=== PATIENT | female | born 1980 | race Caucasian/White ===

== ENCOUNTER → 2018-05-31 07:23 | Outpatient (CLI) | payer OTHER, SELFPAY ==
[2018-05-31 08:34] LABS: Absolute Lymphocyte Count 2.36 X10^3/ul (0.83-4.51); Absolute Neutrophil Count 5.7 X10^3/uL (2.0-7.7); Basophil# 0.04 X10^3/uL; Basophil% 0.4 % (0-1); Eosinophil# 0.48 X10^3/uL; Eosinophils% 5.3 % (0-5); Hematocrit 40.3 % (37-47); Hemoglobin 13.9 g/dl (12.0-15.0); Lymphocyte # 2.36 X10^3/ul (4.0); Lymphocyte % 25.8 % (19-41); Mean Corp Hgb Conc 34.5 g/gl (32-36); Mean Corpuscular Volume 89.8 fL (81-99); Mean Platelet Vol. 11.3 fl (6.2-12.0); Monocyte# 0.52 X10^3/uL; Monocyte% 5.7 % (0-10); Neutrophil # 5.72 X10^3/uL (2.7-7.7); Neutrophil % 62.6 % (47-70); Platelet Count 240 K/mm3 (150-450); RBC Distribution Width CV 13.4 % (11.6-14.6); Red Blood Count 4.49 M/mm3 (4.2-5.4); White Blood Count 9.1 K/mm3 (4.4-11.0)
[2018-05-31 08:38] LABS: POSITIVE COUNT NO; POSITIVE DIFFERENTIAL NO; POSITIVE MORPHOLOGY NO
[2018-05-31 09:02] LABS: AST(SGOT) 13 U/L (15-37); Alanine Aminotransfer ALT/SGPT 19 U/L (13-56); Albumin, Serum 3.7 g/dL (3.2-5.0); Alkaline Phosphatase 56 U/L (45-117); Anion Gap 7 (5-15); BUN 15 mg/dL (7-18); BUN/Creat Ratio 18.2 RATIO (10-20); Calcium,Total 8.9 mg/dL (8.5-10.1); Chloride 105 mmol/L (98-107); Cholesterol 210 mg/dL (200); Creatinine, Serum 0.82 mg/dL (0.55-1.02); EST Glomerular Filtration Rate 83 mL/min (>60); Est Glom Filt Rate - Afr Amer 100 mL/min (>60); Globulin 3.8 g/dL (2.2-4.2); Glucose 83 mg/dL (74-106); High Density Lipoprotein 48 mg/dL; Potassium 3.8 mmol/L (3.5-5.1); Protein, Total 7.5 g/dL (6.4-8.2); Sodium Level 140 mmol/L (136-145); Triglycerides 113 mg/dL; Very Low Density Lipoprotein 23 mg/dL (5-40)
[2018-05-31 09:19] LABS: Vitamin D,25 Hydroxy 50.1 ng/mL (29.95-100.01)
== END ==
PROVIDERS: Family Provider Internal Medicine; PCP Internal Medicine; Referring Provider Internal Medicine; Visit Provider Internal Medicine
DX: Z00.00 Encounter for general adult medical examination without abnormal findings (principal); Z51.81 Encounter for therapeutic drug level monitoring; E78.00 Pure hypercholesterolemia, unspecified; R53.83 Other fatigue
CPT/HCPCS: 36415; 80053; 80061; 82306; 85025

== ENCOUNTER → 2019-06-22 15:14 | Outpatient (CLI) | payer OTHER, SELFPAY ==
[2018-05-30 13:56] VITALS: BMI 29.5
--- NOTE | 2019-06-22 15:19 | RAD_ITS ---
STUDY: X-RAY - LEFT TIBIA AND FIBULA REASON FOR EXAM: Female, 38 years old. Bilateral lower leg pressure for several days. TECHNIQUE: 2 view(s) of the tibia and fibula were obtained. COMPARISON: None. FINDINGS: Normal visualized tibia. Normal visualized fibula. There is no demonstrated acute fracture. The soft tissue structures are unremarkable. RAD/Tibia & Fibula 2 Views IMPRESSION: Normal x-ray examination of the tibia and fibula. Electronically Signed: Kelsea Caal MD at 2:05 EDT , Service support ,
--- NOTE | 2019-06-22 15:19 | RAD_ITS ---
STUDY: X-RAY - RIGHT TIBIA AND FIBULA REASON FOR EXAM: Female, 38 years old. Bilateral lower leg pressure. TECHNIQUE: 2 view(s) of the tibia and fibula were obtained. COMPARISON: None. FINDINGS: Normal visualized tibia. Normal visualized fibula. There is no demonstrated acute fracture. The soft tissue structures are unremarkable. RAD/Tibia & Fibula 2 Views IMPRESSION: Normal x-ray examination of the tibia and fibula. Electronically Signed: Kelsea Caal MD at 2:04 EDT , Service support ,
== END ==
PROVIDERS: Family Provider Internal Medicine; PCP Internal Medicine; Referring Provider Internal Medicine; Visit Provider Internal Medicine
DX: M79.662 Pain in left lower leg (principal); M79.661 Pain in right lower leg
CPT/HCPCS: 73590

== ENCOUNTER → 2019-09-12 09:46 | Outpatient (CLI) | payer OTHER, SELFPAY ==
--- NOTE | 2019-09-12 09:49 | VDLE_ITS ---
Reason For Study: EDEMA RIGHT LEFT GSV is normal. GSV is normal. CFV is compressible, spontaneous, phasic, CFV is compressible, spontaneous, phasic, competent and demonstrates normal competent, and demonstrates normal augmentation. augmentation. FV is compressible, spontaneous, phasic, FV is compressible, spontaneous, phasic, competent and demonstrates normal competent and demonstrates normal augmentation. augmentation. POP V is compressible, spontaneous, phasic, POP V is compressible, spontaneous, phasic, competent and demonstrates normal competent and demonstrates normal augmentation. augmentation. T/P Trunk is compressible. T/P Trunk is compressible. PTV is compressible. PTV is compressible. RT PerV is compressible. LT PerV is compressible. Procedure Exam performed in department. The exam was diagnostic. A preliminary report was called and/or faxed to Dr. De Leon @ [phone] @ 10:25 am. Interpretation Summary Deep veins of the lower extremities are bilaterally patent and compressible segmentally. There is no evidence of deep vein thrombosis on either side. Valvular competence appears intact within the proximal deep venous systems bilaterally. The great saphenous veins appear bilaterally patent and compressible segmentally. Ordering Physician: Jessica De Leon Referring Physician: Jessica De Leon Performed By: Shaina Henderson, RDCS, RVT
== END ==
PROVIDERS: Family Provider Internal Medicine; PCP Internal Medicine; Referring Provider Internal Medicine; Visit Provider Internal Medicine
DX: R60.0 Localized edema (principal)
CPT/HCPCS: 93970

== ENCOUNTER → 2020-02-20 | Outpatient (CLI) | payer OTHER, SELFPAY ==
--- NOTE | 2020-02-20 15:43 | RAD_ITS ---
STUDY: X-RAY - PELVIS AND RIGHT HIP REASON FOR EXAM: Female, 39 years old. PAIN IN RIGHT HIP. NO KNOWN INJURY. TECHNIQUE: 3 views of the pelvis and hip. COMPARISON: None. FINDINGS: There is a non-specific bowel gas pattern. Normal visualized soft tissue structures. Normal bilateral iliac wings, sacroiliac joints and visualized sacrum. Normal bilateral superior and inferior pubic rami. Normal pubic symphysis. Normal bilateral ischial tuberosities. Normal visualized femoral head. Normal acetabulum. Normal hip joint. RAD/HIP, UNI W/ Pelvis 2-3 Views IMPRESSION: Normal x-ray examination of the pelvis and hip. Electronically Signed: Iraj Sotelo MD at 16:10 EDT Tel , Service support ,
== END | disposition home or self-care (01) ==
LOC: HPRAD 15:39
PROVIDERS: PCP Internal Medicine; Referring Provider Nurse Practitioner; Visit Provider Nurse Practitioner
DX: M25.551 Pain in right hip (principal)
CPT/HCPCS: 73502

== ENCOUNTER → 2020-02-25 16:21 | Outpatient (CLI) | payer OTHER, SELFPAY ==
--- NOTE | 2020-02-25 16:24 | US_ITS ---
STUDY: ULTRASOUND OF THE FEMALE PELVIS - COMPLETE REASON FOR EXAM: Female, 39 years old. RT PELVIC PAIN-HARD TO WALK LMP: TECHNIQUE: Transabdominal TECHNICAL QUALITY: Adequate. COMPARISON: June 30, 2017 FINDINGS: The uterus is anteverted and is in a midline position. The uterus measures 8.3 x 5.5 x 2.8 cm. Normal uterine cervix. The endometrium measures 3 mm in thickness, and is hyperechoic. There is no demonstrated endometrial mass. There is no demonstrated myometrial mass. I.U.D. - The patient does not have an I.U.D. The right ovary is visualized. The right ovary measures 3 x 1.8 x 1.2 cm. There is no right ovarian cyst or ovarian mass. There is no visualized right adnexal mass or complex lesion. There is normal arterial and normal venous vascularity. The left ovary is visualized. The left ovary measures 3.7 x 3.2 x 2.3 cm. There is a cyst measuring 2.5 x 2.2 x 1.3 cm. There is no visualized left adnexal mass or complex lesion. There is normal arterial and normal venous vascularity. There is no fluid in the cul-de-sac. The pre void volume of the bladder was 582 ml. Previously noted right ovarian cyst has resolved. The current left ovarian cyst is a new finding US/Pelvic (Non ) IMPRESSION: Small left ovarian cyst measuring 2.5 x 2.2 x 1.3 cm Electronically Signed: Salvador Cintron MD at 18:52 EDT , Service support ,
== END ==
PROVIDERS: PCP Internal Medicine; Referring Provider Nurse Practitioner; Visit Provider Nurse Practitioner
DX: M25.551 Pain in right hip (principal)
CPT/HCPCS: 76856

== ENCOUNTER → 2020-07-15 14:41 | Outpatient (CLI) | payer OTHER, SELFPAY ==
--- NOTE | 2020-07-15 14:42 | BI_ITS ---
MAMMOGRAPHY - BILATERAL SCREENING REASON FOR EXAM: Female, 40 years old. Routine annual screening examination. PERTINENT HISTORY: Aunt with breast cancer. TECHNIQUE: Digital bilateral breast mario (3D mammographic acquisition) in the CC and MLO projections. 2-D mediolateral oblique (MLO) and craniocaudad (CC) views of both breasts were obtained. CAD: Full Field Digital Mammography with Computer Added Detection was performed. COMPARISON: Comparison is made with prior study dated 05/22/2013. FINDINGS: Breast Composition: The breasts are heterogeneously dense, which may obscure small masses. There are no dominant masses or suspicious calcifications. No other significant abnormalities are identified. There has been no significant change since the prior study. BI/SCREEN MAMM (CAD) W/MARIO BILAT IMPRESSION: Stable bilateral screening mammogram. Yearly follow-up mammogram recommended. (A) ASSESSMENT CATEGORY: BIRADS Category 1: Negative. A letter regarding these results will be sent to the patient by the facility within 30 days. Approximately 10% of breast cancers are not detected by mammography. A normal mammogram should not delay biopsy of a clinically suspicious abnormality. [id number] Electronically Signed: Dale Dunne, at 15:50 EST , Service support ,
[2020-07-19 16:53] LABS: HPV APTIMA, High Risk Negative (Negative)
== END ==
PROVIDERS: PCP Internal Medicine; Referring Provider Nurse Practitioner Women's Health; Visit Provider Nurse Practitioner Women's Health
DX: Z12.31 Encounter for screening mammogram for malignant neoplasm of breast (principal); Z12.4 Encounter for screening for malignant neoplasm of cervix
CPT/HCPCS: 77063; 77067; 87624; 88175; G0145

== ENCOUNTER 2020-12-11 14:49 | Outpatient (RCR) | payer OTHER, SELFPAY ==
[2020-10-21 14:52] VITALS: BMI 30.1
== END 2021-02-03 23:59 ==
LOC: IMMUN 14:49
PROVIDERS: PCP Internal Medicine; Visit Provider Family Medicine
DX: Z23 Encounter for immunization (principal)
CPT/HCPCS: 0001A; 0002A; 91300

== ENCOUNTER 2021-11-11 15:19 | Outpatient (CLI) | payer OTHER, SELFPAY ==
--- NOTE | 2021-11-11 15:35 | BI_ITS ---
MAMMOGRAPHY - BILATERAL SCREENING 3-D TOMOSYNTHESIS REASON FOR EXAM: Female, 41 years old. screening PERTINENT HISTORY: No significant family history. TECHNIQUE: 2-D mammograms and 3-D Tomosynthesis of the breast (s) were performed. CAD was performed. COMPARISON: 07/15/2020 FINDINGS: The breast composition is composed of scattered fibroglandular density. Scattered benign calcifications are seen. No dense spiculated masses or suspicious microcalcifications are identified. No architectural distortion is identified. There is no skin thickening or retraction. There has been no significant change since the prior study. BI/SCRN MAMM (CAD)W/MARIO BILAT IMPRESSION: No mammographic signs of malignancy. Routine yearly mammograms recommended. ASSESSMENT CATEGORY: BIRADS Category 1: Negative. A letter regarding these results will be sent to the patient by the facility within 30 days. FOLLOW UP RECOMMENDATION: Yearly follow up mammogram recommended. (A) Approximately 10% of breast cancers are not detected by mammography. A normal mammogram should not delay biopsy of a clinically suspicious abnormality. Electronically Signed: Iraj Sotelo MD at 8:55 EDT ,
== END 2021-11-11 23:59 | disposition home or self-care (01) ==
LOC: OPBI 15:31
PROVIDERS: PCP Internal Medicine; Referring Provider Nurse Practitioner Women's Health; Visit Provider Nurse Practitioner Women's Health
DX: Z12.31 Encounter for screening mammogram for malignant neoplasm of breast (principal)
CPT/HCPCS: 77063; 77067

== ENCOUNTER → 2022-01-27 | Outpatient (CLI) | payer OTHER, SELFPAY ==
[2022-02-05 17:17] LABS: ACHR Recep AB, Blocking 18 % (0-25); Acetylcholine Receptor Binding < 0.03 nmol/L (0.00-0.24)
== END | disposition home or self-care (01) ==
LOC: MTLAB 16:20
PROVIDERS: PCP Internal Medicine; Referring Provider Ophthalmology; Visit Provider Ophthalmology
DX: H02.402 Unspecified ptosis of left eyelid (principal)
CPT/HCPCS: 36415; 83519; 84238

== ENCOUNTER → 2022-02-09 | Outpatient (CLI) | payer OTHER, SELFPAY ==
[2022-02-09 17:05] LABS: Absolute Lymphocyte Count 2.62 X10^3/uL (0.83-4.51); Absolute Neutrophil Count 6.1 X10^3/uL (2.0-7.7); Basophil# 0.07 X10^3/uL; Basophil% 0.7 % (0-1); Eosinophil# 0.17 X10^3/uL; Eosinophils% 1.8 % (0-5); Hematocrit 41.1 % (37-47); Hemoglobin 13.9 g/dL (12.0-15.0); Lymphocyte # 2.62 X10^3/ul (0.83-4.51); Mean Corp Hgb Conc 33.8 g/dL (32-36); Mean Corpuscular Hgb 30.3 pg (27.0-32.0); Mean Corpuscular Volume 89.5 fL (81-99); Mean Platelet Vol. 10.4 fl (6.2-12.0); Monocyte# 0.68 X10^3/uL; NRBC Flagged by Analyzer 0 % (0-5); Neutrophil # 6.12 X10^3/uL (2.7-7.7); Neutrophil % 63.2 % (47-70); Platelet Count 294 K/mm3 (150-450); RBC Distribution Width CV 13.4 % (11.6-14.6); RBC Distribution Width SD 44.3 fl (35.1-43.9); Red Blood Count 4.59 M/mm3 (4.2-5.4); White Blood Count 9.7 K/mm3 (4.4-11.0)
[2022-02-09 17:19] LABS: Erythrocyte Sedimentation Rate 18 mm/hr (0-30)
[2022-02-09 18:00] LABS: ALB/GLOB Ratio 1.1 RATIO (0.9-2.4); AST(SGOT) 17 U/L (15-37); Alanine Aminotransfer ALT/SGPT 26 U/L (13-56); Alkaline Phosphatase 70 U/L (45-117); Anion Gap 6 (5-15); BUN 12 mg/dL (7-18); BUN/Creat Ratio 13.2 RATIO (10-20); CRP 4.38 mg/L (0.0-3.0); Calcium,Total 9.5 mg/dL (8.5-10.1); Chloride 104 mmol/L (98-107); Creatinine, Serum 0.91 mg/dL (0.55-1.02); EST Glomerular Filtration Rate 73 mL/min (>60); Est Glom Filt Rate - Afr Amer 88 mL/min (>60); Globulin 3.7 g/dL (2.2-4.2); Glucose 83 mg/dL (74-106); Potassium 3.6 mmol/L (3.5-5.1); Protein, Total 7.7 g/dL (6.4-8.2); Sodium Level 137 mmol/L (136-145)
[2022-02-11 16:10] LABS: Endomysial Antibody IgA Negative (Negative)
[2022-02-11 21:46] LABS: Immunoglobulin A 153 mg/dL (87-352); t-Transglutaminase IgA <2 U/mL (0-3)
[2022-02-17 00:06] LABS: Anti-Centromere B Ab <0.2 AI (0.0-0.9); Anti-Chromatin <0.2 AI (0.0-0.9); Anti-Jo <0.2 AI (0.0-0.9); Anti-Scleroderma-70 AB <0.2 AI (0.0-0.9); Beef <0.10 kU/L (Class 0); Clam <0.10 kU/L (Class 0); Codfish <0.10 kU/L (Class 0); Corn <0.10 kU/L (Class 0); Egg, White 0.23 kU/L (Class 0/I); Egg, Whole 0.23 kU/L (Class 0/I); Peanut 0.13 kU/L (Class 0/I); Pork <0.10 kU/L (Class 0); RNP Ab <0.2 AI (0.0-0.9); SCALLOP <0.10 kU/L (Class 0); SESAME SEED <0.10 kU/L (Class 0); SJOGREN'S Anti-SS-A test < 0.2 AI (0.0-0.9); SJOGREN'S Anti-SS-B test < 0.2 AI (0.0-0.9); Shrimp <0.10 kU/L (Class 0); Smith Ab <0.2 AI (0.0-0.9); Soybean <0.10 kU/L (Class 0); Walnut, (Food) <0.10 kU/L (Class 0); Wheat <0.10 kU/L (Class 0)
[2022-02-17 12:08] LABS: Anti-dsDNA Ab 1 IU/mL (0-9); Chocolate <0.10 kU/L (Class 0)
== END | disposition home or self-care (01) ==
LOC: LAB 16:12
PROVIDERS: PCP Internal Medicine; Visit Provider Nurse Practitioner Adult Health
DX: R10.13 Epigastric pain (principal); R11.0 Nausea; Z83.79 Family history of other diseases of the digestive system
CPT/HCPCS: 36415; 80053; 82784; 83516; 85025; 85652; 86003; 86005; 86140; 86225; 86235; 86255

== ENCOUNTER → 2022-02-12 | Outpatient (CLI) | payer OTHER, SELFPAY ==
[2022-02-17 12:09] LABS: Calprotectin, Stool 46 ug/g (0-120)
== END | disposition home or self-care (01) ==
LOC: MTLAB 07:14
PROVIDERS: PCP Internal Medicine; Referring Provider Nurse Practitioner Adult Health; Visit Provider Nurse Practitioner Adult Health
DX: R10.13 Epigastric pain (principal); R11.0 Nausea; K58.9 Irritable bowel syndrome, unspecified; Z83.79 Family history of other diseases of the digestive system
CPT/HCPCS: 83630; 83993

== ENCOUNTER → 2022-02-25 | Outpatient (CLI) | payer OTHER, SELFPAY ==
--- NOTE | 2022-02-25 07:20 | US_ITS ---
EXAM: US ABDOMEN LIMITED, RIGHT UPPER QUADRANT CLINICAL INDICATION: postprandial epigastric pain TECHNIQUE: Real-time ultrasound of the right upper quadrant with image documentation. This report was created using [employer] report generation technology. COMPARISON: None. FINDINGS: LIVER: Unremarkable. There is normal echotexture. No focal hepatic lesion. No intrahepatic biliary ductal dilation. GALLBLADDER: Unremarkable. No shadowing gallstone. No gallbladder wall thickening is demonstrated. No pericholecystic fluid. Negative sonographic Husain''s sign. COMMON BILE DUCT: Unremarkable as visualized. The proximal common bile duct is within normal limits for the patient''s age. PANCREAS: Unremarkable as visualized. No focal abnormality is demonstrated in the pancreas. No pancreatic ductal dilatation. RIGHT KIDNEY: Unremarkable. There is no hydronephrosis. No shadowing calculus. No focal lesion or perinephric collection is demonstrated. US/Abdomen Limited IMPRESSION: Normal right upper quadrant ultrasound. Electronically Signed: Newton Romo MD at 8:10 EDT ,
== END | disposition home or self-care (01) ==
LOC: US 07:17
PROVIDERS: PCP Internal Medicine; Referring Provider Nurse Practitioner Adult Health; Visit Provider Nurse Practitioner Adult Health
DX: R10.13 Epigastric pain (principal)
CPT/HCPCS: 76705

== ENCOUNTER → 2022-03-12 | Outpatient (CLI) | payer OTHER, SELFPAY ==
--- NOTE | 2022-03-12 09:46 | NM_ITS ---
Nuclear medicine HIDA scan Indication: Postprandial epigastric pain COMPARISON STUDIES : NM - None. CR - Not available for review at this time. CT - Not available for review at this time. MR - Not available for review at this time. Technique: 5.5 mCi of technetium 99m labeled mebrofenin was injected intravenously followed by standard imaging. 1.6 mcg of CCK was injected intravenously for calculation of gallbladder ejection fraction. Findings: There is homogenous activity throughout the liver. Normal excretion of isotope into the proximal small bowel. Activity in the gallbladder is identified at 10 minutes. Gallbladder ejection fraction measures 94%. NM/Hepatobilliary Img w/Pharm Int IMPRESSION: Normal filling of the gallbladder without evidence of acute cholecystitis or biliary obstruction. Electronically Signed: Bubba Zuniga MD ([place]) at 12:16 EDT ,
== END | disposition home or self-care (01) ==
LOC: NM 09:44
PROVIDERS: PCP Internal Medicine; Referring Provider Nurse Practitioner Adult Health; Visit Provider Nurse Practitioner Adult Health
DX: R10.13 Epigastric pain (principal); R11.0 Nausea
CPT/HCPCS: 78227; A9537; J2805

== ENCOUNTER 2022-05-19 05:24 | Day surgery (SDC) | payer OTHER, SELFPAY ==
[2022-05-19] MEDS: Lactated Ringers 1,000 ML 15 ML IV (05:54)
[2022-05-19 05:56] VITALS: BP 109/64; PULSE 70; RESP 20; TEMP 36.6; O2SAT 100; BMI 32.9
[2022-05-19 06:12] LABS: Internal QC Validated? YES +Cl - CLEAR BKGD; Pregnancy, Serum, hCG Quali. NEGATIVE Negative
--- NOTE | 2022-05-19 06:30 | IMM_PTH ---
PATIENT: L[facility] KENN[facility]Y LOC: EN U#:[id number] AGE/SX: 41/F ROOM: RE05/19/[address]: Dr. Nicholas West DO : 1980 BED: DIS: 05/19/2022 SPEC #: [id number] RECD: 05/19/22 12:57 STATUS: SATNAM REBrayan #: [id number] MANNY: 05/19/22 06:[address]: Nicholas West DEPT: IMMUNOHISTOCHEMISTRY RECD BY: Jacy Alvarez ENTERED: 05/19/22 12:58 SP TYPE: IMMUNO OTHR DR: Dr. Edel Garcia DO Tissues: A - Stomach, NOS B - Esophagus, NOS Procedures: H Pylori (initial) P53 (initial) KI-67 (add) PHYSICIAN & INSTITUTION [place] [id number] SPECIMEN INFORMATION: Tissue Source: A ? Gastric antrum biopsy, B ? Distal esophagus biopsy Clinical Info: Epigastric pain, nausea, inflammatory bowel disease, heartburn Specimen Number: [id number] A & B CPT code: 07300 x2, 26402 METHODOLOGY: Deparaffinized sections of prefer/formalin-fixed tissue or PAP/DQ stained slides are incubated with monoclonal/polyclonal antibodies/oligonucleotide probes. Localization is made via biotin free immunoperoxidase method. Appropriate controls are performed and reacted as expected. Results on target cell population are indicated in the following table: RESULTS: ANTIBODY / CLONE RESULT Block A H Pylori (polyclonal) negative Block B P53 (DO-7) negative Ki-67 (30-9) positive, very low These tests were developed and their performance characteristics determined by [facility]. They may not have been cleared or approved by the U.S. Food and Drug Administration. The FDA has determined that such clearance or approval is not necessary. The above immunohistochemical/dualISH markers are ordered and reviewed by the Pathologist. INTERPRETATION: A. Gastric antrum, biopsy: Negative for Helicobacter pylori organisms. B. Distal esophagus, biopsy: Negative for dysplasia. SJ:jared 05/21/2022
--- NOTE | 2022-05-19 06:30 | COLBX_PTH ---
PATIENT: L[facility]ENN[facility] LOC: EN U#:[id number] AGE/SX: 41/F ROOM: RE05/19/[address]: Dr. Nicholas West DO : 1980 BED: DIS: 05/19/2022 SPEC #: [id number] RECD: 05/19/22 11:25 STATUS: SATNAM PAT #: [id number] MANNY: 05/19/22 06:[address]: Nicholas West DEPT: SURGICAL PATHOLOGY RECD BY: La Walsh ENTERED: 05/19/22 12:39 SP TYPE: COLON BX OTHR DR: Dr. Edel Garcia DO Tissues: A - Gastric mucous membrane B - Esophagus, NOS C - Ileum, NOS D - COLON BIOPSY Procedures: Special Stain Group II Surgery Specimen Level IV Alcian Blue/PAS (control) HEADER OPERATION: Colonoscopy with biopsies, EGD with biopsies ([facility] [place] PRE-OP DIAGNOSIS: Epigastric pain, nausea, inflammatory bowel disease, family history of colon cancer TISSUE SUBMITTED: A ? Gastric antrum biopsy, B ? Distal esophagus biopsy, C ? Terminal ileum biopsy, D ? Random colon biopsy MICROSCOPIC DIAGNOSIS A. Gastric antrum, biopsy: Mild gastritis. See microscopic description and comment. B. Distal esophagus, biopsy: Fragments of gastroesophageal mucosa with focal intestinal metaplasia (goblet cell metaplasia), consistent with Lang?s esophagus. Chronic inflammation. Negative for dysplasia. See comment. C. Terminal ileum, biopsy: A fragment of small intestinal mucosa, no pathologic diagnosis. D. Colon, random biopsy: Fragments of colonic mucosa with a few pigment laden macrophages, consistent with melanosis coli. SJ:rg 05/20/2022 COMMENT A. The results of immunohistochemistry for Helicobacter pylori will be reported separately ([id number]). B. Alcian blue/PAS stain with matched control is used in the evaluation of the specimen. Immunohistochemistry ([id number]) for P53 and Ki-67 will be performed and results will be reported separately. MICROSCOPIC DESCRIPTION Slides are reviewed. A. The specimen shows fragments of gastric mucosa with chronic inflammatory cell infiltrates in the lamina propria consisting of lymphocytes and plasma cells, consistent with mild chronic gastritis. GROSS DESCRIPTION A - Received in fixative is one container labeled with the patient's name and designated gastric antrum biopsy. The specimen consists of two irregular fragments of light mccain soft tissue that in aggregate measure 0.6 x 0.3 x 0.1 cm. The specimen is totally submitted in one cassette. B - Received in fixative is one container labeled with the patient's name and designated distal esophagus biopsy. The specimen consists of two irregular fragments of light mccain soft tissue that in aggregate measure 1 x 0.3 x 0.1 cm. The specimen is totally submitted in one cassette. C - Received in fixative is one container labeled with the patient's name and designated terminal ileum biopsy. The specimen consists of one irregular fragment of light mccain soft tissue that measures 0.5 x 0.3 x 0.1 cm. The specimen is totally submitted in one cassette. D - Received in fixative is one container labeled with the patient's name and designated random colon biopsy. The specimen consists of multiple irregular fragments of light mccain soft tissue that in aggregate measure 1.5 x 0.5 x 0.1 cm. The specimen is totally submitted in one cassette. / SJ:rg 05/19/2022 TC:5 CPT: 55472 x4, 75389
--- NOTE | 2022-05-19 07:19 | PCM.HP.BLA ---
History and Physical Date of Admission: 05/19/[address], is a 41 F who presents to the office today for: wants to schedule screening colonoscopy She had a screening colonoscopy age 26, benign. Maternal grandmother age 62 of colon cancer. Maternal great-grandmother also had colon cancer. Father had colon tumor removed, no further treatment needed, no further info known. Father has ulcerative colitis. Sister has microscopic colitis. Mother has hiatal hernia, GERD. Daughter has GERD, she is 17 yrs old, she takes pantoprazole 40 mg daily, all the enamel was worn off her teeth. Nephew has esophageal stenosis. One sister has a double colon; has polyps age 40. Patient gets excruciating pain when she eats lettuce, eggs, broccoli, some berries. Pain is across upper abdomen, feels like spasms. Also gets nausea. Starts w/in one hour of consuming the ingredient. Can be calmed down by drinking a Coke. Hot bath can help. Might have looser stools the next day. No treatment yet for the abd pain. Started maybe 5-6 yrs ago. Pt has intermittent heartburn, take PPI prn, maybe once every 2 wks. No difficulty swallowing. Intermittent nausea suddenly even w/o the abd pain, better after a snack. No vomiting or hematemesis. Occas stool softener. Can go several days w/o BM, that's normal for her. Gets diarrhea on antibiotics. No melena or hematochezia. Has venous insufficiency bilat LE, takes diuretic prn, attributed to being in breech position for one month prior to being born. She has some seasonal allergies. ROS Const Constitutional: Positive for fatigue ENT ENT: No difficulty swallowing Gastro GI: Positive for abdominal pain, bloating, diarrhea, heartburn, excessive flatus and Blood in stool; No belching, change in bowel habits, change in stool character, coffee ground emesis, constipation, cramping, difficulty swallowing, feeling full early, incontinent of stools, Vomiting blood/hematemesis, loose stools, Black,tarry stools, nausea/dyspepsia, pain with swallowing, vomiting or other Musc Musculoskeletal: Positive for numbness and tingling; No joint pain Skin Skin: No yellowing of the eye or itchy eyes Neuro Neurology: Positive for numbness and tingling Psych Psychiatric: No anxiety and No depression Endo Endocrine: Positive for fatigue Aller/Imm Allergy/Immunologic: No itchy eyes Chris/Lymp Hematologic/Lymphatic: No easy bleeding or easy bruising Exam Const General: cooperative, healthy appearing, comfortable, well developed and well groomed Eyes General: appearance normal, both eyes and all related structures Resp Effort & Inspection: normal respiratory effort GI Inspection: normal to inspection Palpation: soft, no hepatosplenomegaly, no hepatosplenomegaly and tender in the epigastrum and in the RUQ Skin General: no jaundice Neuro Speech: speech normal Gait: normal gait Psych Mood: euthymic mood Affect: normal affect Quality Reporting Tobacco Screening ([facility] 138) Smoking Status: Current every day smoker Assessment and Plan Assessment and Plan (1) Epigastric pain: ?Status:?Acute (2) Nausea: ?Status:?Acute (3) FH: inflammatory bowel disease: ?Status:?Acute (4) Heartburn: ?Status:?Acute (5) Family history of colon cancer: ?Status:?Acute ? ? ? Orders:?Orders: ? Allergen, Rast Food Profile Today R10.13, R11.0 ? ? Allergen, Food Profile Today R10.13, R11.0 ? ? Celiac Disease Profile Today R10.13, R11.0, Z83.79 ? ? Comprehensive Metabolic Profil Today R10.13, R11.0, Z83.79 ? ? CRP Today R10.13, R11.0, Z83.79 ? ? CBC W/Diff, Automated Today R10.13, R11.0, Z83.79 ? ? Erythrocyte Sed Rate Today R10.13, R11.0, Z83.79 ? ? FARZAD Comprehensive Panel Today R10.13, R11.0, Z83.79 ? ? Calprotectin, Stool Today R10.13, R11.0, Z83.79 ? ? Stool Lactoferrin/WBC Today R10.13, R11.0, Z83.79 ?Plan - Renetta Strong ASSISTANT TRACK COACH, ASSISTANT TRACK COACH-C: 41-year-old female with severe epigastric pain and nausea secondary to eating certain foods specifically lettuce, broccoli, eggs, berries.? This is sometimes followed by loose stools.? She has intermittent heartburn, tends to have constipation, positive family history of colon cancer, positive family history inflammatory bowel disease.? We will evaluate her for food allergies, celiac disease, autoimmune disorders, IBD.? Based on results we will decide what imaging might be warranted.? May need to evaluate for gallbladder disease, pancreatitis and/or pancreatic insufficiency.? We will schedule first available follow-up which is approximately 6 weeks out.? We will schedule her for upper and lower endoscopy, to be followed by 2-week follow-up to discuss biopsy results. I have re-examined the patient. There are no clinical changes since date of exam.
[2022-05-19 07:21] VITALS: BP 109/64; BP 112/7; PULSE 59; RESP 16; TEMP 36.3; O2SAT 100
--- NOTE | 2022-05-19 07:23 | OP.EGD_ITS ---
Patient Name: Bessie Jiang Procedure Date: 05/19/2022 6:14 AM Date of : 1980 Age: 41 Procedure: Upper GI endoscopy Indications: Epigastric abdominal pain Providers: Nicholas West DO Medicines: Monitored Anesthesia Care Patient Profile: This is a 41 year old female. Refer to note in patient chart for documentation of history and physical. Patient has symptoms of acute abdominal cramping and chronic epigastric abdominal pain. Complications: No immediate complications. Procedure: Pre-Anesthesia Assessment: - Prior to the procedure, a History and Physical was performed, and patient medications and allergies were reviewed. The risks and benefits of the procedure and the sedation options and risks were discussed with the patient. All questions were answered and informed consent was obtained. Patient identification and proposed procedure were verified by the physician in the pre-procedure area. Mental Status Examination: alert and oriented. Airway Examination: normal oropharyngeal airway and neck mobility. Respiratory Examination: clear to auscultation. CV Examination: normal. Prophylactic Antibiotics: The patient does not require prophylactic antibiotics. Prior Anticoagulants: The patient has taken no previous anticoagulant or antiplatelet agents. ASA Grade Assessment: II - A patient with mild systemic disease. After reviewing the risks and benefits, the patient was deemed in satisfactory condition to undergo the procedure. The anesthesia plan was to use monitored anesthesia care (MAC). Immediately prior to administration of medications, the patient was re-assessed for adequacy to receive sedatives. The heart rate, respiratory rate, oxygen saturations, blood pressure, adequacy of pulmonary ventilation, and response to care were monitored throughout the procedure. The physical status of the patient was re-assessed after the procedure. After obtaining informed consent, the endoscope was passed under direct vision. Throughout the procedure, the patient's blood pressure, pulse, and oxygen saturations were monitored continuously. The was introduced through the mouth, and advanced to the second part of duodenum. The upper GI endoscopy was accomplished without difficulty. The patient tolerated the procedure well. Scope In: 6:53:59 AM Scope Out: 7:00:40 AM Total Procedure Duration Time 0 hours 6 minutes 41 seconds Findings: The Z-line was irregular and was found 37 cm from the incisors. Biopsies were taken with a cold forceps for histology. Verification of patient identification for the specimen was done. Estimated blood loss was minimal. A small hiatal hernia was present. Localized moderate inflammation characterized by erosions and erythema was found in the gastric antrum. Biopsies were taken with a cold forceps for histology. Verification of patient identification for the specimen was done. Estimated blood loss was minimal. No gross lesions were noted in the second portion of the duodenum. Impression: - Z-line irregular, 37 cm from the incisors. Biopsied. - Small hiatal hernia. - Chronic gastritis. Biopsied. - No gross lesions in the second portion of the duodenum. Recommendation: - Discharge patient to home. - Resume previous diet. - Continue present medications. - Await pathology results. Procedure Code(s): --- Professional --- 72590, Esophagogastroduodenoscopy, flexible, transoral; with biopsy, single or multiple CPT copyright 2017 [employer]. All rights reserved. The codes documented in this report are preliminary and upon rubber ball finisher review may be revised to meet current compliance requirements. Nicholas West DO 05/19/2022 7:23:08 AM This report has been signed electronically. Number of Addenda: 0 Note Initiated On: 05/19/2022 6:14 AM
[2022-05-19 07:24] VITALS: BP 109/64; BP 113/73; PULSE 60; RESP 16; O2SAT 99
--- NOTE | 2022-05-19 07:24 | OP.CCLET_ITS ---
05/19/2022 Edel Garcia [address] [place] [address] Re : Upper GI endoscopy procedure for Bessie Jiang Dear Dr. Garcia This procedure was performed on Thursday, May 19, 2022. My impressions and recommendations are as follows: Impressions : - Z-line irregular, 37 cm from the incisors. Biopsied. - Small hiatal hernia. - Chronic gastritis. Biopsied. - No gross lesions in the second portion of the duodenum. Recommendations : - Discharge patient to home. - Resume previous diet. - Continue present medications. - Await pathology results. My findings are described in the full procedure note, which is enclosed. If I can be of further assistance, please feel free to contact me at . Sincerely, Nicholas West, 05/19/2022 7:23:08 AM This report has been signed electronically.
[2022-05-19 07:29] VITALS: BP 103/67; BP 109/64; PULSE 55; RESP 16; O2SAT 100
--- NOTE | 2022-05-19 07:29 | OP.CCLET_ITS ---
05/19/2022 Edel Garcia [address] [place] [address] Re : Colonoscopy procedure for Bessie Jiang Dear Dr. Garcia This procedure was performed on Thursday, May 19, 2022. My impressions and recommendations are as follows: Impressions : - Congested mucosa in the sigmoid colon and in the ascending colon. Biopsied. - A few ulcers in the terminal ileum. Biopsied. Recommendations : - Discharge patient to home. - Resume previous diet. - Continue present medications. - Await pathology results. - Repeat colonoscopy in 5 years for surveillance. My findings are described in the full procedure note, which is enclosed. If I can be of further assistance, please feel free to contact me at . Sincerely, Nicholas West, 05/19/2022 7:28:45 AM This report has been signed electronically.
--- NOTE | 2022-05-19 07:29 | OP.COLON_ITS ---
Patient Name: Bessie Jiang Procedure Date: 05/19/2022 7:00 AM Date of : 1980 Age: 41 Procedure: Colonoscopy Indications: Epigastric abdominal pain, Generalized abdominal pain, Family history of colon cancer in a first-degree relative Providers: Nicholas West DO Medicines: Monitored Anesthesia Care Patient Profile: This is a 41 year old female. Refer to note in patient chart for documentation of history and physical. Patient has symptoms of acute abdominal cramping and chronic epigastric abdominal pain. Last Colonoscopy: none. The patient's first colonoscopy is today. Complications: No immediate complications. Procedure: Pre-Anesthesia Assessment: - Prior to the procedure, a History and Physical was performed, and patient medications and allergies were reviewed. The risks and benefits of the procedure and the sedation options and risks were discussed with the patient. All questions were answered and informed consent was obtained. Patient identification and proposed procedure were verified by the physician in the pre-procedure area. Mental Status Examination: alert and oriented. Airway Examination: normal oropharyngeal airway and neck mobility. Respiratory Examination: clear to auscultation. CV Examination: normal. Prophylactic Antibiotics: The patient does not require prophylactic antibiotics. Prior Anticoagulants: The patient has taken no previous anticoagulant or antiplatelet agents. ASA Grade Assessment: II - A patient with mild systemic disease. After reviewing the risks and benefits, the patient was deemed in satisfactory condition to undergo the procedure. The anesthesia plan was to use monitored anesthesia care (MAC). Immediately prior to administration of medications, the patient was re-assessed for adequacy to receive sedatives. The heart rate, respiratory rate, oxygen saturations, blood pressure, adequacy of pulmonary ventilation, and response to care were monitored throughout the procedure. The physical status of the patient was re-assessed after the procedure. After I obtained informed consent, the scope was passed under direct vision. Throughout the procedure, the patient's blood pressure, pulse, and oxygen saturations were monitored continuously. The adult colonoscope was introduced through the anus and advanced to the terminal ileum. The colonoscopy was performed without difficulty. The patient tolerated the procedure well. The quality of the bowel preparation was good. Scope In: 7:02:44 AM Scope Withdrawal Time 0 hours 9 minutes 48 seconds Scope Out: 7:16:36 AM Total Procedure Duration Time 0 hours 13 minutes 52 seconds Findings: The perianal and digital rectal examinations were normal. An area of mildly congested mucosa was found in the sigmoid colon and in the ascending colon. Biopsies were taken with a cold forceps for histology. Verification of patient identification for the specimen was done. Estimated blood loss was minimal. The terminal ileum contained a few six mm ulcers. No bleeding was present. Biopsies were taken with a cold forceps for histology. Verification of patient identification for the specimen was done. Estimated blood loss was minimal. Impression: - Congested mucosa in the sigmoid colon and in the ascending colon. Biopsied. - A few ulcers in the terminal ileum. Biopsied. Recommendation: - Discharge patient to home. - Resume previous diet. - Continue present medications. - Await pathology results. - Repeat colonoscopy in 5 years for surveillance. Procedure Code(s): --- Professional --- 45915, Colonoscopy, flexible; with biopsy, single or multiple CPT copyright 2017 [employer]. All rights reserved. The codes documented in this report are preliminary and upon ripsaw grader review may be revised to meet current compliance requirements. Nicholas West DO 05/19/2022 7:28:45 AM This report has been signed electronically. Number of Addenda: 0 Note Initiated On: 05/19/2022 7:00 AM
[2022-05-19 07:35] VITALS: BP 109/64; BP 97/69; PULSE 72; RESP 16; TEMP 36.7; O2SAT 100
[2022-05-19 07:37] VITALS: BP 109/64
== END 2022-05-19 08:10 | disposition home or self-care (01) ==
LOC: EN 05:25 → AC 05:27
PROVIDERS: Anesthesiology; PCP Internal Medicine; Referring Provider Internal Medicine; Visit Provider Internal Medicine Gastroenterology
PROC: 0DJD8ZZ Inspection of Lower Intestinal Tract, Via Natural or Artificial Opening Endoscopic (ICD-10-PCS; CPT 45378; principal; 2022-05-19 06:25)
DX: K29.50 Unspecified chronic gastritis without bleeding (principal); K63.3 Ulcer of intestine; K22.70 Barrett's esophagus without dysplasia; K63.89 Other specified diseases of intestine; K44.9 Diaphragmatic hernia without obstruction or gangrene; F17.200 Nicotine dependence, unspecified, uncomplicated; Z80.0 Family history of malignant neoplasm of digestive organs; Z86.16 Personal history of COVID-19
CPT/HCPCS: 45380; 43239; 84703; 88305; 88313; 88341; 88342; J7120; J2405

== ENCOUNTER → 2022-06-02 | Outpatient (CLI) | payer OTHER, SELFPAY ==
[2022-06-02 15:29] LABS: AST(SGOT) 20 U/L (15-37); Alanine Aminotransfer ALT/SGPT 26 U/L (13-56); Alkaline Phosphatase 72 U/L (45-117); Amylase 65 U/L (25-115); Bilirubin, Direct 0.08 mg/dL (0.00-0.30); Globulin 3.8 g/dL (2.2-4.2); LDH 202 U/L (84-246); Lipase 157 U/L (73-393); Protein, Total 7.8 g/dL (6.4-8.2)
[2022-06-11 19:07] LABS: Cytoplasmic Ab (C-ANCA) <1:20 titer (Neg:<1:20); Immunoglobulin A 158 mg/dL (87-352); Immunoglobulin E 237 IU/mL (6-495); Immunoglobulin G 906 mg/dL (586-1602); Immunoglobulin M 216 mg/dL (26-217)
[2022-06-12 12:03] LABS: Perinuclear Ab (P-ANCA) <1:20 titer (Neg:<1:20)
== END | disposition home or self-care (01) ==
LOC: LAB 14:30
PROVIDERS: PCP Internal Medicine; Visit Provider Nurse Practitioner Adult Health
DX: R10.13 Epigastric pain (principal); K29.70 Gastritis, unspecified, without bleeding
CPT/HCPCS: 36415; 80076; 82150; 82784; 82785; 83615; 83690; 86256

== ENCOUNTER → 2022-06-09 | Outpatient (CLI) | payer OTHER, SELFPAY ==
[2022-06-12 13:53] LABS: Fats, Neutral Normal (.); Fats, Total Normal (.)
[2022-06-14 13:52] LABS: Pancreatic Elastase, Fecal 245 (>200)
== END | disposition home or self-care (01) ==
LOC: MTLAB 07:30
PROVIDERS: PCP Internal Medicine; Referring Provider Nurse Practitioner Adult Health; Visit Provider Nurse Practitioner Adult Health
DX: R10.13 Epigastric pain (principal)
CPT/HCPCS: 82653; 82705

== ENCOUNTER → 2022-11-12 | Outpatient (CLI) | payer OTHER, SELFPAY ==
--- NOTE | 2022-11-12 07:13 | BI_ITS ---
MAMMOGRAPHY - BILATERAL SCREENING 3-D TOMOSYNTHESIS REASON FOR EXAM: Female, 42 years old. Routine screening PERTINENT HISTORY: No significant family history. TECHNIQUE: 2-D mammograms and 3-D Tomosynthesis of the breast (s) were performed. CAD was performed. COMPARISON: 11/11/2021 FINDINGS: The breast composition is composed of scattered fibroglandular density. Scattered benign calcifications are seen. No dense spiculated masses or suspicious microcalcifications are identified. No architectural distortion is identified. There is no skin thickening or retraction. There has been no significant change since the prior study. BI/SCRN MAMM (CAD)W/MARIO BILAT IMPRESSION: No mammographic signs of malignancy. Routine yearly mammograms recommended. ASSESSMENT CATEGORY: BIRADS Category 2: Benign. A letter regarding these results will be sent to the patient by the facility within 30 days. FOLLOW UP RECOMMENDATION: Yearly follow up mammogram recommended. (A) Approximately 10% of breast cancers are not detected by mammography. A normal mammogram should not delay biopsy of a clinically suspicious abnormality. Electronically Signed: Carlos Garcia MD at 8:15 EDT ,
[2022-11-12 07:16] LABS: Absolute Lymphocyte Count 1.95 X10^3/uL (0.83-4.51); Absolute Neutrophil Count 7.1 X10^3/uL (2.0-7.7); Basophil# 0.07 X10^3/uL; Basophil% 0.7 % (0-1); Eosinophil# 0.17 X10^3/uL; Eosinophils% 1.7 % (0-5); Hematocrit 37.2 % (37-47); Hemoglobin 11.9 g/dL (12.0-15.0); Lymphocyte # 1.95 X10^3/ul (0.83-4.51); Lymphocyte % 19.3 % (19-41); Mean Corpuscular Hgb 28.7 pg (27.0-32.0); Mean Corpuscular Volume 89.6 fL (81-99); Mean Platelet Vol. 9.8 fl (6.2-12.0); Monocyte# 0.71 X10^3/uL; NRBC Flagged by Analyzer 0 % (0-5); Neutrophil # 7.14 X10^3/uL (2.7-7.7); Neutrophil % 70.9 % (47-70); Platelet Count 285 K/mm3 (150-450); RBC Distribution Width CV 13.9 % (11.6-14.6); RBC Distribution Width SD 45.7 fl (35.1-43.9); Red Blood Count 4.15 M/mm3 (4.2-5.4); White Blood Count 10.1 K/mm3 (4.4-11.0)
[2022-11-12 08:13] LABS: ALB/GLOB Ratio 0.9 RATIO (0.9-2.4); AST(SGOT) 15 U/L (15-37); Alanine Aminotransfer ALT/SGPT 28 U/L (13-56); Albumin, Serum 3.3 g/dL (3.2-5.0); Alkaline Phosphatase 78 U/L (45-117); Anion Gap 6 (5-15); BUN 14 mg/dL (7-18); BUN/Creat Ratio 20.3 RATIO (10-20); Calcium,Total 8.6 mg/dL (8.5-10.1); Chloride 109 mmol/L (98-107); Cholesterol 209 mg/dL (200); Creatinine, Serum 0.69 mg/dL (0.55-1.02); EST Glomerular Filtration Rate 99 mL/min (>60); Est Glom Filt Rate - Afr Amer 120 mL/min (>60); Globulin 3.8 g/dL (2.2-4.2); Glucose 100 mg/dL (74-106); High Density Lipoprotein 51 mg/dL; Potassium 4.1 mmol/L (3.5-5.1); Protein, Total 7.1 g/dL (6.4-8.2); Sodium Level 142 mmol/L (136-145); Triglycerides 135 mg/dL; Very Low Density Lipoprotein 27 mg/dL (5-40)
== END | disposition home or self-care (01) ==
PROVIDERS: Nurse Practitioner Family; PCP Internal Medicine; Referring Provider Nurse Practitioner Women's Health; Visit Provider Nurse Practitioner Women's Health
DX: Z12.31 Encounter for screening mammogram for malignant neoplasm of breast (principal); F41.9 Anxiety disorder, unspecified; Z13.220 Encounter for screening for lipoid disorders
CPT/HCPCS: 36415; 77063; 77067; 80053; 80061; 85025

== ENCOUNTER → 2023-03-07 | Outpatient (CLI) | payer OTHER, SELFPAY ==
[2023-03-07 15:38] LABS: Absolute Lymphocyte Count 2.15 X10^3/uL (0.83-4.51); Absolute Neutrophil Count 8.1 X10^3/uL (2.0-7.7); Basophil# 0.04 X10^3/uL; Basophil% 0.4 % (0-1); Eosinophils% 1.8 % (0-5); Hematocrit 36.8 % (37-47); Hemoglobin 11.5 g/dL (12.0-15.0); Lymphocyte # 2.15 X10^3/ul (0.83-4.51); Lymphocyte % 19.6 % (19-41); Mean Corp Hgb Conc 31.3 g/dL (32-36); Mean Corpuscular Hgb 28.5 pg (27.0-32.0); Mean Corpuscular Volume 91.1 fL (81-99); Mean Platelet Vol. 10.6 fl (6.2-12.0); Monocyte# 0.47 X10^3/uL; Monocyte% 4.3 % (0-10); NRBC Flagged by Analyzer 0 % (0-5); Neutrophil # 8.08 X10^3/uL (2.7-7.7); Neutrophil % 73.5 % (47-70); Platelet Count 341 K/mm3 (150-450); RBC Distribution Width SD 50.1 fl (35.1-43.9); RET-HE 31.1 pg (30-35); Red Blood Count 4.04 M/mm3 (4.2-5.4); Reticulocyte Count 2.54 % (0.5-1.5)
[2023-03-07 16:07] LABS: ALB/GLOB Ratio 0.8 RATIO (0.9-2.4); AST(SGOT) 16 U/L (15-37); Alanine Aminotransfer ALT/SGPT 22 U/L (13-56); Albumin, Serum 3.4 g/dL (3.2-5.0); Alkaline Phosphatase 80 U/L (45-117); Anion Gap 5 (5-15); BUN 13 mg/dL (7-18); BUN/Creat Ratio 16.3 RATIO (10-20); Calcium,Total 9.1 mg/dL (8.5-10.1); Chloride 108 mmol/L (98-107); EST Glomerular Filtration Rate 84 mL/min (>60); Est Glom Filt Rate - Afr Amer 101 mL/min (>60); Ferritin 12 ng/mL (8-252); Globulin 4.1 g/dL (2.2-4.2); Glucose 79 mg/dL (74-106); Iron 42 ug/dL (50-170); Iron Binding Capacity,Total 459 ug/dL (250-450); PERCENT IRON SATURATION 9.2 % (15.0-55.0); Potassium 3.8 mmol/L (3.5-5.1); Protein, Total 7.5 g/dL (6.4-8.2); Sodium Level 139 mmol/L (136-145)
[2023-03-07 16:16] LABS: Erythrocyte Sedimentation Rate 20 mm/hr (0-30)
== END | disposition home or self-care (01) ==
LOC: MTLAB 11:52
PROVIDERS: PCP Internal Medicine; Referring Provider Nurse Practitioner Family; Visit Provider Nurse Practitioner Family
DX: I87.2 Venous insufficiency (chronic) (peripheral) (principal)
CPT/HCPCS: 36415; 80053; 82728; 83540; 83550; 85025; 85045; 85652; 86140

== ENCOUNTER → 2023-04-22 | Outpatient (CLI) | payer OTHER, SELFPAY ==
--- NOTE | 2023-04-22 08:55 | VDLE_ITS ---
Version 2 Reason For Study: BLE Swelling RIGHT LEFT CFV is compressible, spontaneous, phasic, CFV is compressible, spontaneous, phasic, competent and demonstrates normal competent, and demonstrates normal augmentation. augmentation. FV is compressible, spontaneous, phasic, FV is compressible, spontaneous, phasic, competent and demonstrates normal competent and demonstrates normal augmentation. augmentation. POP V is compressible, spontaneous, phasic, POP V is compressible, spontaneous, phasic, competent and demonstrates normal competent and demonstrates normal augmentation. augmentation. T/P Trunk is compressible. T/P Trunk is compressible. PTV is compressible. PTV is compressible. RT PerV is compressible. LT PerV is compressible. SFJ is INCOMPETENT and measures 0.58 cm. SFJ is competent and measures 0.57 cm. GSV proximal thigh measures 0.37 x 0.35 cm. GSV proximal thigh measures 0.65 x 0.58 cm. GSV above knee is INCOMPETENT for greater GSV at knee measures 0.55 x 0.51 cm. than 0.5 seconds. GSV is competent throughout. GSV at knee measures 0.51 x 0.50 cm. SSV proximal calf is competent and measures GSV below knee is competent. 0.25 x 0.26 cm. SSV proximal calf is competent and measures 0.31 x 0.34 cm. Procedure Exam performed in department. The exam was diagnostic. VL/Venous Duplex US - Maximilian Extrem Interpretation Summary Deep veins of the bilateral lower extremities are patent and compressible segme ntally. There is no evidence of bilateral lower extremity deep vein thrombosis. The bilateral great saphenous veins appear patent and compressible segmentally. Positive for reflux in the right saphenofemoral junction and right great saphen ous vein above the knee Ordering Physician: Kirstie Hurd Referring Physician: Edel Garcia M.D. Performed By: Maldonado Mac RVT
== END | disposition home or self-care (01) ==
LOC: CVS 08:54
PROVIDERS: PCP Internal Medicine; Referring Provider Physician Assistant; Visit Provider Physician Assistant
DX: M79.606 Pain in leg, unspecified (principal); R60.0 Localized edema
CPT/HCPCS: 93970

== ENCOUNTER → 2023-07-08 | Outpatient (CLI) | payer OTHER, SELFPAY ==
--- NOTE | 2023-07-08 14:23 | BI_ITS ---
MAMMOGRAPHY - UNILATERAL DIAGNOSTIC: RIGHT BREAST REASON FOR EXAM: Female, 42 years old. 2 week history of palpable lump in the deep inferior medial aspect of the right breast. PERTINENT HISTORY: Aunt with breast cancer. TECHNIQUE: Digital unilateral breast leroy (3D mammographic acquisition) in the CC and MLO projections. 2-D mediolateral oblique (MLO) and craniocaudad (CC) views of both breasts were obtained. Exaggerated craniocaudad projection of the right breast was obtained as well. CAD: Full Field Digital Mammography with Computer Added Detection was performed. COMPARISON: Comparison is made with prior study dated November 12, 2022. FINDINGS: Breast Composition: There are scattered areas of fibroglandular density. There are no dominant masses or suspicious calcifications. Stable small benign-appearing axillary lymph nodes. No other significant abnormalities are identified. There has been no significant change since the prior study. BI/DIAG MAMM W/CAD, UNILAT IMPRESSION: Stable unilateral diagnostic mammogram. With the patient''s history of a palpable lump in the deep inferior medial aspect of the right breast, correlation with ultrasound is recommended. ASSESSMENT CATEGORY: BIRADS Category 0: Incomplete. Need additional imaging evaluation. A letter regarding these results will be sent to the patient by the facility within 30 days. Approximately 10% of breast cancers are not detected by mammography. A normal mammogram should not delay biopsy of a clinically suspicious abnormality. Electronically Signed: Dale Dunne MD at 15:12 EST ,
--- NOTE | 2023-07-08 14:23 | US_ITS ---
STUDY: ULTRASOUND BREAST - RIGHT REASON FOR EXAM: Female, 42 years old. 2 week history of right breast lump. TECHNIQUE: Axial and longitudinal images of the RIGHT breast were performed with a high resolution ultrasound transducer. # OF IMAGES: 21 COMPARISON: Comparison is made with prior mammogram dated July 08, 2023. FINDINGS: RIGHT Breast: The palpable lump corresponds to a 1.2 cm x 0.8 cm echogenic nodule just deep to the skin surface at the 11:00 position in the breast at 8 cm from nipple. This most likely represents a small lipoma or possible sebaceous cyst. Clinical correlation is recommended. US/Breast Limited Unilateral IMPRESSION: The palpable lump corresponds to 1.2 cm x 0.8 cm echogenic nodule just deep to the skin surface. This may represent either a lipoma or sebaceous cyst. ASSESSMENT CATEGORY: BIRADS Category 2: Benign. A letter regarding these results will be sent to the patient by the facility within 30 days. Electronically Signed: Dale Dunne MD at 8:41 EST ,
== END | disposition home or self-care (01) ==
LOC: OPBI 14:22
PROVIDERS: PCP Internal Medicine; Referring Provider Nurse Practitioner Women's Health; Visit Provider Nurse Practitioner Women's Health
DX: N63.10 Unspecified lump in the right breast, unspecified quadrant (principal)
CPT/HCPCS: 76642; 77061; 77065; G0279

== ENCOUNTER → 2023-08-04 | Outpatient (CLI) | payer OTHER, SELFPAY ==
--- NOTE | 2023-08-04 11:54 | US_ITS ---
STUDY: ULTRASOUND BREAST - RIGHT REASON FOR EXAM: Female, 43 years old. 3 follow-up of right breast lesion. TECHNIQUE: Axial and longitudinal images of the RIGHT breast were performed with a high resolution ultrasound transducer. # OF IMAGES: 21 COMPARISON: Comparison is made with prior sonogram dated July 08, 2023. FINDINGS: RIGHT Breast: The previously seen hypoechoic nodule at the 4:00 position in the breast has decreased in size. It presently measures 8 mm x 10 mm x 7 mm. This is at the 4 clock position of the breast at 8 cm from the nipple . US/Breast Limited Unilateral IMPRESSION: Interval decrease in size of the nodule. Biopsy was not performed. ASSESSMENT CATEGORY: BIRADS Category 2: Benign. A letter regarding these results will be sent to the patient by the facility within 30 days. Electronically Signed: Dale Dunne MD at 15:22 EST ,
== END | disposition home or self-care (01) ==
LOC: OPUS 11:54
PROVIDERS: PCP Internal Medicine; Referring Provider Surgery; Visit Provider Surgery
DX: N63.14 Unspecified lump in the right breast, lower inner quadrant (principal)
CPT/HCPCS: 76642

== ENCOUNTER → 2023-08-17 | Outpatient (CLI) | payer OTHER, SELFPAY ==
--- NOTE | 2023-08-17 14:56 | US_ITS ---
STUDY: ULTRASOUND BREAST - RIGHT REASON FOR EXAM: Female, 43 years old. Two-week follow-up examination. TECHNIQUE: Axial and longitudinal images of the RIGHT breast were performed with a high resolution ultrasound transducer. # OF IMAGES: 39 COMPARISON: Comparison is made with prior ultrasound of the right breast dated August 04, 2023. FINDINGS: RIGHT Breast: The inferior medial aspect of the right breast was examined with ultrasound. The previously seen echogenic nodule has decreased in size. It presently measures 2 mm x 3 mm. This is just deep to the skin line. This most likely represents an infected sebaceous cyst. US/Breast Limited Unilateral IMPRESSION: Findings suggestive of an infected sebaceous cyst. ASSESSMENT CATEGORY: BIRADS Category 2: Benign. A letter regarding these results will be sent to the patient by the facility within 30 days. Electronically Signed: Dale Dunne MD at 8:17 EST ,
== END | disposition home or self-care (01) ==
LOC: OPUS 14:55
PROVIDERS: PCP Internal Medicine; Referring Provider Physician Assistant; Visit Provider Physician Assistant
DX: Z98.890 Other specified postprocedural states (principal)
CPT/HCPCS: 76642

== ENCOUNTER → 2023-10-17 | Outpatient (CLI) | payer OTHER, SELFPAY ==
[2023-10-17 18:02] LABS: Absolute Lymphocyte Count 2.75 X10^3/uL (0.83-4.51); Basophil# 0.05 X10^3/uL; Basophil% 0.4 % (0-1); Eosinophil# 1.46 X10^3/uL; Eosinophils% 12.2 % (0-5); Hematocrit 35.1 % (37-47); Hemoglobin 11.2 g/dL (12.0-15.0); Lymphocyte # 2.75 X10^3/ul (0.83-4.51); Mean Corp Hgb Conc 31.9 g/dL (32-36); Mean Corpuscular Hgb 27.9 pg (27.0-32.0); Mean Corpuscular Volume 87.3 fL (81-99); Mean Platelet Vol. 10.5 fl (6.2-12.0); Monocyte# 0.73 X10^3/uL; Monocyte% 6.1 % (0-10); NRBC Flagged by Analyzer 0 % (0-5); Neutrophil # 6.95 X10^3/uL (2.7-7.7); Platelet Count 304 K/mm3 (150-450); RBC Distribution Width SD 44.8 fl (35.1-43.9); Red Blood Count 4.02 M/mm3 (4.2-5.4)
[2023-10-17 18:29] LABS: ALB/GLOB Ratio 0.9 RATIO (0.9-2.4); AST(SGOT) 25 U/L (15-37); Alanine Aminotransfer ALT/SGPT 25 U/L (13-56); Albumin, Serum 3.5 g/dL (3.2-5.0); Alkaline Phosphatase 84 U/L (45-117); Amylase 63 U/L (25-115); Anion Gap 3 (5-15); BUN 11 mg/dL (7-18); BUN/Creat Ratio 14.2 RATIO (10-20); Calcium,Total 8.9 mg/dL (8.5-10.1); Chloride 107 mmol/L (98-107); Creatinine, Serum 0.78 mg/dL (0.55-1.02); EST Glomerular Filtration Rate 86 mL/min (>60); Est Glom Filt Rate - Afr Amer 104 mL/min (>60); Globulin 3.7 g/dL (2.2-4.2); Glucose 72 mg/dL (74-106); Lipase 45 U/L (13-75); Potassium 3.4 mmol/L (3.5-5.1); Protein, Total 7.2 g/dL (6.4-8.2); Sodium Level 139 mmol/L (136-145); Triglycerides 153 mg/dL
[2023-10-23 19:07] LABS: Anti-Parietal Cell AB, QN 1.7 Units (0.0-20.0); Chromogranin A 47.1 ng/mL (0.0-101.8); Gastrin, Serum 20 pg/mL (0-115); IgG, Quant 861 mg/dL (586-1602); Immunoglobulin A 177 mg/dL (87-352); Immunoglobulin E 200 IU/mL (6-495); Immunoglobulin G, Subclass 1 371 mg/dL (248-810); Immunoglobulin G, Subclass 2 322 mg/dL (130-555); Immunoglobulin G, Subclass 3 69 mg/dL (15-102); Immunoglobulin G, Subclass 4 71 mg/dL (2-96); Immunoglobulin M 183 mg/dL (26-217)
== END | disposition home or self-care (01) ==
PROVIDERS: PCP Internal Medicine; Referring Provider Internal Medicine Gastroenterology; Visit Provider Internal Medicine Gastroenterology
DX: K22.70 Barrett's esophagus without dysplasia (principal); K29.70 Gastritis, unspecified, without bleeding
CPT/HCPCS: 36415; 80053; 82150; 82784; 82785; 82787; 82941; 83516; 83690; 84478; 85025; 86316; 86340

== ENCOUNTER 2023-10-27 07:15 | Day surgery (SDC) | payer OTHER, SELFPAY ==
--- NOTE | 2023-10-26 08:15 | EGD_PTH ---
PATHOLOGY RESULTS PATIENT: [facility] LOC: EN U#:[id number] AGE/SX: 43/F ROOM: RE10/27/[address]: Dr. Nicholas West DO : 1980 BED: DIS: 10/27/2023 SPEC #: [id number] RECD: 10/27/23 10:37 STATUS: SATNAM REBrayan #: [id number] MANNY: 10/26/23 08:[address]: Nicholas West DEPT: SURGICAL PATHOLOGY RECD BY: Marian Muse ENTERED: 10/27/23 10:38 SP TYPE: EGD BIOPSY OT DR: Dr. Edel Garcia DO Tissues: Duodenum, NOS Gastric mucous membrane Esophageal mucous membrane Procedures: Special Stain Group II Surgery Specimen Level IV Alcian Blue/PAS (control) HEADER OPERATION: EGD with biopsy PRE-OP DIAGNOSIS: Epigastric pain, gastritis, Lang's esophagus TISSUE SUBMITTED: A - Duodenum biopsy, B - Gastric antrum biopsy for H. pylori and pathology, C - Distal esophagus MICROSCOPIC DIAGNOSIS A. Duodenum, biopsy: Fragments of duodenal mucosa with nonspecific chronic inflammation, mild mucosal congestion and hemorrhage. B. Gastric antrum, biopsy: Mild gastritis. See microscopic description and comment. C. Distal esophagus, biopsy: Fragments of gastric mucosa with focal intestinal metaplasia (goblet cell metaplasia), consistent with Lang's esophagus. Chronic inflammation. Negative for dysplasia. See comment. SJ:jared 10/28/2023 COMMENT B. The results of immunohistochemistry for Helicobacter pylori will be reported separately ([id number]). Alcian blue/PAS stain with matched control is used in the evaluation of the specimen. C. Immunohistochemistry ([id number]) for P53 and Ki-67 will be performed and results will be reported separately. Alcian blue/PAS stain with matched control is used in the evaluation of the specimen. MICROSCOPIC DESCRIPTION Slides are reviewed. B. The specimen shows fragments of gastric mucosa with chronic inflammatory cell infiltrates in the lamina propria consisting of lymphocytes and plasma cells, consistent with mild chronic gastritis. Focal intestinal metaplasia (goblet cell metaplasia) is also noted. A fragment of squamous epithelium is also present in the specimen, most likely contaminant from specimen C. GROSS DESCRIPTION A - Received in fixative is one container labeled with the patient's name and designated duodenal biopsy. The specimen consists of multiple irregular fragments of light mccain soft tissue that in aggregate measure 0.6 x 0.5 x 0.1 cm. The specimen is totally submitted in one cassette. B - Received in fixative is one container labeled with the patient's name and designated gastric antrum. The specimen consists of multiple irregular fragments of light mccain soft tissue that in aggregate measure 0.7 x 0.6 x 0.1 cm. The specimen is totally submitted in one cassette. C - Received in fixative is one container labeled with the patient's name and designated distal esophagus biopsy. The specimen consists of two irregular fragments of light mccain soft tissue that in aggregate measure 0.6 x 0.5 x 0.1 cm. The specimen is totally submitted in one cassette. / AM:jared 10/27/2023 TC: CPT: 76814 x3, 22221 x2
--- OUTSIDE RECORDS SUMMARY | 2023-10-27 07:25 | XMS RPT_ITS | CCD ---
Author Name Unknown Address [address] [place] [address] Organization [facility] Care Team Providers Care Talent Specialist Name Role Phone Edel Garcia Unavailable Luis Jerez Unavailable Candice Botello Unavailable Unavailable Manstanley, Reyna Unavailable Unavailable Jessica De Leon Unavailable Unavailable Unavailable Edel Garcia Unavailable Luis Jerez Unavailable Emilie Otto Unavailable Unavailable Unavailable Unavailable Jus Varela Unavailable Unavailable Jessica De Leon Unavailable GHISLAINE Decker Unavailable Unavailable Marvin, Reyna Unavailable Unavailable Morales Vargas Unavailable Jus Varela Unavailable Unavailable CiesaAnneliese E Unavailable Candice Botello Unavailable Unavailable Marvin, Reyna Unavailable Unavailable Edel Garcia DO Unavailable Morales Vargas Unavailable Dr. Luis Jerez MD Unavailable [phone] SENIOR SALES COMPENSATION ANALYST, Katie Unavailable Unavailable Jus Mcwilliams LPN Unavailable Unavailable Slarb REGIONAL OWNER OPERATOR TRUCK DRIVER, Sanna Unavailable Unavailable Unavailable Unavailable Donna CLOUD ENGAGEMENT PARTNER, Afia Sanches Unavailable Loan Todd Unavailable Unavailable ANA Vargas RN, Gayatri Sosa Unavailable Unavailraeann Vargas RN RN, Gayatri Sosa Unavailable Unavailraeann Vargas RN RN, Gayatri A Unavailable Unavailabl e Shaniqua Bunn CNP Unavailable Shaniqua Bunn CNP Unavailable Amber Gallardo Unavailable Shaniqua Bunn CNP Attending Unavailable Shaniqua Bunn CNP Referring Unavailable Shaniqua Bunn CNP Consulting Unavailable Reyna Wong CMA Unavailable Unavailable Dr. Sean Dumnot Unavailable Allergies Allergy Classification Reported Allergen(s) Allergy Type Date of Onset Reaction(s) Facility (19 sources) Amoxicillin / Clavulanate; Translations: [Augmentin *PENICILLINS*] Drug Allergy [facility] Work Phone: Medications Completed/Discontinued Medications Medication Drug Class(es) Dates Sig (Normalized) Sig (Original) acetaminophen 300 mg / codeine phosphate 30 mg oral tablet (20 sources) Opioid Agonist Start: 12-20-2013 End: 06-08-2018 Tylenol with Codeine #3 300-30 MG Oral Tablet 1 (one) Tablet 1-2 tablets every 8 hors prn cough and chest ache for 0 days Quantity: 10 {Tablet} Refills: 0 Ordered: 08-Jun-2018 GHISLAINE Decker LPN Start : 20-Dec-2013 End : 08-Jun-2018 Inactive Comments: ten Problems Active Problems Problem Classification Problem Date Documented Da te Episodic/Chronic Abdominal pain (20 sources) Acute abdominal pain; Translations: [Left upper quadrant pain] Resolved: 03-07-2023 08-08-2015 Episodic Past or Other Problems Problem Classification Problem Date Documented Da te Episodic/Chronic Blindness and vision defects (20 sources) Visual disturbance; Translations: [Unspecified visual disturbance] Resolved: 08-31-2012 07-15-2015 Episodic Headache, including migraine (17 sources) Headache, including migraine Other non-traumatic joint disorders (2 sources) Pain in right hip joint; Translations: [Hip pain, right] 02-20-2020 Results Test Name Value Interpretation Reference Range Facil ity Vital Signs Date Time Vital Sign Value Performing Clinician Facility 04-22-2023 10:14-0400 Body height 157.48 cm Sanna Bartlett LPN [facility] Work Phone: 04-22-2023 10:14-0400 Body mass index (BMI) [Ratio] 38.77 kg/m2 Sanna Bartlett LPN [facility] Work Phone: 04-22-2023 10:14-0400 Body surface area Derived from formula 1.96 m2 Sanna Bartlett NORMA [facility] Work Phone: 04-22-2023 10:14-0400 Body temperature 97.9 [degF] Sanna Bartlett REGIONAL OWNER OPERATOR TRUCK DRIVER [facility] Work Phone: Encounters Encounter Date Encounter Type Care Provider Facility Start: 04-22-2023 End: 04-28-2023 Office outpatient visit 15 minutes Shaniqua Bunn CNP Work Phone: [facility] Start: 03-07-2023 Review Shaniqua Bunn CNP Work Phone: [facility] Start: 03-07-2023 End: 03-07-2023 Office outpatient visit 15 minutes Shaniqua Bunn CNP Work Phone: [facility] Start: 11-12-2022 End: 11-12-2022 Patient encounter procedure Shaniqua Bunn CNP Work Phone: [facility] Start: 11-09-2022 ambulatory Shaniqua Bunn CNP [facility] Start: 11-09-2022 End: 11-09-2022 Office outpatient visit 15 minutes Shaniqua Bunn CNP Work Phone: [facility] Start: 11-09-2022 Review Shaniqua Bunn CNP Work Phone: [facility] Start: 09-07-2022 End: 09-07-2022 Annotation/Addendum Shaniqua Bunn CNP Work Phone: [facility] Start: 09-06-2022 End: 09-06-2022 Office outpatient visit 25 minutes Shaniqua Bunn CNP Work Phone: [facility] Start: 03-17-2021 End: 03-17-2021 Annotation/Addendum Edel Jose DO Work Phone: [facility] Start: 03-16-2021 End: 03-16-2021 Office outpatient visit 25 minutes Edel Jose DO Work Phone: [facility] Start: 03-05-2020 End: 03-05-2020 Office outpatient visit 10 minutes [facility] Start: 02-20-2020 End: 02-20-2020 Office outpatient visit 15 minutes Edel Jose [facility] Start: 09-06-2019 End: 09-06-2019 Office outpatient visit 10 minutes Edel Garcia [facility] Start: 07-03-2019 End: 07-03-2019 Office outpatient visit 15 minutes Edel Jose [facility] Start: 06-12-2019 End: 06-12-2019 Lab Order Edel Jose [facility] Start: 06-12-2019 End: 06-12-2019 Periodic preventive med est patient 40-64yrs Edel Garcia [facility] Start: 06-12-2019 Review Edel Garcia [facility] Start: 11-17-2018 End: 11-17-2018 Office outpatient visit 25 minutes Edel Garcia [facility] Start: 04-19-2017 Gynecologic examination Afia Thompson CLOUD ENGAGEMENT PARTNER Work Phone: [facility] Start: 12-20-2013 End: 12-20-2013 Patient encounter Edel Jose [facility] Start: 05-11-2013 End: 05-11-2013 Office outpatient visit 15 minutes Edel Garcia [facility] Start: 05-09-2013 End: 05-09-2013 Office outpatient visit 40 minutes Edel Garcia [facility] Start: 01-23-2013 End: 01-23-2013 Patient encounter Edel Jose [facility] Start: 01-16-2013 End: 01-16-2013 Patient encounter Edel Jose [facility] Start: 08-31-2012 End: 08-31-2012 Patient encounter Edel Jose [facility] Start: 11-17-2011 End: 11-17-2011 Lab Order Edel Jose [facility] Start: 11-16-2011 End: 11-18-2011 Patient encounter Edel Jose [facility] Start: 11-05-2011 End: 11-07-2011 Patient encounter Edel Jose [facility] Start: 10-27-2011 End: 10-27-2011 Office outpatient visit 25 minutes Edel Joseerum [facility] Start: 03-24-2011 End: 03-24-2011 Phone Encounter Edel Garcia [facility] Start: 03-24-2011 End: 03-24-2011 Office outpatient visit 15 minutes Edelree Garcia [facility] Start: 11-02-2010 End: 11-02-2010 Patient encounter Edel Garcia [facility] Start: 10-30-2010 End: 10-30-2010 Office outpatient visit 25 minutes Edelree Segura[facility] Start: 10-16-2010 End: 10-16-2010 Office outpatient visit 25 minutes Edel [facility] Start: 08-07-2010 End: 08-07-2010 Patient encounter Edel Garcia [facility] Start: 06-15-2010 End: 06-15-2010 Office outpatient visit 25 minutes Edelree Seguraon [facility] Start: 05-08-2010 End: 05-08-2010 Office outpatient visit 15 minutes Edel Jose [facility] Start: 03-11-2010 End: 03-13-2010 Patient encounter Edel Garcia [facility] Start: 06-04-2009 End: 06-04-2009 Nursing evaluation of patient and report Edel [facility] Start: 02-05-2009 End: 02-06-2009 Office outpatient visit 25 minutes Edel Jose [facility] Start: 04-09-2008 End: 04-09-2008 Patient encounter Edleree Garcia [facility] Start: 12-28-2007 End: 12-28-2007 Patient encounter Edel Garcia [facility] Start: 09-26-2007 End: 09-26-2007 Patient encounter Edel Garcia [facility] Start: 09-07-2007 End: 09-07-2007 Office outpatient visit 15 minutes Edel [facility] Start: 06-27-2007 End: 06-27-2007 Patient encounter Edel Garcia [facility] Start: 06-06-2007 End: 06-06-2007 Patient encounter Edel Garcia [facility] Start: 05-23-2007 End: 05-24-2007 Patient encounter Edelree Garcia [facility] Start: 05-16-2007 End: 05-17-2007 Patient encounter Edel [facility] Start: 04-11-2007 End: 04-13-2007 Patient encounter Edel Garcia [facility] Start: 11-07-2006 End: 11-07-2006 Patient encounter Edel Garcia [facility] Start: 10-18-2006 End: 10-19-2006 Patient encounter Edel Garcia [facility] Start: 10-03-2006 End: 10-03-2006 Office outpatient visit 15 minutes Edel Garcia [facility] Start: 09-26-2006 End: 09-26-2006 Office outpatient visit 25 minutes Edel Garcia [facility] Start: 09-26-2006 End: 09-26-2006 Historical Summary Edel [facility] Procedures Date Procedure Procedure Detail Performing Clinician Start: 04-26-2023 End: 04-28-2023 MR/[email or web address] Procedure Note: See Note; NOTES: [facility] [address] [place] [address]. [address] [place] [address] OFFICE VISIT Date of Service: 04/26/23 MR#: [id number] Acct: [id number] Name: BESSIE KENNEDY DARI Rep #: [id number] : 1980 Provider: Kirstie Campos rn, PA Age/Sex: 42/F Location: [facility] [place].[facility] Status: Signed Intake Vital Signs 12/29/22 15:33 04/26/23 15:23 Height 5 ft 2 in Weight: 215 lb BP 135/88 H Blood Pressure Location Lt brachial Position Sitting Respiration 18 Pulse 81 Pulse Source Monitor Temp 98.6 F Pulse Oximetry (%) 99 Oxygen Delivery Method room air Intake Visit Reasons: 4 WEEK F/U Chief Complaint: Annual Is patient in pain?: No Allergies amoxicillin Adverse Reaction (Severe, Verified 04/26/23 15:25) diahrrea clavulanic acid [From Augmentin] Adverse Reaction (Intermediate, Verified 04/26/23 15:25) Diarrhea Medications furosemide 20 mg tablet (Lasix) 20 mg PO DAILY PRN 03/29/23 [History Confirmed 04/26/23] venlafaxine 37.5 mg tablet 37.5 mg PO DAILY 03/29/23 [History Confirmed 04/26/23] PFSH Medical History Alcohol use Anxiety Former smoker Gastric reflux History of edema History of pain when walking Low iron Normal colonoscopy Restless legs Seasonal allergies Wears contact lenses Surgical History History of lymph node excision Family History Grandmother Colon cancer Cancer ovarian Anemia Diabetes Grandfather Myocardial infarction, Onset Age: 50 Father Heart disease Hypertension Hyperlipemia Diabetes Mother Hypertension Sister Thyroid disorder Social History household members: spouse and children number of children: 2 current occupational status: employed current occupation: [employer] history of recent travel: Yes sexually active: Yes Smoking Status: Former smoker Tobacco: How many years used: 15 alcohol intake: never substance use type: does not use what type of physical activity do you participate in: walking and weight training frequency: daily seatbelt use: always do you feel safe at home: Yes 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 Initially, patient referred by PCP after bilateral lower leg painful rash/erythema that developed alongside worsening BLE edema during/following an active vacation. The rash/erythema resolved as her swelling improved following a course of diuretic therapy. She has had chronic lower extremity edema for many years. She has tried/failed several forms of compression. She was evaluated by Dr. Vargas in the past, but never proceeded to venous ablation. She has no history of VTE. She does have lymphedema pumps at home and has been trying to use these more, but it has been difficult to remain consistent given the daily time commitment. She has not had any recurrence of the rash and her edema and discomfort is now at baseline. Venous duplex revealed only R SFJ and above-knee GSV reflux and no L-sided reflux. ROS General General: Yes weight change and weakness; No appetite, fatigue, colon cancer or breast cancer HEENT HEENT: No difficulty swallowing, eye injury, eye surgery, swollen glands or hoarseness Endo Endocrine: No thyroid disease, diabetes mellitus, thyroid cancer, Hair loss, heat intolerance or cold intolerance Skin Skin: Yes rash; No changing moles Musc Musculoskeletal: No back problems, arthritis, rheumatoid arthritis, gout or joint pain Cardio Cardiovascular: No murmur, pacemaker, heart disease, atrial fibrillation, high blood pressure, heart attack, heart stent, palpitations, shortness of breat with exertion or chest pain Psych Psychiatric: Yes anxiety; No depression or hearing voices Resp Respiratory: No shortness of breath, No sleep apnea, No cough, No COPD, No asthma, No emphysema and No wheezing Gastro Gastrointestinal: No abdominal pain, No nausea or vomiting, No diarrhea, No constipation, No blood in stool, Yes acid reflux, No hemorrhoids, Yes ulcers, No gallbladder problem and No black,tarry stools Chris Hematologic: No blood thinners, No blood disorders, No bleeding, Yes anemia and No blood clots Neuro Neurologic: No system reviewed and no additional complaints, except as documented, No as per HPI, No abnormal gait, No abnormal hearing, No abnormal movements, No abnormal speech, No behavioral changes, No burning sensations, No confusion, No convulsions, No disequilibrium, No dizziness, No localized weakness, No frequent falls, No headache(s), No lack of coordination, No loss of vision, No memory loss, No numbness, No other visual disturbances, No radicular pain, Yes restless legs, No sensory deficit, No syncope, Yes tingling, No tremor(s), Yes weakness and No other Exam Const General: cooperative, comfortable and no acute distress Orientation: alert, awake and oriented x3 [facility] Head: normal to inspection, normocephalic and atraumatic Ears: hearing grossly normal bilaterally and external ears normal Nose: external nose normal Eyes General: appearance normal, both eyes and all related structures EOM: EOM intact bilaterally Neck Neck: normal visual inspection and trachea midline Carotids: no bruits Resp Effort Inspection: normal respiratory effort, able to speak in complete sentences, no audible wheezes, not labored, no respiratory distress, no retractions and no stridor Auscultation: clear to auscultation bilaterally Cardio Rate: regular rate Rhythm: regular rhythm Bruits: no carotid bruits Skin General: no rashes or lesions noted Trauma: no lacerations or abrasions Wounds: no wounds Neuro General: gait normal, moves all extremities, no focal motor deficits and CN's II-XI intact bilaterally Speech: speech normal Extremities Pulses: Normal: Right Dorsalis Pedis Pulse, Left Dorsalis Pedis Pulse, Right Posterior Tibial Pulse, Left Posterior Tibial Pulse, Right Radial Pulse and Left Radial Pulse Lower Extremity Edema: +1: Bilateral Veins: Bilateral: Reticular Veins Psych Appearance: grossly normal Affect: normal affect Speech and Movement: speech and movement normal Attitude: cooperative Coding Level of Care Code Off vis,est,level 3 Diagnoses Lower extremity edema R60.0 Lower extremity pain M79.606 Assessment and Plan Assessment and Plan (1) Lower extremity edema: Status: Acute (2) Lower extremity pain: Status: Acute Plan Venous duplex did not reveal pattern of reflux that would explain her persistent bilateral lower extremity edema and discomfort. It is possible there is a component of central venous compression which would be diagnosed and treated via venogram. If compression is identified, it is treated via stenting. If a stent is placed, DAPT x1 year is necessary. With her history of gastric ulcerations she is hesitant to potentially commit to antiplatelet therapy. She is interested in pursuing venogram, but would want to discuss risk/benefit of DAPT with GI and her PCP first which I encourage. If she would not want to require DAPT, we could still perform purely diagnostic venogram to better understand etiology of her BLE. Her edema may be primarily caused by lymphedema which is unfortunately a diagnosis of exclusion. I do encourage consistent use of the lymphedema pumps and preferred from of compression stockings foro long-term management. May also benefit from referral to lymphedema clinic to see if they have any other resources or recommendations, we can coordinate this or she could go through her PCP for this. She would like to take time to consider her options and she will contact the office if she wishes to proceed with plans for venogram. Otherwise, return as needed. 04/27/23 [id number] <Electronically signed by Kirstie MEDLEY> Date Kirstie MEDLEY 04/28/23 1802<Electronically signed by Sean Dumont MD> Cosigner Signature: Date (if applicable) Sean Dumont MD CC: CLOUD ENGAGEMENT PARTNER-C Shaniqua Bunn PATIENT TRANSPORTATION DRIVER Work Phone: Start: 04-22-2023 End: 04-25-2023 Venous Duplex US - Maximilian Extrem Procedure Note: See Note; NOTES: [facility] [address] [place] [address] Venous Duplex US - Maximilian Extrem 04/22/23 0911 MR#: [id number] Acct: [id number] Name: BESSIE KENNEDY Rep #: [id number] : 1980 42 From: Sean Dumont MD Attending Dr: JASMYNE Coates Status: RE G CLI Ordering Dr: Kirstie Hurd Date: 04/22/23 Location: [facility] Sex: F C Admitted: Reason For Study: BLE Swelling RIGHT LEFT CFV is compressible, spontaneous, phasic, CFV is compressible, spontaneous, phasic, competent and demonstrates normal competent, and demonstrates normal augmentation. augmentation. FV is compressible, spontaneous, phasic, FV is compressible, spontaneous, phasic, competent and demonstrates normal competent and demonstrates normal augmentation. augmentation. POP V is compressible, spontaneous, phasic, POP V is compressible, spontaneous, phasic, competent and demonstrates normal competent and demonstrates normal augmentation. augmentation. T/P Trunk is compressible. T/P Trunk is compressible. PTV is compressible. PTV is compressible. RT PerV is compressible. LT PerV is compressible. SFJ is INCOMPETENT and measures 0.58 cm. SFJ is competent and measures 0.57 cm. GSV proximal thigh measures 0.37 x 0.35 cm. GSV proximal thigh measures 0.65 x 0.58 cm. GSV above knee is INCOMPETENT for greater GSV at knee measures 0.55 x 0.51 cm. than 0.5 seconds. GSV is competent throughout. GSV at knee measures 0.51 x 0.50 cm. SSV proximal calf is competent and measures GSV below knee is competent. 0.25 x 0.26 cm. SSV proximal calf is competent and measures 0.31 x 0.34 cm. Procedure Exam performed in department. The exam was diagnostic. VL/Venous Duplex US - Maximilian Extrem Interpretation Summary Deep veins of the bilateral lower extremities are patent and compressible segmentally. There is no evidence of bilateral lower extremity deep vein thrombosis. The bilateral great saphenous veins appear patent and compressible segmentally. Ordering Physician: Kirstie Hurd Referring Physician: Edel Garcia M.D. Performed By: Marshal Mac RVT 04/25/23 1155 Date Sean Dumont MD CC: JASMYNE Coates; Dr. Edel Garcia, Date Dictated: 04/22/23 0911 Date Transcribed: 04/25/23 115 Cooperative Manager: Aurelia Bunn CNP Work Phone: Start: 03-29-2023 End: 03-29-2023 MR/[email or web address].[facility] Procedure Note: See Note; NOTES: [facility] [address] [place] [address] OFFICE VISIT Date of Service: 03/29/23 MR#: [id number] Acct: [id number] Name: BESSIE KENNEDY Rep #: [id number] : 1980 Provider: Kirstie Campos rn, PA Age/Sex: 42/F Location: [facility] Status: Signed Intake Vital Signs 12/29/22 15:33 03/29/23 11:14 Height 5 ft 2 in Weight: 211 lb BP 123/79 H Blood Pressure Location Lt brachial Position Sitting Respiration 16 Pulse 65 Pulse Source Monitor Temp 98.4 F Temp Source Temporal Pulse Oximetry (%) 100 Oxygen Delivery Method room air Intake Visit Reasons: Consult Chief Complaint: Annual Is patient in pain?: No Allergies amoxicillin Adverse Reaction (Severe, Verified 03/29/23 11:17) diahrrea clavulanic acid [From Augmentin] Adverse Reaction (Intermediate, Verified 03/29/23 11:17) Diarrhea Medications pantoprazole 40 mg tablet,delayed release 40 mg PO DAILY #90 tabs 06/02/22 [Rx Confirmed 03/29/23] furosemide 20 mg tablet (Lasix) 20 mg PO DAILY PRN 03/29/23 [History Confirmed 03/29/23] venlafaxine 37.5 mg tablet 37.5 mg PO DAILY 03/29/23 [History Confirmed 03/29/23] PFSH Medical History Alcohol use Anxiety Former smoker Gastric reflux History of edema History of pain when walking Low iron Normal colonoscopy Restless legs Seasonal allergies Wears contact lenses Surgical History History of lymph node excision Family History Grandmother Colon cancer Cancer ovarian Anemia Diabetes Grandfather Myocardial infarction, Onset Age: 50 Father Heart disease Hypertension Hyperlipemia Diabetes Mother Hypertension Sister Thyroid disorder Social History household members: spouse and children number of children: 2 current occupational status: employed current occupation: [employer] history of recent travel: Yes sexually active: Yes Smoking Status: Former smoker Tobacco: How many years used: 15 alcohol intake: never substance use type: does not use what type of physical activity do you participate in: walking and weight training frequency: daily seatbelt use: always do you feel safe at home: Yes 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 She was referred by her PCP Saravanan Bunn. She has had bilateral lower extremity edema and discomfort for many years, since her teens/early 20s. The swelling is present to some degree all the time, worse after prolonged standing or a lot of walking. The pain/discomfort occurs with the increased swelling and it feels as though her leg is going to pop or split open . She also gets this discomfort when she crouches/bends over. In the past, she was seen by Dr. Vargas for a few years. He informed her that her veins were to small for an ablation procedure to be beneficial and was managing conservatively. She has tried thigh-high, knee-high, and leggins/panty-hose style with minimal relief of her symptoms. She has taken HCTZ in the past to help with swelling, she only takes this when the swelling and pain is particularly bad and it seems to help reduce these symptoms for a time. More recently, she went on a trip during which she walked a lot. Near the end, she noticed a red, painful rash erupt on her bilateral lower legs. There were no blisters or raised areas. It was quite persistent over 1-2 weeks so she presented to her PCP. She was told it was related to her venous insufficiency and/or lymphedema. She was started on lasix and a short course of this helped a bit with the swelling. She elevated her legs more often. The rash resolved. She was referred here for further evaluation. She has not followed with vascular since Dr. Vargas retired in 2019. No imaging since a DVT study in 2019. She denies any history of VTE, diabetes, heart disease, lung disease, kidney disease. She does have ulcerations in her stomach and intestines, follows with GI for this. The only medication she takes daily is her anti-anxiety medication. ROS General General: Yes weight change and weakness; No appetite, fatigue, colon cancer or breast cancer HEENT HEENT: No difficulty swallowing, eye injury, eye surgery, swollen glands or hoarseness Endo Endocrine: No thyroid disease, diabetes mellitus, thyroid cancer, Hair loss, heat intolerance or cold intolerance Skin Skin: Yes rash; No changing moles Musc Musculoskeletal: No back problems, arthritis, rheumatoid arthritis, gout or joint pain Cardio Cardiovascular: No murmur, pacemaker, heart disease, atrial fibrillation, high blood pressure, heart attack, heart stent, palpitations, shortness of breat with exertion or chest pain Psych Psychiatric: Yes anxiety; No depression or hearing voices Resp Respiratory: No shortness of breath, No sleep apnea, No cough, No COPD, No asthma, No emphysema and No wheezing Gastro Gastrointestinal: No abdominal pain, No nausea or vomiting, No diarrhea, No constipation, No blood in stool, Yes acid reflux, No hemorrhoids, Yes ulcers, No gallbladder problem and No black,tarry stools Chris Hematologic: No blood thinners, No blood disorders, No bleeding, Yes anemia and No blood clots Neuro Neurologic: No system reviewed and no additional complaints, except as documented, No as per HPI, No abnormal gait, No abnormal hearing, No abnormal movements, No abnormal speech, No behavioral changes, No burning sensations, No confusion, No convulsions, No disequilibrium, No dizziness, No localized weakness, No frequent falls, No headache(s), No lack of coordination, No loss of vision, No memory loss, No numbness, No other visual disturbances, No radicular pain, Yes restless legs, No sensory deficit, No syncope, Yes tingling, No tremor(s), Yes weakness and No other Exam Const General: cooperative, comfortable and no acute distress Orientation: alert, awake and oriented x3 HENMT Head: normal to inspection, normocephalic and atraumatic Ears: hearing grossly normal bilaterally and external ears normal Nose: external nose normal Eyes General: appearance normal, both eyes and all related structures EOM: EOM intact bilaterally Neck Neck: normal visual inspection and trachea midline Carotids: no bruits Resp Effort Inspection: normal respiratory effort, able to speak in complete sentences, no audible wheezes, not labored, no respiratory distress, no retractions and no stridor Auscultation: clear to auscultation bilaterally Cardio Rate: regular rate Rhythm: regular rhythm Bruits: no carotid bruits Skin General: no rashes or lesions noted Trauma: no lacerations or abrasions Wounds: no wounds Neuro General: gait normal, moves all extremities, no focal motor deficits and CN's II-XI intact bilaterally Speech: speech normal Extremities Pulses: Normal: Right Dorsalis Pedis Pulse, Left Dorsalis Pedis Pulse, Right Posterior Tibial Pulse, Left Posterior Tibial Pulse, Right Radial Pulse and Left Radial Pulse Lower Extremity Edema: +1: Bilateral Veins: Bilateral: Reticular Veins Psych Appearance: grossly normal Affect: normal affect Speech and Movement: speech and movement normal Attitude: cooperative Coding Level of Care Code Off vis,new,level 3 Diagnoses Lower extremity edema R60.0 Lower extremity pain M79.606 Assessment and Plan Assessment and Plan (1) Lower extremity edema: Status: Acute (2) Lower extremity pain: Status: Acute Orders: Orders Venous Duplex US - Maximilian Extrem Today M79.606 - Pain in leg, unspecified, R60.0 - Localized edema Plan Will obtain venous duplex to assess for refllux. There may be a component of central venous compression which would be diagnosed and treated via venogram. Pending venous duplex results may consider further evaluation in this regard. We discussed that compression is the foundation of treatment, and I recommend she continue with daily measured compression as tolerated. Avoid prolonged idle sitting or standing if possible. Elevate legs as often as possible. Return after imaging. 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 Automatic Required: No Is patient in pain?: No Allergies amoxicillin Adverse Reaction (Severe, Verified 12/29/22 15:20) diahrrea Medications hydrochlorothiazide 12.5 mg tablet 12.5 mg PO QDAY PRN Edema 01/02/18 [History Confirmed 12/29/22] pantoprazole 40 mg tablet,delayed release 40 mg PO DAILY #90 tabs 06/02/22 [Rx Confirmed 12/29/22] Is last menstrual period known: Yes Last Menstrual Period: 12/17/22 Post menopausal: No Patient : No : No [facility] Medical History Alcohol use Anxiety Former smoker Gastric reflux History of edema History of pain when walking Low iron Normal colonoscopy Restless legs Seasonal allergies Wears contact lenses Surgical History History of lymph node excision Family History Grandmother Colon cancer Cancer ovarian Anemia Diabetes Grandfather Myocardial infarction, Onset Age: 50 Father Heart disease Hypertension Hyperlipemia Diabetes Mother Hypertension Sister Thyroid disorder Social History (Updated 12/29/22 @ 15:32 by Marian Dave) household members: spouse and children number of children: 2 current occupational status: employed current occupation: [employer] history of recent travel: Yes sexually active: Yes Smoking Status: Former smoker Tobacco: How many years used: 15 alcohol intake: never substance use type: does not use what type of physical activity do you participate in: walking and weight training frequency: daily seatbelt use: always do you feel safe at home: Yes 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 Date Name GA/Weeks Outcome Route Bth Weight Infant Gen Labor Lgth Anesthesia Del Locatn Provider FOB Unknown Leisa 2003 HPI Encounter for routine gynecological examination Details: BESSIE KENNEDY is a 42 year old who presents for annual exam. History of heavy menses and more manageable until November when it was again heavy lasting 9 days. Last PAP: 2019 History of abnormal PAP: no Last mammogram: 10/2022 History of abnormal mammogram: no Colon cancer screening: age 45 Other preventative health care screenings: Oni ESPINOSA Female Reproductive History Last Menstrual Period: 12/17/22 Control Method: spouse vasectomy Questions: metorrhagia: Yes, sexually active: Yes, dyspareunia: No and PCB: No ROS Const Constitutional: Denies fatigue, weight gain or weight loss Cardio Card: Denies chest pain Resp Resp: Denies cough or dyspnea on exertion GI GI: Denies abdominal pain, bloating, change in stool character, constipation or vomiting : Reports as per HPI; Denies difficulty voiding, pelvic pain, urinary frequency, urinary incontinence, urinary urgency, vaginal discharge or vaginal pruritus Exam Const General: cooperative, healthy appearing, no acute distress and well developed Orientation: alert, oriented to person and oriented to place HENDC Head: normal to inspection Neck Neck: normal visual inspection Thyroid: thyroid normal Lymphatic: no lymphadenopathy noted Chest Breast inspection: normal inspection of the breasts and normal inspection of the axillae Breast palpation: normal palpation of the breasts, normal palpation of the axillae and no axillary lymphadenopathy Resp Effort Inspection: normal respiratory effort GI Palpation: soft, no masses and nontender Rectal Exam: deferred External Female Exam: normal external appearance and normal appearance of the urethra Urethra: normal appearance of the urethra and normal palpation Speculum Exam - Vagina: normal appearance of the vagina and normal vaginal discharge Speculum Exam - Cervix: normal appearance of the cervix Bimanual Exam- Vagina Uterus: normal bimanual exam, uterine size normal, uterine shape normal and non-tender Bimanual Exam- Adnexa, other: normal adnexae, no masses, normal and non-tender Pelvic Support: normal Neuro General: patient alert and patient oriented x3 Psych Affect: normal affect Coding Level of Care Code Off vis,est,prev 40-64yrs Diagnoses Encounter for routine gynecological examination Z01.419 Abnormal uterine bleeding (AUB) N93.9 Assessment and Plan Assessment and Plan (1) Encounter for routine gynecological examination: (2) Abnormal uterine bleeding (AUB): Status: Acute Orders: Orders Pelvic (Non ) Today N93.9 - Abnormal uterine and vaginal bleeding, unspecified Transvaginal Non- Today N93.9 - Abnormal uterine and vaginal bleeding, unspecified Plan Completed breast and pelvic exam Reviewed diet and exercise Pap 2020 Mammogram recent breast self exam encouraged monthly Contraception spouse vasectomy Colonoscopy age 45 Ultrasound. Recurrence of prolonged menses and will need repeat EMB. RTO 1 year, prn with problems Afia Thompson CNP 12/29/22 1552 <Electronically signed by Afia Thompson NP [employer]OUD ENGAGEMENT PARTNER-C> Date Afia Thompson NP [employer]EMENT [employer]NER-C Cosigner Signature: Date (if applicable) CC: Shaniqua Bunn CNP Work Phone: Start: 11-12-2022 End: 11-12-2022 SCRN MAMM (CAD)W/MARIO BILAT Procedure Note: See Note; NOTES: [facility] Imaging Services [address] [place] [address] SCRN MAMM (CAD)W/MARIO BILAT MR#: [id number] Acct: [id number] Name: BESSIE KENNEDY DARI Rep #: [id number] : 1980 F 42 From: Rupert Garcia MD PCP: Dr. Edel Garcia, DO Status: [facility] Study: SCRN MAMM (CAD)W/MARIO BILAT Date of Exam: 10/27 03/20 Exam# [id number] Ordering Dr: Afia Thompson NP [employer] ENGAGEMENT [employer]NER -C MAMMOGRAPHY - BILATERAL SCREENING 3-D TOMOSYNTHESIS REASON FOR EXAM: Female, 42 years old. Routine screening PERTINENT HISTORY: No significant family history. TECHNIQUE: 2-D mammograms and 3-D Tomosynthesis of the breast (s) were performed. CAD was performed. COMPARISON: 11/11/2021 FINDINGS: The breast composition is composed of scattered fibroglandular density. Scattered benign calcifications are seen. No dense spiculated masses or suspicious microcalcifications are identified. No architectural distortion is identified. There is no skin thickening or retraction. There has been no significant change since the prior study. BI/SCRN MAMM (CAD)W/MARIO BILAT IMPRESSION: No mammographic signs of malignancy. Routine yearly mammograms recommended. ASSESSMENT CATEGORY: BIRADS Category 2: Benign. A letter regarding these results will be sent to the patient by the facility within 30 days. FOLLOW UP RECOMMENDATION: Yearly follow up mammogram recommended. (A) Approximately 10% of breast cancers are not detected by mammography. A normal mammogram should not delay biopsy of a clinically suspicious abnormality. Electronically Signed: Carlos Garcia MD at 8:15 EDT Reading Location ID and State: [address] [place] [address] , Service support , CC: YESSI Thompson; Dr. Edel Garcia DO Cooperative Manager: Signed Edel Garcia DO Work Phone: Start: 08-02-2022 End: 08-02-2022 Urgent Care Visit Report Procedure Note: See Note; NOTES: [facility] [address] [place] [address] [address] [place] [address] OFFICE VISIT Date of Service: 08/02/22 MR#: [id number] Acct: [id number] Name: BESSIE KENNEDY DARI Rep #: [id number] : 1980 Provider: JASMYNE Porter Age/Sex: 42/F Location: [facility] [place] Status: Signed Intake Vital Signs 06/02/22 13:46 08/02/22 07:30 Height 5 ft 2 in BP 122/72 H Blood Pressure Location Lt brachial Position Sitting Respiration 14 Pulse 75 Pulse Source Monitor Temp 98.2 F Temp Source Temporal Pulse Oximetry (%) 99 Oxygen Delivery Method room air Intake Visit Reasons: SORE THROAT/JONES WHEN COUGHING Chief Complaint: Sore throat Allergies amoxicillin Adverse Reaction (Severe, Verified 06/25/22 13:27) maikel [facility] Medical History Alcohol use Anxiety Former smoker Gastric reflux History of edema History of pain when walking Low iron Normal colonoscopy Restless legs Seasonal allergies Wears contact lenses Surgical History History of lymph node excision Family History Grandmother Colon cancer Cancer ovarian Anemia Diabetes Grandfather Myocardial infarction, Onset Age: 50 Father Heart disease Hypertension Hyperlipemia Diabetes Mother Hypertension Sister Thyroid disorder Social History household members: spouse and children number of children: 2 current occupational status: employed 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 Patient states her were symptom is her sore throat made worse with coughing. She describes as a burning type pain and is concerned for strep. She denies hemoptysis, shortness of breath or difficulty breathing. No fever or chills however does state that she was having sweats yesterday. No nausea, vomiting, diarrhea. No loss of taste or smell. No other associated symptoms or alleviating/aggravating factors. ROS Const Constitutional: No other (6 system ROS completed with pertinent findings in HPI otherwise normal.) Exam Const General: cooperative and well developed [facility] Head: normal to inspection and atraumatic Ears: hearing grossly normal bilaterally Nose: nasal discharge clear Face and sinus: normal facial exam Mouth: oral mucosae normal Throat: abnormal tonsil bilaterally hypertrophy 1+ Resp Effort Inspection: normal respiratory effort and no audible wheezes Auscultation: Bilateral: Clear to Auscultation Cardio Palpation: normal PMI Rate: regular rate Rhythm: regular rhythm Neuro General: patient alert and CN's II-XI intact bilaterally Psych Appearance: grossly normal Mental Status: mental status grossly normal Results POC Sabrina Rapid Strep POC Sabrina Rapid Strep Negative Last Edit by Brittny Farias on 08/02/22 07:46 Coding Level of Care Code Off vis,est,level 3 Diagnoses Acute pharyngitis J02.9 Assessment and Plan Assessment and Plan (1) Acute pharyngitis: Status: Acute Plan: Patient tested negative for strep in the office today. Encouraged to get plenty of rest, drink lots of clear liquids, and use Tylenol or Ibuprofen (unless contraindicated) for fever and comfort. Patient also educated on other symptomatic management techniques. To be seen in 7-10 days if no improvement; sooner if worsening of symptoms. Patient advised of potential red flags and when appropriate to report to the ED. Patient verbalized understanding and agreement with all the above. Orders: Orders POC Asbrina Rapid Strep A Today 08/02/22 0820 <Electronically signed by Wally MEDLEY> Date Wally MEDLEY Cosigner Signature: Date (if applicable) CC: Shaniqua Bunn CNP Work Phone: Start: 06-25-2022 End: 06-25-2022 Foot min 3 Views Procedure Note: See Note; NOTES: [facility] Radiology [address] [place] [address] Foot min 3 Views MR#: [id number] Acct: [id number] Name: BESSIE KENNEDY DARI Rep #: [id number] : 1980 F 41 From: Dale cueva MD PCP: Dr. Edel Garcia, DO Status: DEP AMB Study: Foot min 3 Views Date of Exam: 06/25/22 Exam# [id number] Ordering Dr: Wally Porter STUDY: X-RAY - RIGHT FOOT CLINICAL: Female, 41 years old. Fall with foot pain TECHNIQUE: 3 view(s) of the foot. COMPARISON: None. FINDINGS: Normal talus, calcaneus, and tarsal bones. Normal visualized subtalar, talonavicular, calcaneocuboid, tarsal and tarsometatarsal articulations. Normal metatarsi. Normal metatarsophalangeal joint of the great toe. Normal tibial and fibular sesamoid bones. Normal interphalangeal joint of the great toe. Normal phalanges of the great toe. Normal second through fifth metatarsophalangeal joints. Normal interphalangeal joints and phalanges of the lesser toes. The soft tissue structures are unremarkable. RAD/Foot min 3 Views IMPRESSION: Normal x-ray examination of the foot. Electronically Signed: Dale Dunne MD at 14:08 EDT Reading Location ID and State: [address] [place] [address] , Service support , CC: JASMYNE Porter; Dr. Edel Garcia DO Cooperative Manager: Signed Shaniqua Bunn CNP Work Phone: Start: 06-25-2022 End: 06-25-2022 Urgent Care Visit Report Procedure Note: See Note; NOTES: [facility] [address] [place] [address] [address] [place] [address] OFFICE VISIT Date of Service: 06/25/22 MR#: [id number] Acct: [id number] Name: DIEGOBESSIE DAVIS DARI Rep #: [id number] : 1980 Provider: JASMYNE Porter Age/Sex: 41/F Location: [facility] [place] Status: Signed Intake Vital Signs 06/02/22 13:46 06/25/22 13:31 Height 5 ft 2 in BP 124/80 H Blood Pressure Location Lt brachial Position Sitting Respiration 16 Pulse 95 Pulse Source Monitor Temp 98.7 F Temp Source Temporal Pulse Oximetry (%) 99 Oxygen Delivery Method room air Intake Visit Reasons: RT FOOT INJURY Allergies amoxicillin Adverse Reaction (Severe, Verified 06/25/22 13:27) diahrrea Medications hydrochlorothiazide 12.5 mg tablet 12.5 mg PO QDAY PRN Edema 01/02/18 [History Confirmed 06/25/22] pantoprazole 40 mg tablet,delayed release 40 mg PO DAILY #90 tabs 06/02/22 [Rx Confirmed 06/25/22] sucralfate 1 gram tablet 1 g PO QAC #90 tabs 06/02/22 [Rx Confirmed 06/25/22] [facility] Medical History Alcohol use Anxiety Former smoker Gastric reflux History of edema History of pain when walking Low iron Normal colonoscopy Restless legs Seasonal allergies Wears contact lenses Surgical History History of lymph node excision Family History Grandmother Colon cancer Cancer ovarian Anemia Diabetes Grandfather Myocardial infarction, Onset Age: 50 Father Heart disease Hypertension Hyperlipemia Diabetes Mother Hypertension Sister Thyroid disorder Social History household members: spouse and children number of children: 2 current occupational status: employed 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 Patient states she fell 2 days ago with ongoing pain. She states wanting to be sure that she does not have a fracture and is requesting a x-ray at this time. She has been using ice to the area however denies any improvement with the pain. She denies numbness, tingling or loss range of motion. No previous injuries to same. No other associated symptoms or alleviating/aggravating factors. ROS Const Constitutional: No other (6 system ROS completed with pertinent findings in HPI otherwise normal.) Exam Const General: cooperative and healthy appearing Skin General: no rashes or lesions noted Neuro General: patient alert Extrem General: full ROM and capillary refill normal Other: Pain to palpation of the sole of the right foot with no obvious deformity, ecchymosis or erythema. Psych Appearance: grossly normal Mental Status: mental status grossly normal Coding Level of Care Code Off vis,est,level 4 Diagnoses Right foot strain S96.577E Assessment and Plan Assessment and Plan (1) Right foot strain: Status: Acute Plan: X-ray of the right foot read and interpreted by myself as no osseous abnormalities. Awaiting radiology interpretation at time of patient discharge. Patient advised of rest, ice alternating with heat, compression to the foot and elevation when possible. Patient was offered crutches however states that she has some at home and would rather use those. Patient advised of other symptomatic management techniques as well as potential red flags and when appropriate to report to the ED. Advised to follow-up with her PCP or orthopedics in 10 to 14 days if no better or sooner if worse. Patient verbalized understanding and agreement with all the above. Orders: Orders Foot min 3 Views Today S96.918A - Strain of unspecified muscle and tendon at ankle and foot level, right foot, initial encounter 06/25/22 6107 <Electronically signed by Wally MEDLEY> Date Wally MEDLEY Cosigner Signature: Date (if applicable) CC: Shaniqua Bunn [facility] Work Phone: Start: 06-02-2022 End: 06-02-2022 Gastroenterology Visit Report Procedure Note: See Note; NOTES: [facility] [address] [place] [address] OFFICE VISIT Date of Service: 06/02/22 MR#: [id number] Acct: [id number] Name: BESSIE KENNEDY DARI Rep #: [id number] : 1980 Provider: YESSI Strong Age/Sex: 41/F Location: [facility] [place] Status: Signed Intake Vital Signs 02/09/22 15:14 05/19/22 05:56 06/02/22 13:46 Height 5 ft 2 in 5 ft 2 in 5 ft 2 in Weight: 186 lb BMI 34.0 BP 125/82 H Blood Pressure Location Rt brachial Position Sitting Pulse 60 Pulse Oximetry (%) 99 Oxygen Delivery Method room air Intake Visit Reasons: 2 WEEK FU Chief Complaint: abd pain Allergies amoxicillin Adverse Reaction (Severe, Verified 06/02/22 13:45) diahrrea Medications hydrochlorothiazide 12.5 mg tablet 12.5 mg PO QDAY PRN Edema 01/02/18 [History Confirmed 06/02/22] pantoprazole 40 mg tablet,delayed release 40 mg PO DAILY #90 tabs 06/02/22 [Rx Confirmed 06/02/22] sucralfate 1 gram tablet 1 g PO QAC #90 tabs 06/02/22 [Rx Confirmed 06/02/22] PFSH Medical History Alcohol use Anxiety Former smoker Gastric reflux History of edema History of pain when walking Low iron Normal colonoscopy Restless legs Seasonal allergies Wears contact lenses Surgical History History of lymph node excision Family History Grandmother Colon cancer Cancer ovarian Anemia Diabetes Grandfather Myocardial infarction, Onset Age: 50 Father Heart disease Hypertension Hyperlipemia Diabetes Mother Hypertension Sister Thyroid disorder Social History household members: spouse and children number of children: 2 current occupational status: employed 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 EGD was indicated for epigastric pain and nausea, sometimes followed by diarrhea, as well as heartburn. She has constipation, positive family history of colon cancer, positive family history inflammatory bowel disease.???EGD revealed small hiatal hernia, gastritis per biopsy, Lang's esophagus w/o dysplasia. Colonoscopy revealed ulcers in TI, biopsies there were negative for pathology, positive melanosis coli. Continues to have pain epigastric/LUQ, can be severe, it awoke her in the night recently. Patient gets excruciating pain when she eats lettuce, eggs, broccoli, some berries. Pain is across upper abdomen, feels like spasms. Also gets nausea. Starts w/in one hour of consuming the ingredient. Can be calmed down by drinking a Coke. Hot bath can help. Might have looser stools the next day. Started maybe 5-6 yrs ago. Workup in 01/2022: CRP 4.3. Normal RUQ US and HIDA. Allergic to cow's milk, eggs, peanuts. She went to [facility], they said no treatment needed. She had a screening colonoscopy age 26, benign. Maternal grandmother age 62 of colon cancer. Maternal great-grandmother also had colon cancer. Father had colon tumor removed, no further treatment needed, no further info known. Father has ulcerative colitis. Sister has microscopic colitis. Mother has hiatal hernia, GERD. Daughter has GERD, she is 17 yrs old, she takes pantoprazole 40 mg daily, all the enamel was worn off her teeth. Nephew has esophageal stenosis. One sister has a double colon ; and polyps age 40. Pt has intermittent heartburn, take PPI prn, maybe once every 2 wks. No difficulty swallowing. Intermittent nausea suddenly even w/o the abd pain, better after a snack. No vomiting or hematemesis. Occas stool softener. Can go several days w/o BM, that's normal for her. Gets diarrhea on antibiotics. No melena or hematochezia. 02/25/22 US/Abdomen Limited IMPRESSION: Normal right upper quadrant ultrasound. ??? 03/12/22 NM/Hepatobilliary Img w/Pharm Int IMPRESSION: Normal filling of the gallbladder without evidence of acute cholecystitis or biliary obstruction. 05/19/22 EGD and Colonoscopy Impression: ? - Z-line irregular, 37 cm from the incisors. ? Biopsied. ? - Small hiatal hernia. ? - Chronic gastritis. Biopsied. ? - No gross lesions in the second portion of the ? duodenum. Impression: ? - Congested mucosa in the sigmoid colon and in ? the ascending colon. Biopsied. ? - A few ulcers in the terminal ileum. Biopsied. MICROSCOPIC DIAGNOSIS A. Gastric antrum, biopsy: Mild gastritis. See microscopic description and comment. Negative H pylori B. Distal esophagus, biopsy: Fragments of gastroesophageal mucosa with focal intestinal metaplasia (goblet cell metaplasia), consistent with Lang???s esophagus. Chronic inflammation. Negative for dysplasia. See comment. C. Terminal ileum, biopsy: A fragment of small intestinal mucosa, no pathologic diagnosis. D. Colon, random biopsy: Fragments of colonic mucosa with a few pigment laden macrophages, consistent with melanosis coli ROS Const Constitutional: Positive for fatigue ENT ENT: No difficulty swallowing Gastro GI: No abdominal pain, belching, bloating, change in bowel habits, change in stool character, coffee ground emesis, constipation, cramping, diarrhea, heartburn, difficulty swallowing, feeling full early, excessive flatus, incontinent of stools, Vomiting blood/hematemesis, Blood in stool, loose stools, Black,tarry stools, nausea/dyspepsia, pain with swallowing, vomiting or other Musc Musculoskeletal: No joint pain Skin Skin: No yellowing of the eye or itchy eyes Psych Psychiatric: No anxiety and No depression Endo Endocrine: Positive for fatigue Aller/Imm Allergy/Immunologic: No itchy eyes Chris/Lymp Hematologic/Lymphatic: No easy bleeding or easy bruising Exam Const General: cooperative and comfortable Orientation: alert, awake and oriented x3 GI Inspection: normal to inspection Palpation: soft Quality Reporting Tobacco Screening ([facility] 138) Smoking Status: Former smoker Assessment and Plan Assessment and Plan (1) Epigastric pain: Status: Acute Plan: 41 yr old female with recurrent severe episodic epigastric/LUQ pain, DDx includes EPI, pancreatitis, SOD, biliary obstruction. Will be treating gastritis and GERD/Lang's. We reviewed results from her EGD and colonoscopy Treat gastritis with one month of sucralfate and start pantoprazole 40 mg QAM Will need to remain on PPI due to Lang's diagnosis Stool tests for pancreas, more labs today MRCP ordered f/u 2 mos (2) Gastritis: Status: Acute Plan: as above (3) Lang's esophagus: Status: Acute Plan: as above Orders: Orders Fecal Fat, Qualitative Today R10.13 - Epigastric pain Pancreatic Elastase, Fecal Today R10.13 - Epigastric pain Amylase Today R10.13 - Epigastric pain Lipase Today R10.13 - Epigastric pain Liver Profile Today R10.13 - Epigastric pain MRCP Abdomen without Contrast Today R10.13 - Epigastric pain LDH Today K29.70 - Gastritis, unspecified, without bleeding, R10.13 - Epigastric pain ANCA Today K29.70 - Gastritis, unspecified, without bleeding, R10.13 - Epigastric pain Immunoglobulins G/A/M/E Today K29.70 - Gastritis, unspecified, without bleeding, R10.13 - Epigastric pain Medications: New pantoprazole 40 mg PO DAILY 90 tabs 3RF sucralfate 1 g PO QAC 90 tabs 0RF Coding Level of Care Code Off vis,est,level 4 Diagnoses Epigastric pain R10.13 Gastritis K29.70 Lang's esophagus K22.70 06/02/22 1637 <Electronically signed by Renetta Strong CLOUD ENGAGEMENT PARTNER CLOUD ENGAGEMENT PARTNER-C> Date Renetta Strong CLOUD ENGAGEMENT PARTNER CLOUD ENGAGEMENT PARTNER-C Cosigner Signature: Date (if applicable) CC: DO Shaniqua Samano [facility] Work Phone: Start: 05-19-2022 End: 05-19-2022 Colonoscopy Report Procedure Note: See Note; NOTES: [facility] Medical Records Department [address] [place] [address] Colonoscopy Report MR#: [id number] Acct: [id number] Name: BESSIE KENNEDY DARI Rep #: [id number] : 1980 41 From: Nicholas West DO PCP: Dr. Edel Garcia DO Status:[facility] Patient Name: Bessie Kennedy Procedure Date: 05/19/2022 7:00 AM Date of : 1980 Age: 41 Procedure: Colonoscopy Indications: Epigastric abdominal pain, Generalized abdominal pain, Family history of colon cancer in a first-degree relative Providers: Nicholas West DO Medicines: Monitored Anesthesia Care Patient Profile: This is a 41 year old female. Refer to note in patient chart for documentation of history and physical. Patient has symptoms of acute abdominal cramping and chronic epigastric abdominal pain. Last Colonoscopy: none. The patient's first colonoscopy is today. Complications: No immediate complications. Procedure: Pre-Anesthesia Assessment: - Prior to the procedure, a History and Physical was performed, and patient medications and allergies were reviewed. The risks and benefits of the procedure and the sedation options and risks were discussed with the patient. All questions were answered and informed consent was obtained. Patient identification and proposed procedure were verified by the physician in the pre-procedure area. Mental Status Examination: alert and oriented. Airway Examination: normal oropharyngeal airway and neck mobility. Respiratory Examination: clear to auscultation. CV Examination: normal. Prophylactic Antibiotics: The patient does not require prophylactic antibiotics. Prior Anticoagulants: The patient has taken no previous anticoagulant or antiplatelet agents. ASA Grade Assessment: II - A patient with mild systemic disease. After reviewing the risks and benefits, the patient was deemed in satisfactory condition to undergo the procedure. The anesthesia plan was to use monitored anesthesia care (MAC). Immediately prior to administration of medications, the patient was re-assessed for adequacy to receive sedatives. The heart rate, respiratory rate, oxygen saturations, blood pressure, adequacy of pulmonary ventilation, and response to care were monitored throughout the procedure. The physical status of the patient was re-assessed after the procedure. After I obtained informed consent, the scope was passed under direct vision. Throughout the procedure, the patient's blood pressure, pulse, and oxygen saturations were monitored continuously. The adult colonoscope was introduced through the anus and advanced to the terminal ileum. The colonoscopy was performed without difficulty. The patient tolerated the procedure well. The quality of the bowel preparation was good. Scope In: 7:02:44 AM Scope Withdrawal Time 0 hours 9 minutes 48 seconds Scope Out: 7:16:36 AM Total Procedure Duration Time 0 hours 13 minutes 52 seconds Findings: The perianal and digital rectal examinations were normal. An area of mildly congested mucosa was found in the sigmoid colon and in the ascending colon. Biopsies were taken with a cold forceps for histology. Verification of patient identification for the specimen was done. Estimated blood loss was minimal. The terminal ileum contained a few six mm ulcers. No bleeding was present. Biopsies were taken with a cold forceps for histology. Verification of patient identification for the specimen was done. Estimated blood loss was minimal. Impression: - Congested mucosa in the sigmoid colon and in the ascending colon. Biopsied. - A few ulcers in the terminal ileum. Biopsied. Recommendation: - Discharge patient to home. - Resume previous diet. - Continue present medications. - Await pathology results. - Repeat colonoscopy in 5 years for surveillance. Procedure Code(s): --- Professional --- 32214, Colonoscopy, flexible; with biopsy, single or multiple CPT copyright 2017 [employer]. All rights reserved. The codes documented in this report are preliminary and upon drawing in machine tender helper review may be revised to meet current compliance requirements. Nicholas West DO 05/19/2022 7:28:45 AM This report has been signed electronically. Number of Addenda: 0 Note Initiated On: 05/19/2022 7:00 AM 05/19/22727 Date Nicholas West DO Cosigner Signature: Date (if indicated) CC: Dr. Edel Garcia DO; Nicholas West DO Date Dictated: 05/19/22699 Date Transcribed: Cooperative Manager: RF Signed Shaniqua Bunn CNP Work Phone: Start: 05-19-2022 End: 05-19-2022 EGD Report Procedure Note: See Note; NOTES: [facility] Medical Records Department [address] [place] [id number] EGD Report MR#: [id number] Acct: [id number] Name: DIEGOKRYSTIANBESSIE DARI Rep #: [id number] : 1980 41 From: Nicholas West DO PCP: Dr. Edel Garcia DO Status:[facility] Patient Name: Bessie Kennedy Procedure Date: 05/19/2022 6:14 AM Date of : 1980 Age: 41 Procedure: Upper GI endoscopy Indications: Epigastric abdominal pain Providers: Nicholas West DO Medicines: Monitored Anesthesia Care Patient Profile: This is a 41 year old female. Refer to note in patient chart for documentation of history and physical. Patient has symptoms of acute abdominal cramping and chronic epigastric abdominal pain. Complications: No immediate complications. Procedure: Pre-Anesthesia Assessment: - Prior to the procedure, a History and Physical was performed, and patient medications and allergies were reviewed. The risks and benefits of the procedure and the sedation options and risks were discussed with the patient. All questions were answered and informed consent was obtained. Patient identification and proposed procedure were verified by the physician in the pre-procedure area. Mental Status Examination: alert and oriented. Airway Examination: normal oropharyngeal airway and neck mobility. Respiratory Examination: clear to auscultation. CV Examination: normal. Prophylactic Antibiotics: The patient does not require prophylactic antibiotics. Prior Anticoagulants: The patient has taken no previous anticoagulant or antiplatelet agents. ASA Grade Assessment: II - A patient with mild systemic disease. After reviewing the risks and benefits, the patient was deemed in satisfactory condition to undergo the procedure. The anesthesia plan was to use monitored anesthesia care (MAC). Immediately prior to administration of medications, the patient was re-assessed for adequacy to receive sedatives. The heart rate, respiratory rate, oxygen saturations, blood pressure, adequacy of pulmonary ventilation, and response to care were monitored throughout the procedure. The physical status of the patient was re-assessed after the procedure. After obtaining informed consent, the endoscope was passed under direct vision. Throughout the procedure, the patient's blood pressure, pulse, and oxygen saturations were monitored continuously. The was introduced through the mouth, and advanced to the second part of duodenum. The upper GI endoscopy was accomplished without difficulty. The patient tolerated the procedure well. Scope In: 6:53:59 AM Scope Out: 7:00:40 AM Total Procedure Duration Time 0 hours 6 minutes 41 seconds Findings: The Z-line was irregular and was found 37 cm from the incisors. Biopsies were taken with a cold forceps for histology. Verification of patient identification for the specimen was done. Estimated blood loss was minimal. A small hiatal hernia was present. Localized moderate inflammation characterized by erosions and erythema was found in the gastric antrum. Biopsies were taken with a cold forceps for histology. Verification of patient identification for the specimen was done. Estimated blood loss was minimal. No gross lesions were noted in the second portion of the duodenum. Impression: - Z-line irregular, 37 cm from the incisors. Biopsied. - Small hiatal hernia. - Chronic gastritis. Biopsied. - No gross lesions in the second portion of the duodenum. Recommendation: - Discharge patient to home. - Resume previous diet. - Continue present medications. - Await pathology results. Procedure Code(s): --- Professional --- 11250, Esophagogastroduodenoscopy, flexible, transoral; with biopsy, single or multiple CPT copyright 2017 [employer]. All rights reserved. The codes documented in this report are preliminary and upon drawing in machine tender helper review may be revised to meet current compliance requirements. Nicholas West DO 05/19/2022 7:23:08 AM This report has been signed electronically. Number of Addenda: 0 Note Initiated On: 05/19/2022 6:14 AM 05/19/22722 Date Nicholas West DO Cosigner Signature: Date (if indicated) CC: Dr. Edel Garcia DO; Nicholas West DO Date Dictated: 05/19/22613 Date Transcribed: Cooperative Manager: MELISSA Bunn CNP Work Phone: Start: 05-19-2022 End: 05-19-2022 History and Physical Exam Procedure Note: See Note; NOTES: [facility] Medical Records Department [address] [place] [id number] History Physical Exam 05/19/22718 MR#: [id number] Acct: [id number] Name: BESSIE KENNEDY DARI Rep #: [id number] : 1980 41 From: Nicholas West DO PCP: Dr. Edel Garcia DO Status:[facility] Location: [place] [address] History and Physical Date of Admission: 05/19/22 BESSIE KENNEDY, is a 41 F who presents to the office today for: wants to schedule screening colonoscopy She had a screening colonoscopy age 26, benign. Maternal grandmother age 62 of colon cancer. Maternal great-grandmother also had colon cancer. Father had colon tumor removed, no further treatment needed, no further info known. Father has ulcerative colitis. Sister has microscopic colitis. Mother has hiatal hernia, GERD. Daughter has GERD, she is 17 yrs old, she takes pantoprazole 40 mg daily, all the enamel was worn off her teeth. Nephew has esophageal stenosis. One sister has a double colon ; has polyps age 40. Patient gets excruciating pain when she eats lettuce, eggs, broccoli, some berries. Pain is across upper abdomen, feels like spasms. Also gets nausea. Starts w/in one hour of consuming the ingredient. Can be calmed down by drinking a Coke. Hot bath can help. Might have looser stools the next day. No treatment yet for the abd pain. Started maybe 5-6 yrs ago. Pt has intermittent heartburn, take PPI prn, maybe once every 2 wks. No difficulty swallowing. Intermittent nausea suddenly even w/o the abd pain, better after a snack. No vomiting or hematemesis. Occas stool softener. Can go several days w/o BM, that's normal for her. Gets diarrhea on antibiotics. No melena or hematochezia. Has venous insufficiency bilat LE, takes diuretic prn, attributed to being in breech position for one month prior to being born. She has some seasonal allergies. ROS Const Constitutional: Positive for fatigue ENT ENT: No difficulty swallowing Gastro GI: Positive for abdominal pain, bloating, diarrhea, heartburn, excessive flatus and Blood in stool; No belching, change in bowel habits, change in stool character, coffee ground emesis, constipation, cramping, difficulty swallowing, feeling full early, incontinent of stools, Vomiting blood/hematemesis, loose stools, Black,tarry stools, nausea/dyspepsia, pain with swallowing, vomiting or other Musc Musculoskeletal: Positive for numbness and tingling; No joint pain Skin Skin: No yellowing of the eye or itchy eyes Neuro Neurology: Positive for numbness and tingling Psych Psychiatric: No anxiety and No depression Endo Endocrine: Positive for fatigue Aller/Imm Allergy/Immunologic: No itchy eyes Chris/Lymp Hematologic/Lymphatic: No easy bleeding or easy bruising Exam Const General: cooperative, healthy appearing, comfortable, well developed and well groomed Eyes General: appearance normal, both eyes and all related structures Resp Effort Inspection: normal respiratory effort GI Inspection: normal to inspection Palpation: soft, no hepatosplenomegaly, no hepatosplenomegaly and tender in the epigastrum and in the RUQ Skin General: no jaundice Neuro Speech: speech normal Gait: normal gait Psych Mood: euthymic mood Affect: normal affect Quality Reporting Tobacco Screening ([facility] 138) Smoking Status: Current every day smoker Assessment and Plan Assessment and Plan (1) Epigastric pain: ?Status:???Acute (2) Nausea: ?Status:???Acute (3) FH: inflammatory bowel disease: ?Status:???Acute (4) Heartburn: ?Status:???Acute (5) Family history of colon cancer: ?Status:???Acute ? Orders:???Orders: ??? Allergen, Rast Food Profile Today R10.13, R11.0 ? Allergen, Food Profile Today R10.13, R11.0 ? Celiac Disease Profile Today R10.13, R11.0, Z83.79 ? Comprehensive Metabolic Profil Today R10.13, R11.0, Z83.79 ? CRP Today R10.13, R11.0, Z83.79 ? CBC W/Diff, Automated Today R10.13, R11.0, Z83.79 ? Erythrocyte Sed Rate Today R10.13, R11.0, Z83.79 ? FARZAD Comprehensive Panel Today R10.13, R11.0, Z83.79 ? Calprotectin, Stool Today R10.13, R11.0, Z83.79 ? Stool Lactoferrin/WBC Today R10.13, R11.0, Z83.79 ?Plan - Renetta Strong CLOUD ENGAGEMENT PARTNER, CLOUD ENGAGEMENT PARTNER-C: 41-year-old female with severe epigastric pain and nausea secondary to eating certain foods specifically lettuce, broccoli, eggs, berries.??? This is sometimes followed by loose stools.??? She has intermittent heartburn, tends to have constipation, positive family history of colon cancer, positive family history inflammatory bowel disease.??? We will evaluate her for food allergies, celiac disease, autoimmune disorders, IBD.??? Based on results we will decide what imaging might be warranted.??? May need to evaluate for gallbladder disease, pancreatitis and/or pancreatic insufficiency.??? We will schedule first available follow-up which is approximately 6 weeks out.??? We will schedule her for upper and lower endoscopy, to be followed by 2-week follow-up to discuss biopsy results. I have re-examined the patient. There are no clinical changes since date of exam. 05/19/22719 <Electronically signed by Nicholas West DO> Cosigner Signature (if applicable): CC: Dr. Edel Garcia DO; Nicholas West DO Signed Shaniqua Bunn [facility] Work Phone: Start: 04-04-2022 End: 04-04-2022 Urgent Care Visit Report Procedure Note: See Note; NOTES: [facility] [address] [place] [address] OFFICE VISIT Date of Service: 04/04/22 MR#: [id number] Acct: [id number] Name: BESSIE KENNEDY DARI Rep #: [id number] : 1980 Provider: JASMYNE Gilbert Age/Sex: 41/F Location: [facility] Status: Signed Intake Vital Signs 02/09/22 15:14 04/04/22 08:46 Height 1.57 m BP 122/74 H Blood Pressure Location Lt brachial Position Sitting Respiration 14 Pulse 87 Pulse Source Monitor Temp 98.3 F Temp Source Temporal Pulse Oximetry (%) 98 Oxygen Delivery Method room air Intake Visit Reasons: SORE THROAT/BODY ACHES/COUGH Chief Complaint: sore throat Allergies amoxicillin Adverse Reaction (Severe, Verified 02/09/22 15:13) maikel [facility] Medical History Normal colonoscopy Seasonal allergies Surgical History History of lymph node excision Family History Grandmother Colon cancer Cancer ovarian Anemia Diabetes Grandfather Myocardial infarction, Onset Age: 50 Father Heart disease Hypertension Hyperlipemia Diabetes Mother Hypertension Sister Thyroid disorder Social History household members: spouse and children number of children: 2 current occupational status: employed 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 This began tuesday AM. She was on vacation in [place] (road trip). Her had similar symptoms but his resolved. Pt has had fever, body aches, sore throat, ALEXANDRE, loss of appetite. No rash, vomiting or diarrhea. Mild nonproductive cough with no SOB. ROS Const Constitutional: Positive for body ache, fatigue, fever(s) and headache(s); No chills ENT ENT: Positive for nasal congestion, headache(s) and sore throat; No ear or mastoid pain Resp Respiratory: Positive for cough Cough: Yes non-productive; No shortness of breath or wheezing Gastro GI: No diarrhea, nausea/dyspepsia or vomiting Neuro Neurology: Positive for headache(s) Endo Endocrine: Positive for fatigue Aller/Imm Allergy/Immunologic: No wheezing Exam Const General: cooperative, healthy appearing, comfortable, no acute distress, well developed and well groomed Nutritional Appearance: average body habitus and well nourished Orientation: alert, awake and oriented x3 HENMT Head: normocephalic and atraumatic Ears: hearing grossly normal bilaterally, external ears normal and TM's normal bilaterally Throat: tonsils normal, uvula midline and posterior oropharynx abnormal (mildly erythematous) Resp Effort Inspection: normal respiratory effort, able to speak in complete sentences, symmetric chest movement and no cough Auscultation: Bilateral: Clear to Auscultation Cardio Rate: regular rate Rhythm: regular rhythm Heart Sounds: no murmurs Results POC SABRINA Covid FluAB PCR POC Sabrina Covid PCR Detected Last Edit by Brittny Farias on 04/04/22 09:09 POC SABRINA FLU NOT DETECTED FLU A B Last Edit by Brittny Farias on 04/04/22 09:09 Coding Level of Care Code Off vis,est,level 2 Diagnoses COVID-19 U07.1 Assessment and Plan Assessment and Plan (1) COVID-19: Status: Acute Plan: Covid PCR today is positive. Day 0 was tuesday. Recommended current CDC quarantine guidelines and supportive measures. Symptoms are mild and she has no risk factors for progression to severe dz so I do not recommend more aggressive therapy at this time. The HCTZ she takes is not for HTN but for venous insufficiency. If worsening go to the ER. Orders: Orders POC Sabrina Covid FLUAB PCR Today J02.9 - Acute pharyngitis, unspecified 04/04/2231 <Electronically signed by Hugo MEDLEY> Date Hugo MEDLEY Cosigner Signature: Date (if applicable) CC: Shaniqua Bunn PATIENT TRANSPORTATION DRIVER Work Phone: Start: 03-12-2022 End: 03-12-2022 Hepatobilliary Img w/Pharm Int Procedure Note: See Note; NOTES: [facility] Imaging Services [address] [place] [address] Hepatobilliary Img w/Pharm Int MR#: [id number] Acct: [id number] Name: BESSIE KENNEDY Rep #: [id number] : 1980 F 41 From: Bubba Zuniga MD PCP: Dr. Edel Garcia, DO Status: REG CLI Study: Hepatobilliary Img w/Pharm Int Date of Exam: 0 03/12/22 Exam# [id number] Ordering Dr: Renetta Strong NP CLOUD ENGAGEMENT PARTNER-C Nuclear medicine HIDA scan Indication: Postprandial epigastric pain COMPARISON STUDIES : NM - None. CR - Not available for review at this time. CT - Not available for review at this time. MR - Not available for review at this time. Technique: 5.5 mCi of technetium 99m labeled mebrofenin was injected intravenously followed by standard imaging. 1.6 mcg of CCK was injected intravenously for calculation of gallbladder ejection fraction. Findings: There is homogenous activity throughout the liver. Normal excretion of isotope into the proximal small bowel. Activity in the gallbladder is identified at 10 minutes. Gallbladder ejection fraction measures 94%. NM/Hepatobilliary Img w/Pharm Int IMPRESSION: Normal filling of the gallbladder without evidence of acute cholecystitis or biliary obstruction. Electronically Signed: Bubba Zuniga MD (Brooks) at 12:16 EDT Reading Location ID and State: [address] [place] [address] , Service support , CC: CLOUD ENGAGEMENT PARTNER-C Renetta Strong; Dr. Edel Garcia DO Cooperative Manager: Signed Shaniqua Bunn CNP Work Phone: Start: 02-25-2022 End: 02-25-2022 Abdomen Limited Procedure Note: See Note; NOTES: [facility] Imaging Services [address] [place] [address] Abdomen Limited MR#: [id number] Acct: [id number] Name: BESSIE KENNEDY Rep #: [id number] : 1980 F 41 From: Newton Romo MD PCP: Dr. Edel Garcia, Status: REG CLI Study: Abdomen Limited Date of Exam: 02/25/22 Exam# [id number] Ordering Dr: Renetta Strong NP, NP-Annalisa EXAM: US ABDOMEN LIMITED, RIGHT UPPER QUADRANT CLINICAL INDICATION: postprandial epigastric pain TECHNIQUE: Real-time ultrasound of the right upper quadrant with image documentation. This report was created using [employer] report generation technology. COMPARISON: None. FINDINGS: LIVER: Unremarkable. There is normal echotexture. No focal hepatic lesion. No intrahepatic biliary ductal dilation. GALLBLADDER: Unremarkable. No shadowing gallstone. No gallbladder wall thickening is demonstrated. No pericholecystic fluid. Negative sonographic Husain''s sign. COMMON BILE DUCT: Unremarkable as visualized. The proximal common bile duct is within normal limits for the patient''s age. PANCREAS: Unremarkable as visualized. No focal abnormality is demonstrated in the pancreas. No pancreatic ductal dilatation. RIGHT KIDNEY: Unremarkable. There is no hydronephrosis. No shadowing calculus. No focal lesion or perinephric collection is demonstrated. US/Abdomen Limited IMPRESSION: Normal right upper quadrant ultrasound. Electronically Signed: Newton Romo MD at 8:10 EDT Reading Location ID and State: [facility] / [place] Tel , Service support , CC: YESSI Strong; Dr. Edel Garcia DO Cooperative Manager: Signed Shaniqua Bunn CNP Work Phone: Start: 02-09-2022 End: 02-09-2022 Gastroenterology Visit Report Procedure Note: See Note; NOTES: [facility] [address] [place] [address] OFFICE VISIT Date of Service: 02/09/22 MR#: [id number] Acct: [id number] Name: BESSIE KENNEDY DARI Rep #: [id number] : 1980 Provider: YESSI Strong Age/Sex: 41/F Location[place] [facility] [place] Status: Signed Intake Vital Signs 02/09/22 15:14 Height 5 ft 2 in Weight: 183 lb BMI 33.5 BP 125/84 H Blood Pressure Location Rt brachial Position Sitting Pulse 75 Pulse Oximetry (%) 98 Oxygen Delivery Method room air Intake Visit Reasons: Diarrhea Allergies amoxicillin Adverse Reaction (Severe, Verified 02/09/22 15:13) diahrrea Medications hydrochlorothiazide 12.5 mg tablet 12.5 mg PO QDAY PRN 01/02/18 [History Confirmed 02/09/22] PFSH Medical History Normal colonoscopy Seasonal allergies Surgical History History of lymph node excision Family History Grandmother Colon cancer Cancer ovarian Anemia Diabetes Grandfather Myocardial infarction, Onset Age: 50 Father Heart disease Hypertension Hyperlipemia Diabetes Mother Hypertension Sister Thyroid disorder Social History household members: spouse and children number of children: 2 current occupational status: employed 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 Maternal grandmother age 62 of colon cancer. Maternal great-grandmother also had colon cancer. Father had colon tumor removed, no further treatment needed, no further info known. Father has ulcerative colitis. Sister has microscopic colitis. Mother has hiatal hernia, GERD. Daughter has GERD, she is 17 yrs old, she takes pantoprazole 40 mg daily, all the enamel was worn off her teeth. Nephew has esophageal stenosis. One sister has a double colon ; has polyps age 40. Patient gets excruciating pain when she eats lettuce, eggs, broccoli, some berries. Pain is across upper abdomen, feels like spasms. Also gets nausea. Starts w/in one hour of consuming the ingredient. Can be calmed down by drinking a Coke. Hot bath can help. Might have looser stools the next day. No treatment yet for the abd pain. Started maybe 5-6 yrs ago. Pt has intermittent heartburn, take PPI prn, maybe once every 2 wks. No difficulty swallowing. Intermittent nausea suddenly even w/o the abd pain, better after a snack. No vomiting or hematemesis. Occas stool softener. Can go several days w/o BM, that's normal for her. Gets diarrhea on antibiotics. No melena or hematochezia. Has venous insufficiency bilat LE, takes diuretic prn, attributed to being in breech position for one month prior to being born. She has some seasonal allergies. ROS Const Constitutional: Positive for fatigue ENT ENT: No difficulty swallowing Gastro GI: Positive for abdominal pain, bloating, diarrhea, heartburn, excessive flatus and Blood in stool; No belching, change in bowel habits, change in stool character, coffee ground emesis, constipation, cramping, difficulty swallowing, feeling full early, incontinent of stools, Vomiting blood/hematemesis, loose stools, Black,tarry stools, nausea/dyspepsia, pain with swallowing, vomiting or other Musc Musculoskeletal: Positive for numbness and tingling; No joint pain Skin Skin: No yellowing of the eye or itchy eyes Neuro Neurology: Positive for numbness and tingling Psych Psychiatric: No anxiety and No depression Endo Endocrine: Positive for fatigue Aller/Imm Allergy/Immunologic: No itchy eyes Chris/Lymp Hematologic/Lymphatic: No easy bleeding or easy bruising Exam Const General: cooperative, healthy appearing, comfortable, well developed and well groomed Eyes General: appearance normal, both eyes and all related structures Resp Effort Inspection: normal respiratory effort GI Inspection: normal to inspection Palpation: soft, no hepatosplenomegaly, no hepatosplenomegaly and tender in the epigastrum and in the RUQ Skin General: no jaundice Neuro Speech: speech normal Gait: normal gait Psych Mood: euthymic mood Affect: normal affect Quality Reporting Tobacco Screening ([facility] 138) Smoking Status: Current every day smoker Assessment and Plan Assessment and Plan (1) Epigastric pain: Status: Acute (2) Nausea: Status: Acute (3) FH: inflammatory bowel disease: Status: Acute (4) Heartburn: Status: Acute (5) Family history of colon cancer: Status: Acute Orders: Orders: Allergen, Rast Food Profile Today R10.13, R11.0 Allergen, Food Profile Today R10.13, R11.0 Celiac Disease Profile Today R10.13, R11.0, Z83.79 Comprehensive Metabolic Profil Today R10.13, R11.0, Z83.79 CRP Today R10.13, R11.0, Z83.79 CBC W/Diff, Automated Today R10.13, R11.0, Z83.79 Erythrocyte Sed Rate Today R10.13, R11.0, Z83.79 FARZAD Comprehensive Panel Today R10.13, R11.0, Z83.79 Calprotectin, Stool Today R10.13, R11.0, Z83.79 Stool Lactoferrin/WBC Today R10.13, R11.0, Z83.79 Plan - Renetta Strong CLOUD ENGAGEMENT PARTNER, CLOUD ENGAGEMENT PARTNER-C: 41-year-old female with severe epigastric pain and nausea secondary to eating certain foods specifically lettuce, broccoli, eggs, berries. This is sometimes followed by loose stools. She has intermittent heartburn, tends to have constipation, positive family history of colon cancer, positive family history inflammatory bowel disease. We will evaluate her for food allergies, celiac disease, autoimmune disorders, IBD. Based on results we will decide what imaging might be warranted. May need to evaluate for gallbladder disease, pancreatitis and/or pancreatic insufficiency. We will schedule first available follow-up which is approximately 6 weeks out. We will schedule her for upper and lower endoscopy, to be followed by 2-week follow-up to discuss biopsy results. Coding Level of Care Code Off vis,new,level 4 Diagnoses Epigastric pain R10.13 Nausea R11.0 FH: inflammatory bowel disease Z83.79 Heartburn R12 Family history of colon cancer Z80.0 02/09/22 1641 <Electronically signed by Renetta Strong CLOUD ENGAGEMENT PARTNER CLOUD ENGAGEMENT PARTNER-C> Date Renetta Strong NP CLOUD ENGAGEMENT PARTNER-C Cosigner Signature: Date (if applicable) CC: Dr. 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) Allergies amoxicillin Adverse Reaction (Severe, Verified 12/24/21 14:44) diahrrea Medications hydrochlorothiazide 12.5 mg tablet 12.5 mg PO QDAY PRN 01/02/18 [History Confirmed 12/24/21] Is last menstrual period known: Yes Last Menstral Period: 11/30/21 [facility] Medical History (Updated 12/24/21 @ 15:00 by Afia Thompson CLOUD ENGAGEMENT PARTNER, CLOUD ENGAGEMENT PARTNER-C) Normal colonoscopy Seasonal allergies Surgical History History of lymph node excision Family History Grandmother Colon cancer Cancer ovarian Anemia Diabetes Grandfather Myocardial infarction, Onset Age: 50 Father Heart disease Hypertension Hyperlipemia Diabetes Mother Hypertension Sister Thyroid disorder Social History household members: spouse and children number of children: 2 current occupational status: employed 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 history of recent travel: Yes sexually active: Yes Smoking Status: Current every day smoker Tobacco: How many years used: 15 alcohol intake: never substance use type: does not use what type of physical activity do you participate in: walking and weight training frequency: daily seatbelt use: always do you feel safe at home: Yes 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 Maternal family history of colon cancer. Has had issues with diarrhea with certain foods. Would like further evaluation. Last PAP: 2019 History of abnormal PAP: no Last mammogram: 10/2021 History of abnormal mammogram: no Other preventative health care screenings: Delio Female Reproductive History Last Menstral Period: 11/30/21 Cycle Length: 21-35 Bleeding Duration: 5 Control Method: vasectomy Questions: metorrhagia: No, sexually active: Yes, dyspareunia: No and PCB: No ROS Const Constitutional: Denies fatigue, weight gain or weight loss Cardio Card: Denies chest pain Resp Resp: Denies cough or dyspnea on exertion GI GI: Reports as per HPI : Reports as per HPI; Denies difficulty voiding, pelvic pain, urinary frequency, urinary incontinence, urinary urgency, vaginal discharge or vaginal pruritus Exam Const General: cooperative, healthy appearing, no acute distress and well developed Orientation: alert, oriented to person and oriented to place [facility] Head: normal to inspection Neck Neck: normal visual inspection Thyroid: thyroid normal Lymphatic: no lymphadenopathy noted Chest Breast inspection: normal inspection of the breasts and normal inspection of the axillae Breast palpation: normal palpation of the breasts, normal palpation of the axillae and no axillary lymphadenopathy Resp Effort Inspection: normal respiratory effort GI Palpation: soft, no masses and nontender Rectal Exam: deferred External Female Exam: normal external appearance and normal appearance of the urethra Urethra: normal appearance of the urethra and normal palpation Speculum Exam - Vagina: normal appearance of the vagina and normal vaginal discharge Speculum Exam - Cervix: normal appearance of the cervix Bimanual Exam- Vagina Uterus: normal bimanual exam, uterine size normal, uterine shape normal and non-tender Bimanual Exam- Adnexa, other: normal adnexae, no masses, normal and non-tender Pelvic Support: normal Neuro General: patient alert and patient oriented x3 Psych Affect: normal affect Coding Level of Care Code Off vis,est,prev 40-64yrs Diagnoses Encounter for routine gynecological examination Z01.419 Diarrhea R19.7 Family history of colon cancer Z80.0 Assessment and Plan Assessment and Plan (1) Encounter for routine gynecological examination: (2) Diarrhea: Status: Acute (3) Family history of colon cancer: Status: Acute Plan - Afia Thompson CLOUD ENGAGEMENT PARTNER, CLOUD ENGAGEMENT PARTNER-C: Completed breast and pelvic exam Reviewed diet and exercise Pap 2020 Mammogram 09/2021 Recent health screen labs with PCP breast self exam encouraged monthly Contraception spouse vasectomy Colonoscopy refer Dr West RTO 1 year, prn with problems Afia Thompson CNP Plan Details Other Orders: Orders: SCRN MAMM (CAD)W/MARIO BILAT 11/11/21 12/24/21 1506 <Electronically signed by Afia Thompson NP CLOUD ENGAGEMENT PARTNER-C> Date Afia Thompson NP CLOUD ENGAGEMENT PARTNER-C Cosigner Signature: Date (if applicable) CC: Shaniqua Bunn CNP Work Phone: Start: 12-05-2021 End: 12-05-2021 Urgent Care Visit Report Procedure Note: See Note; NOTES: [facility] [address] [place], [place] [id number] OFFICE VISIT Date of Service: 12/05/21 MR#: [id number] Acct: [id number] Name: DIEGOKRYSTIANBESSIE DARI Rep #: [id number] : 1980 Provider: JASMYNE jansen Age/Sex: 41/F Location: [facility] [place] Status: Signed Intake Intake Visit Reasons: COVID TEST FOR TRAVEL Chief Complaint: PE for 's Ins Allergies amoxicillin Adverse Reaction (Severe, Verified 10/21/20 14:54) maikel [facility] Medical History (Updated 12/05/21 @ 08:25 by Luis Alberto MEDLEY, PA) Encounter for screening for COVID-19 Normal colonoscopy Seasonal allergies Surgical History History of lymph node excision Family History Grandmother Colon cancer Cancer ovarian Anemia Diabetes Grandfather Myocardial infarction, Onset Age: 50 Father Heart disease Hypertension Hyperlipemia Diabetes Mother Hypertension Sister Thyroid disorder Social History (Updated 10/21/20 @ 15:48 by Wally MEDLEY, PA) household members: spouse and children number of children: 2 current occupational status: employed 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 ROS Const Constitutional: No other (As above) Exam Const General: cooperative, healthy appearing and comfortable Nutritional Appearance: well nourished Orientation: alert, awake and oriented x3 HENMT Head: normal to inspection Ears: external ears normal Nose: external nose normal Resp Effort Inspection: normal respiratory effort, able to speak in complete sentences and symmetric chest movement Cardio Rate: regular rate Pulses: radial pulses present Neuro General: patient alert, patient awake and patient oriented x3 Cognition: normal cognition Speech: speech normal Psych Appearance: grossly normal Mental Status: mental status grossly normal Mood: congruent mood Affect: normal affect Speech and Movement: speech and movement normal Attitude: cooperative Thought Process: normal Thought Content: normal Judgment: judgment good Coding Level of Care Code Off vis,est,level 2 Diagnoses Encounter for screening for COVID-19 Z11.52 Assessment and Plan Assessment and Plan (1) Encounter for screening for COVID-19: Status: Acute Plan - Luis Alberto MEDLEY, PA: POC COVID-19 screening performed in office today. Copy of lab results offered. Follow-up with PCP on an as-needed basis only. Patient states acknowledging understanding all the above. This note was generated with [employer] dictation software. It may contain incorrect words, spelling, and punctuation that were not noted in checking the note before signing. 12/05/21 0825 <Electronically signed by Luis Alberto MEDLEY> Date Luis Alberto MEDLEY Cosigner Signature: Date (if applicable) CC: Shaniqua Bunn PATIENT TRANSPORTATION DRIVER Work Phone: Start: 11-11-2021 End: 11-12-2021 SCRN MAMM (CAD)W/MARIO BILAT Procedure Note: See Note; NOTES: [facility] Imaging Services [address] [place] [address] SCRN MAMM (CAD)W/MARIO BILAT MR#: [id number] Acct: [id number] Name: BESSIE KENNEDY DARI Rep #: [id number] : 1980 F 41 From: Iraj Sotelo MD PCP: Dr. Edel Garcia, DO Status: [facility] Study: SCRN MAMM (CAD)W/MARIO BILAT Date of Exam: 10/27 02/17 Exam# [id number] Ordering Dr: Afia Thompson CLOUD ENGAGEMENT PARTNER CLOUD ENGAGEMENT PARTNER -C MAMMOGRAPHY - BILATERAL SCREENING 3-D TOMOSYNTHESIS REASON FOR EXAM: Female, 41 years old. screening PERTINENT HISTORY: No significant family history. TECHNIQUE: 2-D mammograms and 3-D Tomosynthesis of the breast (s) were performed. CAD was performed. COMPARISON: 07/15/2020 FINDINGS: The breast composition is composed of scattered fibroglandular density. Scattered benign calcifications are seen. No dense spiculated masses or suspicious microcalcifications are identified. No architectural distortion is identified. There is no skin thickening or retraction. There has been no significant change since the prior study. BI/SCRN MAMM (CAD)W/MARIO BILAT IMPRESSION: No mammographic signs of malignancy. Routine yearly mammograms recommended. ASSESSMENT CATEGORY: BIRADS Category 1: Negative. A letter regarding these results will be sent to the patient by the facility within 30 days. FOLLOW UP RECOMMENDATION: Yearly follow up mammogram recommended. (A) Approximately 10% of breast cancers are not detected by mammography. A normal mammogram should not delay biopsy of a clinically suspicious abnormality. Electronically Signed: Iraj Sotelo MD at 8:55 EDT , CC: YESSI Thompson; Dr. Edel Garcia DO Cooperative Manager: Signed Edel Garcia DO Work Phone: Start: 10-21-2020 End: 10-21-2020 Urgent Care Visit Report Comments: See Note; NOTES: [facility] [address] [place] [address] [address] [place] [address] OFFICE VISIT Date of Service: 10/21/20 MR#: [id number] Acct: [id number] Name: BESSIE KENNEDY DARI Rep #: [id number] : 1980 Provider: JASMYNE Porter Age/Sex: 40/F Location: [facility] [place] Status: Signed Intake Vital Signs 10/21/20 Height 5 ft 3 in 10/21/20 Weight: 170 lb 10/21/20 BP 122/84 H 10/21/20 Blood Pressure Location Lt brachial 10/21/20 Position Sitting 10/21/20 Respiration 14 10/21/20 Pulse 74 10/21/20 Pulse Source Monitor 10/21/20 Temp 97.9 F 10/21/20 Temp Source Temporal 10/21/20 Pulse Oximetry (%) 99 10/21/20 Oxygen Delivery Method room air Intake Visit Reasons: SYMPTOMATIC/WANTS COVID TEST Accompanied by: self Is patient in pain?: Yes Allergies amoxicillin Adverse Reaction (Severe, Verified 10/21/20 14:54) diahrrea Medications hydrochlorothiazide 12.5 mg tablet 12.5 mg PO QDAY PRN 01/02/18 [History Confirmed 10/21/20] ascorbic acid (vitamin C) 500 mg capsule mg PO 07/15/20 [History Confirmed 10/21/20] cholecalciferol (vitamin D3) 50 mcg (2,000 unit) capsule 50 mcg PO DAILY 07/15/20 [History Confirmed 10/21/20] zinc 50 mg tablet 50 mg PO DAILY 07/15/20 [History Confirmed 10/21/20] [facility] Medical History Seasonal allergies (Chronic) Normal colonoscopy (Acute) Surgical History History of lymph node excision (Acute) Family History Grandmother Colon cancer Cancer ovarian Anemia Diabetes Grandfather Myocardial infarction, Onset Age: 50 Father Heart disease Hypertension Hyperlipemia Diabetes Mother Hypertension Sister Thyroid disorder Social History (Updated 10/21/20 @ 15:48 by JASMYNE Landaverde) household members: spouse, children number of children: 2 current occupational status: employed 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 She denies fever, chills, sweats. No cough, shortness of breath or difficulty breathing. No nausea, vomiting, diarrhea. No loss of taste or smell. Patient states she is concerned for Covid and is requesting a Covid test at this time. No other associated symptoms or alleviating/aggravating factors. ROS Const Constitutional: Positive for other (6 system ROS completed with pertinent findings in the HPI otherwise normal.) Exam Const General: cooperative, healthy appearing HENMT Head: normal to inspection Ears: hearing grossly normal bilaterally, TM's normal bilaterally, EAC's normal Nose: nasal discharge purulent Face and sinus: sinus tenderness frontal and maxillary Mouth: oral mucosae normal Throat: abnormal tonsil bilaterally, postnasal drainage Resp Effort Inspection: normal respiratory effort Auscultation: Bilateral: Clear to Auscultation Cardio Palpation: normal PMI Rate: regular rate Rhythm: regular rhythm Neuro General: alert, CN's II-XI intact bilaterally Psych Appearance: grossly normal Mental Status: mental status grossly normal Results POC ROD CoV-2 PCR POC ROD CoV-2 PCR Not Detected Last Edit by Juanita Robertson on 10/21/20 15:15 Assessment Plan Problems 1. Acute non-recurrent pansinusitis J01.40 Status Acute Plan Patient tested negative for Covid and influenza using rapid PCR testing in the office today. Encouraged to get plenty of rest, drink lots of clear liquids, and use Tylenol or Ibuprofen (unless contraindicated) for fever and comfort. Patient also educated on other symptomatic management techniques. To be seen in 7-10 days if no improvement; sooner if worsening of symptoms. Patient advised of potential red flags and when appropriate to report to the ED. Patient verbalized understanding and agreement with all the above. 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 Automatic Required: No Accompanied by: self Is patient in pain?: No Allergies amoxicillin Adverse Reaction (Severe, Verified 07/15/20 15:30) diahrrea Medications hydrochlorothiazide 12.5 mg tablet 12.5 mg PO QDAY PRN 01/02/18 [History Confirmed 07/15/20] ascorbic acid (vitamin C) 500 mg capsule mg PO 07/15/20 [History Confirmed 07/15/20] cholecalciferol (vitamin D3) 50 mcg (2,000 unit) capsule 50 mcg PO DAILY 07/15/20 [History Confirmed 07/15/20] zinc 50 mg tablet 50 mg PO DAILY 07/15/20 [History Confirmed 07/15/20] Is last menstrual period known: Yes Last Menstral Period: 07/01/20 Post menopausal: No Patient : No : No PFSH Medical History Seasonal allergies (Chronic) Normal colonoscopy (Acute) Surgical History History of lymph node excision (Acute) Family History Grandmother Colon cancer Cancer ovarian Anemia Diabetes Grandfather Myocardial infarction, Onset Age: 50 Father Heart disease Hypertension Hyperlipemia Diabetes Mother Hypertension Sister Thyroid disorder Social History (Updated 07/15/20 @ 15:52 by Afia Thompson NP, YESSI) Smoking Status: Current every day smoker Tobacco: How many years used: 15 alcohol intake: never substance use type: does not use what type of physical activity do you participate in: walking, weight training frequency: daily Pregancy History Elective abortions Hx Para 1 Spontaneous abortions Hx # Term Pregnancies Ectopic pregnancies Hx # Pregnancies Multiple births # of living children 1 HPI Encounter for routine gynecological examination: Details: BESSIE KENNEDY is a 40 year old who presents for annual exam. States menses becoming heavier. Did have episode of menses less then 3 weeks apart. EMB in 2017 for same issue, disordered proliferative lining but irregular menses resolved and did not want medication at that time. She does smoke. with vasectomy Last PAP: 2017 History of abnormal PAP: no Last mammogram: today History of abnormal mammogram: no Other preventative health care screenings: Jose Female Reproductive History Last Menstral Period: 07/01/20 Questions: Metorrhagia: Yes, Sexually active: Yes, Dyspareunia: No, PCB: No ROS Const Constitutional: Denies fatigue, weight gain or weight loss Cardio Card: Denies chest pain Resp Resp: Denies cough or shortness of breath with activity GI GI: Denies abdominal pain, bloating, change in stools, constipation or vomiting : Reports as per HPI; denies difficulty urinating, pelvic pain, urinary frequency, urinary incontinence, urinary urgency, vaginal discharge or vaginal itching Exam Const General: cooperative, healthy appearing, no acute distress, well developed Orientation: alert, oriented to person, oriented to place HENDC Head: normal to inspection Neck Neck: normal visual inspection Thyroid: thyroid normal Lymphatic: no lymphadenopathy noted Chest Breast inspection: normal inspection of the breasts, normal inspection of the axillae Breast palpation: normal palpation of the breasts, normal palpation of the axillae, no axillary lymphadenopathy Resp Effort Inspection: normal respiratory effort GI Palpation: soft, no masses, nontender Rectal Exam: deferred External Female Exam: normal external appearance, normal appearance of the urethra Urethra: normal appearance of the urethra, normal palpation Speculum Exam - Vagina: normal appearance of the vagina, normal vaginal discharge Speculum Exam - Cervix: normal appearance of the cervix Bimanual Exam- Vagina Uterus: normal bimanual exam, uterine size normal, uterine shape normal, uterus non-tender Bimanual Exam- Adnexa, other: normal adnexae, no adnexal masses, pelvic support normal, adnexae non- tender Pelvic Support: normal Neuro General: alert, oriented x3 Psych Affect: normal affect Assessment Plan Problems 1. Encounter for gynecological examination with abnormal finding Z01.411 2. Menorrhagia with irregular cycle N92.1 Plan Completed breast and pelvic exam Reviewed diet and exercise Pap thin prep pap with HPV Mammogram today Ultrasound: may consider IUD If irregular menses recurs, repeat EMB and consider short course aygestin unless proceed with IUD breast self exam encouraged monthly Contraception vasectomy RTO 1 year, prn with problems Afia Thompson PATIENT TRANSPORTATION DRIVER Orders Orders: Pelvic (Non ) Today N92.1 Transvaginal Non- Today N92.1 Coding Level of Care Code Off vis,est,prev 40-64yrs Diagnoses Encounter for gynecological examination with abnormal finding Z01.411 ?Gynecological examination findings: abnormal findings PRESENT Menorrhagia with irregular cycle N92.1 07/15/20 1552 <Electronically signed by Afia Thompson NP CLOUD ENGAGEMENT PARTNER-C> Date Afia Thompson NP CLOUD ENGAGEMENT PARTNER-C Cosigner Signature: Date (if applicable) CC: Edel Garcia DO Work Phone: Start: 07-15-2020 End: 07-15-2020 SCREEN MAMM (CAD) W/MARIO BILAT Comments: See Note; NOTES: [facility] Imaging Services [address] [place] [address] SCREEN MAMM (CAD) W/MARIO BILAT MR#: [id number] Acct: [id number] Name: BSESIE KENNEDY DARI Rep #: [id number] : 1980 F 40 From: Dale cueva MD PCP: Dr. Edel Garcia, DO Status: [facility] Study: SCREEN MAMM (CAD) W/MARIO BILAT Date of Exam: 09/14/19 Exam# [id number] Ordering Dr: Afia Thompson NP CLOUD ENGAGEMENT PARTNER -C MAMMOGRAPHY - BILATERAL SCREENING REASON FOR EXAM: Female, 40 years old. Routine annual screening examination. PERTINENT HISTORY: Aunt with breast cancer. TECHNIQUE: Digital bilateral breast mario (3D mammographic acquisition) in the CC and MLO projections. 2-D mediolateral oblique (MLO) and craniocaudad (CC) views of both breasts were obtained. CAD: Full Field Digital Mammography with Computer Added Detection was performed. COMPARISON: Comparison is made with prior study dated 05/22/2013. FINDINGS: Breast Composition: The breasts are heterogeneously dense, which may obscure small masses. There are no dominant masses or suspicious calcifications. No other significant abnormalities are identified. There has been no significant change since the prior study. BI/SCREEN MAMM (CAD) W/MARIO BILAT IMPRESSION: Stable bilateral screening mammogram. Yearly follow-up mammogram recommended. (A) ASSESSMENT CATEGORY: BIRADS Category 1: Negative. A letter regarding these results will be sent to the patient by the facility within 30 days. Approximately 10% of breast cancers are not detected by mammography. A normal mammogram should not delay biopsy of a clinically suspicious abnormality. [id number] Electronically Signed: Dale Dunne, at 15:50 EST , Service support , CC: YESSI Thompson; Dr. Edel Garcia DO Cooperative Manager: Signed Edel Garcia DO Work Phone: Start: 02-25-2020 End: 02-25-2020 Pelvic (Non ) Comments: See Note; NOTES: [facility] Imaging Services [address] [place] [id number] Pelvic (Non ) MR#: [id number] Acct: [id number] Name: BESSIE KENNEDY Rep #: [id number] : 1980 F 39 From: Salvadro Cintron MD PCP: Dr. Edel Garcia, DO Status: REG CLI Study: Pelvic (Non ) Date of Exam: 02/25/20 Exam# [id number] Ordering Dr: Anneliese Joseph CLOUD ENGAGEMENT PARTNERSonali STUDY: ULTRASOUND OF THE FEMALE PELVIS - COMPLETE REASON FOR EXAM: Female, 39 years old. RT PELVIC PAIN-HARD TO WALK LMP: TECHNIQUE: Transabdominal TECHNICAL QUALITY: Adequate. COMPARISON: June 30, 2017 FINDINGS: The uterus is anteverted and is in a midline position. The uterus measures 8.3 x 5.5 x 2.8 cm. Normal uterine cervix. The endometrium measures 3 mm in thickness, and is hyperechoic. There is no demonstrated endometrial mass. There is no demonstrated myometrial mass. I.U.D. - The patient does not have an I.U.D. The right ovary is visualized. The right ovary measures 3 x 1.8 x 1.2 cm. There is no right ovarian cyst or ovarian mass. There is no visualized right adnexal mass or complex lesion. There is normal arterial and normal venous vascularity. The left ovary is visualized. The left ovary measures 3.7 x 3.2 x 2.3 cm. There is a cyst measuring 2.5 x 2.2 x 1.3 cm. There is no visualized left adnexal mass or complex lesion. There is normal arterial and normal venous vascularity. There is no fluid in the cul-de-sac. The pre void volume of the bladder was 582 ml. Previously noted right ovarian cyst has resolved. The current left ovarian cyst is a new finding US/Pelvic (Non ) IMPRESSION: Small left ovarian cyst measuring 2.5 x 2.2 x 1.3 cm Electronically Signed: Salvador Cintron MD at 18:52 EDT , Service support , CC: YESSI Joseph; Dr. Edel Garcia DO Cooperative Manager: Signed Ashwini Tomasajustynagalindo Work Phone: Start: 02-20-2020 End: 02-20-2020 HIP, UNI W/ Pelvis 2-3 Views Comments: See Note; NOTES: [facility] Imaging Services [address] [place] [address] HIP, UNI W/ Pelvis 2-3 Views MR#: [id number] Acct: [id number] Name: BESSIE KENNEDY DARI Rep #: [id number] : 1980 F 39 From: Iraj Sotelo MD PCP: Dr. Edel Garcia DO Status: REG CLI Study: HIP, UNI W/ Pelvis 2-3 Views Date of Exam: Exam# [id number] Ordering Dr: Anneliese Joseph STUDY: X-RAY - PELVIS AND RIGHT HIP REASON FOR EXAM: Female, 39 years old. PAIN IN RIGHT HIP. NO KNOWN INJURY. TECHNIQUE: 3 views of the pelvis and hip. COMPARISON: None. FINDINGS: There is a non-specific bowel gas pattern. Normal visualized soft tissue structures. Normal bilateral iliac wings, sacroiliac joints and visualized sacrum. Normal bilateral superior and inferior pubic rami. Normal pubic symphysis. Normal bilateral ischial tuberosities. Normal visualized femoral head. Normal acetabulum. Normal hip joint. RAD/HIP, UNI W/ Pelvis 2-3 Views IMPRESSION: Normal x-ray examination of the pelvis and hip. Electronically Signed: Iraj Sotelo MD at 16:10 EDT Tel , Service support , CC: YESSI Joseph; Dr. Edel Garcia DO Cooperative Manager: Signed Ashwini Opal Work Phone: Start: 09-12-2019 End: 09-12-2019 Venous Duplex Lower Extremity Comments: See Note; NOTES: [facility] [address] [place] [address] Venous Duplex US - Maximilian Extrem 09/12/19 1003 MR#: [id number] Acct: [id number] Name: BESSIE KENNEDY DARI Rep #: [id number] : 1980 39 From: Nestor Escalera MD Attending Dr: Jessica De Leon MD Status: REG CLI Ordering Dr: Jessica De Leon MD Date: 09/12/19 Location: [facility] Sex: F C Admitted: Reason For Study: EDEMA RIGHT LEFT GSV is normal. GSV is normal. CFV is compressible, spontaneous, phasic, CFV is compressible, spontaneous, phasic, competent and demonstrates normal competent, and demonstrates normal augmentation. augmentation. FV is compressible, spontaneous, phasic, FV is compressible, spontaneous, phasic, competent and demonstrates normal competent and demonstrates normal augmentation. augmentation. POP V is compressible, spontaneous, phasic, POP V is compressible, spontaneous, phasic, competent and demonstrates normal competent and demonstrates normal augmentation. augmentation. T/P Trunk is compressible. T/P Trunk is compressible. PTV is compressible. PTV is compressible. RT PerV is compressible. LT PerV is compressible. Procedure Exam performed in department. The exam was diagnostic. A preliminary report was called and/or faxed to Dr. De Leon @ [phone] @ 10:25 am. Interpretation Summary Deep veins of the lower extremities are bilaterally patent and compressible segmentally. There is no evidence of deep vein thrombosis on either side. Valvular competence appears intact within the proximal deep venous systems bilaterally. The great saphenous veins appear bilaterally patent and compressible segmentally. Ordering Physician: Jessica De Leon Referring Physician: Jessica De Leon Performed By: Shaina Henderson, RDCS, RVT 09/12/191904 Date Nestor Escalera MD CC: Jessica De Leon MD; Edel Garcia DO Date Dictated: 09/12/19 1003 Date Transcribed: 09/12/191904 Cooperative Manager: Signed Jessica De Leon Work Phone: Start: 06-22-2019 End: 06-23-2019 Tibia AND Fibula 2 Views Comments: See Note; NOTES: [facility] Imaging Services [address] [place] [address] Tibia AND Fibula 2 Views MR#: [id number] Acct: [id number] Name: BESSIE KENNEDY Rep #: [id number] : 1980 F 38 From: Kelsea Caal MD PCP: Wiley Mcelroy MD Status: REG CLI Study: Tibia AND Fibula 2 Views Date of Exam: 06/22/19 Exam# [id number] Ordering Dr: Jessica De Leon MD STUDY: X-RAY - RIGHT TIBIA AND FIBULA REASON FOR EXAM: Female, 38 years old. Bilateral lower leg pressure. TECHNIQUE: 2 view(s) of the tibia and fibula were obtained. COMPARISON: None. FINDINGS: Normal visualized tibia. Normal visualized fibula. There is no demonstrated acute fracture. The soft tissue structures are unremarkable. RAD/Tibia AND Fibula 2 Views IMPRESSION: Normal x-ray examination of the tibia and fibula. Electronically Signed: Kelsea Caal MD at 2:04 EDT , Service support , CC: Jessica De Leon MD; Wiley Mcelroy MD Cooperative Manager: Signed Jessica De Leon Work Phone: Start: 07-13-2017 End: 07-13-2017 Documentation of current medications Afia Thompson CLOUD ENGAGEMENT PARTNER Work Phone: Start: 07-13-2017 End: 07-14-2017 CBC W Auto Differential panel - Blood Afia Thompson CLOUD ENGAGEMENT PARTNER Work Phone: Start: 07-13-2017 End: 07-13-2017 Endometrial bx w/wo endocervix bx w/o dilat spx Afia Thompson CLOUD ENGAGEMENT PARTNER Work Phone: Start: 04-19-2017 End: 04-19-2017 Documentation of current medications Afia Thompson CLOUD ENGAGEMENT PARTNER Work Phone: Start: 04-19-2017 End: 04-25-2017 Us pelvic nonobstetric real-time image complete Afia Thompson CLOUD ENGAGEMENT PARTNER Work Phone: Plan of Treatment Date Care Activity Detail Author Start: 04-22-2023 Patient Education Urtic[facility]; [facility] Work Phone: Start: 04-22-2023 Procedure Education Eprescribed prescriptions (G8553) [facility]; [facility] Work Phone: Start: 04-22-2023 Provider Instructions for Treatment Follow up if no improvement or if symptoms worsen [facility]; [facility] Work Phone: Start: 03-07-2023 C-reactive protein C-REACTIVE PROTEIN (98704) [facility]; [facility] Work Phone: Start: 03-07-2023 Comprehensive metabolic panel METABOLIC PANEL, COMPREHENSIVE (01666) [facility]; [facility] Work Phone: Start: 03-07-2023 Procedure Education Eprescribed prescriptions (G8553) [facility]; [facility] Work Phone: Start: 03-07-2023 Sedimentation rate rbc automated Sedimentation Rate-ESR (18350) [facility]; [facility] Work Phone: Start: 11-12-2022 Assay of ferritin FERRITIN (62123) [facility]; [facility] Work Phone: Immunizations Immunization Date Immunization Notes Care Provider Fa jennifer 06-04-2009 influenza, seasonal, injectable Edel Garcia [facility] Work Phone: Payers Date Payer Category Payer Unknown [id number] 2020 Unknown [id number] 2018 Unknown [id number] 2009 Unknown [id number] 2006 Unknown MRN [id number] 2005 Unknown [id number] 1980 Unknown [id number] Unknown Social History Date Type Detail Facility Caffeine Use [facility] Work Phone: Clinical Notes 04-19-2017 to 10-05-2021 Note Date & Type Note Facility 10-05-2021 Note HNO ID: [id number] Author: Roxann Santo APRN.PATIENT TRANSPORTATION DRIVER Service: ? Author Type: Nurse Practitioner Type: Progress Notes Filed: 10/05/2021 5:58 PM Note Text: CC: Patient presents with: Chest Congestion: cough and sore throat x 2 days HPI: Bessie Kennedy is a 41 year old female who presents to the office with complaint of chest congestion, cough, nonproductive and sore throat for a few days. Symptoms are worsening Associated symptoms includes sore throat and nasal congestion. Denies nausea, vomiting and diarrhea. Treatments tried include nothing so far. with no relief of symptoms. Sick contacts: unknown. History of asthma, frequent episodes of bronchitis, chronic bronchitis, bronchiectasis or COPD: No Smoker: No Seasonal/environmental allergies: No The ROS is otherwise negative. The patient's pmh, medications, allergies, and past visits are reviewed. PHYSICAL EXAM: BP 122/80 Pulse 80 Temp 36.5 ?C (97.7 ?F) Resp 16 Wt 83 kg (183 lb) LMP 04/28/2017 SpO2 99% BMI 33.47 kg/m? General appearance: alert, cooperative, pleasant, in no acute distress Head: Normocephalic Eyes: EOM's intact, conjunctiva pink and moist, no icterus, sclera white, non-injected Ears: Right ear: External ear/canal- Normal, TM - clear with good landmarks. Left ear: External ear/canal- Normal, TM - clear with good landmarks}. Oropharynx:moderate erythema, without exudates present Heart: Negative. RRR without obvious murmur, gallop, or rubs. No ectopy. Lungs: clear to auscultation, without rales or wheeze, good air exchange PAST MEDICAL HISTORY Diagnosis Date - Anxiety - Bronchitis - Fatigue - Headache - Infectious mononucleosis 2008 - Leg edema - Other and unspecified ovarian cyst Ovarian cyst - unsure which side - Palpitations - Pneumonia - Venous insufficiency - Vitamin D deficiency PAST SURGICAL HISTORY Procedure Laterality Date - PAST SURGICAL HISTORY OF 2005 benign lymph nodes removed from neck ALLERGIES Amoxicillin MEDICATIONS Hydrochlorothiazide 12.5 mg capsule Take 1 capsule by mouth once daily. predniSONE (DELTASONE) 20 mg tablet Take 2 tablets by mouth once daily. triamcinolone acetonide (KENALOG) 0.1 % cream Apply 1 application to affected area three times daily. Apply sparingly to area for rash/itching. albuterol HFA (PROVENTIL HFA, VENTOLIN HFA) 90 mcg/actuation inhaler Inhale 2 Puffs as instructed every 6 hours as needed. FAMILY HISTORY Problem Relation Age of Onset - Hypertension Mother - Heart Father - Coronary Artery Disease Father - Colon Cancer Maternal Grandmother - Diabetes Maternal Grandmother - other (liver cancer) Maternal Grandmother - Heart Paternal Grandfather - Breast Cancer Maternal Aunt she also bladder cancer and leukemia - Asthma Maternal Aunt - Asthma Maternal Uncle - Asthma Maternal Uncle Social History Tobacco Use - Smoking status: Former Smoker Packs/day: 0.50 Years: 5.00 Pack years: 2.50 Types: Cigarettes Quit date: 08/2016 Years since quittin.1 - Smokeless tobacco: Never Used Vaping Use - Vaping Use: Never used Substance Use Topics - Alcohol use: Yes Comment: occasionally - Drug use: No ASSESSMENT/PLAN: 1. Suspected COVID-19 virus infection - ICD9: V01.79, ICD10: Z20.822 (primary diagnosis) - COVID WITH FLUA+B, ROUTINE 2. Sore throat - ICD9: 462, ICD10: J02.9 - STREP A MOLECULAR (POC) - negative Patient instructed to use over the counter medication at this time for symptoms management. Denies wanting discharge instructions at this time. Potential red flag symptoms discussed with the patient. Reviewed appropriate action plan to take if red flag symptoms occur. Patient agreeable to treatment plan. Roxann Santo APRN.[facility]; [facility] Work Phone: Instructions* Name Dates Details Patient Instructions Indication:Tobacco use disorder Start:16-Mar-2021 Instruction Type:Provider Instructions for Treatment How to Access Health Informa tion Online using Patient Portal and [employer] Apps Indication:Tobacco use disorder Start:16-Mar-2021 Instruction Type:Patient Education How to access health informa tion online Indication:BMI 28.0-28.9,adult Start:05-Mar-2020 Instruction Type:Patient Education How to access health informa tion online - Detail Indication:BMI 28.0-28.9,adult Start:05-Mar-2020 Instruction Type:Patient Education Patient Instructions Indication:BMI 28.0-28.9,adult Start:05-Mar-2020 Instruction Type:Provider Instructions for Treatment How to access health informa tion online Indication:BMI 28.0-28.9,adult Start:20-Feb-2020 Instruction Type:Patient Education How to access health informa tion online - Detail Indication:BMI 28.0-28.9,adult Start:20-Feb-2020 Instruction Type:Patient Education Patient Instructions Indication:BMI 28.0-28.9,adult Start:20-Feb-2020 Instruction Type:Provider Instructions for Treatment How to access health informa tion online Indication:Leg edema Start:06-Sep-2019 Instruction Type:Patient Education How to access health informa tion online - Detail Indication:Leg edema Start:06-Sep-2019 Instruction Type:Patient Education Patient Instructions Indication:Leg edema Start:06-Sep-2019 Instruction Type:Provider Instructions for Treatment How to access health informa tion online Indication:Leg edema Start:03-Jul-2019 Instruction Type:Patient Education How to access health informa tion online - Detail Indication:Leg edema Start:03-Jul-2019 Instruction Type:Patient Education Patient Instructions Indication:Leg edema Start:03-Jul-2019 Instruction Type:Provider Instructions for Treatment How to access health informa tion online Indication:BMI 28.0-28.9,adult Start:12-Jun-2019 Instruction Type:Patient Education How to access health informa tion online - Detail Indication:BMI 28.0-28.9,adult Start:12-Jun-2019 Instruction Type:Patient Education Patient Instructions Indication:BMI 28.0-28.9,adult Start:12-Jun-2019 Instruction Type:Provider Instructions for Treatment How to access health informa tion online Indication:Tobacco use disorder Start:17-Nov-2018 Instruction Type:Patient Education How to access health informa tion online - Detail Indication:Tobacco use disorder Start:17-Nov-2018 Instruction Type:Patient Education Patient Instructions Indication:Tobacco use disorder Start:17-Nov-2018 Instruction Type:Provider Instructions for Treatment Patient Instructions Indication:Cough Start:20-Dec-2013 Instruction Type:Provider Instructions for Treatment Patient Instructions Indication:Boil, breast Start:11-May-2013 Instruction Type:Provider Instructions for Treatment Patient Instructions Indication:Infection Start:09-May-2013 Instruction Type:Provider Instructions for Treatment Patient Instructions Indication:Palpitations Start:23-Jan-2013 Instruction Type:Provider Instructions for Treatment Patient Instructions Indication:Palpitations Start:16-Jan-2013 Instruction Type:Provider Instructions for Treatment [facility]; [facility] Work Phone: Instructions* Name Dates Details Patient Instructions Indication:Tobacco use disorder Start:16-Mar-2021 Instruction Type:Provider Instructions for Treatment How to Access Health Informa tion Online using Patient Portal and [employer] Apps Indication:Tobacco use disorder Start:16-Mar-2021 Instruction Type:Patient Education How to access health informa tion online Indication:BMI 28.0-28.9,adult Start:05-Mar-2020 Instruction Type:Patient Education How to access health informa tion online - Detail Indication:BMI 28.0-28.9,adult Start:05-Mar-2020 Instruction Type:Patient Education Patient Instructions Indication:BMI 28.0-28.9,adult Start:05-Mar-2020 Instruction Type:Provider Instructions for Treatment How to access health informa tion online Indication:BMI 28.0-28.9,adult Start:20-Feb-2020 Instruction Type:Patient Education How to access health informa tion online - Detail Indication:BMI 28.0-28.9,adult Start:20-Feb-2020 Instruction Type:Patient Education Patient Instructions Indication:BMI 28.0-28.9,adult Start:20-Feb-2020 Instruction Type:Provider Instructions for Treatment How to access health informa tion online Indication:Leg edema Start:06-Sep-2019 Instruction Type:Patient Education How to access health informa tion online - Detail Indication:Leg edema Start:06-Sep-2019 Instruction Type:Patient Education Patient Instructions Indication:Leg edema Start:06-Sep-2019 Instruction Type:Provider Instructions for Treatment How to access health informa tion online Indication:Leg edema Start:03-Jul-2019 Instruction Type:Patient Education How to access health informa tion online - Detail Indication:Leg edema Start:03-Jul-2019 Instruction Type:Patient Education Patient Instructions Indication:Leg edema Start:03-Jul-2019 Instruction Type:Provider Instructions for Treatment How to access health informa tion online Indication:BMI 28.0-28.9,adult Start:12-Jun-2019 Instruction Type:Patient Education How to access health informa tion online - Detail Indication:BMI 28.0-28.9,adult Start:12-Jun-2019 Instruction Type:Patient Education Patient Instructions Indication:BMI 28.0-28.9,adult Start:12-Jun-2019 Instruction Type:Provider Instructions for Treatment How to access health informa tion online Indication:Tobacco use disorder Start:17-Nov-2018 Instruction Type:Patient Education How to access health informa tion online - Detail Indication:Tobacco use disorder Start:17-Nov-2018 Instruction Type:Patient Education Patient Instructions Indication:Tobacco use disorder Start:17-Nov-2018 Instruction Type:Provider Instructions for Treatment Patient Instructions Indication:Cough Start:20-Dec-2013 Instruction Type:Provider Instructions for Treatment Patient Instructions Indication:Boil, breast Start:11-May-2013 Instruction Type:Provider Instructions for Treatment Patient Instructions Indication:Infection Start:09-May-2013 Instruction Type:Provider Instructions for Treatment Patient Instructions Indication:Palpitations Start:23-Jan-2013 Instruction Type:Provider Instructions for Treatment Patient Instructions Indication:Palpitations Start:16-Jan-2013 Instruction Type:Provider Instructions for Treatment [facility]; [facility] Work Phone: Instructions* Name Dates Details Patient Instructions Indication:Tobacco use disorder Start:16-Mar-2021 Instruction Type:Provider Instructions for Treatment How to Access Health Informa tion Online using Patient Portal and [employer] Apps Indication:Tobacco use disorder Start:16-Mar-2021 Instruction Type:Patient Education How to access health informa tion online Indication:BMI 28.0-28.9,adult Start:05-Mar-2020 Instruction Type:Patient Education How to access health informa tion online - Detail Indication:BMI 28.0-28.9,adult Start:05-Mar-2020 Instruction Type:Patient Education Patient Instructions Indication:BMI 28.0-28.9,adult Start:05-Mar-2020 Instruction Type:Provider Instructions for Treatment How to access health informa tion online Indication:BMI 28.0-28.9,adult Start:20-Feb-2020 Instruction Type:Patient Education How to access health informa tion online - Detail Indication:BMI 28.0-28.9,adult Start:20-Feb-2020 Instruction Type:Patient Education Patient Instructions Indication:BMI 28.0-28.9,adult Start:20-Feb-2020 Instruction Type:Provider Instructions for Treatment How to access health informa tion online Indication:Leg edema Start:06-Sep-2019 Instruction Type:Patient Education How to access health informa tion online - Detail Indication:Leg edema Start:06-Sep-2019 Instruction Type:Patient Education Patient Instructions Indication:Leg edema Start:06-Sep-2019 Instruction Type:Provider Instructions for Treatment How to access health informa tion online Indication:Leg edema Start:03-Jul-2019 Instruction Type:Patient Education How to access health informa tion online - Detail Indication:Leg edema Start:03-Jul-2019 Instruction Type:Patient Education Patient Instructions Indication:Leg edema Start:03-Jul-2019 Instruction Type:Provider Instructions for Treatment How to access health informa tion online Indication:BMI 28.0-28.9,adult Start:12-Jun-2019 Instruction Type:Patient Education How to access health informa tion online - Detail Indication:BMI 28.0-28.9,adult Start:12-Jun-2019 Instruction Type:Patient Education Patient Instructions Indication:BMI 28.0-28.9,adult Start:12-Jun-2019 Instruction Type:Provider Instructions for Treatment How to access health informa tion online Indication:Tobacco use disorder Start:17-Nov-2018 Instruction Type:Patient Education How to access health informa tion online - Detail Indication:Tobacco use disorder Start:17-Nov-2018 Instruction Type:Patient Education Patient Instructions Indication:Tobacco use disorder Start:17-Nov-2018 Instruction Type:Provider Instructions for Treatment Patient Instructions Indication:Cough Start:20-Dec-2013 Instruction Type:Provider Instructions for Treatment Patient Instructions Indication:Boil, breast Start:11-May-2013 Instruction Type:Provider Instructions for Treatment Patient Instructions Indication:Infection Start:09-May-2013 Instruction Type:Provider Instructions for Treatment Patient Instructions Indication:Palpitations Start:23-Jan-2013 Instruction Type:Provider Instructions for Treatment Patient Instructions Indication:Palpitations Start:16-Jan-2013 Instruction Type:Provider Instructions for Treatment [facility]; [facility] Work Phone: Instructions* Name Dates Details Patient Instructions Indication:Tobacco use disorder Start:16-Mar-2021 Instruction Type:Provider Instructions for Treatment How to Access Health Informa tion Online using Patient Portal and [employer] Apps Indication:Tobacco use disorder Start:16-Mar-2021 Instruction Type:Patient Education How to access health informa tion online Indication:BMI 28.0-28.9,adult Start:05-Mar-2020 Instruction Type:Patient Education How to access health informa tion online - Detail Indication:BMI 28.0-28.9,adult Start:05-Mar-2020 Instruction Type:Patient Education Patient Instructions Indication:BMI 28.0-28.9,adult Start:05-Mar-2020 Instruction Type:Provider Instructions for Treatment How to access health informa tion online Indication:BMI 28.0-28.9,adult Start:20-Feb-2020 Instruction Type:Patient Education How to access health informa tion online - Detail Indication:BMI 28.0-28.9,adult Start:20-Feb-2020 Instruction Type:Patient Education Patient Instructions Indication:BMI 28.0-28.9,adult Start:20-Feb-2020 Instruction Type:Provider Instructions for Treatment How to access health informa tion online Indication:Leg edema Start:06-Sep-2019 Instruction Type:Patient Education How to access health informa tion online - Detail Indication:Leg edema Start:06-Sep-2019 Instruction Type:Patient Education Patient Instructions Indication:Leg edema Start:06-Sep-2019 Instruction Type:Provider Instructions for Treatment How to access health informa tion online Indication:Leg edema Start:03-Jul-2019 Instruction Type:Patient Education How to access health informa tion online - Detail Indication:Leg edema Start:03-Jul-2019 Instruction Type:Patient Education Patient Instructions Indication:Leg edema Start:03-Jul-2019 Instruction Type:Provider Instructions for Treatment How to access health informa tion online Indication:BMI 28.0-28.9,adult Start:12-Jun-2019 Instruction Type:Patient Education How to access health informa tion online - Detail Indication:BMI 28.0-28.9,adult Start:12-Jun-2019 Instruction Type:Patient Education Patient Instructions Indication:BMI 28.0-28.9,adult Start:12-Jun-2019 Instruction Type:Provider Instructions for Treatment How to access health informa tion online Indication:Tobacco use disorder Start:17-Nov-2018 Instruction Type:Patient Education How to access health informa tion online - Detail Indication:Tobacco use disorder Start:17-Nov-2018 Instruction Type:Patient Education Patient Instructions Indication:Tobacco use disorder Start:17-Nov-2018 Instruction Type:Provider Instructions for Treatment Patient Instructions Indication:Cough Start:20-Dec-2013 Instruction Type:Provider Instructions for Treatment Patient Instructions Indication:Boil, breast Start:11-May-2013 Instruction Type:Provider Instructions for Treatment Patient Instructions Indication:Infection Start:09-May-2013 Instruction Type:Provider Instructions for Treatment Patient Instructions Indication:Palpitations Start:23-Jan-2013 Instruction Type:Provider Instructions for Treatment Patient Instructions Indication:Palpitations Start:16-Jan-2013 Instruction Type:Provider Instructions for Treatment [facility]; [facility] Work Phone: Instructions* Name Dates Details Patient Instructions Indication:Anxiety Start:09-Nov-2022 Instruction Type:Provider Instructions for Treatment How to Access Health Informa tion Online using Patient Portal and [employer] Apps Indication:Anxiety Start:09-Nov-2022 Instruction Type:Patient Education Patient Instructions Indication:Tobacco use disorder Start:16-Mar-2021 Instruction Type:Provider Instructions for Treatment How to Access Health Informa tion Online using Patient Portal and [employer] Apps Indication:Tobacco use disorder Start:16-Mar-2021 Instruction Type:Patient Education How to access health informa tion online Indication:BMI 28.0-28.9,adult Start:05-Mar-2020 Instruction Type:Patient Education How to access health informa tion online - Detail Indication:BMI 28.0-28.9,adult Start:05-Mar-2020 Instruction Type:Patient Education Patient Instructions Indication:BMI 28.0-28.9,adult Start:05-Mar-2020 Instruction Type:Provider Instructions for Treatment How to access health informa tion online Indication:BMI 28.0-28.9,adult Start:20-Feb-2020 Instruction Type:Patient Education How to access health informa tion online - Detail Indication:BMI 28.0-28.9,adult Start:20-Feb-2020 Instruction Type:Patient Education Patient Instructions Indication:BMI 28.0-28.9,adult Start:20-Feb-2020 Instruction Type:Provider Instructions for Treatment How to access health informa tion online Indication:Leg edema Start:06-Sep-2019 Instruction Type:Patient Education How to access health informa tion online - Detail Indication:Leg edema Start:06-Sep-2019 Instruction Type:Patient Education Patient Instructions Indication:Leg edema Start:06-Sep-2019 Instruction Type:Provider Instructions for Treatment How to access health informa tion online Indication:Leg edema Start:03-Jul-2019 Instruction Type:Patient Education How to access health informa tion online - Detail Indication:Leg edema Start:03-Jul-2019 Instruction Type:Patient Education Patient Instructions Indication:Leg edema Start:03-Jul-2019 Instruction Type:Provider Instructions for Treatment How to access health informa tion online Indication:BMI 28.0-28.9,adult Start:12-Jun-2019 Instruction Type:Patient Education How to access health informa tion online - Detail Indication:BMI 28.0-28.9,adult Start:12-Jun-2019 Instruction Type:Patient Education Patient Instructions Indication:BMI 28.0-28.9,adult Start:12-Jun-2019 Instruction Type:Provider Instructions for Treatment How to access health informa tion online Indication:Tobacco use disorder Start:17-Nov-2018 Instruction Type:Patient Education How to access health informa tion online - Detail Indication:Tobacco use disorder Start:17-Nov-2018 Instruction Type:Patient Education Patient Instructions Indication:Tobacco use disorder Start:17-Nov-2018 Instruction Type:Provider Instructions for Treatment Patient Instructions Indication:Cough Start:20-Dec-2013 Instruction Type:Provider Instructions for Treatment Patient Instructions Indication:Boil, breast Start:11-May-2013 Instruction Type:Provider Instructions for Treatment Patient Instructions Indication:Infection Start:09-May-2013 Instruction Type:Provider Instructions for Treatment Patient Instructions Indication:Palpitations Start:23-Jan-2013 Instruction Type:Provider Instructions for Treatment Patient Instructions Indication:Palpitations Start:16-Jan-2013 Instruction Type:Provider Instructions for Treatment [facility]; [facility] Work Phone: Instructions* Name Dates Details Patient Instructions Indication:Anxiety Start:09-Nov-2022 Instruction Type:Provider Instructions for Treatment How to Access Health Informa tion Online using Patient Portal and [employer] Apps Indication:Anxiety Start:09-Nov-2022 Instruction Type:Patient Education Patient Instructions Indication:Tobacco use disorder Start:16-Mar-2021 Instruction Type:Provider Instructions for Treatment How to Access Health Informa tion Online using Patient Portal and [employer] Apps Indication:Tobacco use disorder Start:16-Mar-2021 Instruction Type:Patient Education How to access health informa tion online Indication:BMI 28.0-28.9,adult Start:05-Mar-2020 Instruction Type:Patient Education How to access health informa tion online - Detail Indication:BMI 28.0-28.9,adult Start:05-Mar-2020 Instruction Type:Patient Education Patient Instructions Indication:BMI 28.0-28.9,adult Start:05-Mar-2020 Instruction Type:Provider Instructions for Treatment How to access health informa tion online Indication:BMI 28.0-28.9,adult Start:20-Feb-2020 Instruction Type:Patient Education How to access health informa tion online - Detail Indication:BMI 28.0-28.9,adult Start:20-Feb-2020 Instruction Type:Patient Education Patient Instructions Indication:BMI 28.0-28.9,adult Start:20-Feb-2020 Instruction Type:Provider Instructions for Treatment How to access health informa tion online Indication:Leg edema Start:06-Sep-2019 Instruction Type:Patient Education How to access health informa tion online - Detail Indication:Leg edema Start:06-Sep-2019 Instruction Type:Patient Education Patient Instructions Indication:Leg edema Start:06-Sep-2019 Instruction Type:Provider Instructions for Treatment How to access health informa tion online Indication:Leg edema Start:03-Jul-2019 Instruction Type:Patient Education How to access health informa tion online - Detail Indication:Leg edema Start:03-Jul-2019 Instruction Type:Patient Education Patient Instructions Indication:Leg edema Start:03-Jul-2019 Instruction Type:Provider Instructions for Treatment How to access health informa tion online Indication:BMI 28.0-28.9,adult Start:12-Jun-2019 Instruction Type:Patient Education How to access health informa tion online - Detail Indication:BMI 28.0-28.9,adult Start:12-Jun-2019 Instruction Type:Patient Education Patient Instructions Indication:BMI 28.0-28.9,adult Start:12-Jun-2019 Instruction Type:Provider Instructions for Treatment How to access health informa tion online Indication:Tobacco use disorder Start:17-Nov-2018 Instruction Type:Patient Education How to access health informa tion online - Detail Indication:Tobacco use disorder Start:17-Nov-2018 Instruction Type:Patient Education Patient Instructions Indication:Tobacco use disorder Start:17-Nov-2018 Instruction Type:Provider Instructions for Treatment Patient Instructions Indication:Cough Start:20-Dec-2013 Instruction Type:Provider Instructions for Treatment Patient Instructions Indication:Boil, breast Start:11-May-2013 Instruction Type:Provider Instructions for Treatment Patient Instructions Indication:Infection Start:09-May-2013 Instruction Type:Provider Instructions for Treatment Patient Instructions Indication:Palpitations Start:23-Jan-2013 Instruction Type:Provider Instructions for Treatment Patient Instructions Indication:Palpitations Start:16-Jan-2013 Instruction Type:Provider Instructions for Treatment [facility]; [facility] Work Phone: Instructions* Name Dates Details Patient Instructions Indication:Anxiety Start:09-Nov-2022 Instruction Type:Provider Instructions for Treatment How to Access Health Informa tion Online using Patient Portal and [employer] Apps Indication:Anxiety Start:09-Nov-2022 Instruction Type:Patient Education Patient Instructions Indication:Tobacco use disorder Start:16-Mar-2021 Instruction Type:Provider Instructions for Treatment How to Access Health Informa tion Online using Patient Portal and [employer] Apps Indication:Tobacco use disorder Start:16-Mar-2021 Instruction Type:Patient Education How to access health informa tion online Indication:BMI 28.0-28.9,adult Start:05-Mar-2020 Instruction Type:Patient Education How to access health informa tion online - Detail Indication:BMI 28.0-28.9,adult Start:05-Mar-2020 Instruction Type:Patient Education Patient Instructions Indication:BMI 28.0-28.9,adult Start:05-Mar-2020 Instruction Type:Provider Instructions for Treatment How to access health informa tion online Indication:BMI 28.0-28.9,adult Start:20-Feb-2020 Instruction Type:Patient Education How to access health informa tion online - Detail Indication:BMI 28.0-28.9,adult Start:20-Feb-2020 Instruction Type:Patient Education Patient Instructions Indication:BMI 28.0-28.9,adult Start:20-Feb-2020 Instruction Type:Provider Instructions for Treatment How to access health informa tion online Indication:Leg edema Start:06-Sep-2019 Instruction Type:Patient Education How to access health informa tion online - Detail Indication:Leg edema Start:06-Sep-2019 Instruction Type:Patient Education Patient Instructions Indication:Leg edema Start:06-Sep-2019 Instruction Type:Provider Instructions for Treatment How to access health informa tion online Indication:Leg edema Start:03-Jul-2019 Instruction Type:Patient Education How to access health informa tion online - Detail Indication:Leg edema Start:03-Jul-2019 Instruction Type:Patient Education Patient Instructions Indication:Leg edema Start:03-Jul-2019 Instruction Type:Provider Instructions for Treatment How to access health informa tion online Indication:BMI 28.0-28.9,adult Start:12-Jun-2019 Instruction Type:Patient Education How to access health informa tion online - Detail Indication:BMI 28.0-28.9,adult Start:12-Jun-2019 Instruction Type:Patient Education Patient Instructions Indication:BMI 28.0-28.9,adult Start:12-Jun-2019 Instruction Type:Provider Instructions for Treatment How to access health informa tion online Indication:Tobacco use disorder Start:17-Nov-2018 Instruction Type:Patient Education How to access health informa tion online - Detail Indication:Tobacco use disorder Start:17-Nov-2018 Instruction Type:Patient Education Patient Instructions Indication:Tobacco use disorder Start:17-Nov-2018 Instruction Type:Provider Instructions for Treatment Patient Instructions Indication:Cough Start:20-Dec-2013 Instruction Type:Provider Instructions for Treatment Patient Instructions Indication:Boil, breast Start:11-May-2013 Instruction Type:Provider Instructions for Treatment Patient Instructions Indication:Infection Start:09-May-2013 Instruction Type:Provider Instructions for Treatment Patient Instructions Indication:Palpitations Start:23-Jan-2013 Instruction Type:Provider Instructions for Treatment Patient Instructions Indication:Palpitations Start:16-Jan-2013 Instruction Type:Provider Instructions for Treatment [facility]; [facility] Work Phone: Instructions* Name Dates Details Patient Instructions Indication:Anxiety Start:09-Nov-2022 Instruction Type:Provider Instructions for Treatment How to Access Health Informa tion Online using Patient Portal and [employer] Apps Indication:Anxiety Start:09-Nov-2022 Instruction Type:Patient Education Patient Instructions Indication:Tobacco use disorder Start:16-Mar-2021 Instruction Type:Provider Instructions for Treatment How to Access Health Informa tion Online using Patient Portal and [employer] Apps Indication:Tobacco use disorder Start:16-Mar-2021 Instruction Type:Patient Education How to access health informa tion online Indication:BMI 28.0-28.9,adult Start:05-Mar-2020 Instruction Type:Patient Education How to access health informa tion online - Detail Indication:BMI 28.0-28.9,adult Start:05-Mar-2020 Instruction Type:Patient Education Patient Instructions Indication:BMI 28.0-28.9,adult Start:05-Mar-2020 Instruction Type:Provider Instructions for Treatment How to access health informa tion online Indication:BMI 28.0-28.9,adult Start:20-Feb-2020 Instruction Type:Patient Education How to access health informa tion online - Detail Indication:BMI 28.0-28.9,adult Start:20-Feb-2020 Instruction Type:Patient Education Patient Instructions Indication:BMI 28.0-28.9,adult Start:20-Feb-2020 Instruction Type:Provider Instructions for Treatment How to access health informa tion online Indication:Leg edema Start:06-Sep-2019 Instruction Type:Patient Education How to access health informa tion online - Detail Indication:Leg edema Start:06-Sep-2019 Instruction Type:Patient Education Patient Instructions Indication:Leg edema Start:06-Sep-2019 Instruction Type:Provider Instructions for Treatment How to access health informa tion online Indication:Leg edema Start:03-Jul-2019 Instruction Type:Patient Education How to access health informa tion online - Detail Indication:Leg edema Start:03-Jul-2019 Instruction Type:Patient Education Patient Instructions Indication:Leg edema Start:03-Jul-2019 Instruction Type:Provider Instructions for Treatment How to access health informa tion online Indication:BMI 28.0-28.9,adult Start:12-Jun-2019 Instruction Type:Patient Education How to access health informa tion online - Detail Indication:BMI 28.0-28.9,adult Start:12-Jun-2019 Instruction Type:Patient Education Patient Instructions Indication:BMI 28.0-28.9,adult Start:12-Jun-2019 Instruction Type:Provider Instructions for Treatment How to access health informa tion online Indication:Tobacco use disorder Start:17-Nov-2018 Instruction Type:Patient Education How to access health informa tion online - Detail Indication:Tobacco use disorder Start:17-Nov-2018 Instruction Type:Patient Education Patient Instructions Indication:Tobacco use disorder Start:17-Nov-2018 Instruction Type:Provider Instructions for Treatment Patient Instructions Indication:Cough Start:20-Dec-2013 Instruction Type:Provider Instructions for Treatment Patient Instructions Indication:Boil, breast Start:11-May-2013 Instruction Type:Provider Instructions for Treatment Patient Instructions Indication:Infection Start:09-May-2013 Instruction Type:Provider Instructions for Treatment Patient Instructions Indication:Palpitations Start:23-Jan-2013 Instruction Type:Provider Instructions for Treatment Patient Instructions Indication:Palpitations Start:16-Jan-2013 Instruction Type:Provider Instructions for Treatment [facility]; [facility] Work Phone: Instructions* Name Dates Details Patient Instructions Indication:Former smoker Start:07-Mar-2023 Instruction Type:Provider Instructions for Treatment How to Access Health Informa tion Online using Patient Portal and [employer] Apps Indication:Former smoker Start:07-Mar-2023 Instruction Type:Patient Education Patient Instructions Indication:Anxiety Start:09-Nov-2022 Instruction Type:Provider Instructions for Treatment How to Access Health Informa tion Online using Patient Portal and [employer] Apps Indication:Anxiety Start:09-Nov-2022 Instruction Type:Patient Education Patient Instructions Indication:Tobacco use disorder Start:16-Mar-2021 Instruction Type:Provider Instructions for Treatment How to Access Health Informa tion Online using Patient Portal and [employer] Apps Indication:Tobacco use disorder Start:16-Mar-2021 Instruction Type:Patient Education How to access health informa tion online Indication:BMI 28.0-28.9,adult Start:05-Mar-2020 Instruction Type:Patient Education How to access health informa tion online - Detail Indication:BMI 28.0-28.9,adult Start:05-Mar-2020 Instruction Type:Patient Education Patient Instructions Indication:BMI 28.0-28.9,adult Start:05-Mar-2020 Instruction Type:Provider Instructions for Treatment How to access health informa tion online Indication:BMI 28.0-28.9,adult Start:20-Feb-2020 Instruction Type:Patient Education How to access health informa tion online - Detail Indication:BMI 28.0-28.9,adult Start:20-Feb-2020 Instruction Type:Patient Education Patient Instructions Indication:BMI 28.0-28.9,adult Start:20-Feb-2020 Instruction Type:Provider Instructions for Treatment How to access health informa tion online Indication:Leg edema Start:06-Sep-2019 Instruction Type:Patient Education How to access health informa tion online - Detail Indication:Leg edema Start:06-Sep-2019 Instruction Type:Patient Education Patient Instructions Indication:Leg edema Start:06-Sep-2019 Instruction Type:Provider Instructions for Treatment How to access health informa tion online Indication:Leg edema Start:03-Jul-2019 Instruction Type:Patient Education How to access health informa tion online - Detail Indication:Leg edema Start:03-Jul-2019 Instruction Type:Patient Education Patient Instructions Indication:Leg edema Start:03-Jul-2019 Instruction Type:Provider Instructions for Treatment How to access health informa tion online Indication:BMI 28.0-28.9,adult Start:12-Jun-2019 Instruction Type:Patient Education How to access health informa tion online - Detail Indication:BMI 28.0-28.9,adult Start:12-Jun-2019 Instruction Type:Patient Education Patient Instructions Indication:BMI 28.0-28.9,adult Start:12-Jun-2019 Instruction Type:Provider Instructions for Treatment How to access health informa tion online Indication:Tobacco use disorder Start:17-Nov-2018 Instruction Type:Patient Education How to access health informa tion online - Detail Indication:Tobacco use disorder Start:17-Nov-2018 Instruction Type:Patient Education Patient Instructions Indication:Tobacco use disorder Start:17-Nov-2018 Instruction Type:Provider Instructions for Treatment Patient Instructions Indication:Cough Start:20-Dec-2013 Instruction Type:Provider Instructions for Treatment Patient Instructions Indication:Boil, breast Start:11-May-2013 Instruction Type:Provider Instructions for Treatment Patient Instructions Indication:Infection Start:09-May-2013 Instruction Type:Provider Instructions for Treatment Patient Instructions Indication:Palpitations Start:23-Jan-2013 Instruction Type:Provider Instructions for Treatment Patient Instructions Indication:Palpitations Start:16-Jan-2013 Instruction Type:Provider Instructions for Treatment [facility]; [facility] Work Phone: Instructions* Name Dates Details Patient Instructions Indication:Former smoker Start:07-Mar-2023 Instruction Type:Provider Instructions for Treatment How to Access Health Informa tion Online using Patient Portal and [employer]rd [employer] Apps Indication:Former smoker Start:07-Mar-2023 Instruction Type:Patient Education Patient Instructions Indication:Anxiety Start:09-Nov-2022 Instruction Type:Provider Instructions for Treatment How to Access Health Informa tion Online using Patient Portal and [employer]rd [employer] Apps Indication:Anxiety Start:09-Nov-2022 Instruction Type:Patient Education Patient Instructions Indication:Tobacco use disorder Start:16-Mar-2021 Instruction Type:Provider Instructions for Treatment How to Access Health Informa tion Online using Patient Portal and [employer]rd [employer] Apps Indication:Tobacco use disorder Start:16-Mar-2021 Instruction Type:Patient Education How to access health informa tion online Indication:BMI 28.0-28.9,adult Start:05-Mar-2020 Instruction Type:Patient Education How to access health informa tion online - Detail Indication:BMI 28.0-28.9,adult Start:05-Mar-2020 Instruction Type:Patient Education Patient Instructions Indication:BMI 28.0-28.9,adult Start:05-Mar-2020 Instruction Type:Provider Instructions for Treatment How to access health informa tion online Indication:BMI 28.0-28.9,adult Start:20-Feb-2020 Instruction Type:Patient Education How to access health informa tion online - Detail Indication:BMI 28.0-28.9,adult Start:20-Feb-2020 Instruction Type:Patient Education Patient Instructions Indication:BMI 28.0-28.9,adult Start:20-Feb-2020 Instruction Type:Provider Instructions for Treatment How to access health informa tion online Indication:Leg edema Start:06-Sep-2019 Instruction Type:Patient Education How to access health informa tion online - Detail Indication:Leg edema Start:06-Sep-2019 Instruction Type:Patient Education Patient Instructions Indication:Leg edema Start:06-Sep-2019 Instruction Type:Provider Instructions for Treatment How to access health informa tion online Indication:Leg edema Start:03-Jul-2019 Instruction Type:Patient Education How to access health informa tion online - Detail Indication:Leg edema Start:03-Jul-2019 Instruction Type:Patient Education Patient Instructions Indication:Leg edema Start:03-Jul-2019 Instruction Type:Provider Instructions for Treatment How to access health informa tion online Indication:BMI 28.0-28.9,adult Start:12-Jun-2019 Instruction Type:Patient Education How to access health informa tion online - Detail Indication:BMI 28.0-28.9,adult Start:12-Jun-2019 Instruction Type:Patient Education Patient Instructions Indication:BMI 28.0-28.9,adult Start:12-Jun-2019 Instruction Type:Provider Instructions for Treatment How to access health informa tion online Indication:Tobacco use disorder Start:17-Nov-2018 Instruction Type:Patient Education How to access health informa tion online - Detail Indication:Tobacco use disorder Start:17-Nov-2018 Instruction Type:Patient Education Patient Instructions Indication:Tobacco use disorder Start:17-Nov-2018 Instruction Type:Provider Instructions for Treatment Patient Instructions Indication:Cough Start:20-Dec-2013 Instruction Type:Provider Instructions for Treatment Patient Instructions Indication:Boil, breast Start:11-May-2013 Instruction Type:Provider Instructions for Treatment Patient Instructions Indication:Infection Start:09-May-2013 Instruction Type:Provider Instructions for Treatment Patient Instructions Indication:Palpitations Start:23-Jan-2013 Instruction Type:Provider Instructions for Treatment Patient Instructions Indication:Palpitations Start:16-Jan-2013 Instruction Type:Provider Instructions for Treatment [facility]; [facility] Work Phone: Instructions* Name Dates Details Patient Instructions Indication:Former smoker Start:07-Mar-2023 Instruction Type:Provider Instructions for Treatment How to Access Health Informa tion Online using Patient Portal and [employer]rd [employer] Apps Indication:Former smoker Start:07-Mar-2023 Instruction Type:Patient Education Patient Instructions Indication:Anxiety Start:09-Nov-2022 Instruction Type:Provider Instructions for Treatment How to Access Health Informa tion Online using Patient Portal and [employer]rd [employer] Apps Indication:Anxiety Start:09-Nov-2022 Instruction Type:Patient Education Patient Instructions Indication:Tobacco use disorder Start:16-Mar-2021 Instruction Type:Provider Instructions for Treatment How to Access Health Informa tion Online using Patient Portal and [employer]rd [employer] Apps Indication:Tobacco use disorder Start:16-Mar-2021 Instruction Type:Patient Education How to access health informa tion online Indication:BMI 28.0-28.9,adult Start:05-Mar-2020 Instruction Type:Patient Education How to access health informa tion online - Detail Indication:BMI 28.0-28.9,adult Start:05-Mar-2020 Instruction Type:Patient Education Patient Instructions Indication:BMI 28.0-28.9,adult Start:05-Mar-2020 Instruction Type:Provider Instructions for Treatment How to access health informa tion online Indication:BMI 28.0-28.9,adult Start:20-Feb-2020 Instruction Type:Patient Education How to access health informa tion online - Detail Indication:BMI 28.0-28.9,adult Start:20-Feb-2020 Instruction Type:Patient Education Patient Instructions Indication:BMI 28.0-28.9,adult Start:20-Feb-2020 Instruction Type:Provider Instructions for Treatment How to access health informa tion online Indication:Leg edema Start:06-Sep-2019 Instruction Type:Patient Education How to access health informa tion online - Detail Indication:Leg edema Start:06-Sep-2019 Instruction Type:Patient Education Patient Instructions Indication:Leg edema Start:06-Sep-2019 Instruction Type:Provider Instructions for Treatment How to access health informa tion online Indication:Leg edema Start:03-Jul-2019 Instruction Type:Patient Education How to access health informa tion online - Detail Indication:Leg edema Start:03-Jul-2019 Instruction Type:Patient Education Patient Instructions Indication:Leg edema Start:03-Jul-2019 Instruction Type:Provider Instructions for Treatment How to access health informa tion online Indication:BMI 28.0-28.9,adult Start:12-Jun-2019 Instruction Type:Patient Education How to access health informa tion online - Detail Indication:BMI 28.0-28.9,adult Start:12-Jun-2019 Instruction Type:Patient Education Patient Instructions Indication:BMI 28.0-28.9,adult Start:12-Jun-2019 Instruction Type:Provider Instructions for Treatment How to access health informa tion online Indication:Tobacco use disorder Start:17-Nov-2018 Instruction Type:Patient Education How to access health informa tion online - Detail Indication:Tobacco use disorder Start:17-Nov-2018 Instruction Type:Patient Education Patient Instructions Indication:Tobacco use disorder Start:17-Nov-2018 Instruction Type:Provider Instructions for Treatment Patient Instructions Indication:Cough Start:20-Dec-2013 Instruction Type:Provider Instructions for Treatment Patient Instructions Indication:Boil, breast Start:11-May-2013 Instruction Type:Provider Instructions for Treatment Patient Instructions Indication:Infection Start:09-May-2013 Instruction Type:Provider Instructions for Treatment Patient Instructions Indication:Palpitations Start:23-Jan-2013 Instruction Type:Provider Instructions for Treatment Patient Instructions Indication:Palpitations Start:16-Jan-2013 Instruction Type:Provider Instructions for Treatment [facility]; [facility] Work Phone: Instructions* Name Dates Details Patient Instructions Indication:Former smoker Start:22-Apr-2023 Instruction Type:Provider Instructions for Treatment How to Access Health Informa tion Online using Patient Portal and [employer]rd [employer] Apps Indication:Former smoker Start:22-Apr-2023 Instruction Type:Patient Education Patient Instructions Indication:Former smoker Start:07-Mar-2023 Instruction Type:Provider Instructions for Treatment How to Access Health Informa tion Online using Patient Portal and [employer]rd [employer] Apps Indication:Former smoker Start:07-Mar-2023 Instruction Type:Patient Education Patient Instructions Indication:Anxiety Start:09-Nov-2022 Instruction Type:Provider Instructions for Treatment How to Access Health Informa tion Online using Patient Portal and [employer]rd [employer] Apps Indication:Anxiety Start:09-Nov-2022 Instruction Type:Patient Education Patient Instructions Indication:Tobacco use disorder Start:16-Mar-2021 Instruction Type:Provider Instructions for Treatment How to Access Health Informa tion Online using Patient Portal and [employer]rd [employer] Apps Indication:Tobacco use disorder Start:16-Mar-2021 Instruction Type:Patient Education How to access health informa tion online Indication:BMI 28.0-28.9,adult Start:05-Mar-2020 Instruction Type:Patient Education How to access health informa tion online - Detail Indication:BMI 28.0-28.9,adult Start:05-Mar-2020 Instruction Type:Patient Education Patient Instructions Indication:BMI 28.0-28.9,adult Start:05-Mar-2020 Instruction Type:Provider Instructions for Treatment How to access health informa tion online Indication:BMI 28.0-28.9,adult Start:20-Feb-2020 Instruction Type:Patient Education How to access health informa tion online - Detail Indication:BMI 28.0-28.9,adult Start:20-Feb-2020 Instruction Type:Patient Education Patient Instructions Indication:BMI 28.0-28.9,adult Start:20-Feb-2020 Instruction Type:Provider Instructions for Treatment How to access health informa tion online Indication:Leg edema Start:06-Sep-2019 Instruction Type:Patient Education How to access health informa tion online - Detail Indication:Leg edema Start:06-Sep-2019 Instruction Type:Patient Education Patient Instructions Indication:Leg edema Start:06-Sep-2019 Instruction Type:Provider Instructions for Treatment How to access health informa tion online Indication:Leg edema Start:03-Jul-2019 Instruction Type:Patient Education How to access health informa tion online - Detail Indication:Leg edema Start:03-Jul-2019 Instruction Type:Patient Education Patient Instructions Indication:Leg edema Start:03-Jul-2019 Instruction Type:Provider Instructions for Treatment How to access health informa tion online Indication:BMI 28.0-28.9,adult Start:12-Jun-2019 Instruction Type:Patient Education How to access health informa tion online - Detail Indication:BMI 28.0-28.9,adult Start:12-Jun-2019 Instruction Type:Patient Education Patient Instructions Indication:BMI 28.0-28.9,adult Start:12-Jun-2019 Instruction Type:Provider Instructions for Treatment How to access health informa tion online Indication:Tobacco use disorder Start:17-Nov-2018 Instruction Type:Patient Education How to access health informa tion online - Detail Indication:Tobacco use disorder Start:17-Nov-2018 Instruction Type:Patient Education Patient Instructions Indication:Tobacco use disorder Start:17-Nov-2018 Instruction Type:Provider Instructions for Treatment Patient Instructions Indication:Cough Start:20-Dec-2013 Instruction Type:Provider Instructions for Treatment Patient Instructions Indication:Boil, breast Start:11-May-2013 Instruction Type:Provider Instructions for Treatment Patient Instructions Indication:Infection Start:09-May-2013 Instruction Type:Provider Instructions for Treatment Patient Instructions Indication:Palpitations Start:23-Jan-2013 Instruction Type:Provider Instructions for Treatment Patient Instructions Indication:Palpitations Start:16-Jan-2013 Instruction Type:Provider Instructions for Treatment [facility]; [facility] Work Phone: Instructions* Name Dates Details Patient Instructions Indication:Former smoker Start:22-Apr-2023 Instruction Type:Provider Instructions for Treatment How to Access Health Informa tion Online using Patient Portal and [employer]rd [employer] Apps Indication:Former smoker Start:22-Apr-2023 Instruction Type:Patient Education Patient Instructions Indication:Former smoker Start:07-Mar-2023 Instruction Type:Provider Instructions for Treatment How to Access Health Informa tion Online using Patient Portal and [employer]rd [employer] Apps Indication:Former smoker Start:07-Mar-2023 Instruction Type:Patient Education Patient Instructions Indication:Anxiety Start:09-Nov-2022 Instruction Type:Provider Instructions for Treatment How to Access Health Informa tion Online using Patient Portal and [employer]rd [employer] Apps Indication:Anxiety Start:09-Nov-2022 Instruction Type:Patient Education Patient Instructions Indication:Tobacco use disorder Start:16-Mar-2021 Instruction Type:Provider Instructions for Treatment How to Access Health Informa tion Online using Patient Portal and [employer]rd [employer] Apps Indication:Tobacco use disorder Start:16-Mar-2021 Instruction Type:Patient Education How to access health informa tion online Indication:BMI 28.0-28.9,adult Start:05-Mar-2020 Instruction Type:Patient Education How to access health informa tion online - Detail Indication:BMI 28.0-28.9,adult Start:05-Mar-2020 Instruction Type:Patient Education Patient Instructions Indication:BMI 28.0-28.9,adult Start:05-Mar-2020 Instruction Type:Provider Instructions for Treatment How to access health informa tion online Indication:BMI 28.0-28.9,adult Start:20-Feb-2020 Instruction Type:Patient Education How to access health informa tion online - Detail Indication:BMI 28.0-28.9,adult Start:20-Feb-2020 Instruction Type:Patient Education Patient Instructions Indication:BMI 28.0-28.9,adult Start:20-Feb-2020 Instruction Type:Provider Instructions for Treatment How to access health informa tion online Indication:Leg edema Start:06-Sep-2019 Instruction Type:Patient Education How to access health informa tion online - Detail Indication:Leg edema Start:06-Sep-2019 Instruction Type:Patient Education Patient Instructions Indication:Leg edema Start:06-Sep-2019 Instruction Type:Provider Instructions for Treatment How to access health informa tion online Indication:Leg edema Start:03-Jul-2019 Instruction Type:Patient Education How to access health informa tion online - Detail Indication:Leg edema Start:03-Jul-2019 Instruction Type:Patient Education Patient Instructions Indication:Leg edema Start:03-Jul-2019 Instruction Type:Provider Instructions for Treatment How to access health informa tion online Indication:BMI 28.0-28.9,adult Start:12-Jun-2019 Instruction Type:Patient Education How to access health informa tion online - Detail Indication:BMI 28.0-28.9,adult Start:12-Jun-2019 Instruction Type:Patient Education Patient Instructions Indication:BMI 28.0-28.9,adult Start:12-Jun-2019 Instruction Type:Provider Instructions for Treatment How to access health informa tion online Indication:Tobacco use disorder Start:17-Nov-2018 Instruction Type:Patient Education How to access health informa tion online - Detail Indication:Tobacco use disorder Start:17-Nov-2018 Instruction Type:Patient Education Patient Instructions Indication:Tobacco use disorder Start:17-Nov-2018 Instruction Type:Provider Instructions for Treatment Patient Instructions Indication:Cough Start:20-Dec-2013 Instruction Type:Provider Instructions for Treatment Patient Instructions Indication:Boil, breast Start:11-May-2013 Instruction Type:Provider Instructions for Treatment Patient Instructions Indication:Infection Start:09-May-2013 Instruction Type:Provider Instructions for Treatment Patient Instructions Indication:Palpitations Start:23-Jan-2013 Instruction Type:Provider Instructions for Treatment Patient Instructions Indication:Palpitations Start:16-Jan-2013 Instruction Type:Provider Instructions for Treatment [facility]; [facility] Work Phone: Instructions Name Dates Details Cough : Patient Instructions Indication:Cough Boil, breast : Patient Instr uctions Indication:Boil, breast Infection : Patient Instruct ions Indication:Infection Palpitations : Patient Instr uctions Indication:Palpitations Name Dates Details How to access health informa tion online Indication:Tobacco use disorder Start:17-Nov-2018 Instruction Type:Patient Education How to access health informa tion online - Detail Indication:Tobacco use disorder Start:17-Nov-2018 Instruction Type:Patient Education Patient Instructions Indication:Tobacco use disorder Start:17-Nov-2018 Instruction Type:Provider Instructions for Treatment Patient Instructions Indication:Cough Start:20-Dec-2013 Instruction Type:Provider Instructions for Treatment Patient Instructions Indication:Boil, breast Start:11-May-2013 Instruction Type:Provider Instructions for Treatment Patient Instructions Indication:Infection Start:09-May-2013 Instruction Type:Provider Instructions for Treatment Patient Instructions Indication:Palpitations Start:23-Jan-2013 Instruction Type:Provider Instructions for Treatment Patient Instructions Indication:Palpitations Start:16-Jan-2013 Instruction Type:Provider Instructions for Treatment Name Dates Details How to access health informa tion online Indication:BMI 28.0-28.9,adult Start:12-Jun-2019 Instruction Type:Patient Education How to access health informa tion online - Detail Indication:BMI 28.0-28.9,adult Start:12-Jun-2019 Instruction Type:Patient Education Patient Instructions Indication:BMI 28.0-28.9,adult Start:12-Jun-2019 Instruction Type:Provider Instructions for Treatment How to access health informa tion online Indication:Tobacco use disorder Start:17-Nov-2018 Instruction Type:Patient Education How to access health informa tion online - Detail Indication:Tobacco use disorder Start:17-Nov-2018 Instruction Type:Patient Education Patient Instructions Indication:Tobacco use disorder Start:17-Nov-2018 Instruction Type:Provider Instructions for Treatment Patient Instructions Indication:Cough Start:20-Dec-2013 Instruction Type:Provider Instructions for Treatment Patient Instructions Indication:Boil, breast Start:11-May-2013 Instruction Type:Provider Instructions for Treatment Patient Instructions Indication:Infection Start:09-May-2013 Instruction Type:Provider Instructions for Treatment Patient Instructions Indication:Palpitations Start:23-Jan-2013 Instruction Type:Provider Instructions for Treatment Patient Instructions Indication:Palpitations Start:16-Jan-2013 Instruction Type:Provider Instructions for Treatment Name Dates Details How to access health informa tion online Indication:BMI 28.0-28.9,adult Start:12-Jun-2019 Instruction Type:Patient Education How to access health informa tion online - Detail Indication:BMI 28.0-28.9,adult Start:12-Jun-2019 Instruction Type:Patient Education Patient Instructions Indication:BMI 28.0-28.9,adult Start:12-Jun-2019 Instruction Type:Provider Instructions for Treatment How to access health informa tion online Indication:Tobacco use disorder Start:17-Nov-2018 Instruction Type:Patient Education How to access health informa tion online - Detail Indication:Tobacco use disorder Start:17-Nov-2018 Instruction Type:Patient Education Patient Instructions Indication:Tobacco use disorder Start:17-Nov-2018 Instruction Type:Provider Instructions for Treatment Patient Instructions Indication:Cough Start:20-Dec-2013 Instruction Type:Provider Instructions for Treatment Patient Instructions Indication:Boil, breast Start:11-May-2013 Instruction Type:Provider Instructions for Treatment Patient Instructions Indication:Infection Start:09-May-2013 Instruction Type:Provider Instructions for Treatment Patient Instructions Indication:Palpitations Start:23-Jan-2013 Instruction Type:Provider Instructions for Treatment Patient Instructions Indication:Palpitations Start:16-Jan-2013 Instruction Type:Provider Instructions for Treatment Name Dates Details How to access health informa tion online Indication:BMI 28.0-28.9,adult Start:12-Jun-2019 Instruction Type:Patient Education How to access health informa tion online - Detail Indication:BMI 28.0-28.9,adult Start:12-Jun-2019 Instruction Type:Patient Education Patient Instructions Indication:BMI 28.0-28.9,adult Start:12-Jun-2019 Instruction Type:Provider Instructions for Treatment How to access health informa tion online Indication:Tobacco use disorder Start:17-Nov-2018 Instruction Type:Patient Education How to access health informa tion online - Detail Indication:Tobacco use disorder Start:17-Nov-2018 Instruction Type:Patient Education Patient Instructions Indication:Tobacco use disorder Start:17-Nov-2018 Instruction Type:Provider Instructions for Treatment Patient Instructions Indication:Cough Start:20-Dec-2013 Instruction Type:Provider Instructions for Treatment Patient Instructions Indication:Boil, breast Start:11-May-2013 Instruction Type:Provider Instructions for Treatment Patient Instructions Indication:Infection Start:09-May-2013 Instruction Type:Provider Instructions for Treatment Patient Instructions Indication:Palpitations Start:23-Jan-2013 Instruction Type:Provider Instructions for Treatment Patient Instructions Indication:Palpitations Start:16-Jan-2013 Instruction Type:Provider Instructions for Treatment Name Dates Details How to access health informa tion online Indication:Leg edema Start:03-Jul-2019 Instruction Type:Patient Education How to access health informa tion online - Detail Indication:Leg edema Start:03-Jul-2019 Instruction Type:Patient Education Patient Instructions Indication:Leg edema Start:03-Jul-2019 Instruction Type:Provider Instructions for Treatment How to access health informa tion online Indication:BMI 28.0-28.9,adult Start:12-Jun-2019 Instruction Type:Patient Education How to access health informa tion online - Detail Indication:BMI 28.0-28.9,adult Start:12-Jun-2019 Instruction Type:Patient Education Patient Instructions Indication:BMI 28.0-28.9,adult Start:12-Jun-2019 Instruction Type:Provider Instructions for Treatment How to access health informa tion online Indication:Tobacco use disorder Start:17-Nov-2018 Instruction Type:Patient Education How to access health informa tion online - Detail Indication:Tobacco use disorder Start:17-Nov-2018 Instruction Type:Patient Education Patient Instructions Indication:Tobacco use disorder Start:17-Nov-2018 Instruction Type:Provider Instructions for Treatment Patient Instructions Indication:Cough Start:20-Dec-2013 Instruction Type:Provider Instructions for Treatment Patient Instructions Indication:Boil, breast Start:11-May-2013 Instruction Type:Provider Instructions for Treatment Patient Instructions Indication:Infection Start:09-May-2013 Instruction Type:Provider Instructions for Treatment Patient Instructions Indication:Palpitations Start:23-Jan-2013 Instruction Type:Provider Instructions for Treatment Patient Instructions Indication:Palpitations Start:16-Jan-2013 Instruction Type:Provider Instructions for Treatment Name Dates Details How to access health informa tion online Indication:BMI 28.0-28.9,adult Start:20-Feb-2020 Instruction Type:Patient Education How to access health informa tion online - Detail Indication:BMI 28.0-28.9,adult Start:20-Feb-2020 Instruction Type:Patient Education Patient Instructions Indication:BMI 28.0-28.9,adult Start:20-Feb-2020 Instruction Type:Provider Instructions for Treatment How to access health informa tion online Indication:Leg edema Start:06-Sep-2019 Instruction Type:Patient Education How to access health informa tion online - Detail Indication:Leg edema Start:06-Sep-2019 Instruction Type:Patient Education Patient Instructions Indication:Leg edema Start:06-Sep-2019 Instruction Type:Provider Instructions for Treatment How to access health informa tion online Indication:Leg edema Start:03-Jul-2019 Instruction Type:Patient Education How to access health informa tion online - Detail Indication:Leg edema Start:03-Jul-2019 Instruction Type:Patient Education Patient Instructions Indication:Leg edema Start:03-Jul-2019 Instruction Type:Provider Instructions for Treatment How to access health informa tion online Indication:BMI 28.0-28.9,adult Start:12-Jun-2019 Instruction Type:Patient Education How to access health informa tion online - Detail Indication:BMI 28.0-28.9,adult Start:12-Jun-2019 Instruction Type:Patient Education Patient Instructions Indication:BMI 28.0-28.9,adult Start:12-Jun-2019 Instruction Type:Provider Instructions for Treatment How to access health informa tion online Indication:Tobacco use disorder Start:17-Nov-2018 Instruction Type:Patient Education How to access health informa tion online - Detail Indication:Tobacco use disorder Start:17-Nov-2018 Instruction Type:Patient Education Patient Instructions Indication:Tobacco use disorder Start:17-Nov-2018 Instruction Type:Provider Instructions for Treatment Patient Instructions Indication:Cough Start:20-Dec-2013 Instruction Type:Provider Instructions for Treatment Patient Instructions Indication:Boil, breast Start:11-May-2013 Instruction Type:Provider Instructions for Treatment Patient Instructions Indication:Infection Start:09-May-2013 Instruction Type:Provider Instructions for Treatment Patient Instructions Indication:Palpitations Start:23-Jan-2013 Instruction Type:Provider Instructions for Treatment Patient Instructions Indication:Palpitations Start:16-Jan-2013 Instruction Type:Provider Instructions for Treatment Name Dates Details How to access health informa tion online Indication:BMI 28.0-28.9,adult Start:05-Mar-2020 Instruction Type:Patient Education How to access health informa tion online - Detail Indication:BMI 28.0-28.9,adult Start:05-Mar-2020 Instruction Type:Patient Education Patient Instructions Indication:BMI 28.0-28.9,adult Start:05-Mar-2020 Instruction Type:Provider Instructions for Treatment How to access health informa tion online Indication:BMI 28.0-28.9,adult Start:20-Feb-2020 Instruction Type:Patient Education How to access health informa tion online - Detail Indication:BMI 28.0-28.9,adult Start:20-Feb-2020 Instruction Type:Patient Education Patient Instructions Indication:BMI 28.0-28.9,adult Start:20-Feb-2020 Instruction Type:Provider Instructions for Treatment How to access health informa tion online Indication:Leg edema Start:06-Sep-2019 Instruction Type:Patient Education How to access health informa tion online - Detail Indication:Leg edema Start:06-Sep-2019 Instruction Type:Patient Education Patient Instructions Indication:Leg edema Start:06-Sep-2019 Instruction Type:Provider Instructions for Treatment How to access health informa tion online Indication:Leg edema Start:03-Jul-2019 Instruction Type:Patient Education How to access health informa tion online - Detail Indication:Leg edema Start:03-Jul-2019 Instruction Type:Patient Education Patient Instructions Indication:Leg edema Start:03-Jul-2019 Instruction Type:Provider Instructions for Treatment How to access health informa tion online Indication:BMI 28.0-28.9,adult Start:12-Jun-2019 Instruction Type:Patient Education How to access health informa tion online - Detail Indication:BMI 28.0-28.9,adult Start:12-Jun-2019 Instruction Type:Patient Education Patient Instructions Indication:BMI 28.0-28.9,adult Start:12-Jun-2019 Instruction Type:Provider Instructions for Treatment How to access health informa tion online Indication:Tobacco use disorder Start:17-Nov-2018 Instruction Type:Patient Education How to access health informa tion online - Detail Indication:Tobacco use disorder Start:17-Nov-2018 Instruction Type:Patient Education Patient Instructions Indication:Tobacco use disorder Start:17-Nov-2018 Instruction Type:Provider Instructions for Treatment Patient Instructions Indication:Cough Start:20-Dec-2013 Instruction Type:Provider Instructions for Treatment Patient Instructions Indication:Boil, breast Start:11-May-2013 Instruction Type:Provider Instructions for Treatment Patient Instructions Indication:Infection Start:09-May-2013 Instruction Type:Provider Instructions for Treatment Patient Instructions Indication:Palpitations Start:23-Jan-2013 Instruction Type:Provider Instructions for Treatment Patient Instructions Indication:Palpitations Start:16-Jan-2013 Instruction Type:Provider Instructions for Treatment Name Dates Details How to access health informa tion online Indication:BMI 28.0-28.9,adult Start:12-Jun-2019 Instruction Type:Patient Education How to access health informa tion online - Detail Indication:BMI 28.0-28.9,adult Start:12-Jun-2019 Instruction Type:Patient Education Patient Instructions Indication:BMI 28.0-28.9,adult Start:12-Jun-2019 Instruction Type:Provider Instructions for Treatment How to access health informa tion online Indication:Tobacco use disorder Start:17-Nov-2018 Instruction Type:Patient Education How to access health informa tion online - Detail Indication:Tobacco use disorder Start:17-Nov-2018 Instruction Type:Patient Education Patient Instructions Indication:Tobacco use disorder Start:17-Nov-2018 Instruction Type:Provider Instructions for Treatment Patient Instructions Indication:Cough Start:20-Dec-2013 Instruction Type:Provider Instructions for Treatment Patient Instructions Indication:Boil, breast Start:11-May-2013 Instruction Type:Provider Instructions for Treatment Patient Instructions Indication:Infection Start:09-May-2013 Instruction Type:Provider Instructions for Treatment Patient Instructions Indication:Palpitations Start:23-Jan-2013 Instruction Type:Provider Instructions for Treatment Patient Instructions Indication:Palpitations Start:16-Jan-2013 Instruction Type:Provider Instructions for Treatment Name Dates Details Cough : Patient Instructions Indication:Cough Boil, breast : Patient Instr uctions Indication:Boil, breast Infection : Patient Instruct ions Indication:Infection Palpitations : Patient Instr uctions Indication:Palpitations Summary Purpose Family History Unknown Family Member Name Dates Details Aortic Aneurysm Comments:Father. Status:Active Coronary Artery Disease Comments:Father. Status:Active Family Members In General Comments:HBP and thyroid dis ease Status:Active Nicol Thyroiditis Comments:Sister. and microsc opic colitis Status:Active Thyroid Nodule Comments:Mother. Status:Active No Family History Records Found Advance Directives No Advanced Directives Records FoundNo Advanced Directives Records FoundNo Advanced Directives Records Found Additional Source Comments INFORMATION SOURCE (unrecogn ized section and content) DATE CREATED AUTHOR AUTHOR'S ORGANIZ ATION 11/20/2021 [facility] DATE CREATED AUTHOR AUTHOR'S ORGANIZ ATION 11/10/2022 [facility] FOR RECORDS PERTAINING TO PATIENTS WHO ARE OR HAVE BEEN ENROLLED IN A CHEMICAL DEPENDENCY/SUBSTANCEABUSE PROGRAM, SOME INFORMATION MAY BE OMITTED. This clinical summary was aggregated from multiple sources. Caution should be exercised in using it in the provision of clinical care. This summary normalizes information from multiple sources, and as a consequence, information in this document may materially change the coding, format and clinical context of patient data. In addition, data may be omitted in some cases. CLINICAL DECISIONS SHOULD BE BASED ON THE PRIMARY CLINICAL RECORDS. [facility]. provides no warranty or guarantee of the accuracy or completeness of information in this document.
[2023-10-27 07:46] VITALS: BP 120/83; PULSE 72; RESP 16; TEMP 36.4; O2SAT 97; BMI 38.8
[2023-10-27 07:48] LABS: Internal QC Validated? YES +Cl - CLEAR BKGD; Pregnancy, Urine Negative Negative
[2023-10-27] MEDS: Lactated Ringers 1,000 ML 15 ML IV (07:56)
--- NOTE | 2023-10-27 08:15 | IMM_PTH ---
PATHOLOGY RESULTS PATIENT: LANE KENNEDY LOC: EN U#:[id number] AGE/SX: 43/F ROOM: RE10/27/[address]: Dr. Nicholas West DO : 1980 BED: DIS: 10/27/2023 SPEC #: [id number] RECD: 10/28/23 07:42 STATUS: SATNAM REQ #: [id number] MANNY: 10/27/23 08:[address]: Nicholas West DEPT: IMMUNOHISTOCHEMISTRY RECD BY: Jacy Alvarez ENTERED: 10/28/23 07:42 SP TYPE: IMMUNO OTHR DR: Dr. Edel Garcia DO Tissues: Stomach, NOS Esophagus, NOS Procedures: H Pylori (initial) P53 (initial) KI-67 (add) PHYSICIAN & INSTITUTION [place] [id number] SPECIMEN INFORMATION: Tissue Source: B - Gastric antrum, C - Distal esophagus Clinical Info: Epigastric pain, gastritis, Lang's esophagus Specimen Number: [id number] B & C CPT code: 05690 x2, 24123 METHODOLOGY: Deparaffinized sections of prefer/formalin-fixed tissue or PAP/DQ stained slides are incubated with monoclonal/polyclonal antibodies/oligonucleotide probes. Localization is made via biotin free immunoperoxidase method. Appropriate controls are performed and reacted as expected. Results on target cell population are indicated in the following table: RESULTS: ANTIBODY / CLONE RESULT Block B H Pylori (polyclonal) negative Block C P53 (DO-7) positive, focal (wild type pattern) Ki-67 (30-9) positive, very low These tests were developed and their performance characteristics determined by [facility]. They may not have been cleared or approved by the U.S. Food and Drug Administration. The FDA has determined that such clearance or approval is not necessary. The above immunohistochemical/dualISH markers are ordered and reviewed by the Pathologist. INTERPRETATION: B. Gastric antrum, biopsy: Negative for Helicobacter pylori organisms. C. Distal esophagus, biopsy: Negative for dysplasia. SJ:jared 10/31/2023
--- NOTE | 2023-10-27 08:19 | PCM.HP.BLA ---
History and Physical Date of Admission: 10/27/[address], is a 43 F who presents to the office today for FH mother colon cancer, at 62; maternal great-grandmother colon cancer; father colon tumor and UC; sister microscopic colitis *BGI established 02.09.22 upper abdominal pain and nausea with intake of lettuce, eggs, broccoli, berries. Coke and hot bathes help with intermittent loose stools. ? Biochemical 02.09.22 CBC, ESR, CMP, FARZAD comp, celiac without pertinent abnormality. ? CRP H4.38, Class I peanut, cow?s milk, egg ? Stool calprotectin, lactoferrin WNL ? US RUQ 02.25.22 without acute/chronic finding ? HIDA 03.12.22 EF 94% ? EGD/colonoscopy 05.19.22 EGD irregular Zline 37cm, metaplasia +; small hiatal hernia; gastritis. H.pylori negative. ? Colonoscopy congested mucosa; TI few 6mm ulcers. Pathology melanosis coli OV 06.02.22 start sucralfate PPI ? Biochemical 06.02.22 LFT, LDH, amylase, lipase, GAME, ANCA without pertinent abnormality ? MRCP 06.02.22 not performed ? Stool 06.09.22 elastase, fat WNL ? Biochemical 03.07.23 (PCP) CBC (anemia), CMP without pertinent abnormality. ? CRP H25.5, iron L42, TIBC H459, iron sat L9.2 OV 2..24- Pt reports the last 2 weeks she has been having epigastric pain. Has been having migraines and took Excedrin which knows upsets her stomach. Is concerned about ulcers. Feels a gnawing pain in stomach that is better when she eats. No dysphagia. BM have been normal. ROS Const Constitutional: Positive for fatigue ENT ENT: No difficulty swallowing Gastro GI: Positive for abdominal pain, bloating, heartburn, excessive flatus and nausea/dyspepsia; No belching, change in bowel habits, change in stool character, coffee ground emesis, constipation, cramping, diarrhea, difficulty swallowing, feeling full early, incontinent of stools, Vomiting blood/hematemesis, Blood in stool, loose stools, Black,tarry stools, pain with swallowing, vomiting or other Musc Musculoskeletal: Positive for back pain and restless legs; No joint pain Skin Skin: No yellowing of the eye or itchy eyes Neuro Neurology: Positive for restless legs Psych Psychiatric: No anxiety and No depression Endo Endocrine: Positive for fatigue Aller/Imm Allergy/Immunologic: No itchy eyes Chris/Lymp Hematologic/Lymphatic: No easy bleeding or easy bruising Exam Const General: cooperative and well developed HENMT Head: normal to inspection and atraumatic Ears: hearing grossly normal bilaterally Nose: nasal discharge clear Face and sinus: normal facial exam Mouth: oral mucosae normal Throat: abnormal tonsil bilaterally hypertrophy 1+ Resp Effort & Inspection: normal respiratory effort and no audible wheezes Auscultation: Bilateral: Clear to Auscultation Cardio Palpation: normal PMI Rate: regular rate Rhythm: regular rhythm Neuro General: patient alert and CN's II-XI intact bilaterally Psych Appearance: grossly normal Mental Status: mental status grossly normal Quality Reporting Tobacco Screening ([facility] 138) Smoking Status: Former smoker Assessment and Plan Assessment and Plan (1) Epigastric pain: Status: Chronic Plan: 41 yr old female with recurrent severe episodic epigastric/LUQ pain, DDx includes EPI, pancreatitis, SOD, biliary obstruction. Will be treating gastritis and GERD/Lang's. We reviewed results from her EGD and colonoscopy Gastritis was trerated with one month of sucralfate and start pantoprazole 40 mg QAM. She stopped the pantoprazole because her insurance was not covering the medication. Will need to remain on PPI due to Lang's diagnosis. We will repeat her upper endoscopy for the surviallence of her Lang's esophagus. Stool tests for pancreas, more labs today MRCP f/u 2 mos (2) Gastritis: Status: Chronic Plan: as above (3) Lang's esophagus: Status: Chronic Plan: as above Orders: Orders Gastrin, Serum Today K22.70 - Lang's esophagus without dysplasia, K29.70 - Gastritis, unspecified, without bleeding Immunoglobulins G/A/M/E Today K22.70 - Lang's esophagus without dysplasia, K29.70 - Gastritis, unspecified, without bleeding IgG Subclasses Today K22.70 - Lang's esophagus without dysplasia, K29.70 - Gastritis, unspecified, without bleeding Triglycerides Today K22.70 - Lang's esophagus without dysplasia, K29.70 - Gastritis, unspecified, without bleeding Amylase Today K22.70 - Lang's esophagus without dysplasia, K29.70 - Gastritis, unspecified, without bleeding Lipase Today K22.70 - Lang's esophagus without dysplasia, K29.70 - Gastritis, unspecified, without bleeding Chromogranin A Today K22.70 - Lang's esophagus without dysplasia, K29.70 - Gastritis, unspecified, without bleeding Anti-Parietal Cell AB, QN Today K22.70 - Lang's esophagus without dysplasia, K29.70 - Gastritis, unspecified, without bleeding Intrinsic Factor Ab Today K22.70 - Lang's esophagus without dysplasia, K29.70 - Gastritis, unspecified, without bleeding Comprehensive Metabolic Profil Today K22.70 - Lang's esophagus without dysplasia, K29.70 - Gastritis, unspecified, without bleeding CBC W/Diff, Automated Today K22.70 - Lang's esophagus without dysplasia, K29.70 - Gastritis, unspecified, without bleeding Gastric Emptying Study Today K22.70 - Lang's esophagus without dysplasia, K29.70 - Gastritis, unspecified, without bleeding I have examined the patient and the H&P has been reviewed. There are no clinical changes since date of exam.
[2023-10-27 08:37] VITALS: BP 120/83; BP 95/64; PULSE 82; RESP 16; TEMP 36.5; O2SAT 95
--- NOTE | 2023-10-27 08:37 | OP.EGD_ITS ---
Patient Name: Bessie Jiang Procedure Date: 10/27/2023 8:14 AM Date of : 1980 Age: 43 Procedure: Upper GI endoscopy Indications: Epigastric abdominal pain, Follow-up of Lang's esophagus Providers: Nicholas West DO Referring MD: Nicholas West DO Medicines: Monitored Anesthesia Care Patient Profile: This is a 43 year old female. Refer to note in patient chart for documentation of history and physical. Patient has symptoms of chronic epigastric abdominal pain. Her most recent EGD for Lang's biopsy. Complications: No immediate complications. Procedure: Pre-Anesthesia Assessment: - Prior to the procedure, a History and Physical was performed, and patient medications and allergies were reviewed. The patient is competent. The risks and benefits of the procedure and the sedation options and risks were discussed with the patient. All questions were answered and informed consent was obtained. Patient identification and proposed procedure were verified by the physician in the pre-procedure area. Mental Status Examination: alert and oriented. Airway Examination: normal oropharyngeal airway and neck mobility. Respiratory Examination: clear to auscultation. CV Examination: normal. Prophylactic Antibiotics: The patient does not require prophylactic antibiotics. Prior Anticoagulants: The patient has taken no anticoagulant or antiplatelet agents. After reviewing the risks and benefits, the patient was deemed in satisfactory condition to undergo the procedure. The anesthesia plan was to use monitored anesthesia care (MAC). Immediately prior to administration of medications, the patient was re-assessed for adequacy to receive sedatives. The heart rate, respiratory rate, oxygen saturations, blood pressure, adequacy of pulmonary ventilation, and response to care were monitored throughout the procedure. The physical status of the patient was re-assessed after the procedure. After obtaining informed consent, the endoscope was passed under direct vision. Throughout the procedure, the patient's blood pressure, pulse, and oxygen saturations were monitored continuously. The Endoscope was introduced through the mouth, and advanced to the second part of duodenum. The upper GI endoscopy was accomplished without difficulty. The patient tolerated the procedure well. Scope In: 8:25:02 AM Scope Out: 8:32:39 AM Total Procedure Duration Time 0 hours 7 minutes 37 seconds Findings: The Z-line was irregular and was found 37 cm from the incisors. Biopsies were taken with a cold forceps for histology. Verification of patient identification for the specimen was done. Estimated blood loss was minimal. Localized mild inflammation characterized by erythema was found in the gastric antrum. Biopsies were taken with a cold forceps for histology. Verification of patient identification for the specimen was done. Estimated blood loss was minimal. Biopsies were taken with a cold forceps for Helicobacter pylori testing. Verification of patient identification for the specimen was done. Estimated blood loss was minimal. Patchy mildly erythematous mucosa without active bleeding and with no stigmata of bleeding was found in the duodenal bulb. Impression: - Z-line irregular, 37 cm from the incisors. Biopsied. - Chronic gastritis. Biopsied. - Erythematous duodenopathy. Recommendation: - Discharge patient to home. - Resume previous diet. - Continue present medications. - Await pathology results. Procedure Code(s): --- Professional --- 21479, Esophagogastroduodenoscopy, flexible, transoral; with biopsy, single or multiple CPT copyright 2021 [employer]. All rights reserved. The codes documented in this report are preliminary and upon food and beverage assistant manager review may be revised to meet current compliance requirements. Nicholas West DO 10/27/2023 8:37:40 AM This report has been signed electronically. Number of Addenda: 0 Note Initiated On: 10/27/2023 8:14 AM
--- NOTE | 2023-10-27 08:38 | OP.CCLET_ITS ---
10/27/2023 Edel Garcia [address] [place] [address] Re : Upper GI endoscopy procedure for Bessie Jiang Dear Dr. Garcia This procedure was performed on October 27, 2023. My impressions and recommendations are as follows: Impressions : - Z-line irregular, 37 cm from the incisors. Biopsied. - Chronic gastritis. Biopsied. - Erythematous duodenopathy. Recommendations : - Discharge patient to home. - Resume previous diet. - Continue present medications. - Await pathology results. My findings are described in the full procedure note, which is enclosed. If I can be of further assistance, please feel free to contact me at . Sincerely, Nicholas West, 10/27/2023 8:37:40 AM This report has been signed electronically.
[2023-10-27 08:40] VITALS: BP 120/83; BP 89/63; BP 90/69; PULSE 69; PULSE 75; RESP 16; O2SAT 95; O2SAT 98
[2023-10-27 08:50] VITALS: BP 100/67; BP 120/83; PULSE 71; RESP 16; TEMP 36.5; O2SAT 97
[2023-10-27 09:05] VITALS: BP 120/83
== END 2023-10-27 09:15 | disposition home or self-care (01) ==
LOC: EN 07:17 → AC 07:18
PROVIDERS: Anesthesiology; PCP Internal Medicine; Referring Provider Internal Medicine; Visit Provider Internal Medicine Gastroenterology
PROC: 0DJ08ZZ Inspection of Upper Intestinal Tract, Via Natural or Artificial Opening Endoscopic (ICD-10-PCS; CPT 43235; principal; 2023-10-27 08:10)
DX: K29.50 Unspecified chronic gastritis without bleeding (principal); K22.70 Barrett's esophagus without dysplasia; F41.9 Anxiety disorder, unspecified; K31.89 Other diseases of stomach and duodenum; Z79.899 Other long term (current) drug therapy; Z80.0 Family history of malignant neoplasm of digestive organs; Z87.891 Personal history of nicotine dependence
CPT/HCPCS: 43239; 81025; 88305; 88313; 88341; 88342; J7120; J2405

== ENCOUNTER → 2023-11-03 | Outpatient (CLI) | payer OTHER, SELFPAY ==
--- NOTE | 2023-11-03 11:49 | NM_ITS ---
CLINICAL: 43-year-old female with history of abdominal pain and bloating. SOLID PHASE 99m Tc SULFUR COLLOID GASTRIC EMPTYING STUDY COMPARISON: None available FINDINGS: The patient was administered 1.1 mCi of 99m Tc sulfur colloid mixed with egg and consumed per os. Image acquisitions in the anterior -posterior projection were obtained for 60 minutes. There is prompt visualization of the stomach. There is no gastroesophageal reflux identified. There is no definitive emptying of the gastric contents defined over 60 minutes of sequential imaging. The T1/2 linear fit was not calculable. (Normal 65-110 minutes). NM/Gastric Emptying Study IMPRESSION: 1. ABNORMAL 99m Tc sulfur colloid solid phase gastric emptying imaging examination. A. There is significant-severe delayed solid phase gastric emptying compared to normal controls. (Bola et al, Gastroenterology 77: 75, 1979 Clarisse nicholas al, Semin Nucl Med 12: 116, 1980). Electronically Signed: Iraj Marcos DO at 23:50 EST ,
== END | disposition home or self-care (01) ==
LOC: NM 11:48
PROVIDERS: PCP Internal Medicine; Referring Provider Internal Medicine Gastroenterology; Visit Provider Internal Medicine Gastroenterology
DX: K22.70 Barrett's esophagus without dysplasia (principal); K29.70 Gastritis, unspecified, without bleeding
CPT/HCPCS: 78264; A9541

== ENCOUNTER → 2023-11-07 | Outpatient (CLI) | payer OTHER, SELFPAY | END | disposition home or self-care (01) | LOC: LABSPEC 10:38 | PROVIDERS: PCP Internal Medicine; Visit Provider Physician Assistant Medical | DX: N39.0 Urinary tract infection, site not specified (principal) | CPT/HCPCS: 87077; 87086; 87088; 87186 ==

== ENCOUNTER → 2024-07-11 | Outpatient (CLI) | payer OTHER, SELFPAY ==
--- NOTE | 2024-07-11 15:20 | BI_ITS ---
MAMMOGRAPHY - BILATERAL SCREENING REASON FOR EXAM: Female, 44 years old. Routine annual screening examination. PERTINENT HISTORY: Aunts with breast cancer. TECHNIQUE: Digital bilateral breast mario (3D mammographic acquisition) in the CC and MLO projections. 2-D mediolateral oblique (MLO) and craniocaudad (CC) views of both breasts were obtained. CAD: Full Field Digital Mammography with Computer Added Detection was performed. COMPARISON: Comparison is made with prior study dated November 12, 2022 and July 08, 2023. FINDINGS: Breast Composition: There are scattered areas of fibroglandular density. There are no dominant masses or suspicious calcifications. No other significant abnormalities are identified. There has been no significant change since the prior study. BI/SCRN MAMM (CAD)W/MARIO BILAT IMPRESSION: Stable bilateral screening mammogram. Yearly follow-up mammogram recommended. (A) ASSESSMENT CATEGORY: BIRADS Category 1: Negative. A letter regarding these results will be sent to the patient by the facility within 30 days. Approximately 10% of breast cancers are not detected by mammography. A normal mammogram should not delay biopsy of a clinically suspicious abnormality. [id number] Electronically Signed: Dale Dunne MD at 8:35 EST ,
== END | disposition home or self-care (01) ==
LOC: OPBI 15:20
PROVIDERS: PCP Internal Medicine; Referring Provider Nurse Practitioner Women's Health; Visit Provider Nurse Practitioner Women's Health
DX: Z12.31 Encounter for screening mammogram for malignant neoplasm of breast (principal)
CPT/HCPCS: 77063; 77067

== ENCOUNTER → 2025-05-21 | Outpatient (CLI) | payer BC, SELFPAY ==
[2025-05-28 11:08] LABS: HPV APTIMA, High Risk Negative (Negative)
== END | disposition home or self-care (01) ==
LOC: LABSPEC 15:56
PROVIDERS: PCP Internal Medicine; Visit Provider Nurse Practitioner Women's Health
DX: Z12.4 Encounter for screening for malignant neoplasm of cervix (principal)
CPT/HCPCS: 87624; 88175; G0145

== ENCOUNTER → 2025-07-26 | Outpatient (CLI) | payer BC, SELFPAY ==
--- OUTSIDE RECORDS SUMMARY | 2025-07-26 07:26 | XMS RPT_ITS | CCD ---
Author Organization [facility] Care Team Providers Care Tool Programmer Name Role Phone Edel Garcia Unavailable Luis Jerez Unavailable Candice Botello Unavailable Unavailable Manchak, Reyna Unavailable Unavailable Bonemarisol, Jessica M Unavailable Unavailable Unavailable Edel Garcia Unavailable Luis Jerez Unavailable Emilie Otto Unavailable Unavailable Unavailable Unavailable Jus Varela Unavailable Unavailable Bonezzi, Jessica M Unavailable GHISLAINE Decker Unavailable Unavailable Manchak, Reyna Unavailable Unavailable Morales Vargas Unavailable Jus Varela Unavailable Unavailable CiesaAnneliese E Unavailable Chacha Botelloa Unavailable Unavailable Marvin, Reyna Unavailable Unavailable Edel Garcia DO Unavailable Morales Vargas Unavailable Dr. Luis Jerez MD Unavailable Gravius FIXED CAPITAL CLERK, Katie Unavailable Unavailable Oj CARBON CAPTURE POWER PLANT OPERATORJus Unavailable Unavailable Slarb CARBON CAPTURE POWER PLANT OPERATOR, Sanna Unavailable Unavailable Unavailable Unavailable Donna PEER TUTOR, Afia S Unavailable [phone] Loan Todd Unavailable Unavailable ANA Vargas RN, Gayatri A Unavailable Unavailabl dennis Vargas RN RN, Gayatri A Unavailable Unavailabl dennis Vargas RN RN, Gayatri A Unavailable UnavailDr. Edel Davis Primary Care Provider [phone] Dr. Edel Garcia Referring Provider JASMYNE Roger Attending Provider Donna PEER TUTOR, PEER TUTOR-C Afia Attending Provider [phone] Ligia PEER TUTOR, PEER TUTOR-C Renetta Buitrago Attending Provider [phone] Dr. Edel Garcia Primary Care Provider [phone] Dr. Edel Garcia Referring Provider JASMYNE Han Attending Provider Friend, Dr. Peterson Attending Provider [phone] Friend, Dr. Peterson Other Provider [phone] dEel Garcia Primary Care Provider [phone] Dr. Edel Garcia Referring Provider Ligia PEER TUTOR, PEER TUTOR-C Renetta Buitrago Attending Provider [phone] Oni STRATEGIC CONSULTANT, Shaniqua Unavailable [phone] Oni STRATEGIC CONSULTANT, Shaniqua Unavailable [phone] Amber Gallardo Unavailable Oni STRATEGIC CONSULTANT, Shaniqua Attending Unavailable Oni STRATEGIC CONSULTANT, Shaniqua Referring Unavailable Oni STRATEGIC CONSULTANT, Shaniqua Consulting Unavailable Dr. Edel Garcia Primary Care Provider [phone] Dr. Edel Garcia Referring Provider JASMYNE Pierre Attending Provider [phone] [facility], Reyna Unavailable Unavailable Dr. Sean Dumont Unavailable Dr. Edel Garcia Primary Care Provider [phone] Dr. Edel Garcia Referring Provider Donna PEER TUTOR, JESÚS-C Afia Attending Provider [phone] JASMYNE Hurd Attending Provider Dr. Sean Dumont Attending Provider [phone] Edel Garcia Primary Care Provider [phone] Dr. Sean Dumont Attending Provider [phone] JASMYNE Rosado Referring Provider 1([facility])-[phone] Edel Garcia Referring Provider 1([facility])[phone] JASMYNE Rosado Attending Provider 1([facility])-[phone] [place] PEER TUTOR, PEER TUTOR-C Afia Attending Provider [phone] Dr. Martha Azul Attending Provider 1([facility])[phone] Dr. Edel Garcia Primary Care Provider 1([facility] )-[phone] Jose, Dr. Holl[place]worth Primary Care Provider 1([facility] )343 Dr. Edel Garcia Referring Provider 1([facility])[phone] Friend, Dr. Peterson Attending Provider 1([facility])76 Friend, Dr. Peterson Other Provider 1([facility])- [phone] Dr. Edel Garcia Primary Care Provider 1([facility] ) Dr. Edel Garcia Referring Provider 1([facility])[phone] Dr. Martha Azul Attending Provider 1([facility])[phone] Friend, Dr. Peterson Attending Provider 1([facility])76 Friend, Dr. Peterson Other Provider 1([facility])-[phone] JASMYNE Godinez Attending Provider Dr. Edel Garcia DO Primary Care Provider Dr. Edel Garcia DO Referring Provider 1([facility] )343 Friend , Dr. Peterson Attending Provider Wally Pierre Attending Provider 1([facility])[phone] Dr. Edel Garcia DO Primary Care Physician Friend Dr. Nicholas GARCIAS Attending Physician 1([facility] )[phone] Wally Pierre Attending Physician 1([facility])[phone] [place] PEER TUTOR-C, Afia Attending Physician 1([facility])2 Edel Garcia Primary Care Unavailable [place] PEER TUTORMikiy Referring Unavailable Donna PEER TUTOR, Afia Attending Unavailable [place] PEER TUTOR, Afia Attending Unavailable Edel Garcia Primary Care Unavailable Edel Garcia Referring Unavailable Jose, Edel Primary Care Unavailable Wally Pierre Attending Unavailable Jose, Edel Referring Unavailable Jose, Edel Primary Care Unavailable Friend, Nicholas Attending Unavailable Jose, Edel Referring Unavailable Jose, Edel Referring Unavailable Jose, Edel Primary Care Unavailable Bodager, Saniya Attending Unavailable Jose, Edel Referring Unavailable Jose, Edel Primary Care Unavailable Bodager, Saniya Attending Unavailable Jose, Edel Primary Care Unavailable German MEDLEY, Wally Attending Unavailable Jose, Edel Referring Unavailable Jose, Edel Referring Unavailable Jose, Edel Primary Care Unavailable Friend, Nicholas Attending Unavailable Donna PEER TUTOR, Afia Attending Unavailable Jose, Edel Primary Care Unavailable [place] PEER TUTOR, Afia Attending Unavailable [place] PEER TUTOR, Afia Referring Unavailable Jose, Edel Primary Care Unavailable Allergies Allergy Classification Reported Allergen(s) Allergy Type Date of Onset Reaction(s) Facility (19 sources) Amoxicillin / Clavulanate; Translations: [Augmentin *PENICILLINS*] Drug Allergy [facility]; [facility] Work Phone: Comment on above: bloody stool (20 sources) Amoxicillin Drug Allergy 1 diahrrea [facility] (10 sources) Clavulanate Drug Allergy 3 Diarrhea [facility] Comment on above: bloody diarrhea (1 source) Amoxicillin Drug Allergy 5 [facility] Repository (1 source) Clavulanate Drug Allergy 5 [facility] Repository NEGATED: Highlighted row has been ruled out! (1 source) allergy to substance 3 [facility] Work Phone: NEGATED: Highlighted row has been ruled out! (1 source) drug allergy [facility] Work Phone: Medications Current Medications Medication Drug Class(es) Dates Sig (Normalized) Sig (Original) hydroCHLOROthiazide 12.5 mg oral tablet (20 sources) Thiazide Diuretic Start: 07-20-2023 take 1 tablet by mouth once daily as needed for edema Start: 04-19-2017 End: 03-29-2023 take 1 tablet by mouth once daily as needed for edema Hydrochlorothiazide 12.5 mg tablet Discontinued 12.5 mg PO daily as needed for Edema January 02, 2018 12:00am March 29, 2023 11:17am Comment on above: Medication taken as needed. ipratropium bromide 0.021 mg/actuat metered dose nasal spray (1 source) Anticholinergic Start: 05-09-2025 pantoprazole 20 mg delayed release oral tablet (20 sources) Proton Pump Inhibitor Start: 11-07-2023 End: 12-13-2024 take 1 tablet by mouth once daily Start: 06-02-2022 End: 04-26-2023 take 1 tablet by mouth once daily Pantoprazole 40 mg tablet,delayed release (DR/EC) Discontinued 40 mg PO DAILY 90 June 02, 2022 12:00am April 26, 2023 3:26pm phentermine hydrochloride 37.5 mg oral capsule (12 sources) Sympathomimetic Amine Anorectic Start: 04-23-2024 End: 05-10-2025 take 1 capsule by mouth once daily Start: 04-11-2024 End: 08-23-2024 take 1 capsule by mouth once daily 2 hour(s) after breakfast Phentermine 30 mg capsule Discontinued 30 mg PO DAILY 30 2 April 11, 2024 12:00am August 23, 2024 9:21am must administer 2 hours after breakfast Completed/Discontinued Medications Medication Drug Class(es) Dates Sig [...] 20-Dec-2013 End : 08-Jun-2018 Inactive Comments: ten Comment on above: herrera [id number] 200 actuat albuterol 0.09 mg/actuat metered dose inhaler (20 sources) beta2-Adrenergic Agonist Start: 02-05-2009 PROVENTIL HFA, 108 (90 Base)MCG/ACT (Inhalation Aerosol Solution) 2 (two) Aerosol Soln qid for 0 days Refills: 0 Ordered: 08-May-2010 GHISLAINE Decker LPN Start : 05-Feb-2009 Inactive Start: 02-05-2009 PROVENTIL HFA, 108 (90 Base)MCG/ACT (Inhalation Aerosol Solution) 2 (two) Aerosol Soln qid for 0 days Refills: 0 Ordered: 08-May-2010 Jeronimo GREENBONILLAGHISLAINE Start : 05-Feb-2009 Inactive amitriptyline hydrochloride 10 mg oral tablet (20 sources) Tricyclic Antidepressant Start: 01-23-2013 End: 05-09-2013 take 1 tablet by mouth once daily AMITRIPTYLINE HCL, 10MG (Oral Tablet) 1 Tablet qd for 0 days Quantity: 30 {Tablet} Refills: 2 Ordered: 09-May-2013 Reyna Wong CMA Start : 23-Jan-2013 End : 09-May-2013 Inactive amoxicillin 875 mg / clavulanate 125 mg oral tablet (20 sources) Penicillin-class Antibacterial Start: 10-16-2010 End: 10-26-2010 take 1 tablet by mouth twice daily AUGMENTIN, 875-125MG (Oral Tablet) 1 Tablet bid for 10 days Quantity: 20 {Tablet} Refills: 0 Ordered: 16-Oct-2010 Anneliese Joseph Start : 16-Oct-2010 End : 26-Oct-2010 Inactive ascorbic acid 500 mg oral capsule (20 sources) Vitamin C Start: 07-15-2020 End: 12-24-2021 Ascorbic Acid (Vitamin C) 500 mg capsule Discontinued mg PO July 15, 2020 1:00am December 24, 2021 2:44pm Start: 07-15-2020 End: 12-24-2021 Ascorbic Acid (Vitamin C) Di scontinued MG PO July 15, 2020 1:00am December 24, 2021 2:44pm azithromycin 250 mg oral tablet (20 sources) Macrolide Antimicrobial Start: 01-16-2013 End: 01-16-2013 ZITHROMAX Z-ALENA, 250MG (Oral Tablet) 1 Tablet uad for 0 days Quantity: 1 {Package(s)} Refills: 0 Ordered: 16-Jan-2013 Antoinette Chávez DO Start : 16-Jan-2013 End : 16-Jan-2013 Discontinued benzonatate 200 mg oral capsule (20 sources) Non-narcotic Antitussive Start: 09-07-2007 End: 09-26-2007 take 1 capsule by mouth three times daily TESSALON, 200MG (Oral Capsule) 1 (one) Capsule tid for 0 days Quantity: 30 {Capsule} Refills: 0 Ordered: 07-Sep-2007 Christy Ochoa Start : 07-Sep-2007 End : 26-Sep-2007 Discontinued budesonide 0.032 mg/actuat metered dose nasal spray (20 sources) Corticosteroid End: 09-26-2006 RHINOCORT, 32MCG/ACT Unsure Unsure for 0 days Refills: 0 Ordered: 07-Sep-2007 Asya Bowden LPN End : 26-Sep-2006 Inactive End: 09-26-2006 RHINOCORT, 32MCG/ACT Unsure Unsure for 0 days Refills: 0 Ordered: 07-Sep-2007 Asya Bowden LPN End : 26-Sep-2006 Inactive 12 hr buPROPion hydrochloride 100 mg extended release oral tablet (20 sources) Aminoketone Start: 10-16-2010 End: 03-24-2011 take 1 tablet by mouth once daily WELLBUTRIN SR, 100MG (Oral Tablet Extended Release 12 Hour) 1 Tablet ER 12HR daily for 0 days Quantity: 30 {Tablet_ER_12HR} Refills: 0 Ordered: 24-Mar-2011 Asya Bowden LPN Start : 16-Oct-2010 End : 24-Mar-2011 Inactive cefdinir 300 mg oral capsule (3 sources) Cephalosporin Antibacterial Start: 12-22-2023 End: 01-01-2024 take 1 capsule by mouth twice daily Cefdinir 300 mg capsule Discontinued 300 mg PO TWICE A DAY 20 10 December 22, 2023 12:00am December 31, 2023 12:00am January 01, 2024 12:06am celecoxib 200 mg oral capsule (20 sources) Nonsteroidal Anti-inflammatory Drug Start: 09-26-2007 End: 12-28-2007 take 1 capsule by mouth once daily at mealtime CELEBREX, 200MG (Oral Capsule) 1 (one) Capsule qd with food for 0 days Refills: 0 Ordered: 26-Sep-2007 Emilie Otto RN Start : 26-Sep-2007 End : 28-Dec-2007 Inactive cholecalciferol 0.05 mg oral capsule (20 sources) Vitamin D Start: 07-15-2020 End: 12-24-2021 take 1 capsule by mouth once daily Cholecalciferol (Vitamin D3) 50 mcg (2,000 unit) capsule Discontinued 50 ug PO DAILY July 15, 2020 1:00am December 24, 2021 2:44pm ciprofloxacin 500 mg oral tablet (20 sources) Quinolone Antimicrobial Start: 10-27-2011 End: 11-03-2011 take 1 tablet by mouth twice daily CIPROFLOXACIN HCL, 500MG (Oral Tablet) 1 Tablet bid for 7 days Quantity: 14 {Tablet} Refills: 0 Ordered: 27-Oct-2011 DanetteAnneliese medley Start : 27-Oct-2011 End : 03-Nov-2011 Inactive citalopram 20 mg oral tablet (20 sources) Serotonin Reuptake Inhibitor Start: 05-16-2007 take 1 tablet by mouth once daily CELEXA, 20MG (Oral Tablet) 1 (one) Tablet qd for 0 days Quantity: 30 {Tablet} Refills: 3 Ordered: 08-May-2010 GHISLAINE Decker LPN Start : 16-May-2007 Inactive clarithromycin 500 mg oral tablet (20 sources) Macrolide Antimicrobial Start: 12-20-2013 End: 06-08-2018 Biaxin 500 MG Oral Tablet 1 (one) Tablet bid for 10 days for 0 days Quantity: 20 {Tablet} Refills: 0 Ordered: 08-Jun-2018 GHISLAINE Decker LPN Start : 20-Dec-2013 End : 08-Jun-2018 Inactive Comments: pt will callif need void after 30 days Start: 05-08-2010 End: 05-18-2010 take 2 tablets by mouth once daily BIAXIN XL PAC, 500MG (Oral Tablet Extended Release 24 Hour) 2 (two) Tablet ER 24HR daily for 10 days Quantity: 20 {Tablet_ER_24HR} Refills: 0 Ordered: 15-Jun-2010 Opal Anneliese Start : 08-May-2010 End : 18-May-2010 Inactive Start: 05-08-2010 End: 05-18-2010 take 2 tablets by mouth once daily BIAXIN XL PAC, 500MG (Oral Tablet Extended Release 24 Hour) 2 (two) Tablet ER 24HR daily for 10 days Quantity: 20 {Tablet_ER_24HR} Refills: 0 Ordered: 15-Jun-2010 Opal SMITHAnneliese E Start : 08-May-2010 End : 18-May-2010 Inactive Comment on above: pt will callif need void after 30 days clindamycin 300 mg oral capsule (20 sources) Lincosamide Antibacterial Start: 05-09-20 13 End: 05-16-20 13 take 1 capsule by mouth every twelve hours CLINDAMYCIN HCL, 300MG (Oral Capsule) 1 (one) Capsule q12h for 7 days Quantity: 14 {Capsule} Refills: 0 Ordered: 09-May-2013 Asya Bowden LPN Start : 09-May-2013 End : 16-May-2013 Inactive codeine phosphate 2 mg/ml / guaiFENesin 20 mg/ml oral solution (20 sources) Opioid Agonist Start: 01-17-20 13 End: 01-17-20 13 CHERATUSSIN AC, 100-10MG/5ML (Oral Syrup) 1 Syrup 1-2 tsp every 6 hours prn for 0 days Quantity: 6 {Ounce(s)} Refills: 0 Ordered: 16-Jan-2013 Kyler Antoinette GARCIAS Start : 16-Jan-2013 End : 16-Jan-2013 Discontinued Comments: six Comment on above: six 24 hr cyclobenzaprine hydrochloride 15 mg extended release oral capsule (20 sources) Muscle Relaxant Start: 06-15-20 10 End: 08-07-20 10 take 1 capsule by mouth once daily at bedtime AMRIX, 15MG (Oral Capsule Extended Release 24 Hour) 1 Capsule ER 24HR qhs for 0 days Quantity: 30 {Capsule_ER_24HR} Refills: 0 Ordered: 07-Aug-2010 GHISLAINE Decker LPN Start : 15-Jun-2010 End : 07-Aug-2010 Inactive Start: 11-07-2006 End: 12-28-2007 FLEXERIL, 10MG (Oral Tablet) 1 (one) Tablet Each evening as needed for 0 days Quantity: 30 {Tablet} Refills: 0 Ordered: 07-Nov-2006 Emilie Otto RN Start : 07-Nov-2006 End : 28-Dec-2007 Inactive Comments: Medication taken as needed. Comment on above: Medication taken as needed. desloratadine 5 mg oral tablet (20 sources) Histamine-1 Receptor Antagonist Start: 9 take 1 tablet by mouth once daily CLARINEX, 5MG (Oral Tablet) 1 (one) Tablet qd for 0 days Quantity: 30 {Tablet} Refills: 0 Ordered: 08-May-2010 GHISLAINE Decker LPN Start : 05-Feb-2009 Inactive desoximetasone 0.5 mg/ml topical cream (20 sources) Corticosteroid Start: 0 TOPICORT LP, 0.05% (External Cream) 1 (one) Cream bid for 0 days Quantity: 60 {Cream} Refills: 1 Ordered: 08-May-2010 GHISLAINE Decker LPN Start : 11-Mar-2010 Inactive Start: 04-09-2008 TOPICORT, 0.25 % (External Cream) 1 (one) Cream bid for 0 days Quantity: 60 {Cream} Refills: 0 Ordered: 08-May-2010 GHISLAINE Decker LPN Start : 09-Apr-2008 Inactive DULoxetine 30 mg delayed release oral capsule (20 sources) Serotonin and Norepinephrine Reuptake Inhibitor Start: 04-11-2007 End: 06-27-2007 CYMBALTA, 30MG (Oral Capsule Delayed Release Particles) 1 (one) Capsule DR Part qd for 0 days Quantity: 30 {Capsule_DR_Part} Refills: 3 Ordered: 11-Apr-2007 Asya Bowden LPN Start : 11-Apr-2007 End : 27-Jun-2007 Inactive Start: 04-11-2007 End: 06-27-2007 take 1 capsule by mouth once daily CYMBALTA, 30MG (Oral Capsule Delayed Release Particles) 1 (one) Capsule DR Part qd for 0 days Quantity: 30 {Capsule_DR_Part} Refills: 3 Ordered: 11-Apr-2007 Asya Bowden LPN Start : 11-Apr-2007 End : 27-Jun-2007 Inactive ergocalciferol 1.25 mg oral capsule (20 sources) Provitamin D2 Compound Start: 11-16-2011 End: 08-31-2012 take 1 capsule by mouth every week VITAMIN D (ERGOCALCIFEROL), [id number] (Oral Capsule) 1 Capsule q week for 0 days Quantity: 12 {Capsule} Refills: 2 Ordered: 31-Aug-2012 GHISLAINE Decker LPN Start : 16-Nov-2011 End : 31-Aug-2012 Inactive esomeprazole 40 mg delayed release oral capsule (20 sources) Proton Pump Inhibitor Start: 11-17-2018 End: 06-12-2019 take 1 capsule by mouth once daily NexIUM 40 MG Oral Capsule Delayed Release 1 (one) Capsule qd for 0 days Quantity: 30 {Capsule} Refills: 1 Ordered: 12-Jun-2019 Jus Mcwilliams LPN Start : 17-Nov-2018 End : 12-Jun-2019 Inactive fexofenadine hydrochloride 180 mg oral tablet (20 sources) Histamine-1 Receptor Antagonist Start: 10-30-2010 End: 03-24-2011 take 1 tablet by mouth once daily as needed MORALES, 180MG (Oral Tablet) 1 Tablet QD, PRN for 0 days Quantity: 30 {Tablet} Refills: 0 Ordered: 30-Oct-2010 Asya Bowden LPN Start : 30-Oct-2010 End : 24-Mar-2011 Discontinued Comments: This order discontinued per [facility]. Comment on above: This order discontin ued per [facility]. 24 hr fexofenadine hydrochloride 180 mg / pseudoephedrine hydrochloride 240 mg extended release oral tablet (20 sources) alpha-Adrenergic Agonist, Histamine-1 Receptor Antagonist Start: 03-24-2011 End: 03-24-2011 take 180-240 mg by mouth every twenty-four hours MORALES-D ALLERGY & CONGESTION, 180-240MG (Oral Tablet Extended Release 24 Hour) 1 Tablet ER 24HR daily for 0 days Quantity: 30 {Tablet_ER_24HR} Refills: 0 Ordered: 24-Mar-2011 Cindy Walter Start : 24-Mar-2011 End : 24-Mar-2011 Inactive Start: 03-24-2011 End: 03-24-2011 take 1 tablet by mouth once daily MORALES-D ALLERGY & CONGESTION, 180-240MG (Oral Tablet Extended Release 24 Hour) 1 Tablet ER 24HR daily for 0 days Quantity: 30 {Tablet_ER_24HR} Refills: 0 Ordered: 24-Mar-2011 Cindy Walter Start : 24-Mar-2011 End : 24-Mar-2011 Inactive fluticasone propionate 0.05 mg/actuat metered dose nasal spray (20 sources) Corticosteroid Start: 11-02-2010 End: 03-24-2011 FLONASE, 50MCG/ACT (Nasal Suspension) 2 (two) Puff(s) once daily for 0 days Quantity: 1 {Suspension} Refills: 0 Ordered: 24-Mar-2011 Asya Bowden LPN Start : 02-Nov-2010 End : 24-Mar-2011 Inactive furosemide 20 mg oral tablet (15 sources) Loop Diuretic Start: 03-29-2023 End: 07-20-2023 take 1 tablet by mouth once daily as needed Furosemide (Lasix) 20 mg tablet Discontinued 20 mg PO DAILY as needed March 29, 2023 12:00am July 20, 2023 4:12pm Start: 03-16-2023 take 1 tablet by efraín th twice daily as needed furosemide 20 mg oral tablet 1 (one) tablet twice daily as needed for swelling for 0 days Quantity: 180 {Tablet} Refills: 0 Ordered: 16-Mar-2023 Shaniqua Bunn CNP Start : 16-Mar-2023 Active Comments: Medication taken as needed. Start: 03-15-2023 take 1 tablet by efraín th twice daily as needed furosemide 20 mg oral tablet 1 (one) tablet twice daily as needed for swelling for 0 days Quantity: 30 {Tablet} Refills: 0 Ordered: 15-Mar-2023 Shaniqua Bunn CNP Start : 15-Mar-2023 Active Comments: Medication taken as needed. Start: 03-07-2023 take 1 tablet by efraín twice daily as needed furosemide 20 mg oral tablet 1 (one) tablet twice daily as needed for swelling for 0 days Quantity: 30 {Tablet} Refills: 0 Ordered: 07-Mar-2023 Shaniqua Bunn CNP Start : 07-Mar-2023 Active Comments: Medication taken as needed. Comment on above: Medication taken as needed. 24 hr loratadine 10 mg / pseudoephedrine sulfate 240 mg extended release oral tablet (20 sources) alpha-Adrenergic Agonist Start: 1 End: 2 take 10-240 mg by mouth every twenty-four hours CLARITIN-D 24 HOUR, 10-240MG (Oral Tablet Extended Release 24 Hour) 1 Tablet ER 24HR daily for 30 days Quantity: 30 {Tablet_ER_24HR} Refills: 3 Ordered: 16-Nov-2011 Marsha Brito RN Start : 24-Mar-2011 End : 16-Nov-2011 Discontinued Start: 03-24-2011 End: 11-16-2011 take 1 tablet by mouth once daily CLARITIN-D 24 HOUR, 10-240MG (Oral Tablet Extended Release 24 Hour) 1 Tablet ER 24HR daily for 30 days Quantity: 30 {Tablet_ER_24HR} Refills: 3 Ordered: 16-Nov-2011 Marsha Brito RN Start : 24-Mar-2011 End : 16-Nov-2011 Discontinued meloxicam 15 mg oral tablet (20 sources) Nonsteroidal Anti-inflammatory Drug Start: 02-20-2020 End: 03-16-2021 take 1 tablet by mouth once daily as needed for pain Meloxicam 15 MG Oral Tablet 1 (one) Tablet daily prn pain for 0 days Quantity: 30 {Tablet} Refills: 0 Ordered: 16-Mar-2021 Katie Velasquez CMA Start : 20-Feb-2020 End : 16-Mar-2021 Inactive Comments: with food Comment on above: with food metoclopramide 5 mg oral tablet (17 sources) Dopamine-2 Receptor Antagonist Start: 11-07-2023 End: 02-21-2025 take 1 tablet by mouth three times daily 30 minutes before mealtime Metoclopramide Hcl 5 mg tablet Discontinued 5 mg PO THREE TIMES A DAY 90 2 August 14, 2024 2:06pm February 21, 2025 3:28pm administer 30 minutes before meals nicotine 4 mg chewing gum (20 sources) Cholinergic Nicotinic Agonist Start: 10-16-2010 End: 10-30-2010 NICORETTE REFILL, 4MG (Mouth/Throat Gum) 1 Gum prn for 0 days Quantity: 30 {Gum} Refills: 0 Ordered: 30-Oct-2010 Asya Bowden LPN Start : 16-Oct-2010 End : 30-Oct-2010 Inactive nitrofurantoin, macrocrystals 25 mg / nitrofurantoin, monohydrate 75 mg oral capsule (5 sources) Nitrofuran Antibacterial Start: 11-06-2023 End: 11-11-2023 take 1 capsule by mouth every twelve hours at mealtime Nitrofurantoin Monohyd/M-Cryst (Macrobid) 100 mg capsule Discontinued 100 mg PO Q12H 10 5 0 November 06, 2023 1:00am November 10, 2023 12:00am November 11, 2023 12:06am must administer with a meal/food olopatadine 1 mg/ml ophthalmic solution (20 sources) Histamine-1 Receptor Inhibitor Start: 04-09-2008 PATANOL, 0.1% (Ophthalmic Solution) 1-2 Solution q 6 hours prn for 0 days Quantity: 1 {Solution} Refills: 0 Ordered: 08-May-2010 GHISLAINE Decker LPN Start : 09-Apr-2008 Inactive sucralfate 1000 mg oral tablet (14 sources) Aluminum Complex Start: 06-02-2022 End: 12-29-2022 take 1 tablet by mouth before mealtime Sucralfate 1 gram tablet Discontinued 1 g PO before meals 90 0 June 02, 2022 12:00am December 29, 2022 3:29pm sulfamethoxazole 800 mg / trimethoprim 160 mg oral tablet (20 sources) Dihydrofolate Reductase Inhibitor Antibacterial, Sulfonamide Antimicrobial Start: 05-09-2025 End: 05-16-2025 Sulfamethoxazole-T rimethoprim (Bactrim Ds) 800-160 mg tablet Discontinued 1 {tbl} PO Q12H 14 7 0 May 09, 2025 12:00am May 15, 2025 12:00am May 16, 2025 12:13am Start: 08-30-2024 End: 09-06-2024 Sulfamethoxazole-Trimethopri m (Bactrim Ds) 800-160 mg tablet Discontinued 1 {tbl} PO Q12H 14 7 0 August 30, 2024 1:00am September 05, 2024 1:00am September 06, 2024 1:11am Start: 05-09-2013 End: 05-16-2013 take 1 tablet by mouth twice daily BACTRIM DS, 800-160MG (Oral Tablet) 1 Ta blet bid for 7 days Quantity: 14 {Tablet} Refills: 0 Ordered: 09-May-2013 Asya Bowden LPN Start : 09-May-2013 End : 16-May-2013 Inactive topiramate 50 mg oral tablet (3 sources) Start: 04-11-2024 End: 08-23-2024 take 1 tablet by mouth at bedtime Topiramate 50 mg tablet Discontinued 50 mg PO AT BEDTIME 30 3 April 11, 2024 12:00am August 23, 2024 9:21am triamcinolone acetonide 0.055 mg/actuat metered dose nasal spray (20 sources) Corticosteroid Start: 10-30-2010 End: 03-24-2011 NASACORT AQ, 55MCG/ACT (Nasal Aerosol Solution) 2 (two) Puff(s) qd for 0 days Quantity: 1 {Aerosol_Soln} Refills: 0 Ordered: 24-Mar-2011 Asya Bowden LPN Start : 30-Oct-2010 End : 24-Mar-2011 Inactive Start: 10-30-2010 End: 03-24-2011 NASACORT AQ, 55MCG/ACT (Nasa l Aerosol Solution) 2 (two) Puff(s) qd for 0 days Quantity: 1 {Aerosol_Soln} Refills: 0 Ordered: 24-Mar-2011 Asya Bowden LPN Start : 30-Oct-2010 End : 24-Mar-2011 Inactive venlafaxine 37.5 mg oral tablet (20 sources) Serotonin and Norepinephrine Reuptake Inhibitor Start: 03-29-2023 End: 02-01-2024 take 1 tablet by mouth once daily Venlafaxine 37.5 mg tablet Discontinued 37.5 mg PO DAILY March 29, 2023 12:00am February 01, 2024 3:23pm Start: 01-05-2023 take 1 capsule by mo uth once daily venlafaxine 37.5 mg oral Capsule, Extended Release 24 hr 1 Capsule daily for 0 days Quantity: 90 {Capsule} Refills: 1 Ordered: 05-Jan-2023 Shaniqua Bunn CNP Start : 05-Jan-2023 Active Start: 12-21-2022 take 1 capsule by mo uth once daily venlafaxine 37.5 mg oral Capsule, Extended Release 24 hr 1 Capsule daily for 0 days Quantity: 30 {Capsule} Refills: 1 Ordered: 21-Dec-2022 Shaniqua Bunn CNP Start : 21-Dec-2022 Active Start: 11-19-2022 take 1 capsule by mo uth once daily venlafaxine 37.5 mg oral Capsule, Extended Release 24 hr 1 Capsule daily for 0 days Quantity: 30 {Capsule} Refills: 1 Ordered: 19-Nov-2022 Shaniqua Bunn CNP Start : 19-Nov-2022 Active Start: 10-25-2022 take 1 capsule by mo uth once daily venlafaxine 37.5 mg oral Capsule, Extended Release 24 hr 1 Capsule daily for 0 days Quantity: 30 {Capsule} Refills: 1 Ordered: 09-Nov-2022 Sanna Bartlett LPN Start : 09-Nov-2022 Active Start: 09-28-2022 take 1 capsule by mo uth once daily venlafaxine 37.5 mg oral Capsule, Extended Release 24 hr 1 Capsule daily for 0 days Quantity: 30 {Capsule} Refills: 1 Ordered: 28-Sep-2022 Shaniqua Bunn CNP Start : 28-Sep-2022 Active Start: 09-06-2022 take 1 capsule by mo [facility] once daily venlafaxine 37.5 mg oral Capsule, Extended Release 24 hr 1 Capsule daily for 0 days Quantity: 30 {Capsule} Refills: 1 Ordered: 06-Sep-2022 Oni SARAH Shaniqua Start : 06-Sep-2022 Active Zinc (20 sources) Start: 07-15-2020 End: 12-24-2021 take 50 mg by mouth once daily Zinc Discontinued 50 MG PO DAILY July 15, 2020 4:31pm December 24, 2021 2:44pm Start: 07-15-2020 take 50 mg by mouth once daily Zinc Active 50 MG PO DAILY July 15, 2020 4:31pm Start: 07-15-2020 End: 12-24-2021 take 1 tablet by mouth once daily Zinc 50 mg tablet Discontinued 50 mg PO DAILY July 15, 2020 1:00am December 24, 2021 2:44pm Start: 07-15-2020 End: 12-24-2021 take 50 mg by mouth once daily Zinc Discontinued 50 MG PO DAILY July 15, 2020 12:00am December 24, 2021 1:44pm Start: 07-15-2020 End: 12-24-2021 take 50 mg by mouth once daily Zinc Discontinued 50 MG PO DAILY July 15, 2020 1:00am December 24, 2021 2:44pm NEGATED: Highlighted row has not occurred!drug or medication (16 sources) No Known Histori yolie Medications NEGATED: Highlighted row has not occurred!No Known Historical Medications (1 source) No Known Histori yolie Medications Problems Active Problems Problem Classification Problem Date Documented Da te Episodic/Chronic Abdominal pain (20 sources) Acute abdominal pain; Translations: [Left upper quadrant pain] Resolved: 3 08-08-2015 Episodic Comment on above: ? OVarian cyst 12/01 with eggs and lettuc e Allergic reactions (20 sources) Dermatitis; Translations: [Photoallergic dermatitis] Resolved: 3 08-31-2012 Episodic Comment on above: will get sun induced rashes. testing 2021, has al lergies to milk, peanut, and egg Anxiety disorders (20 sources) Anxiety state; Translations: [Other anxiety states] Resolved: 3 07-15-2015 Chronic Comment on above: worse since quit smo 02/2021, has a lot of work stress and daughter with medical issues but coping ok she thinks. --anxiety and depression screenings both + significant improvem ent venlafaxine 37.5mg daily. no changes today. declines counselingworse since quit smoking 02/2021, lots work stress and daughter with medical issues but coping ok Cardiac dysrhythmias (20 sources) Palpitations; Translations: [Palpitations] Resolved: 3 07-15-2015 Episodic Disorders of lipid metabolism (20 sources) Hypercholesterolemia; Translations: [Pure hypercholesterolemia, unspecified] 01-02-2018 Chronic Esophageal disorders (20 sources) Lang's esophagus; Translations: [Lang's esophagus without dysplasia] Chronic Gastritis and duodenitis (20 sources) Gastritis; Translations: [Gastritis, unspecified, without bleeding] Episodic Headache, including migraine (20 sources) Headache; Translations: [Tension-type headache] Resolved: 3 07-15-2015 Episodic Headache; including migraine (20 sources) Tension-type headache; Translations: [Tension headache] 03-16-2021 Chronic Immunizations and screening for infectious disease (20 sources) Need for prophylactic vaccination and inoculation against influenza; Translations: [Needs influenza immunization] Resolved: 0 06-03-2015 Episodic Malaise and fatigue (20 sources) Fatigue; Translations: [Fatigue] 12-20-2013 Episodic Comment on above: order sleep study Menstrual disorders (9 sources) Menorrhagia; Translations: [Excessive and frequent menstruation with regular cycle] Onset: 7 04-19-2017 Chronic Mood disorders (20 sources) Major depression in partial remission; Translations: [Major depressive disorder in partial remission, unspecified whether recurrent] 11-09-2022 Chronic Comment on above: venlafaxine effectiv e, declines med adjustment. call with concerns. declines counseling for now, had been referred to [facility] but long wait time to get in Nausea and vomiting (20 sources) Nausea; Translations: [Nausea] Episodic Neoplasms of unspecified nature or uncertain behavior (20 sources) Neoplasm of unspecified nature of bone, soft tissue, and skin; Translations: [NEOP, NOS, BONE/SOFT TISSUE/SKIN] Resolved: 3 08-31-2012 Episodic Comment on above: really not think in lymph because mobile not fixed and more superficial think lobito cyst that was infected. treat with atb now not look infected but needs removed back to ENT to remove Nonmalignant breast conditions (20 sources) Pain of breast; Translations: [Breast pain] Onset: 7 Resolved: 3 12-20-2013 Episodic Comment on above: from infection vs ot her imaging-resolving ma ss, probable sebaceous cyst Nutritional deficiencies (20 sources) Vitamin D deficiency; Translations: [Vitamin D deficiency, unspecified] 07-14-2015 Chronic Comment on above: level 26.8 09/06/22 Other circulatory disease (20 sources) Vascular insufficiency; Translations: [Venous insufficiency] 02-20-2020 Episodic Other connective tissue disease (20 sources) Swelling of limb; Translations: [Swelling of limb] Resolved: 0 08-31-2012 Episodic Other connective tissue disease (20 sources) Other muscle spasm; Translations: [Spasm of cervical paraspinous muscle] Resolved: 9 07-18-2015 Episodic Comment on above: / trap spasm- pt to start pt and take ibuprofen 200 mg tid with food Other connective tissue disease (20 sources) Pain in lower limb; Translations: [Lower leg pain] Resolved: 3 06-12-2019 Episodic Comment on above: check rickets, thyri od no fibro check amyloid protiens spep. check farzad with suninduced rashes, tender anserine bursa but not where hurt its diffuse. treat and stretch fo r henriquez splints, labs and xrays negative. better with swelling better recommend massotherapy and lymph drainage./ not add nsaids because swelling. Other connective tissue disease (3 sources) Pain in leg, unspecified; Translations: [Pain in limb] 03-29-2023 Episodic Other diseases of veins and lymphatics (12 sources) Stasis dermatitis; Translations: [Stasis dermatitis of both legs] 03-07-2023 Episodic Other female genital disorders (11 sources) Abnormal uterine bleeding; Translations: [Abnormal uterine and vaginal bleeding, unspecified] 12-29-2022 Chronic Other female genital disorders (2 sources) Abnormal uterine and vaginal bleeding, unspecified; Translations: [Unspecified disorders of menstruation and other abnormal bleeding from female genital tract] 12-29-2022 Chronic Other female genital disorders (4 sources) Cyst of vulva; Translations: [Vulvar cyst] 02-01-2024 Episodic Comment on above: not bothersome not bothersome; stab le Other gastrointestinal disorders (20 sources) Diarrhea; Translations: [Diarrhea, unspecified] 12-24-2021 Episodic Other gastrointestinal disorders (5 sources) Diarrhea, unspecified; Translations: [Diarrhea] Episodic Other gastrointestinal disorders (19 sources) Heartburn; Translations: [Heartburn] 02-09-2022 Episodic Other gastrointestinal disorders (6 sources) Heartburn; Translations: [Heartburn] Episodic Other infections (20 sources) Unspecified infectious and parasitic diseases; Translations: [Infection] Resolved: 8 06-08-2018 Episodic Comment on above: left breast ruling o ut MRSA Other lower respiratory disease (20 sources) Cough; Translations: [Cough] Resolved: 9 12-20-2013 Episodic Comment on above: sound viral will lucila at with codien and mucinex. not hear pneumonia if not continue to get better then get atb Other non-traumatic joint disorders (20 sources) Pain in right hip joint; Translations: [Hip pain, right] Resolved: 3 03-16-2021 Episodic Comment on above: do PT -- has family member can talk to -- for prevention Other nutritional; endocrine; and metabolic disorders (18 sources) Body mass index 25-29 - overweight; Translations: [BMI 28.0-28.9,adult] 06-12-2019 Chronic Other nutritional; endocrine; and metabolic disorders (20 sources) Body mass index 30+ - obesity; Translations: [BMI 31.0-31.9,adult] Resolved: 3 03-16-2021 Chronic Other nutritional; endocrine; and metabolic disorders (5 sources) Obesity; Translations: [Obesity, unspecified] 04-11-2024 Chronic Other nutritional; endocrine; and metabolic disorders (4 sources) Body mass index 25-29 - overweight; Translations: [BMI 28.0-28.9,adult] Resolved: 1 02-20-2020 Episodic Other nutritional; endocrine; and metabolic disorders (20 sources) Overweight in adulthood with body mass index of 25 or more but less than 30; Translations: [BMI 28.0-28.9,adult] Resolved: 1 02-20-2020 Episodic Other screening for suspected conditions (not mental disorders or infectious disease) (20 sources) Radiology result abnormal; Translations: [Abnormal findings on diagnostic imaging of other specified body structures] Resolved: 3 03-16-2021 Chronic Other skin disorders (20 sources) Swelling, mass, or lump in head and neck; Translations: [SYMPTOMS INVOLVING HEAD AND NECK; SWELLING, MASS, OR LUMP IN HEAD AND NECK] Resolved: 9 08-31-2012 Episodic Comment on above: Lump in throat 01/01 - Refer to Dr. Jerez Other upper respiratory disease (20 sources) Allergic rhinitis; Translations: [Allergic rhinitis] Resolved: 9 06-03-2015 Chronic Other upper respiratory disease (20 sources) Seasonal allergic rhinitis; Translations: [Other seasonal allergic rhinitis] 01-02-2018 Chronic Other upper respiratory infections (20 sources) Upper respiratory infection; Translations: [Acute pharyngitis] Onset: 0 Resolved: 3 07-22-2015 Episodic Comment on above: culture neg, told to stop antibiotic Residual codes; unclassified (20 sources) Family history of infectious and parasitic diseases; Translations: [Family history of MRSA infection] Resolved: 9 06-11-2019 Episodic Comment on above: handout given Residual codes; unclassified (20 sources) Edema of lower extremity; Translations: [Leg edema] Resolved: 3 06-12-2019 Episodic Comment on above: started after obesit y ? venous stasis an congestion in lower legs. no pelvic congestion syndrome pain. checl medical causes like liver disease thyriod kidney disease at this point better with compresson stocking and htcz extensive labs workup negative. will check bmp sinc dalia water pill consistently for month. add magnesium lactate Residual codes; unclassified (20 sources) Family history of cancer of colon; Translations: [Family history of malignant neoplasm of digestive organs] 12-24-2021 Episodic Residual codes; unclassified (11 sources) Family history of malignant neoplasm of digestive organs; Translations: [Family history of malignant neoplasm of gastrointestinal tract] Episodic Residual codes; unclassified (18 sources) FH: Gastrointestinal disease; Translations: [Family history of other diseases of the digestive system] 02-09-2022 Episodic Residual codes; unclassified (6 sources) Family history of other diseases of the digestive system; Translations: [Family history of other digestive disorders] Episodic Residual codes; unclassified (12 sources) Edema; Translations: [Edema] 03-07-2023 Episodic Residual codes; unclassified (3 sources) Localized edema; Translations: [Edema] 03-29-2023 Episodic Residual codes; unclassified (1 source) Family history of inflammatory bowel disease; Translations: [Family history of other diseases of the digestive system] 02-09-2022 Episodic Screening and history of mental health and substance abuse codes (20 sources) Ex-smoker; Translations: [Former smoker] 09-06-2022 Episodic Comment on above: quit February 2022, 40 p k yr history Skin and subcutaneous tissue infections (20 sources) Carbuncle and furuncle of trunk; Translations: [Boil, breast] Resolved: 8 06-08-2018 Episodic Comment on above: continue antibiotic nasal neg mrsa Spondylosis; intervertebral disc disorders; other back problems (20 sources) Neck pain; Translations: [Low back pain] Resolved: 3 08-31-2012 Episodic Comment on above: with spasm see if amitryptyline helps if not pt Sprains and strains (12 sources) Strain of tendon of foot and ankle; Translations: [Strain of unspecified muscle and tendon at ankle and foot level, right foot, initial encounter] 06-25-2022 Episodic Substance-related disorders (20 sources) Tobacco use disorder Chronic Unclassified (20 sources) Tobacco user; Translations: [Tobacco use disorder] Resolved: 3 12-20-2013 Chronic Unclassified (20 sources) Radiology result abnormal; Translations: [Patient encounter status] Onset: 4 10-09-2015 Episodic Comment on above: very mild low hgb. r dw elevated, rbc 4.15 Urinary tract infections (2 sources) Urinary tract infection, site not specified; Translations: [Urinary tract infection, site not specified] 11-06-2023 Episodic Viral infection (20 sources) Viral infection, unspecified; Translations: [Viral disease] Resolved: 3 07-14-2015 Episodic Comment on above: has cough. fever not as high. no purulnet sputum. will see how do next few dyas should be on the down swing. if not better after this weekend will get atb. not per pt Past or Other Problems Problem Classification Problem Date Documented Date Episodic/Chronic Blindness and vision defects (20 sources) Visual disturbance; Translations: [Unspecified visual disturbance] Resolved: 08-31-2012 07-15-2015 Episodic Headache, including migraine (17 sources) Headache, including migraine Other non-traumatic joint disorders (2 sources) Pain in right hip joint; Translations: [Hip pain, right] 02-20-2020 Comment on above: do PT -- has family member can talk to -- for prevention Residual codes; unclassified (12 sources) Increased body mass index; Translations: [BMI 29.0-29.9,adult] 11-17-2018 Episodic Respiratory failure; insufficiency; arrest (adult) (2 sources) Respiratory failure; insufficiency; arrest (adult) Unclassified (17 sources) Needs influenza immunization; Translations: [Family history of infectious and parasitic diseases] Resolved: 05-08-2010 06-03-2015 Episodic Comment on above: handout given Unclassified (20 sources) Abdominal Pain,LUQ (789.02) Unclassified (20 sources) Unclassified (20 sources) Abdominal Pain,LLQ (789.04) Unclassified (17 sources) Breast pain (611.71) Unclassified (20 sources) Pharyngitis,acute (462.) Unclassified (20 sources) Boil, breast (680.2) Unclassified (20 sources) Unspecified Diagnosis Resolved: 06-11-2019 02-05-2009 Unclassified (20 sources) VITAMIN D DEFICIENCY, NOS (268.9) Unclassified (17 sources) NEOP, NOS, BONE/SOFT TISSUE/SKIN (239.2) Unclassified (20 sources) photosensitivity reaction Resolved: 08-31-2012 08-31-2012 Unclassified (17 sources) Family history of MRSA infection (V18.8) Unclassified (17 sources) Infection (136.9) Unclassified (20 sources) allergic conjunctivits Resolved: 02-05-2009 08-31-2012 Unclassified (17 sources) ABFND, RADIOLOGICAL, BODY STRUCTURE NEC (793.99) Unclassified (20 sources) SYMPTOMS INVOLVING HEAD AND NECK; SWELLING, MASS, OR LUMP IN HEAD AND NECK (784.2) Unclassified (16 sources) Pregnancies (); Translations: [Pregnancies ()] 12-20-2013 Comment on above: 2 Unclassified (20 sources) Anxiety state, unspecified (300.00) Unclassified (17 sources) Cervical Spasm (728.85) Unclassified (16 sources) Deliveries (Parity); Translations: [Deliveries (Parity)] 12-20-2013 Comment on above: 2 Unclassified (15 sources) BMI 29.0-29.9,adult Unclassified (20 sources) BMI 28.0-28.9,adult Unclassified (19 sources) Lower leg pain Unclassified (14 sources) Stomach pain Unclassified (20 sources) Patient encounter status; Translations: [Screening for lipid disorders] 06-12-2019 Unclassified (5 sources) Hip pain, right Unclassified (4 sources) Venous insufficiency Unclassified (19 sources) Deliveries (Parity); Translations: [Deliveries (Parity)] 03-16-2021 Comment on above: 2 Unclassified (19 sources) Pregnancies (); Translations: [Pregnancies ()] 03-16-2021 Comment on above: 2 Unclassified (1 source) BMI 31.0-31.9,adult Results Test Name Value Interpretation Reference Range Facility PAP IG HPV APTIMA 16/18,45on 05-28-2025 ADEQ Comment Normal . [facility] Comment on above: Order Comment: Speci men Comment: [id number] Specimen Comment: No. of containers..01 ThinPrep Vial Result Comment: Sati sfactory for evaluation. Endocervical and/or squamous metaplastic cells (endocervical component) are present. Performed By: #### L 7400.0280 #### [facility] [address] [place], [address] COMM . Normal . [facility] Comment on above: Order Comment: Speci men Comment: [id number] Specimen Comment: No. of containers..01 ThinPrep Vial Performed By: #### L 7400.0280 #### [facility] [address] [place], [place], [address] COMMENT Comment Normal . [facility] Comment on above: Order Comment: Speci men Comment: [id number] Specimen Comment: No. of containers..01 ThinPrep Vial Result Comment: This liquid based ThinPrep(R) pap test was screened with the use of an image guided system. Performed By: #### L 7400.0280 #### [facility] [address] [place], [address] DIAG Comment Normal . [facility] Comment on above: Order Comment: Speci men Comment: [id number] Specimen Comment: No. of containers..01 ThinPrep Vial Result Comment: NEGA TIVE FOR INTRAEPITHELIAL LESION OR MALIGNANCY. Performed By: #### L 7400.0280 #### [facility] [address] [place], [address] HPV APTIMA, HR Negative Normal Negative [facility] Comment on above: Order Comment: Speci men Comment: [id number] Specimen Comment: No. of containers..01 ThinPrep Vial Result Comment: This nucleic acid amplification test detects fourteen high- risk HPV types (16,18,31,33,35,39,45,51,52,56,58,59,66,68) without differentiation. Performed By: #### L 7400.0280 #### [facility] [address] [place], [address] HPV Katia Rfx Comment Normal . [facility] Comment on above: Order Comment: Speci men Comment: [id number] Specimen Comment: No. of containers..01 ThinPrep Vial Result Comment: Crit eria not met, HPV Genotype not performed. Performed at: - [address] [id number] Design Director: Elizabeth Triplett MD, Phone: [phone] Performed at: = - [address] [id number] Design Director: Elizabeth Triplett MD, Phone: [phone] Performed By: #### L 7400.0280 #### [facility] [address] [place], [place], [address] PAPSMR Comment Normal . [facility] Comment on above: Order Comment: Speci men Comment: [id number] Specimen Comment: No. of containers..01 ThinPrep Vial Result Comment: The Pap smear is a screening test designed to aid in the detection of premalignant and malignant conditions of the uterine cervix. It is not a diagnostic procedure and should not be used as the sole means of detecting cervical cancer. Both false-positive and false-negative reports do occur. Performed By: #### L 7400.0280 #### [facility] [address] [place], [place], [id number] PERFORM Comment Normal . [facility] Comment on above: Order Comment: Speci men Comment: [id number] Specimen Comment: No. of containers..01 ThinPrep Vial Result Comment: Vivek Mccall, Home Furnishings Sales Representative (ASCP) Performed By: #### L 7400.0280 #### [facility] [address] [place], [place], [id number] Cervical or vaginal specimen microscopic examination by liquid based cytology (reportOrdered By: Afia Thompson on 05-21-2025 Cytology report Cyto stain.thin prep Doc (Cvx/Vag) Comment . [facility] Comment on above: Criteria not met, HP V Genotype not performed.Performed at: - [address] [id number] Director: Elizabeth Triplett MD, Phone: [phone] at: =[address] [id number] Director: Elizabeth Triplett MD, Phone: [phone] Cervical or vagninal specime n microscopic examination by cytology stain (reported asOrdered By: Afia Thompson on 05-21-2025 Cytology report Cyto stain Doc (Cvx/Vag) Comment . [facility] Comment on above: The Pap smear is a s creening test designed to aid in thedetection of premalignant and malignant conditions of theuterine cervix. It is not a diagnostic procedure andshould not be used as the sole means of detecting cervicalcancer. Both false-positive and false-negative reports dooccur. Detection in cervical specim en of any of human papilloma virus (HPV) 16, 18, 31, 33,Ordered By: Afia Thompson on 05-21-2025 HPV 16+18+31+33+35+39+45+ 51+52+56+58+59+66+68 DNA Probe+sig amp Ql (Cvx) Negative Negative [facility] Comment on above: This nucleic acid am plification test detects fourteen high- risk HPV types (16,18,31,33,35,39,45,51,52,56,58,59,66,68)without differentiation. Laboratory - CytologyOrdered By: Afia Thompson on 05-21-2025 Home Furnishings Sales Representative Cyto stain Nom (Cvx/Vag) [ID] Comment . [facility] Comment on above: Topher Mccall Cytolog ist (ASCP) Laboratory - Miscellaneous t estsOrdered By: Afia Thompson on 05-21-2025 Service comment (Unsp spec) [Interp] . . [facility] No Panel InformationOrdered By: Afia Thompson on 05-21-2025 Pap Smear Specimen Adequacy Comment . [facility] Comment on above: Satisfactory for nancy luation. Endocervical and/or squamous metaplasticcells (endocervical component) are present. 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) Chief Complaint: Annual 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: No Is patient in pain?: No Allergies amoxicillin Adverse Reaction (Severe, Verified 05/21/25 14:51) diahrrea clavulanic acid (From Augmentin) Adverse Reaction (Intermediate, Verified 05/21/25 14:51) Diarrhea Medications ???Medication ???Instructions ???Recorded ???Confirmed ???Type hydrochlorothiazide 12.5 mg tablet 12.5 mg PO DAILY PRN edema 07/2005/21/25 History pantoprazole 20 mg tablet,delayed 20 mg PO DAILY #90 tabs 12/13/24 05/21/25 Rx release (Protonix) metoclopramide HCl 5 mg tablet 5 mg PO TID #90 tabs 02/21/2504/30 Rx ipratropium bromide 21 mcg (0.03 2 spray intranasal BID-TID PRN 07/2305/21/25 Rx %) nasal spray postnasal drainage #30 mL phentermine 37.5 mg capsule 37.5 mg PO QDAY #30 caps 05/10/25 05/21/25 Rx Is last menstrual period known: Yes Last Menstrual Period: 05/10/25 Post menopausal: No Patient : No : No PFSH Medical History History of ulceration History of mammogram Wears contact lenses Anxiety Low iron Restless legs Gastric reflux Former smoker History of edema Seasonal allergies Surgical History History of colonoscopy History of lymph node excision Family History Grandmother Colon cancer Cancer ovarian Anemia Diabetes Grandfather Myocardial infarction, Onset Age: 50 Father Heart disease Hypertension Hyperlipemia Diabetes Bleeding disorder Colon cancer Hypercholesteremia Mother Hypertension Arthritis Diabetes Hypercholesteremia Osteoporosis Sister Thyroid disorder Arthritis Autoimmune disorder Skin cancer Daughter Asthma Social History household members: spouse and children number of children: 2 current occupational status: employed 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 No ibuprofen use. History 1 Elective abortions Hx Para 1 Spontaneous abortions Hx # Term Pregnancies Ectopic pregnancies Hx # Pregnancies Multiple births # of living children 1 Past Pregnancies Del. Date Name GA/Weeks Outcome Route Bth Weight Gen [facility] Leisa 2003 HPI Encounter for routine gynecological examination Details: BESSIE KENNEDY is a 44 year old who presents for annual exam. Denies concerns Last PAP: 2019 History of abnormal PAP: no Last mammogram: 2023 History of abnormal mammogram: no Colon cancer screening: age 45 Other preventative health care screenings: [place] Female Reproductive History Last Menstrual Period: 05/10/25 Cycle Length: 21-35 Questions: metrorrhagia: No, sexually active: Yes, dyspareunia: No and [...] oriented to person and oriented to place HENLA Head: normal to inspection Neck Neck: normal visual inspection Thyroid: thyroid normal Lymphatic: no lymphadenopathy noted Chest Breast inspection: normal inspection of the breasts and normal inspection of the axillae Breast palpation: normal palpation of the breasts, normal palpation of the axillae and no axillary lymphadenopathy Resp Effort Inspection: norm (more content not included)... Normal [facility] Urgent Care Visit Reporton 0 05-09-2025 Urgent Care Visit Report [facility] [address] , [address] [place] [address] OFFICE VISIT Date of Service: 05/09/25 MR#: [id number] Acct: [id number] Name: BESSIE KENNEDY Rep #: [id number] : 1980 Provider: JASMYNE Black Age/Sex: 44/F Location: [facility] Status: Signed Intake Vital Signs 02/21/25 15:32 05/09/25 12:43 Height 5 ft 2 in Weight: 199 lb 2 oz BMI 36.4 BP 102/68 Blood Pressure Location Lt brachial Position Sitting Respiration 15 Pulse 86 Pulse Source NIBP Temp 98.2 F Temp Source Oral Pulse Oximetry (%) 98 Oxygen Delivery Method room air Intake Visit Reasons: CONCERN FOR SINUS INFECTION Chief Complaint: congestion, sneezing, face pressure 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: No Is patient in pain?: No Allergies amoxicillin Adverse Reaction (Severe, Verified 05/09/25 12:50) diahrrea clavulanic acid (From Augmentin) Adverse Reaction (Intermediate, Verified 05/09/25 12:50) Diarrhea Is last menstrual period known: No Post menopausal: No Patient : No Have you fallen in the past year?: No Nurse's Note: congestion, sneezing, face pressure x 1 week. denies fever, cough, concern for sinus infec tion [facility] Medical History History of ulceration History of mammogram Wears contact lenses Anxiety Low iron Restless legs Gastric reflux Former smoker History of edema Seasonal allergies Surgical History History of colonoscopy History of lymph node excision Family History Grandmother Colon cancer Cancer ovarian Anemia Diabetes Grandfather Myocardial infarction, Onset Age: 50 Father Heart disease Hypertension Hyperlipemia Diabetes Bleeding disorder Colon cancer Hypercholesteremia Mother Hypertension Arthritis Diabetes Hypercholesteremia Osteoporosis Sister Thyroid disorder Arthritis Autoimmune disorder Skin cancer Daughter Asthma Social History household members: spouse and children number of children: 2 current occupational status: employed 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 No ibuprofen use. HPI HPI Chief Complaint: congestion, sneezing, face pressure Details: BESSIE KENNEDY is a 44 F who presents to the office today for complaint of congestion, sneezing and sinus facial pressure. Patient denies fever, chills or sweats. No nausea, vomiting or diarrhea . No loss of taste or smell. No other associated symptoms or alleviating/aggravating factors. ROS Const Constitutional: Positive for other (ROS negative x 6 except what is described above) Exam Const General: cooperative and healthy appearing HENMT Head: normal to inspection Ears: hearing grossly normal bilaterally, TM's normal bilaterally and EAC's normal Nose: nasal discharge purulent Face and sinus: sinus tenderness frontal and maxillary Mouth: oral mucosae normal Throat: abnormal tonsil bilaterally erythema and hypertrophy 1+ and postnasal drainage Resp Effort Inspection: normal respiratory effort Auscultation: Bilateral: Clear to Auscultation Cardio Palpation: normal PMI Rate: regular rate Rhythm: regular rhythm Neuro General: patient alert and CN's II-XI intact bilaterally Psych Appearance: grossly normal Mental Status: mental status grossly normal Coding Level of Care Code Off vis,est,level 3 Diagnoses Acute sinusitis J01.90 Assessment and Plan Assessment and Plan (1) Acute sinusitis: Status: Acute Plan: Bactrim and Atrovent as prescribed today. Encouraged to get plenty of rest, [...] understanding and agreement with all the above. Medications: New sulfamethoxazole-trimeth oprim 800-160 mg (Bactrim DS) 1 TAB PO Q12H 14 tabs 0RF 7 days ipratropium bromide administer into each nostril 2 sprays intranasal BID-TID PRN 30 mL 0RF postnasal drainage Clinical Quality Measures Falls (more content not included)... Normal [facility] Gastroenterology Visit Repor ton 02-21-2025 Gastroenterology Visit Report [facility]enterology [address] [place] [address] OFFICE VISIT Date of Service: 02/21/25 MR#: [id number] Acct: [id number] Name: BESSIE KENNEDY DARI Rep #: [id number] : 1980 Provider: Nicholas West DO Age/Sex: 44/F Location: [facility] [place] Status: Signed Intake Vital Signs 08/23/24 08:27 02/21/25 15:32 Height 5 ft 2 in 5 ft 2 in Weight: 196 lb 8 oz 199 lb 2 oz BMI 35.9 36.4 Intake Visit Reasons: 6 M FU Allergies amoxicillin Adverse Reaction (Severe, Verified 08/30/24 07:00) diahrrea clavulanic acid (From Augmentin) Adverse Reaction (Intermediate, Verified 08/30/24 07:00) Diarrhea Medications ???Medication ???Instructions ???Recorded ???Confirmed ???Type hydrochlorothiazide 12.5 mg tablet 12.5 mg PO DAILY PRN edema 07/2002/21/25 History phentermine 37.5 mg capsule 37.5 mg PO DAILY #30 caps 08/23/24 02/21/25 Rx pantoprazole 20 mg tablet,delayed 20 mg PO DAILY #90 tabs 12/13/24 02/21/25 Rx release (Protonix) metoclopramide HCl 5 mg tablet 5 mg PO TID #90 tabs 02/21/2501/28 Rx PFSH Medical History History of ulceration History of mammogram Wears contact lenses Anxiety Low iron Restless legs Gastric reflux Former smoker History of edema Seasonal allergies Surgical History History of colonoscopy History of lymph node excision Family History Grandmother Colon cancer Cancer ovarian Anemia Diabetes Grandfather Myocardial infarction, Onset Age: 50 Father Heart disease Hypertension Hyperlipemia Diabetes Bleeding disorder Colon cancer Hypercholesteremia Mother Hypertension Arthritis Diabetes Hypercholesteremia Osteoporosis Sister Thyroid disorder Arthritis Autoimmune disorder Skin cancer Daughter Asthma Social History household members: spouse and children number of children: 2 current occupational status: employed 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 No ibuprofen use. HPI HPI Details: BESSIE KENNEDY, is a 44 F who presents to the office today for up. FH mother colon cancer, at 62; maternal great-grandmother colon cancer; father colon tumor and UC; sister microscopic colitis *BGI established 02.09.22 upper abdominal pain and nausea with intake of lettuce, eggs, broccoli, berries. Coke and hot bathes help with intermittent loose stools. ? Biochemical 02.09.22 CBC, ESR, CMP, FARZAD comp, celiac without pertinent abnormality. ? CRP H4.38, Class I peanut, cow???s milk, egg ? Stool calprotectin, lactoferrin WNL ? US RUQ 02.25.22 without acute/chronic finding ? HIDA 03.12.22 EF 94% ? EGD/colonoscopy 05.19.22 EGD irregular Zline 37cm, metaplasia +; small hiatal hernia; gastritis. H.pylori negative. ? Colonoscopy congested mucosa; TI few 6mm ulcers. Pathology melanosis coli OV 06.02.22 start sucralfate PPI ? Biochemical 06.02.22 LFT, LDH, amylase, lipase, GAME, ANCA without pertinent abnormality ? MRCP 06.02.22 not performed ? Stool 06.09.22 elastase, fat WNL ? Biochemical 03.07.23 (PCP) CBC (anemia), CMP without pertinent abnormality. ? CRP H25.5, iron L42, TIBC H459, iron sat L9.2 OV 2..24- Pt reports the last 2 weeks she has been having epigastric pain. Has been having migraines and took Excedrin which knows upsets her stomach. Is concerned about ulcers. Feels a gnawing pain in stomach that is better when she eats. No dysphagia. BM have been normal. EGD 2.29.24 Z-line irregular, 37 cm from the incisors. Biopsied. Chronic gastritis. Biopsied. Erythematous duodenopathy. GET 3.7.24 abnormal - no emptying seen in 60 minutes OV 8.14.24 pt reports that she has continued epigastric pain throughout the day, is not havin (more content not included)... Normal [facility] Urgent Care Visit Reporton 0 08-30-2024 Urgent Care Visit Report [facility] [address] , [address] [place] [address] OFFICE VISIT Date of Service: 08/30/24 MR#: [id number] Acct: [id number] Name: BESSIE KENNEDY DARI Rep #: [id number] : 1980 Provider: JASMYNE Black Age/Sex: 44/F Location: [facility] Status: Signed Intake Vital Signs 08/23/24 08:27 08/30/24 06:55 Height 5 ft 2 in Weight: 196 lb 8 oz BMI 35.9 BP 118/66 Blood Pressure Location Lt brachial Position Sitting Respiration 16 Pulse 84 Pulse Source NIBP Temp 98.4 F Temp Source Oral Pulse Oximetry (%) 96 Oxygen Delivery Method room air Intake Visit Reasons: CONCERN FOR SINUS INFECTION Chief Complaint: teeth/ear pain, ST, cough, mucus, laryngitis 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: No Is patient in pain?: Yes Allergies amoxicillin Adverse Reaction (Severe, Verified 08/30/24 07:00) diahrrea clavulanic acid (From Augmentin) Adverse Reaction (Intermediate, Verified 08/30/24 07:00) Diarrhea Is last menstrual period known: No Post menopausal: No Patient : No Have you fallen in the past year?: No Nurse's Note: teeth/ear pain, ST, cough, mucus, laryngitis x 4 days. concern for sinus infection, declines viral testing [facility] Medical History History of ulceration History of mammogram Wears contact lenses Anxiety Low iron Restless legs Gastric reflux Former smoker History of edema Seasonal allergies Surgical History History of colonoscopy History of lymph node excision Family History Grandmother Colon cancer Cancer ovarian Anemia Diabetes Grandfather Myocardial infarction, Onset Age: 50 Father Heart disease Hypertension Hyperlipemia Diabetes Bleeding disorder Colon cancer Hypercholesteremia Mother Hypertension Arthritis Diabetes Hypercholesteremia Osteoporosis Sister Thyroid disorder Arthritis Autoimmune disorder Skin cancer Daughter Asthma Social History household members: spouse and children number of children: 2 current occupational status: employed 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 No ibuprofen use. HPI HPI Chief Complaint: teeth/ear pain, ST, cough, mucus, laryngitis Details: BESSIE KENNEDY, is a 44 F who presents to the office today for complaint of ear pain, sore throat, cough and sinus congestion/pressure and pain for the past 5 days. Patient denies fever, chills, sweats. No nausea, vomiting or diarrhea. No loss of taste or smell. No other associated symptoms or alleviating/aggravating factors. ROS Const Constitutional: Positive for other (ROS negative x 6 except what is described above) Exam Const General: cooperative and healthy appearing HENMT Head: normal to inspection Ears: hearing grossly normal bilaterally, TM's normal bilaterally and EAC's normal Nose: nasal discharge purulent Face and sinus: sinus tenderness frontal and maxillary Mouth: oral mucosae normal Throat: abnormal tonsil bilaterally erythema and hypertrophy 1+ and postnasal drainage Resp Effort Inspection: normal respiratory effort Auscultation: Bilateral: Clear to Auscultation Cardio Palpation: normal PMI Rate: regular rate Rhythm: regular rhythm Neuro General: patient alert and CN's II-XI intact bilaterally Psych Appearance: grossly normal Mental Status: mental status grossly normal Coding Level of Care Code Off vis,est,level 3 Diagnoses Acute sinusitis J01.90 Assessment and Plan Assessment and Plan (1) Acute sinusitis: Status: Acute Medications: New sulfamethoxazole-trimeth oprim 800-160 mg (Bactrim DS) 1 TAB PO Q12H 7 days 14 tabs 0RF Plan Bactrim as prescribed today. Encouraged to get plenty of rest, [...] understanding and agreement with all the above. Clinical Quality Measures Falls Risk Screening/Assistive Devices Have you fallen in (more content not included)... Normal [facility] Gastroenterology Visit Repor ton 08-23-2024 Gastroenterology Visit Report [facility] Gastroenterology [address] [place] [address] OFFICE VISIT Date of Service: 08/23/24 MR#: [id number] Acct: [id number] Name: BESSIE KENNEDY DARI Rep #: [id number] : 1980 Provider: Nicholas West DO Age/Sex: 44/F Location: [facility] [place] Status: Signed Intake Vital Signs 07/11/24 15:13 08/10/24 15:08 08/23/24 08:27 Height 5 ft 2 in 5 ft 2 in 5 ft 2 in Weight: 206 lb 5 oz 198 lb 196 lb 8 oz BMI 37.7 36.2 35.9 Intake Visit Reasons: medication refills Allergies amoxicillin Adverse Reaction (Severe, Verified 02/01/24 15:13) diahrrea clavulanic acid (From Augmentin) Adverse Reaction (Intermediate, Verified 02/01/24 15:13) Diarrhea Medications ???Medication ???Instructions ???Recorded ???Confirmed ???Type hydrochlorothiazide 12.5 mg tablet 12.5 mg PO DAILY PRN edema 07/20/23 08/23/24 History pantoprazole 20 mg tablet,delayed 20 mg PO DAILY #90 tabs 11/07/23 08/23/24 Rx release (Protonix) metoclopramide HCl 5 mg tablet 5 mg PO TID #90 tabs 08/14/24 08/23/24 Rx phentermine 37.5 mg capsule 37.5 mg PO DAILY #30 caps 08/23/24 08/23/24 Rx PFSH Medical History History of ulceration History of mammogram Wears contact lenses Anxiety Low iron Restless legs Gastric reflux Former smoker History of edema Seasonal allergies Surgical History History of colonoscopy History of lymph node excision Family History Grandmother Colon cancer Cancer ovarian Anemia Diabetes Grandfather Myocardial infarction, Onset Age: 50 Father Heart disease Hypertension Hyperlipemia Diabetes Bleeding disorder Colon cancer Hypercholesteremia Mother Hypertension Arthritis Diabetes Hypercholesteremia Osteoporosis Sister Thyroid disorder Arthritis Autoimmune disorder Skin cancer Daughter Asthma Social History household members: spouse and children number of children: 2 current occupational status: employed 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 No ibuprofen use. HPI HPI Details: BESSIE KENNEDY, is a 44 F who presents to the office today for follow up. FH mother colon cancer, at 62; maternal great-grandmother colon cancer; father colon tumor and UC; sister microscopic colitis *BGI established 02.09.22 upper abdominal pain and nausea with intake of lettuce, eggs, broccoli, berries. Coke and hot bathes help with intermittent loose stools. ? Biochemical 02.09.22 CBC, ESR, CMP, FARZAD comp, celiac without pertinent abnormality. ? CRP H4.38, Class I peanut, cow???s milk, egg ? Stool calprotectin, lactoferrin WNL ? US RUQ 02.25.22 without acute/chronic finding ? HIDA 03.12.22 EF 94% ? EGD/colonoscopy 05.19.22 EGD irregular Zline 37cm, metaplasia +; small hiatal hernia; gastritis. H.pylori negative. ? Colonoscopy congested mucosa; TI few 6mm ulcers. Pathology melanosis coli OV 06.02.22 start sucralfate PPI ? Biochemical 06.02.22 LFT, LDH, amylase, lipase, GAME, ANCA without pertinent abnormality ? MRCP 06.02.22 not performed ? Stool 06.09.22 elastase, fat WNL ? Biochemical 03.07.23 (PCP) CBC (anemia), CMP without pertinent abnormality. ? CRP H25.5, iron L42, TIBC H459, iron sat L9.2 OV 2- Pt reports the last 2 weeks she has been having epigastric pain. Has been having migraines and took Excedrin which knows upsets her stomach. Is concerned about ulcers. Feels a gnawing pain in stomach that is better when she eats. No dysphagia. BM have been normal. EGD 10.27.23 Z-line irregular, 37 cm from the incisors. Biopsied. Chronic gastritis. Biopsied. Erythematous duodenopathy. GET 3..24 abnormal - no emptying seen in 60 minutes OV 8.14.24 pt reports that she has continued (more content not included)... Normal [facility] Office Visit Reporton 2023 Office Visit Report [facility] [address] [place] [address] OFFICE VISIT Date of Service: 08/10/24 MR#: [id number] Acct: [id number] Patient: BESSIE KENNEDY DARI Rep #: [id number] : 1980 Provider: Saniya he Age/Sex: 44/F Location: [facility] Status: Signed Intake Vital Signs 07/11/24 15:13 08/10/24 15:08 Height 5 ft 2 in 5 ft 2 in Weight: 206 lb 5 oz 198 lb BMI 37.7 36.2 Intake Visit Reasons: Weight Management Chief Complaint: sore throat cough loss of voice X 4 days Allergies amoxicillin Adverse Reaction (Severe, Verified 02/01/24 15:13) diahrrea clavulanic acid (From Augmentin) Adverse Reaction (Intermediate, Verified 02/01/24 15:13) Diarrhea 08/10/242000 Date Nicholas Friend DO Rigo Signature: Date (if applicable) CC: [facility] Office Visit Reporton 2023 Office Visit Report [facility] [address] [place] [address] OFFICE VISIT Date of Service: 07/11/24 MR#: [id number] Acct: [id number] Patient: BESSIE KENNEDY DARI Rep #: [id number] : 1980 Provider: Saniya he Age/Sex: 43/F Location: [facility] [place] Status: Signed Intake Vital Signs 06/08/24 15:23 07/11/24 15:13 Height 5 ft 2 in 5 ft 2 in Weight: 205 lb 6 oz 206 lb 5 oz BMI 37.5 37.7 Intake Visit Reasons: Weight Management Chief Complaint: sore throat cough loss of voice X 4 days Allergies amoxicillin Adverse Reaction (Severe, Verified 02/01/24 15:13) diahrrea clavulanic acid (From Augmentin) Adverse Reaction (Intermediate, Verified 02/01/24 15:13) Diarrhea 07/11/24 1623 Date Nicholas Friend DO Rigo Signature: Date (if applicable) CC: [facility] SCRN MAMM (CAD)Carly/MARIO erazo 07-11-2024 SCRN MAMM (CAD)W/MARIO BILAT [facility] Imaging Services [address] [place], [place] [address] SCRN MAMM (CAD)W/MARIO BILAT MR#: [id number] Acct: [id number] Name: BESSIE KENNEDY Rep #: [id number] : 1980 F 43 From: Dale cueva MD PCP: Dr. Edel Garcia, DO Status: REG CLI Study: SCRN MAMM (CAD)W/MARIO BILAT Date of Exam: 06/29 11/19 Exam# [id number] Ordering Dr: Afia Thompson NP PEER TUTOR -C [id number] MAMMOGRAPHY - BILATERAL SCREENING REASON FOR EXAM: Female, 44 years old. Routine annual screening examination. PERTINENT HISTORY: Aunts with breast cancer. TECHNIQUE: Digital bilateral breast mario (3D mammographic acquisition) in the CC and MLO projections. 2-D mediolateral oblique (MLO) and craniocaudad (CC) views of both breasts were obtained. CAD: Full Field Digital Mammography with Computer Added Detection was performed. COMPARISON: Comparison is made with prior study dated November 12, 2022 and July 08, 2023. FINDINGS: Breast Composition: There are scattered areas of fibroglandular density. There are no dominant masses or suspicious calcifications. No other significant abnormalities are identified. There has been no significant change since the prior study. BI/SCRN MAMM (CAD)W/MARIO BILAT IMPRESSION: Stable bilateral screening mammogram. Yearly follow-up mammogram recommended. (A) ASSESSMENT CATEGORY: BIRADS Category 1: Negative. A letter regarding these results will be sent to the patient by the facility within 30 days. Approximately 10% of breast cancers are not detected by mammography. A normal mammogram should not delay biopsy of a clinically suspicious abnormality. [id number] Electronically Signed: Dale Jones MD at 8:35 EST , CC: YESSI Thompson; Dr. Edel Garcia, Hair Salon Manager: Signed Normal [facility] Culture, urineOrdered By: Madisyn Weaver on 11-07-2023 Bacteria identified Cx Nom (U) Escherichia coli [facility] Bacteria identified Cx Nom (U) Positive [facility] Laboratory - Chemistry and C hemistry - challengeon 11-06-2023 HCG ( test) Ql (U) Negative [facility] Bilirubin Ql (U) Negative [facility] Glucose Ql (U) Negative [facility] Ketones Ql (U) Negative [facility] pH (U) 6.0 [pH] [facility] Specific gravity (U) [Rel density] 1.020 [facility] Urobilinogen (U) [Mass/Vol] Negative [facility] Laboratory - Hematology and Cell countson 11-06-2023 Hemoglobin Ql (U) Moderate [facility] Laboratory - Specimen inform ationon 11-06-2023 Clarity (U) Clear [facility] Color (U) Yellow [facility] [facility] - Urinalysison Nitrite Ql (U) Negative [facility] Protein Ql (U) 2+ [facility] No Panel Informationon 11-05 Urine Leukocytes Positive [facility] Urine Non-Hemolyzed Blood [facility] Laboratory - Chemistry and C hemistry - challengeOrdered By: Ferdinand Garcia on 10-27-2023 HCG ( test) Ql (U) Negative [facility] Comment on above: Very dilute urine sp ecimens, as indicated by a low specificgravity, may not contain players club representative levels of hCG. If is still suspected, a first morning urinespecimen should be collected 48 hours later and tested. Absolute lymphocyte countOrd ered By: Nicholas West on 10-17-2023 Lymphocytes Auto (Unsp spec) [#/Vol] 2.75 10*3/uL 0.83-4.51 [facility] Automated lymphocyte count a s percentage of total leukocytesOrdered By: Nicholas West on 10-17-2023 Lymphocytes/100 WBC Auto (Unsp spec) 23.0 % 19-41 [facility] Basophil percentageOrdered B y: Nicholas West on 10-17-2023 Amylase [Catalytic activity/Vol] 63 U/L 25-115 [facility] Basophils/100 WBC (Bld) 0.4 % 0-1 [facility] Bilirubin [Mass/Vol] 0.60 mg/dL 0.20-1.00 [facility] Comment on above: For patients on eltr ombopag therapy, use of Dimension [place] TBIL is not recommended. Chloride [Moles/Vol] 107 mmol/L 98-107 [facility] Eosinophils/100 WBC (Bld) 12.2 % 0-5 [facility] Glucose [Mass/Vol] 72 mg/dL 74-106 [facility] Hemoglobin (Bld) [Mass/Vol] 11.2 g/dL 12.0-15.0 [facility] Monocytes/100 WBC (Bld) 6.1 % 0-10 [facility] Neutrophils (Bld) [#/Vol] 7.0 10*3/uL 2.0-7.7 [facility] Neutrophils/100 WBC (Bld) 58.0 % 47-70 [facility] Potassium [Moles/Vol] 3.4 mmol/L 3.5-5.1 [facility] Protein [Mass/Vol] 7.2 g/dL 6.4-8.2 [facility] Sodium [Moles/Vol] 139 mmol/L 136-145 [facility] Triglyceride [Mass/Vol] 153 mg/dL <199 [facility] Comment on above: The drugs N-Acetylcy steine and Metamizole may falsely depress this assay.Serum Triglycerides Reference Interval Normal <150 mg/dL Borderline high 150 - 199 mg/dL High 200 - 499 mg/dL Very High > or = 500 mg/dL WBC (Bld) [#/Vol] 12.0 10*3/uL 4.4-11.0 [facility] Determination of erythrocyte mean corpuscular volume (MCV)Ordered By: Nicholas West on 10-17-2023 MCV (RBC) [Entitic vol] 87.3 fL 81-99 [facility] Erythrocyte distribution wid th ratioOrdered By: Nicholascale West on 10-17-2023 Erythrocyte distribution width (RBC) [Ratio] 14.0 % 11.6-14.6 [facility] Erythrocyte distribution wid th standard deviationOrdered By: Nicholascale West on 10-17-2023 Erythrocyte distribution width (RBC) [Entitic vol] 44.8 fL 35.1-43.9 [facility] Hematocrit Auto (Bld) [Volum e fraction]Ordered By: Nicholas West on 10-17-2023 Hematocrit (Bld) [Volume fraction] 35.1 % 37-47 [facility] Immature granulocytes/100 WB C Auto (Bld)Ordered By: Nicholas West on 10-17-2023 Immature granulocytes/100 WBC (Bld) 0.300 % 0.0-0.9 [facility] Comment on above: IG% - Immature Granu locytes (promyelocytes, myelocytes and metamyelocytes) > 1% indicates that a LEFT SHIFT is Present. Laboratory - Chemistry and C hemistry - challengeOrdered By: Nicholas West on 10-17-2023 Albumin/Globulin [Mass ratio] 0.9 {ratio} 0.9-2.4 [facility] ALP [Catalytic activity/Vol] 84 U/L 45-117 [facility] ALT [Catalytic activity/Vol] 25 U/L 13-56 [facility] CO2 [Moles/Vol] 29.0 mmol/L 21.0-32.0 [facility] Globulin (S) [Mass/Vol] 3.7 g/dL 2.2-4.2 [facility] Lipase [Catalytic activity/Vol] 45 U/L 13-75 [facility] Comment on above: Please note:LIPASE r evised reference range effective 22. New Lipase methodology. Expected to produce lower values than the previous assay method. NEW Reference Range: 13 - 75 U/L Urea nitrogen/Creatinine [Mass ratio] 14.2 mg/mg 10-20 [facility] Laboratory - Hematology and Cell countsOrdered By: Nicholas West on 10-17-2023 MCH (RBC) [Entitic mass] 27.9 pg 27.0-32.0 [facility] MCHC (RBC) [Mass/Vol] 31.9 g/dL 32-36 [facility] Nucleated RBC/100 WBC (Bld) [Ratio] 0 % 0-5 [facility] Platelet mean volume (Bld) [Entitic vol] 10.5 fL 6.2-12.0 [facility] Platelets (Bld) [#/Vol] 304 10*3/uL 150-450 [facility] No Panel InformationOrdered By: Nciholas West on 10-17-2023 Estimated GFR (MDRD) Amer 104 mL/min >60 [facility] Comment on above: GFR Calc Estimated GFR (MDRD) Non-Af Amer 86 mL/min >60 [facility] Comment on above: Non- GFR Calc Immunoglobulin E 200 IU/mL 6-495 [facility] Immunoglobulin G4 71 mg/dL 2-96 [facility] Immunoglobulin M 183 mg/dL 26-217 [facility] Intrinsic Factor Antibody 1.0 AU/mL 0.0-1.1 [facility] RBC Auto (Bld) [#/Vol]Ordere d By: Nicholas West on 10-17-2023 RBC (Bld) [#/Vol] 4.02 10*6/uL 4.2-5.4 [facility] Serum IgG subclass 1 measure ment (mass/volume)Ordered By: Nicholas West on 10-17-2023 IgG subclass 1 (S) [Mass/Vol] 371 mg/dL 248-810 [facility] Serum IgG subclass 2 measure ment (mass/volume)Ordered By: Nicholas West on 10-17-2023 IgG subclass 2 (S) [Mass/Vol] 322 mg/dL 130-555 [facility] Serum IgG subclass 3 measure ment (mass/volume)Ordered By: Nicholas West on 10-17-2023 IgG subclass 3 (S) [Mass/Vol] 69 mg/dL 15-102 [facility] Serum or plasma IgA measurem ent (mass/volume)Ordered By: Nicholas West on 10-17-2023 IgA [Mass/Vol] 177 mg/dL 87-352 [facility] Serum or plasma IgG measurem ent (mass/volume)Ordered By: Nicholas West on 10-17-2023 IgG [Mass/Vol] 861 mg/dL 586-1602 [facility] IgG [Mass/Vol] Not Reportable [facility] Serum or plasma calcium elicia urement (mass/volume)Ordered By: Nicholas West on 10-17-2023 Calcium [Mass/Vol] 8.9 mg/dL 8.5-10.1 [facility] Serum or plasma creatinine m easurement (mass/volume)Ordered By: Nicholas West on 10-17-2023 Creatinine [Mass/Vol] 0.78 mg/dL 0.55-1.02 [facility] Comment on above: The validity of the calculated GFR & GFRAA in patients over 70 years has not been determined. Clinical correlation is essential. Serum or plasma gastrin elicia urement (mass/volume)Ordered By: Nicholas West on 10-17-2023 Gastrin [Mass/Vol] 20 pg/mL 0-115 [facility] Comment on above: Siemens Immulite 200 0 Immunochemiluminometric assay (ICMA)Values obtained with different assay methods or kits cannotbe used interchangeably. Results cannot be interpreted asabsolute evidence of the presence or absence of malignantdisease. Serum or plasma urea nitroge n measurement (mass/volume)Ordered By: Nicholas West on 10-17-2023 Urea nitrogen [Mass/Vol] 11 mg/dL 7-18 [facility] Serum parietal cell antibody assay (units/volume)Ordered By: Nicholas West on 10-17-2023 Parietal cell Ab Qn (S) 1.7 Units 0.0-20.0 [facility] Comment on above: Negative 0.0 - 20.0 Equivocal 20.1 - 24.9 Positive >24.9Parietal Cell Antibodies are found in 90% of patientswith pernicious anemia and 30% of first degreerelatives with pernicious anemia. Thin prep Papanicolaou smear with manual screeningOrdered By: Nicholas West on 10-17-2023 Thin prep Papanicolaou smear with manual screening 3.5 g/dL 3.2-5.0 [facility] Thin prep Papanicolaou smear with manual screening 25 U/L 15-37 [facility] Thin prep Papanicolaou smear with manual screening 3 5-15 [facility] Thin prep Papanicolaou smear with manual screening 47.1 ng/mL 0.0-101.8 [facility] Comment on above: Chromogranin A perfo rmed by [employer] KRYPTORmethodologyValues obtained with different assay methods or kits cannotbe used interchangeably.Performed at: - [facility] [id number] Director: Thaddeus Escalante PhD, Phone: [phone] at: - [facility] [id number] Director: Prasad Ramirez MD, Phone: [phone] Absolute lymphocyte countOrd ered By: Shaniqua Bunn on 03-07-2023 Lymphocytes Auto (Unsp spec) [#/Vol] 2.15 10*3/uL 0.83-4.51 [facility] Basophil percentageOrdered B y: Shaniqua Bunn on 03-07-2023 Basophils/100 WBC (Bld) 0.4 % 0-1 [facility] Bilirubin [Mass/Vol] 0.20 mg/dL 0.20-1.00 [facility] Comment on above: For patients on eltr ombopag therapy, use of Dimension [place] TBIL is not recommended. Chloride [Moles/Vol] 108 mmol/L 98-107 [facility] Eosinophils/100 WBC (Bld) 1.8 % 0-5 [facility] Glucose [Mass/Vol] 79 mg/dL 74-106 [facility] Neutrophils (Bld) [#/Vol] 8.1 10*3/uL 2.0-7.7 [facility] Neutrophils/100 WBC (Bld) 73.5 % 47-70 [facility] Potassium [Moles/Vol] 3.8 mmol/L 3.5-5.1 [facility] Protein [Mass/Vol] 7.5 g/dL 6.4-8.2 [facility] Sodium [Moles/Vol] 139 mmol/L 136-145 [facility] WBC (Bld) [#/Vol] 11.0 10*3/uL 4.4-11.0 [facility] Blood erythrocytes count (nu mber/volume)Ordered By: Shaniqua Bunn on 03-07-2023 RBC (Bld) [#/Vol] 4.04 10*6/uL 4.2-5.4 [facility] Blood hemoglobin measurement (mass/volume)Ordered By: Shaniqua Bunn on 03-07-2023 Hemoglobin (Bld) [Mass/Vol] 11.5 g/dL 12.0-15.0 [facility] Blood lymphocytes/100 leukoc ytesOrdered By: Shaniqua Bunn on 03-07-2023 Lymphocytes/100 WBC (Bld) 19.6 % 19-41 [facility] Blood monocytes/100 leukocyt esOrdered By: Shaniqua Bunn on 03-07-2023 Monocytes/100 WBC (Bld) 4.3 % 0-10 [facility] Blood platelet mean volumeOr dered By: Shaniqua Bunn on 03-07-2023 Platelet mean volume (Bld) [Entitic vol] 10.6 fL 6.2-12.0 [facility] Determination of erythrocyte mean corpuscular volume (MCV)Ordered By: Shaniqua Bunn on 03-07-2023 MCV (RBC) [Entitic vol] 91.1 fL 81-99 [facility] Erythrocyte sedimentation ra teOrdered By: Shaniqua Bunn on 03-07-2023 ESR (Bld) [Velocity] 20 mm/h 0-30 [facility] Hematocrit Auto (Bld) [Volum e fraction]Ordered By: Shaniqua Bunn on 03-07-2023 Hematocrit (Bld) [Volume fraction] 36.8 % 37-47 [facility] Hemoglobin in reticulocytes (mass per reticulocyte)Ordered By: Shaniqua Bunn on 03-07-2023 Hemoglobin (Reticulocytes) [Entitic mass] 31.1 pg 30-35 [facility] Iron measurement (mass/mass) Ordered By: Shaniqua Bunn on 03-07-2023 Iron (Unsp spec) [Mass/Mass] 42 ug/dL 50-170 [facility] Laboratory - Chemistry and C hemistry - challengeOrdered By: Shaniqua Bunn on 03-07-2023 ALP [Catalytic activity/Vol] 80 U/L 45-117 [facility] ALT [Catalytic activity/Vol] 22 U/L 13-56 [facility] CO2 [Moles/Vol] 26.0 mmol/L 21.0-32.0 [facility] Globulin (S) [Mass/Vol] 4.1 g/dL 2.2-4.2 [facility] Urea nitrogen/Creatinine [Mass ratio] 16.3 mg/mg 10-20 [facility] Laboratory - Hematology and Cell countsOrdered By: Shaniqua Bunn on 03-07-2023 Erythrocyte distribution width (RBC) [Entitic vol] 50.1 fL 35.1-43.9 [facility] Erythrocyte distribution width (RBC) [Ratio] 15.0 % 11.6-14.6 [facility] Immature granulocytes/100 WBC (Bld) 0.400 % 0.0-0.9 [facility] Comment on above: IG% - Immature Granu locytes (promyelocytes, myelocytes and metamyelocytes) > 1% indicates that a LEFT SHIFT is Present. MCH (RBC) [Entitic mass] 28.5 pg 27.0-32.0 [facility] Nucleated RBC/100 WBC (Bld) [Ratio] 0 % 0-5 [facility] MCHC Auto (RBC) [Mass/Vol]Or dered By: Shaniqua Bunn on 03-07-2023 MCHC (RBC) [Mass/Vol] 31.3 g/dL 32-36 [facility] No Panel InformationOrdered By: Shaniqua Bunn on 03-07-2023 Estimated GFR (MDRD) Amer 101 mL/min >60 [facility] Comment on above: GFR Calc Estimated GFR (MDRD) Non-Af Amer 84 mL/min >60 [facility] Comment on above: Non- GFR Calc Immature Reticulocyte Fraction 20.80 % 3.00-15.90 [facility] Reticulocyte Count 2.54 % 0.5-1.5 [facility] Total Iron Binding Capacity 459 ug/dL 250-450 [facility] Platelets bldOrdered By: Mckay Bunn on 03-07-2023 Platelets (Bld) [#/Vol] 341 10*3/uL 150-450 [facility] Serum or plasma C reactive p rotein measurement (mass/volume)Ordered By: Shaniqua Bunn on 03-07-2023 CRP [Mass/Vol] 25.50 mg/L 0.0-3.0 [facility] Comment on above: C-Reactive Protein ( CRP) provides useful information for thediagnosis, therapy and monitoring of inflammatory processesand associated diseases. For the evaluation of Relative Riskfor Cardiovascular Disease, a High Sensitivity CRP (HSCRP)should be ordered. Serum or plasma albumin elicia urement (mass/volume)Ordered By: Shaniqua Bunn on 03-07-2023 Albumin [Mass/Vol] 3.4 g/dL 3.2-5.0 [facility] Serum or plasma albumin/glob ulin mass ratioOrdered By: Shaniqua Bunn on 03-07-2023 Albumin/Globulin [Mass ratio] 0.8 {ratio} 0.9-2.4 [facility] Serum or plasma calcium elicia urement (mass/volume)Ordered By: Shaniqua Bunn on 03-07-2023 Calcium [Mass/Vol] 9.1 mg/dL 8.5-10.1 [facility] Serum or plasma creatinine m easurement (mass/volume)Ordered By: Shaniqua Bunn on 03-07-2023 Creatinine [Mass/Vol] 0.80 mg/dL 0.55-1.02 [facility] Comment on above: The validity of the calculated GFR & GFRAA in patients over 70 years has not been determined. Clinical correlation is essential. Serum or plasma ferritin chetan surement (mass/volume)Ordered By: Shaniqua Bunn on 03-07-2023 Ferritin [Mass/Vol] 12 ng/mL 8-252 [facility] Serum or plasma iron saturat ion measurement (mass fraction)Ordered By: Shaniqua Bunn on 03-07-2023 Iron saturation [Mass fraction] 9.2 % 15.0-55.0 [facility] Serum or plasma urea nitroge n measurement (mass/volume)Ordered By: Shaniqua Bunn on 03-07-2023 Urea nitrogen [Mass/Vol] 13 mg/dL 7-18 [facility] Thin prep Papanicolaou smear with manual screeningOrdered By: Shaniqua Bunn on 03-07-2023 Thin prep Papanicolaou smear with manual screening 16 U/L 15-37 [facility] Thin prep Papanicolaou smear with manual screening 5 5-15 [facility] Absolute lymphocyte countOrd ered By: Shaniqua Bunn on 11-12-2022 Lymphocytes Auto (Unsp spec) [#/Vol] 1.95 10*3/uL 0.83-4.51 [facility] Basophil percentageOrdered B y: Shaniqua Bunn on 11-12-2022 Basophils/100 WBC (Bld) 0.7 % 0-1 [facility] Bilirubin [Mass/Vol] 0.20 mg/dL 0.20-1.00 [facility] Comment on above: For patients on eltr ombopag therapy, use of Dimension [place] TBIL is not recommended. Chloride [Moles/Vol] 109 mmol/L 98-107 [facility] Cholesterol [Mass/Vol] 209 mg/dL <200 [facility] Comment on above: <200 mg/dL Desirable 200-240 mg/dL Borderline >240 mg/dL High Risk Eosinophils/100 WBC (Bld) 1.7 % 0-5 [facility] Glucose [Mass/Vol] 100 mg/dL 74-106 [facility] Comment on above: Fasting Glucose resu lt from 100 to 125 mg/dL suggests IMPAIRED HOMEOSTASIS per A.D.A. criteria. Neutrophils (Bld) [#/Vol] 7.1 10*3/uL 2.0-7.7 [facility] Neutrophils/100 WBC (Bld) 70.9 % 47-70 [facility] Potassium [Moles/Vol] 4.1 mmol/L 3.5-5.1 [facility] Protein [Mass/Vol] 7.1 g/dL 6.4-8.2 [facility] Sodium [Moles/Vol] 142 mmol/L 136-145 [facility] Triglyceride [Mass/Vol] 135 mg/dL <199 [facility] Comment on above: The drugs N-Acetylcy steine and Metamizole may falsely depress this assay.Serum Triglycerides Reference Interval Normal <150 mg/dL Borderline high 150 - 199 mg/dL High 200 - 499 mg/dL Very High > or = 500 mg/dL WBC (Bld) [#/Vol] 10.1 10*3/uL 4.4-11.0 [facility] Blood erythrocytes count (nu mber/volume)Ordered By: Shaniqua Bunn on 11-12-2022 RBC (Bld) [#/Vol] 4.15 10*6/uL 4.2-5.4 [facility] Blood hemoglobin measurement (mass/volume)Ordered By: Shaniqua Bunn on 11-12-2022 Hemoglobin (Bld) [Mass/Vol] 11.9 g/dL 12.0-15.0 [facility] Blood lymphocytes/100 leukoc ytesOrdered By: Shaniqua Bunn on 11-12-2022 Lymphocytes/100 WBC (Bld) 19.3 % 19-41 [facility] Blood monocytes/100 leukocyt esOrdered By: Shaniqua Bunn on 11-12-2022 Monocytes/100 WBC (Bld) 7.0 % 0-10 [facility] Blood platelet mean volumeOr dered By: Shaniqua Bunn on 11-12-2022 Platelet mean volume (Bld) [Entitic vol] 9.8 fL 6.2-12.0 [facility] Determination of erythrocyte mean corpuscular volume (MCV)Ordered By: Shaniqua Bunn on 11-12-2022 MCV (RBC) [Entitic vol] 89.6 fL 81-99 [facility] Hematocrit Auto (Bld) [Volum e fraction]Ordered By: Shaniqua Bunn on 11-12-2022 Hematocrit (Bld) [Volume fraction] 37.2 % 37-47 [facility] Laboratory - Chemistry and C hemistry - challengeOrdered By: Shaniqua Bunn on 11-12-2022 ALP [Catalytic activity/Vol] 78 U/L 45-117 [facility] ALT [Catalytic activity/Vol] 28 U/L 13-56 [facility] CO2 [Moles/Vol] 27.0 mmol/L 21.0-32.0 [facility] Globulin (S) [Mass/Vol] 3.8 g/dL 2.2-4.2 [facility] Urea nitrogen/Creatinine [Mass ratio] 20.3 mg/mg 10-20 [facility] Laboratory - Hematology and Cell countsOrdered By: Shaniqua Bunn on 11-12-2022 Erythrocyte distribution width (RBC) [Entitic vol] 45.7 fL 35.1-43.9 [facility] Erythrocyte distribution width (RBC) [Ratio] 13.9 % 11.6-14.6 [facility] Immature granulocytes/100 WBC (Bld) 0.400 % 0.0-0.9 [facility] Comment on above: IG% - Immature Granu locytes (promyelocytes, myelocytes and metamyelocytes) > 1% indicates that a LEFT SHIFT is Present. MCH (RBC) [Entitic mass] 28.7 pg 27.0-32.0 [facility] Nucleated RBC/100 WBC (Bld) [Ratio] 0 % 0-5 [facility] MCHC Auto (RBC) [Mass/Vol]Or dered By: Shaniqua Bunn on 11-12-2022 MCHC (RBC) [Mass/Vol] 32.0 g/dL 32-36 [facility] No Panel InformationOrdered By: Shaniqua Bunn on 11-12-2022 Estimated GFR (MDRD) Amer 120 mL/min >60 [facility] Comment on above: GFR Calc Estimated GFR (MDRD) Non-Af Amer 99 mL/min >60 [facility] Comment on above: Non- GFR Calc Platelets bldOrdered By: Mckay Bunn on 11-12-2022 Platelets (Bld) [#/Vol] 285 10*3/uL 150-450 [facility] Serum or plasma albumin elicia urement (mass/volume)Ordered By: Shaniqua Bunn on 11-12-2022 Albumin [Mass/Vol] 3.3 g/dL 3.2-5.0 [facility] Serum or plasma albumin/glob ulin mass ratioOrdered By: Shaniqua Bunn on 11-12-2022 Albumin/Globulin [Mass ratio] 0.9 {ratio} 0.9-2.4 [facility] Serum or plasma calcium elicia urement (mass/volume)Ordered By: Shaniqua Bunn on 11-12-2022 Calcium [Mass/Vol] 8.6 mg/dL 8.5-10.1 [facility] Serum or plasma cholesterol in HDL measurement (mass/volume)Ordered By: Shaniqua Bunn on 11-12-2022 Cholesterol in HDL [Mass/Vol] 51 mg/dL >40 [facility] Comment on above: The drugs N-Acetylcy steine and Metamizole may falsely depress this assay. Reference Range HDL <40 mg/dL Low HDL Cholesterol HDL >or= 60 mg/dL High HDL Cholesterol Serum or plasma cholesterol in VLDL measurement (mass/volume)Ordered By: Shaniqua Bunn on 11-12-2022 Cholesterol in VLDL [Mass/Vol] 27 mg/dL 5-40 [facility] Serum or plasma creatinine m easurement (mass/volume)Ordered By: Shaniqua Bunn on 11-12-2022 Creatinine [Mass/Vol] 0.69 mg/dL 0.55-1.02 [facility] Comment on above: The validity of the calculated GFR & GFRAA in patients over 70 years has not been determined. Clinical correlation is essential. Serum or plasma low density lipoprotein (LDL) cholesterol measurement (mass/volume)Ordered By: Shaniqua Bunn on 11-12-2022 Cholesterol in LDL [Mass/Vol] 131 mg/dL 0-130 [facility] Serum or plasma urea nitroge n measurement (mass/volume)Ordered By: Shaniqua Bunn on 11-12-2022 Urea nitrogen [Mass/Vol] 14 mg/dL 7-18 [facility] Thin prep Papanicolaou smear with manual screeningOrdered By: Shaniqua Bunn on 11-12-2022 Thin prep Papanicolaou smear with manual screening 15 U/L 15-37 [facility] Thin prep Papanicolaou smear with manual screening 6 5-15 [facility] CALCIFEDIOL ([id number])Ordered B y: Hair Salon Manager on 09-06-2022 25-hydroxyvitamin D [Mass/Vol] 26.8 ng/mL Abnormal 30.0-100.0 [facility]; [facility] Work Phone: Comment on above: Vitamin D deficiency has been defined by the [employer] and an Endocrine Society practice guideline as alevel of serum 25-OH vitamin D less than 20 ng/mL (1,2).The Endocrine Society went on to further define vitamin Dinsufficiency as a level between 21 and 29 ng/mL (2).1. IOM ([employer]). 2010. Dietary reference intakes for calcium and D. [place]: The National Academies Press.2. Dequan MF, Meghan NC, Angie ALEXANDRE, et al. Evaluation, treatment, and prevention of vitamin D deficiency: an Endocrine Society clinical practice guideline. JCEM. 2010; 96(7):1911-30. PATIENT NOT FASTINGP ERFORMED BY: Delivery Agent LabGrand Cru [id number] Baker RoadDublin [place] [id number] TSH (THYROID STIMULATING HOR CRISTEL) ([id number])Ordered By: Hair Salon Manager on 09-06-2022 TSH Qn 2.100 {uIU/mL} Normal 0.450-4.500 Comprehen sive [facility]; [facility] Work Phone: Comment on above: PATIENT NOT FASTINGP ERFORMED BY: [employer] List[address] Reality Sports Onlineblin [place] [id number] VITAMIN B12 AND FOLATES (826 07)Ordered By: Hair Salon Manager on 09-06-2022 Cobalamin (Vitamin B12) [Mass/Vol] 924 pg/mL Normal 232-1245 [facility] Work Phone: Comment on above: PATIENT NOT FASTINGP ERFORMED BY: Delivery Agent LabSynereca Pharmaceuticals[address] Sports Onlineblin [place] [id number] Folate [Mass/Vol] 3.5 ng/mL Normal Compreh ensive Internal Medicine; [facility] Work Phone: Comment on above: A serum folate angie ntration of less than 3.1 ng/mL isconsidered to represent clinical deficiency. PATIENT NOT FASTINGP ERFORMED BY: [employer] Nazara TechnologiesDublin [place] [id number] Laboratory - Microbiology an d Antimicrobial susceptibilityon 08-02-2022 S. pyogenes Ag IA Ql (Unsp spec) Negative [facility] No Panel Informationon 06-09 Stool Neutral Fats Normal . [facility] Work Phone: Comment on above: Normal (<60 Droplets /HPF) Stool Pancreatic Elastase 245 >200 [facility] Work Phone: Comment on above: Result Units: ug Hollie st./g Severe Pancreatic Insufficiency: <100 Moderate Pancreatic Insufficiency: 100 - 200 Normal: >200Performed at: [facility] [id number] Director: Prasad Ramirez MD, Phone: [phone] Qualitative fecal fat or lip idson 06-09-2022 Fat Ql (Stl) Normal . [facility] Work Phone: Comment on above: Normal (<100 Droplet s/HPF)Performed at: [facility] [id number] Director: Thaddeus Escalante PhD, Phone: [phone] Atypical perinuclear antineu trophil cytoplasmic antibodies measurementon 06-02-2022 Neutrophil cytoplasmic Ab.perinuclear.atypic al IF (S) [Titer] <1:20 titer Neg:<1:20 [facility] Work Phone: Comment on above: The atypical pANCA p attern has been observed in asignificant percentage of patients with ulcerative colitis,primary sclerosing cholangitis and autoimmune hepatitis.Performed at: [facility] [address] [id number] Director: Thaddeus Escalante PhD, Phone: [phone] at: [facility] [id number] Director: Prasad Ramirez MD, Phone: [phone] Basophil percentageon 2021 Amylase [Catalytic activity/Vol] 65 U/L 25-115 [facility] Work Phone: Bilirubin [Mass/Vol] 0.40 mg/dL 0.20-1.00 [facility] Work Phone: Comment on above: For patients on eltr ombopag therapy, use of Dimension [place] TBIL is not recommended. Protein [Mass/Vol] 7.8 g/dL 6.4-8.2 [facility] Work Phone: Direct bilirubinon 2 Bilirubin.direct [Mass/Vol] 0.08 mg/dL 0.00-0.30 [facility] Work Phone: Laboratory - Chemistry and C hemistry - challengeon 06-02-2022 ALP [Catalytic activity/Vol] 72 U/L 45-117 [facility] Work Phone: ALT [Catalytic activity/Vol] 26 U/L 13-56 [facility] Work Phone: Globulin (S) [Mass/Vol] 3.8 g/dL 2.2-4.2 [facility] Work Phone: Lipase [Catalytic activity/Vol] 157 U/L 73-393 [facility] Work Phone: No Panel Informationon 06-02 Immunoglobulin E 237 IU/mL 6-495 [facility] Work Phone: Serum classic neutrophil cyt oplasmic antibody assay (units/volume)on 06-02-2022 Neutrophil cytoplasmic Ab.classic Qn (S) <1:20 titer Neg:<1:20 [facility] Work Phone: Serum or plasma IgA measurem ent (mass/volume)on 06-02-2022 IgA [Mass/Vol] 158 mg/dL 87-352 [facility] Work Phone: Serum or plasma IgG measurem ent (mass/volume)on 06-02-2022 IgG [Mass/Vol] 906 mg/dL 586-1602 [facility] Work Phone: Serum or plasma IgM measurem ent (mass/volume)on 06-02-2022 IgM [Mass/Vol] 216 mg/dL 26-217 [facility] Work Phone: Serum or plasma albumin elicia urement (mass/volume)on 06-02-2022 Albumin [Mass/Vol] 4.0 g/dL 3.2-5.0 [facility] Work Phone: Serum perinuclear neutrophil cytoplasmic antibody titer by immunofluorescenceon 06-02-2022 Neutrophil cytoplasmic Ab.perinuclear IF (S) [Titer] <1:20 titer Neg:<1:20 [facility] Work Phone: Comment on above: The presence of posi tive fluorescence exhibiting P-ANCA orC- ANCA patterns alone is not specific for the diagnosis ofWegener's Granulomatosis (WG) or microscopic polyangiitis.Decisions about treatment should not be based solely onANCA IFA results. The International ANCA Group Consensusrecommends follow up testing of positive sera with both CA-3 and MPO-ANCA enzyme immunoassays. As many as 5% serumsamples are positive only by EIA. Ref. AM J Clin Daxyth2438;111:507-513. Thin prep Papanicolaou smear with manual screeningon 06-02-2022 Thin prep Papanicolaou smear with manual screening 20 U/L 15-37 [facility] Work Phone: Thin prep Papanicolaou smear with manual screening 202 U/L 84-246 [facility] Work Phone: Beta hCG serum qualon 2021 Beta HCG ( test) Ql Negative [facility] Work Phone: Laboratory - Microbiology an d Antimicrobial susceptibilityon 04-04-2022 SARS-CoV-2 (COVID-19) RNA ADDIE+probe Ql (Unsp spec) Detected [facility] Work Phone: No Panel Informationon 04-04 Influenza Types A,B Rapid (Clinic) Not detected [facility] Work Phone: No Panel Informationon 02-12 Stool Calprotectin 46 ug/g 0-120 [facility] Work Phone: Comment on above: Concentration Interp retation Follow-Up<16 - 50 ug/g Normal None>50 -120 ug/g Borderline Re-evaluate in 4-6 weeks >120 ug/g Abnormal Repeat as clinically indicatedPerformed at: - [facility] [id number] Director: Prasad Ramirez MD, Phone: [phone] Absolute lymphocyte counton 02-09-2022 Lymphocytes Auto (Unsp spec) [#/Vol] 2.62 10*3/uL 0.83-4.51 [facility] Work Phone: Basophil percentageon 2021 Basophil percentage < 0.2 AI 0.0-0.9 [facility] Work Phone: Basophils/100 WBC (Bld) 0.7 % 0-1 [facility] Work Phone: Bilirubin [Mass/Vol] 0.40 mg/dL 0.20-1.00 [facility] Work Phone: Comment on above: For patients on eltr ombopag therapy, use of Dimension [place] TBIL is not recommended. Chloride [Moles/Vol] 104 mmol/L 98-107 [facility] Work Phone: Eosinophils/100 WBC (Bld) 1.8 % 0-5 [facility] Work Phone: Glucose [Mass/Vol] 83 mg/dL 74-106 [facility] Work Phone: Neutrophils (Bld) [#/Vol] 6.1 10*3/uL 2.0-7.7 [facility] Work Phone: Neutrophils/100 WBC (Bld) 63.2 % 47-70 [facility] Work Phone: Potassium [Moles/Vol] 3.6 mmol/L 3.5-5.1 [facility] Work Phone: Protein [Mass/Vol] 7.7 g/dL 6.4-8.2 [facility] Work Phone: Sodium [Moles/Vol] 137 mmol/L 136-145 [facility] Work Phone: WBC (Bld) [#/Vol] 9.7 10*3/uL 4.4-11.0 [facility] Work Phone: Blood erythrocytes count (nu mber/volume)on 02-09-2022 RBC (Bld) [#/Vol] 4.59 10*6/uL 4.2-5.4 [facility] Work Phone: Blood hemoglobin measurement (mass/volume)on 02-09-2022 Hemoglobin (Bld) [Mass/Vol] 13.9 g/dL 12.0-15.0 [facility] Work Phone: Blood lymphocytes/100 leukoc yteson 02-09-2022 Lymphocytes/100 WBC (Bld) 27.0 % 19-41 [facility] Work Phone: Blood monocytes/100 leukocyt eson 02-09-2022 Monocytes/100 WBC (Bld) 7.0 % 0-10 [facility] Work Phone: Blood platelet mean volumeon 02-09-2022 Platelet mean volume (Bld) [Entitic vol] 10.4 fL 6.2-12.0 [facility] Work Phone: Chocolate RASTon 02-09-2022 Chocolate IgE Qn (S) <0.10 kU/L Class 0 [facility] Work Phone: Comment on above: Performed at: [address] [id number] Director: Thaddeus Escalante PhD, Phone: [phone] at: [facility] Lab[address] [id number] Director: Prasad Ramirez MD, Phone: [phone] Determination of erythrocyte mean corpuscular volume (MCV)on 02-09-2022 MCV (RBC) [Entitic vol] 89.5 fL 81-99 [facility] Work Phone: Erythrocyte sedimentation ra ahmet 02-09-2022 ESR (Bld) [Velocity] 18 mm/h 0-30 [facility] Work Phone: Hematocrit Auto (Bld) [Volum e fraction]on 02-09-2022 Hematocrit (Bld) [Volume fraction] 41.1 % 37-47 [facility] Work Phone: Laboratory - Chemistry and C hemistry - challengeon 02-09-2022 ALP [Catalytic activity/Vol] 70 U/L 45-117 [facility] Work Phone: ALT [Catalytic activity/Vol] 26 U/L 13-56 [facility] Work Phone: CO2 [Moles/Vol] 27.0 mmol/L 21.0-32.0 [facility] Work Phone: Globulin (S) [Mass/Vol] 3.7 g/dL 2.2-4.2 [facility] Work Phone: Urea nitrogen/Creatinine [Mass ratio] 13.2 mg/mg 10-20 [facility] Work Phone: Laboratory - Hematology and Cell countson 02-09-2022 Erythrocyte distribution width (RBC) [Entitic vol] 44.3 fL 35.1-43.9 [facility] Work Phone: Erythrocyte distribution width (RBC) [Ratio] 13.4 % 11.6-14.6 [facility] Work Phone: Immature granulocytes/100 WBC (Bld) 0.300 % 0.0-0.9 [facility] Work Phone: Comment on above: IG% - Immature Granu locytes (promyelocytes, myelocytes and metamyelocytes) > 1% indicates that a LEFT SHIFT is Present. MCH (RBC) [Entitic mass] 30.3 pg 27.0-32.0 [facility] Work Phone: Nucleated RBC/100 WBC (Bld) [Ratio] 0 % 0-5 [facility] Work Phone: Laboratory - Miscellaneous t estson 02-09-2022 Service comment (Unsp spec) [Interp] Comment . [facility] Work Phone: Comment on above: Levels of Specific I gE Class Description of Class ----- < 0.10 0 Negative 0.10 - 0.31 0/I Equivocal/Low 0.32 - 0.55 I Low 0.56 - 1.40 II Moderate 1.41 - 3.90 III High 3.91 - 19.00 IV Very High 19.01 - 100.00 V Very High >100.00 Very High MCHC Auto (RBC) [Mass/Vol]on 02-09-2022 MCHC (RBC) [Mass/Vol] 33.8 g/dL 32-36 [facility] Work Phone: No Panel Informationon 02-09 Centromere B Antibody <0.2 AI 0.0-0.9 [facility] Work Phone: Endomysial IgA Antibody Negative Negative [facility] Work Phone: Estimated GFR (MDRD) Amer 88 mL/min >60 [facility] Work Phone: Comment on above: GFR Calc Estimated GFR (MDRD) Non-Af Amer 73 mL/min >60 [facility] Work Phone: Comment on above: Non- GFR Calc POULTRY SLAUGHTERER Antibody <0.2 AI 0.0-0.9 [facility] Work Phone: Scallop Allergen <0.10 kU/L Class 0 [facility] Work Phone: Seafood Group Allergens (RAST) Negative . [facility] Work Phone: Comment on above: Allergens in this mi x are: Blue mussel Fish [place] Shrimp Tuna Sesame Seed Allergen IgE Antibody <0.10 kU/L Class 0 [facility] Work Phone: Shrimp Allergen <0.10 kU/L Class 0 [facility] Work Phone: Platelets bldon 02-09-2022 Platelets (Bld) [#/Vol] 294 10*3/uL 150-450 [facility] Work Phone: Serum DNA double strand anti body assay (units/volume)on 02-09-2022 DNA double strand Ab Qn (S) 1 [IU]/mL 0-9 [facility] Work Phone: Comment on above: Negative <5 Equivoca l 5 - 9 Positive >9 Serum IgA measurement (units /volume)on 02-09-2022 IgA Qn (S) 153 mg/dL 87-352 [facility] Work Phone: Comment on above: Performed at: [address] [id number] Director: Thaddeus Escalante PhD, Phone: [phone] Serum Radha-1 antibody assay (u nits/volume)on 02-09-2022 Radha-1 extractable nuclear Ab Qn (S) <0.2 AI 0.0-0.9 [facility] Work Phone: Serum Scl-70 extractable nuc lear antibody assay (units/volume)on 02-09-2022 SCL-70 extractable nuclear Ab Qn (S) <0.2 AI 0.0-0.9 [facility] Work Phone: Serum Varela extractable nucl ear antibody detectionon 02-09-2022 Varela extractable nuclear Ab Ql (S) <0.2 AI 0.0-0.9 [facility] Work Phone: Serum beef IgE antibody assa y (units/volume)on 02-09-2022 Beef IgE Qn (S) <0.10 kU/L Class 0 [facility] Work Phone: Serum black walnut IgE antib parul assay (units/volume)on 02-09-2022 Black [place] IgE Qn (S) <0.10 kU/L Class 0 [facility] Work Phone: Serum clam IgE antibody assa y (units/volume)on 02-09-2022 Clam IgE Qn (S) <0.10 kU/L Class 0 [facility] Work Phone: Serum codfish IgE antibody a ssay (units/volume)on 02-09-2022 Codfish IgE Qn (S) <0.10 kU/L Class 0 [facility] Work Phone: Serum corn IgE antibody assa y (units/volume)on 02-09-2022 [place] IgE Qn (S) <0.10 kU/L Class 0 [facility] Work Phone: Serum cow milk IgE antibody assay (units/volume)on 02-09-2022 Cow milk IgE Qn (S) 0.20 kU/L Class 0/I [facility] Work Phone: Serum egg white IgE antibody assay (units/volume)on 02-09-2022 Egg white IgE Qn (S) 0.23 kU/L Class 0/I [facility] Work Phone: Serum or plasma C reactive p rotein measurement (mass/volume)on 02-09-2022 CRP [Mass/Vol] 4.38 mg/L 0.0-3.0 [facility] Work Phone: Comment on above: C-Reactive Protein ( CRP) provides useful information for thediagnosis, therapy and monitoring of inflammatory processesand associated diseases. For the evaluation of Relative Riskfor Cardiovascular Disease, a High Sensitivity CRP (HSCRP)should be ordered. Serum or plasma albumin elicia urement (mass/volume)on 02-09-2022 Albumin [Mass/Vol] 4.0 g/dL 3.2-5.0 [facility] Work Phone: Serum or plasma albumin/glob ulin mass ratioon 02-09-2022 Albumin/Globulin [Mass ratio] 1.1 {ratio} 0.9-2.4 [facility] Work Phone: Serum or plasma calcium elicia urement (mass/volume)on 02-09-2022 Calcium [Mass/Vol] 9.5 mg/dL 8.5-10.1 [facility] Work Phone: Serum or plasma creatinine m easurement (mass/volume)on 02-09-2022 Creatinine [Mass/Vol] 0.91 mg/dL 0.55-1.02 [facility] Work Phone: Comment on above: The validity of the calculated GFR & GFRAA in patients over 70 years has not been determined. Clinical correlation is essential. Serum or plasma urea nitroge n measurement (mass/volume)on 02-09-2022 Urea nitrogen [Mass/Vol] 12 mg/dL 7-18 [facility] Work Phone: Serum peanut IgE antibody as say (units/volume)on 02-09-2022 Peanut IgE Qn (S) 0.13 kU/L Class 0/I [facility] Work Phone: Serum pork IgE antibody assa y (units/volume)on 02-09-2022 Pork IgE Qn (S) <0.10 kU/L Class 0 [facility] Work Phone: Serum soybean IgE antibody a ssay (units/volume)on 02-09-2022 Soybean IgE Qn (S) <0.10 kU/L Class 0 [facility] Work Phone: Serum tissue transglutaminas e IgA antibody assay (units/volume)on 02-09-2022 tTG IgA Qn (S) <2 U/mL 0-3 [facility] Work Phone: Comment on above: Negative 0 - 3 Weak Positive 4 - 10 Positive >10 Tissue Transglutaminase (tTG) has been identified as the endomysial antigen. Studies have demonstr- ated that endomysial IgA antibodies have over 99% specificity for gluten sensitive enteropathy. Serum wheat IgE antibody ass ay (units/volume)on 02-09-2022 Wheat IgE Qn (S) <0.10 kU/L Class 0 [facility] Work Phone: Serum whole egg IgE antibody assay (units/volume)on 02-09-2022 Whole Egg IgE Qn (S) 0.23 kU/L Class 0/I [facility] Work Phone: Thin prep Papanicolaou smear with manual screeningon 02-09-2022 Thin prep Papanicolaou smear with manual screening 17 U/L 15-37 [facility] Work Phone: Thin prep Papanicolaou smear with manual screening 6 5-15 [facility] Work Phone: Acetylcholine receptor block ing antibody assayon 01-27-2022 Acetylcholine receptor blocking Ab/Acetylcholine Ab.total (S) [Molar fraction] 18 % 0-25 [facility] Work Phone: Comment on above: Negative: 0 - 25 Bor derline: 26 - 30 Positive: >30Performed at: [place] [id number] [place], [place] [id number] Director: Prasad Ramirez MD, Phone: [phone] No Panel Informationon 01-27 Acetylcholine Receptor Antibody < 0.03 nmol/L 0.00-0.24 [facility] Work Phone: Comment on above: Negative: 0.00 - 0.2 4 Borderline: 0.25 - 0.40 Positive: >0.40 No Panel Informationon 12-05 POC SARS CoV-2 Antigen Negative [facility] Work Phone: COVID w FLU A+B Routon 10-06 Influenza A PCR Negative Normal [facility] Comment on above: Performed By: #### C OVFLU #### [place] [phone] Influenza B PCR Negative Normal [facility] Comment on above: Performed By: #### C OVFLU #### [place] [id number] SARS-CoV-2 (COVID-19) RNA ADDIE+probe Ql (Unsp spec) UPPER RESPIRATORY TRACT SWAB Normal [facility] Comment on above: Performed By: #### C OVFLU #### [phone] SARS-CoV-2 (COVID-19) RNA ADDIE+probe Ql (Unsp spec) Negative for COVID19 (SARS CoV2) by RT-PCR or equivalent method. Normal Negative for COVID19 (SARS CoV2) by RT-PCR or equivalent method. [facility] Comment on above: Result Comment: This test was developed and its performance characteristics determined by [facility]'s [facility]upesh Blandonformerly [facility]. This test has been authorized by FDA under an Emergency Use Authorization (EUA). This test has been validated in accordance with the FDA's Guidance Document Policy for Diagnostics Testing in Laboratories Certified to Perform High Complexity Testing under CLIA prior to Emergency use Authorization for Coronavirus Disease 2019 during the Public Health Emergency issued on October 27, 2019. Test performed by [facility], Rupesh Arana [facility], [address] [address]. Performed By: #### C OVFLU #### [facility] [address] [id number] CNOVon 10-05-2021 CNOV Office Visit (UCTR ) -------- BESSIE KENNEDY ([id number]) 1980 F Date Time Provider Department 10/05/21 5:30 PM ADÁN GARCIA [facility] During your visit today, we recorded the following information about you: Temperature Pulse Respiration Blood pressure 97.7 degrees 80/minute 16/minute 122/80 Weight 83 kg Adán Garcia APRN.STRATEGIC CONSULTANT 10/05/2021 5:58 PM Signed CC: Patient presents with: Chest Congestion: cough [...] symptoms occur. Patient agreeable to treatment plan. Adán Garcia APRN.STRATEGIC CONSULTANT Referring Provider: SELF [200] Allergies As of Date: 10/05/2021 Noted Allergy Reaction AMOXICILLIN 07/15/2020 8 - GI Upset Date Reviewed: 10/05/2021 Reviewed by: Adán Garcia APRN.STRATEGIC CONSULTANT - Fully Assessed Reason for Visit: Chest Congestion [236] Cmt: cough and sore throat x 2 days Primary Visit Diagnosis:Suspected COVID-19 virus infection [Z20.822] Other Visit Diagnosis:Sore throat [J02.9] Order(s):STREP A MOLECULAR (POC) [5643783] Order #: [id number]. #:[id number] COVID WITH FLUA+B, ROUTINE [SQCOVFLU] Order #: [id number] FUTURE Prescriptions as of 10/05/2021 - predniSONE (DELTASONE) 20 mg tablet Take 2 tablets by mouth once daily. - triamcinolone acetonide (KENALOG) 0.1 % cream Apply 1 application to affected area three times daily. Apply sparingly to area for rash/itching. - albuterol HFA (PROVENTIL HFA, VENTOLIN HFA) 90 mcg/a (more content not included)... Normal [facility] FARZAD (ANTINUCLEAR ANTIBODY) ( [id number])Ordered By: Hair Salon Manager on 03-19-2021 Nuclear Ab Ql (S) Negative Normal Compreh ensive Internal [facility]; [facility] Work Phone: Comment on above: PATIENT NOT FASTINGP ERFORMED BY: [facility]6[address] [facility] [id number] C-REACTIVE PROTEIN ([id number])Or dered By: Hair Salon Manager on 03-19-2021 CRP [Mass/Vol] 6 mg/L Normal 0-10 Comprehens ingrid Internal Medicine; [facility] Work Phone: Comment on above: PATIENT NOT FASTINGP ERFORMED BY: [employer] [id number] Sports Onlineblin [place] [id number] CALCIFIDIOL (49827) VIT D 25 Ordered By: Hair Salon Manager on 03-19-2021 25-hydroxyvitamin D [Mass/Vol] 39.7 ng/mL Normal 30.0-100.0 [facility]; [facility] Work Phone: Comment on above: Vitamin D deficiency has been defined by the [facility] and an Endocrine Society practice guideline as alevel of serum 25-OH vitamin D less than 20 ng/mL (1,2).The Endocrine Society went on to further define vitamin Dinsufficiency as a level between 21 and 29 ng/mL (2).1. IOM ([place] of Medicine). 2010. Dietary reference intakes for calcium and D. [place]: The National Academies Press.2. Dequan MF, Meghan ALVAREZ, Angie ALEXANDRE, et al. Evaluation, treatment, and prevention of vitamin D deficiency: an Endocrine Society clinical practice guideline. JCEM. 2010; 96(7):1911-30. PATIENT NOT FASTINGP ERFORMED BY: [employer] [id number] [place] [id number] CBC (AUTO) ([id number])Ordered By : Hair Salon Manager on 03-19-2021 Erythrocyte distribution width (RBC) [Ratio] 13.1 % Normal 11.7-15.4 [facility]; [facility] Work Phone: Comment on above: PATIENT NOT FASTINGP ERFORMED BY: [facility] [id number] Nazara TechnologiesDublin [place] [id number] Hematocrit (Bld) [Volume fraction] 43.6 % Normal 34.0-46.6 [facility]; [facility] Work Phone: Comment on above: PATIENT NOT FASTINGP ERFORMED BY: [employer] [id number] Baker RoadDublin [place] [id number] Hemoglobin (Bld) [Mass/Vol] 14.2 g/dL Normal 11.1-15.9 [facility]; [facility] Work Phone: Comment on above: PATIENT NOT FASTINGP ERFORMED BY: CB [facility] Pseaso7[address] RoadDublin [place] [id number] MCH (RBC) [Entitic mass] 29.5 pg Normal 26.6-33.0 [facility] Internal Medicine; [facility] Work Phone: Comment on above: PATIENT NOT FASTINGP ERFORMED BY: CB [facility] Woeoxa40[address]Dublin [place] [id number] MCHC (RBC) [Mass/Vol] 32.6 g/dL Normal 31.5-35.7 [facility] Medicine; [facility] Work Phone: Comment on above: PATIENT NOT FASTINGP ERFORMED BY: CB [facility] Mcmwku85[address]Dublin [place] [id number] MCV (RBC) [Entitic vol] 91 fL Normal 79-97 [facility]; [facility] Work Phone: Comment on above: PATIENT NOT FASTINGP ERFORMED BY: CB [facility] Ipnfjp56[address] RoadDublin [place] [id number] Platelets (Bld) [#/Vol] 283 10*3/uL Normal 150-450 [facility]; [facility] Work Phone: Comment on above: PATIENT NOT FASTINGP ERFORMED BY: CB [facility] Pgtprm1569 [address]Dublin [place] [id number] RBC (Bld) [#/Vol] 4.81 10*6/uL Normal 3.77-5.28 [facility] Internal Medicine; [facility] Work Phone: Comment on above: PATIENT NOT FASTINGP ERFORMED BY: CB [facility] Crsnhz62[address]Dublin [place] [id number] WBC (Bld) [#/Vol] 9.7 10*3/uL Normal 3.4-10.8 [facility] Internal Medicine; [facility] Work Phone: Comment on above: PATIENT NOT FASTINGP ERFORMED BY: CB [facility] Rawjrq20[address]Dublin [place] [id number] METABOLIC PANEL, COMPREHENSI VE ([id number])Ordered By: Hair Salon Manager on 03-19-2021 Albumin [Mass/Vol] 4.7 g/dL Normal 3.8-4.8 [facility] Internal Medicine; [facility] Work Phone: Comment on above: PATIENT NOT FASTINGP ERFORMED BY: LINDSEY [facility] Pzvhqt030[address]Dublin [place] [id number] Albumin/Globulin [Mass ratio] 1.8 {ratio} Normal 1.2-2.2 [facility]; [facility] Work Phone: Comment on above: PATIENT NOT FASTINGP ERFORMED BY: CB [facility] Afjycp59[address]Dublin [place] [id number] ALP [Catalytic activity/Vol] 70 U/L Normal 48-121 [facility]; [facility] Work Phone: Comment on above: PATIENT NOT FASTINGP ERFORMED BY: CB [facility] Qbpija5[address]Dublin [place] [id number] ALT [Catalytic activity/Vol] 12 U/L Normal 0-32 [facility]; [facility] Work Phone: Comment on above: PATIENT NOT FASTINGP ERFORMED BY: CB [facility] Tfjsmc9[address]Dublin [place] [id number] AST [Catalytic activity/Vol] 18 U/L Normal 0-40 [facility]; [facility] Work Phone: Comment on above: PATIENT NOT FASTINGP ERFORMED BY: CB [facility] Xbshzk65[address]Dublin [place] [id number] Bilirubin [Mass/Vol] 0.3 mg/dL Normal 0.0-1.2 [facility] Internal Medicine; [facility] Work Phone: Comment on above: PATIENT NOT FASTINGP ERFORMED BY: CB [facility] Cetedw57[address]Dublin [place] [id number] Calcium [Mass/Vol] 10.1 mg/dL Normal 8.7-10.2 [facility] Internal Medicine; [facility] Work Phone: Comment on above: PATIENT NOT FASTINGP ERFORMED BY: CB [facility] Mjsesk4880 [address]Dublin [place] [id number] Chloride [Moles/Vol] 102 mmol/L Normal 96-106 Comp re[facility] Internal Medicine; [facility] Work Phone: Comment on above: PATIENT NOT FASTINGP ERFORMED BY: Dami Ygxipg4507 [facility] [id number] CO2 [Moles/Vol] 23 mmol/L Normal 20-29 [facility] Internal Medicine; [facility] Work Phone: Comment on above: PATIENT NOT FASTINGP ERFORMED BY: [facility]CoTrent[facility] HospitalCnjksa4870 [facility] [id number] Creatinine [Mass/Vol] 0.91 mg/dL Normal 0.57-1.00 [facility] prehensive Internal Medicine; [facility] Work Phone: Comment on above: PATIENT NOT FASTINGP ERFORMED BY: [facility]6370 [facility] [id number] GFR/1.73 sq M.predicted among blacks CKD-EPI (S/P/Bld) [Vol rate/Area] 91 mL/min/1.73 Normal [facility]; [facility] Work Phone: Comment on above: [facility] currently reports eGFR in compliance with the current recommendations of the National Kidney Foundation. [facility] will update reporting as new guidelines are published from the NKF-ASN Task force. PATIENT NOT FASTINGP ERFORMED BY: [facility]6370 [facility] [id number] GFR/1.73 sq M.predicted among non-blacks CKD-EPI (S/P/Bld) [Vol rate/Area] 79 mL/min/1.73 Normal [facility]; [facility] Work Phone: Comment on above: PATIENT NOT FASTINGP ERFORMED BY: [facility] Zyyrfg2524 [facility] [id number] Globulin (S) [Mass/Vol] 2.6 g/dL Normal 1.5-4.5 [facility]; [facility] Work Phone: Comment on above: PATIENT NOT FASTINGP ERFORMED BY: LINDSEY Lomax Juesmc[address] [facility] [id number] Glucose [Mass/Vol] 82 mg/dL Normal 65-99 [facility] Internal Medicine; [facility] Work Phone: Comment on above: PATIENT NOT FASTINGP ERFORMED BY: LINDSEY Doll6[address] [facility] [id number] Potassium [Moles/Vol] 4.1 mmol/L Normal 3.5-5.2 [facility]; [facility] Work Phone: Comment on above: PATIENT NOT FASTINGP ERFORMED BY: LINDSEY LabBaltazar Hhlgtq[address] [facility] [id number] Protein [Mass/Vol] 7.3 g/dL Normal 6.0-8.5 [facility] Internal Medicine; [facility] Work Phone: Comment on above: PATIENT NOT FASTINGP ERFORMED BY: LINDSEY Lomax Yvgkue0613 [address] [facility] [id number] Sodium [Moles/Vol] 141 mmol/L Normal 134-144 [facility] Internal Medicine; [facility] Work Phone: Comment on above: PATIENT NOT FASTINGP ERFORMED BY: LINDSEY Encisolin6370 [facility] [id number] Urea nitrogen [Mass/Vol] 13 mg/dL Normal 6-24 [facility]; [facility] Work Phone: Comment on above: PATIENT NOT FASTINGP ERFORMED BY: LINDSEY Lomax Alkedf2749 [facility] [id number] Urea nitrogen/Creatinine [Mass ratio] 14 mg/mg Normal 9-23 [facility]; [facility] Work Phone: Comment on above: PATIENT NOT FASTINGP ERFORMED BY: LINDSEY Lomax Pfsapu9704 [facility] [id number] RHEUMATOID FACTOR-QUANT (763 31)Ordered By: Hair Salon Manager on 03-19-2021 Rheumatoid factor Qn [IU]/mL Normal 0.0-13.9 [facility]; [facility] Work Phone: Comment on above: PATIENT NOT FASTINGP ERFORMED BY: LINDSEY [facility] Froxzh28[address] [place] [id number] SED RATE ERYTHROCYTE ([id number]) Ordered By: Hair Salon Manager on 03-19-2021 ESR (Bld) [Velocity] 11 mm/h Normal 0-32 Comp [facility]; [facility] Work Phone: Comment on above: PATIENT NOT FASTINGP ERFORMED BY: CB [facility] Cbdodx1745 [address]Dublin [place] [id number] TSH ([id number])Ordered By: FanGager (MyBrandz)e m Organizational Research Consultant on 03-19-2021 TSH Qn 3.860 {uIU/mL} Normal 0.450-4.500 [facility] Internal Medicine; [facility] Work Phone: Comment on above: PATIENT NOT FASTINGP ERFORMED BY: CB [facility] Tlmwja5376 [address] RoadDublin [place] [id number] VITAMIN B-12 (CYANOCOBALAMIN ) ([id number])Ordered By: Hair Salon Manager on 03-19-2021 Cobalamin (Vitamin B12) [Mass/Vol] 889 pg/mL Normal 232-1245 [facility]; [facility] Work Phone: Comment on above: PATIENT NOT FASTINGP ERFORMED BY: CB [facility] Vbgopa0980 [address] [place] [id number] Ernesto 10-10-2019 CNOV Office Visit (CICI COSTA) -------- BESSIE KENNEDY ([id number]) 1980 F Date Time Provider Department 10/10/19 10:45 AM MORALES VARGAS During your visit today, we recorded the following information about you: Pulse Blood pressure Weight Height 91/minute 116/78 69.4 kg 1.575 m Morales Vargas MD 10/10/2019 11:42 AM Signed Bessie Kennedy is a 39 year old female here for bilateral lower extremity leg swelling. HPI: This is a very pleasant 39-year-old female who presents today with bilateral lower extremity leg swelling and pain. Basically she gets the pain when her legs get significantly swollen and she has had this problem for a number of years. She really states nothing that has significantly improve this. She has tried compression stockings but states these seem to make her leg worse. At this point in time she has had no evidence of any particular issues with any sores or ulcerations. She has had no history of deep vein thrombosis. She has had at least 2 ultrasounds one done very recently that shows bilateral normal deep venous system without evidence of deep venous thrombosis. The study done about 2 years ago on her right leg basically showed evidence of no deep vein thrombosis and no valvular insufficiency at that time. I do explain to the patient that you can have venous insufficiency without having large vessel venous valvular insufficiency noted. She does not have any issues with significant feet swelling and I do not feel that she has lymphedema by her description. MEDICATIONS: Current Outpatient Medications Medication Sig Dispense Refill - Hydrochlorothiazide 12.5 mg capsule Take 1 capsule by mouth once daily. 30 capsule 12 - predniSONE (DELTASONE) 20 mg tablet Take 2 tablets by mouth once daily. (Patient not taking: Reported on 10/10/2019 ) 10 tablet 0 - triamcinolone acetonide (KENALOG) 0.1 % cream Apply 1 application to affected area three times daily. Apply sparingly to area for rash/itching. (Patient not taking: Reported on 10/10/2019 ) 30 g 0 - albuterol HFA (PROVENTIL HFA, VENTOLIN HFA) 90 mcg/actuation inhaler Inhale 2 Puffs as instructed every 6 hours as needed. (Patient not taking: Reported on 10/10/2019 ) 1 Inhaler 0 No current facility-administered medications for this visit. ALLERGIES No Known Allergies BP 116/78 Pulse 91 Ht 5' 2 (1.58m) Wt 153 lb (69.4kg) SpO2 98% BMI 27.98 kg/(m2). PHYSICAL EXAM: Well-developed well-nourished white female alert and oriented person place and time in no acute distress the time the examination. No respiratory distress is noted pulse rate is regular. Pulses in the feet are normal. Lower extremities are examined and the patient has soft normal appearing tissue in the lower extremities with some mild varicosities around the ankles bilaterally. She has swelling in the calf up to the knee which is nonpitting and is relatively soft. She has several areas that she states 10 to stay firm and I palpate these and I do see what she is talking about but there is no evidence of phlebitis or a thrombosed varix in these locations. ASSESSMENT: This patient has chronic venous insufficiency and basically has very few options other than compression to treat this. There is an outside possibility she could have something going on in her abdomen that could be compressing her venous outflow and I do not see any specific scans done there however I'm not sure with the chronic nature of this that that would be very effective in actually giving us an answer. Also despite the fact that her recent study does not mention her superficial venous insufficiency I would be doubtful that that is a primary issue here and I don't think that venous insufficiency testing at this point is warranted she has had the appropriate testing performed prior to coming here. All in all I spent a long time discussing venous disease the in adequacies of our treatments and the types of things we can potentially try. I did talk to her about trying ydmk-qwj-miwwaqx compression to see if she could potentially have a better result with this and we talked about venous pumping with a K [place] aided compression pump. She states that she is actually seen these online and I encourage her to potentially try this. Otherwise I tell her that this is a very discouraging thing for us to have to treat his vascular surgeons as there are very few good surgical treatments for leg swelling and venous insufficiency. I do mention especially wearing compression on trips and in addition proceeding with beginning a coated baby aspirin to decrease risk of thrombosis. I also cautioned about any infection that she might start to get in the lower extremities that this should be treated aggressively as we do know that recurrent bouts of infection will only make the swelling worse. PLAN: Patient is going to try some klgx-iim-fzooldp compression and potentially get a venous pump and try this for several months and see me back in the [place] office in 3 months FOLLOW UP: Patient is to see me in the [place] office in 3 months. Morales Vargas MD This note was generated with Nurigeneation software. It may contain incorrect words, spelling, and punctuation and that were not noted in review of the chart prior to signing. I spent 30 minutes in the visit, with more than 50% of the total yonl-cj-zzha time of the visit in counseling / coordination of care. Referring Provider: SELF [200] Allergies As of Date: 10/10/2019 (No Known Allergies) Date Reviewed: 10/10/2019 Reviewed by: Kayla Morrissey) Leticia - Fully Assessed Reason for Visit: New Patient Evaluation [154] Cmt: referral from Dr. De Leon for leg edema and venous insuffiency Primary Visit Diagnosis:Venous (peripheral) insufficiency [I87.2] Prescriptions as of 10/10/2019 Sig: HYDROCHLOROTHIAZIDE 12.5 MG C* Take 1 capsule by mouth once * PREDNISONE 20 MG TABLET Take 2 tablets by mouth once * Patient not taking: Reported on 10/10/2019 TRIAMCINOLONE ACETONIDE 0.1 %* Apply 1 application to affect* Patient not taking: Reported on 10/10/2019 ALBUTEROL SULFATE HFA 90 MCG/* Inhale 2 Puffs as instructed * Patient not taking: Reported on 10/10/2019 Problem List As Of Date: 10/10/2019 (None) Disposition: Return in about 3 months (around 01/08/2020) for venous insufficiency. Follow-up and Disposition History Recorded Letter Text Encounter Status:Closed by MORALES VARGAS MD on 10/10/19 [facility] PROGRESSon 10-10-2019 PROGRESS HNO ID: [id number] Author: Morales Vargas Service: ? Author Type: Physician Type: Progress Notes Filed: 10/10/2019 11:42 AM Note Text: Bessie Kennedy is a 39 year old female here for bilateral lower extremity leg swelling. HPI: This is a very pleasant 39-year-old female who presents today with bilateral lower extremity leg swelling and pain. Basically she gets the pain when her legs get significantly swollen and she has had this problem for a number of years. She really states nothing that has significantly improve this. She has tried compression stockings but states these seem to make her leg worse. At this point in time she has had no evidence of any particular issues with any sores or ulcerations. She has had no history of deep vein thrombosis. She has had at least 2 ultrasounds one done very recently that shows bilateral normal deep venous system without evidence of deep venous thrombosis. The study done about 2 years ago on her right leg basically showed evidence of no deep vein thrombosis and no valvular insufficiency at that time. I do explain to the patient that you can have venous insufficiency without having large vessel venous valvular insufficiency noted. She does not have any issues with significant feet swelling and I do not feel that she has lymphedema by her description. MEDICATIONS: Current Outpatient Medications Medication Sig Dispense Refill - Hydrochlorothiazide 12.5 mg capsule Take 1 capsule by mouth once daily. 30 capsule 12 - predniSONE (DELTASONE) 20 mg tablet Take 2 tablets by mouth once daily. (Patient not taking: Reported on 10/10/2019 ) 10 tablet 0 - triamcinolone acetonide (KENALOG) 0.1 % cream Apply 1 application to affected area three times daily. Apply sparingly to area for rash/itching. (Patient not taking: Reported on 10/10/2019 ) 30 g 0 - albuterol HFA (PROVENTIL HFA, VENTOLIN HFA) 90 mcg/actuation inhaler Inhale 2 Puffs as instructed every 6 hours as needed. (Patient not taking: Reported on 10/10/2019 ) 1 Inhaler 0 No current facility-administered medications for this visit. ALLERGIES No Known Allergies BP 116/78 Pulse 91 Ht 5' 2 (1.58m) Wt 153 lb (69.4kg) SpO2 98% BMI 27.98 kg/(m2). PHYSICAL EXAM: Well-developed well-nourished white female alert and oriented person place and time in no acute distress the time the examination. No respiratory distress is noted pulse rate is regular. Pulses in the feet are normal. Lower extremities are examined and the patient has soft normal appearing tissue in the lower extremities with some mild varicosities around the ankles bilaterally. She has swelling in the calf up to the knee which is nonpitting and is relatively soft. She has several areas that she states 10 to stay firm and I palpate these and I do see what she is talking about but there is no evidence of phlebitis or a thrombosed varix in these locations. ASSESSMENT: This patient has chronic venous insufficiency and basically has very few options other than compression to treat this. There is an outside possibility she could have something going on in her abdomen that could be compressing her venous outflow and I do not see any specific scans done there however I'm not sure with the chronic nature of this that that would be very effective in actually giving us an answer. Also despite the fact that her recent study does not mention her superficial venous insufficiency I would be doubtful that that is a primary issue here and I don't think that venous insufficiency testing at this point is warranted she has had the appropriate testing performed prior to coming here. All in all I spent a long time discussing venous disease the in adequacies of our treatments and the types of things we can potentially try. I did talk to her about trying fhqa-ndm-aazmpkl compression to see if she could potentially have a better result with this and we talked about venous pumping with a K [place] aided compression pump. She states that she is actually seen these online and I encourage her to potentially try this. Otherwise I tell her that this is a very discouraging thing for us to have to treat his vascular surgeons as there are very few good surgical treatments for leg swelling and venous insufficiency. I do mention especially wearing compression on trips and in addition proceeding with beginning a coated baby aspirin to decrease risk of thrombosis. I also cautioned about any infection that she might start to get in the lower extremities that this should be treated aggressively as we do know that recurrent bouts of infection will only make the swelling worse. PLAN: Patient is going to try some aboc-xvv-qnwlget compression and potentially get a venous pump and try this for several months and see me back in the [place] office in 3 months FOLLOW UP: Patient is to see me in the [place] office in 3 months. Morales Vargas MD This note was generated with PublicRelay dictation software. It may contain incorrect words, spelling, and punctuation and that were not noted in review of the chart prior to signing. I spent 30 minutes in the visit, with more than 50% of the total iklq-zt-qcsz time of the visit in counseling / coordination of care. [facility] Creatine Kinase Total ([id number] )Ordered By: Hair Salon Manager on 07-03-2019 CK [Catalytic activity/Vol] 88 U/L Normal 24-173 [facility] Work Phone: Comment on above: PATIENT NOT FASTINGP ERFORMED BY: [facility] HospitalJjlfla0162 [facility] [id number] Metabolic Panel, Basic (8004 [id number])Ordered By: Hair Salon Manager on 07-03-2019 Calcium [Mass/Vol] 9.6 mg/dL Normal 8.7-10.2 [facility] Internal Medicine Work Phone: Comment on above: PATIENT NOT FASTINGP ERFORMED BY: CB [facility] Chrgmd5923 [address]Dublin [place] [id number] Chloride [Moles/Vol] 102 mmol/L Normal 96-106 [facility] Internal Medicine Work Phone: Comment on above: PATIENT NOT FASTINGP ERFORMED BY: CB [facility] Lhqgnz5358 [address] RoadDublin [place] [id number] CO2 [Moles/Vol] 24 mmol/L Normal 20-29 [facility] Internal Medicine Work Phone: Comment on above: PATIENT NOT FASTINGP ERFORMED BY: CB [facility] Sywwha5519 [address] RoadDublin [place] [id number] Creatinine [Mass/Vol] 0.92 mg/dL Normal 0.57-1.00 [facility] Internal Medicine Work Phone: Comment on above: PATIENT NOT FASTINGP ERFORMED BY: CB [facility] Cqcnub7000 [address] RoadDublin [place] [id number] GFR/1.73 sq M predicted among blacks CKD-EPI (S/P/Bld) [Vol rate/Area] 91 mL/min/1.73 Normal [facility] Work Phone: Comment on above: PATIENT NOT FASTINGP ERFORMED BY: CB [facility] Xedjwg0003 [address] RoadDublin [place] [id number] GFR/1.73 sq M predicted among non-blacks CKD-EPI (S/P/Bld) [Vol rate/Area] 79 mL/min/1.73 Normal [facility] Work Phone: Comment on above: PATIENT NOT FASTINGP ERFORMED BY: CB [facility] Cewwfz1403 [address] RoadDublin [place] [id number] Glucose [Mass/Vol] 62 mg/dL Abnormal 65-99 [facility] Internal Medicine Work Phone: Comment on above: PATIENT NOT FASTINGP ERFORMED BY: LINDSEY [facility] Vrsmaf4789 [address] RoadDublin [place] [id number] Potassium [Moles/Vol] 3.8 mmol/L Normal 3.5-5.2 [facility] prehensive Internal Medicine Work Phone: Comment on above: PATIENT NOT FASTINGP ERFORMED BY: CB [facility] Nasjqa1793 [address] RoadDublin [place] [id number] Sodium [Moles/Vol] 143 mmol/L Normal 134-144 Compre [facility] Internal Medicine Work Phone: Comment on above: PATIENT NOT FASTINGP ERFORMED BY: CB [facility] Jhqlvr5721 [address] RoadDublin [place] [id number] Urea nitrogen [Mass/Vol] 12 mg/dL Normal 6-20 [facility] Work Phone: Comment on above: PATIENT NOT FASTINGP ERFORMED BY: CB [facility] Fexyiv1202 [address] RoadDublin [place] [id number] Urea nitrogen/Creatinine [Mass ratio] 13 mg/mg Normal 9-23 [facility] Work Phone: Comment on above: PATIENT NOT FASTINGP ERFORMED BY: LINDSEY [facility] Ioshpj2265 [address] RoadDublin [place] [id number] AMMONIA ([id number])Ordered By: S ystem Organizational Research Consultant on 06-12-2019 Ammonia (P) [Mass/Vol] 31 ug/dL Normal 19-87 [facility] Work Phone: Comment on above: PATIENT NOT FASTINGP ERFORMED BY: CB [facility] Lfwjyw4748 [address] RoadDublin [place] [id number] FARZAD (ANTINUCLEAR ANTIBODY) ( [id number])Ordered By: Hair Salon Manager on 06-12-2019 Nuclear Ab Ql (S) Negative Normal Compreh ensive Internal Medicine Work Phone: Comment on above: PATIENT NOT FASTINGP ERFORMED BY: CB [facility] Lueivo7389 [address] RoadDublin [place] [id number] Nuclear Ab Ql (S) Negative Normal Compreh ensive Internal Medicine; [facility] Work Phone: Comment on above: PATIENT NOT FASTINGP ERFORMED BY: LINDSEY [facility] Cqqjtt7757 [address] RoadDublin [place] [id number] CALCIFIDIOL (15569) VIT D 25 Ordered By: Hair Salon Manager on 06-12-2019 25-Hydroxyvitamin D2+25-Hydroxyvitamin D3 [Mass/Vol] 41.4 ng/mL Normal 30.0-100.0 [facility] Work Phone: Comment on above: Vitamin D deficiency has been defined by the [employer] and an Endocrine Society practice guideline as alevel of serum 25-OH vitamin D less than 20 ng/mL (1,2).The Endocrine Society went on to further define vitamin Dinsufficiency as a level between 21 and 29 ng/mL (2).1. IOM ([employer]). 2010. Dietary reference intakes for calcium and D. [place]: The National Academies Press.2. Dequan MF, Meghan NC, Angie ALEXANDRE, et al. Evaluation, treatment, and prevention of vitamin D deficiency: an Endocrine Society clinical practice guideline. JCEM. 2010; 96(7):1911-30. PATIENT NOT FASTINGP ERFORMED BY: LINDSEY [facility] Xmttfi1271 [address] RoadDublin [place] [id number] Lipid Panel (55383)Ordered B y: Hair Salon Manager on 06-12-2019 Cholesterol [Mass/Vol] 194 mg/dL Normal 100-199 [facility] Work Phone: Comment on above: PATIENT WAS FASTINGP ERFORMED BY: CB [facility] Jlrusz9062 [address] RoadDublin [place] [id number] Cholesterol in HDL [Mass/Vol] 53 mg/dL Normal [facility] Work Phone: Comment on above: PATIENT WAS FASTINGP ERFORMED BY: CB [facility] Lqfmpx5271 [address] RoadDublin [place] [id number] Cholesterol in LDL [Mass/Vol] 124 mg/dL Abnormal 0-99 [facility] Work Phone: Comment on above: PATIENT WAS FASTINGP ERFORMED BY: CB [facility] Tngjlc5980 [address] RoadDublin [place] [id number] Cholesterol in LDL/Cholesterol in HDL [Mass ratio] 2.3 {ratio} Normal 0.0-3.2 [facility] Work Phone: Comment on above: LDL/HDL Ratio Men Wo men 1/2 Avg.Risk 1.0 1.5 Avg.Risk 3.6 3.2 2X Avg.Risk 6.2 5.0 3X Avg.Risk 8.0 6.1 PATIENT WAS FASTINGP ERFORMED BY: LINDSEY Encisolin6370 [facility]uUNC [facility] [id number] Cholesterol in VLDL [Mass/Vol] 17 mg/dL Normal 5-40 [facility] Work Phone: Comment on above: PATIENT WAS FASTINGP ERFORMED BY: LINDSEY Encisolin6370 [facility]uUNC [facility] [id number] Triglyceride [Mass/Vol] 87 mg/dL Normal 0-149 [facility] Work Phone: Comment on above: PATIENT WAS FASTINGP ERFORMED BY: LINDSEY Encisolin6370 [facility]ututuUNC [facility] [id number] MICROALBUMINOrdered By: Syst em Organizational Research Consultant on 06-12-2019 Albumin DL <= 20 mg/L (U) [Mass/Vol] 8.0 ug/mL Normal [facility] Work Phone: Comment on above: PATIENT NOT FASTINGP ERFORMED BY: LINDSEY Encisolin6370 WututuUNC [facility] [id number] Albumin/Creatinine (U) [Mass ratio] 4.4 {mg/g_creat} Normal 0.0-30.0 [facility] Work Phone: Comment on above: Normal: 0.0 - 30.0 A lbuminuria: 31.0 - 300.0 Clinical albuminuria: >300.0 PATIENT NOT FASTINGP ERFORMED BY: LINDSEY Encisolin6370 [facility]uUNC [facility] [id number] Creatinine (U) [Mass/Vol] 183.2 mg/dL Normal [facility] Work Phone: Comment on above: PATIENT NOT FASTINGP ERFORMED BY: LINDSEY Encisolin6370 [address]Dublin [place] [id number] Metabolic Panel, Comprehensi ve (90104)Ordered By: Hair Salon Manager on 06-12-2019 Albumin [Mass/Vol] 4.3 g/dL Normal 3.5-5.5 [facility] Internal Medicine Work Phone: Comment on above: PATIENT NOT FASTINGP ERFORMED BY: CB [facility] Jddbir4516 [address] RoadDublin [place] [id number] Albumin/Globulin [Mass ratio] 1.9 {ratio} Normal 1.2-2.2 [facility] Work Phone: Comment on above: PATIENT NOT FASTINGP ERFORMED BY: CB [facility] Pdvnzi8876 [address] RoadDublin [place] [id number] ALP [Catalytic activity/Vol] 44 [iU]/L Normal 39-117 [facility] Work Phone: Comment on above: PATIENT NOT FASTINGP ERFORMED BY: CB [facility] Doyeix4874 [address] RoadDublin [place] [id number] ALP [Catalytic activity/Vol] 44 U/L Normal 39-117 [facility]; [facility] Work Phone: Comment on above: PATIENT NOT FASTINGP ERFORMED BY: CB [facility] Bnkdmc1897 [address] RoadDublin [place] [id number] ALT [Catalytic activity/Vol] 9 [iU]/L Normal 0-32 [facility] Work Phone: Comment on above: PATIENT NOT FASTINGP ERFORMED BY: CB [facility] Csjipf4421 [address] RoadDublin [place] [id number] ALT [Catalytic activity/Vol] 9 U/L Normal 0-32 [facility]; [facility] Work Phone: Comment on above: PATIENT NOT FASTINGP ERFORMED BY: CB [facility] Hdzxuv2477 [address] RoadDublin [place] [id number] AST [Catalytic activity/Vol] 15 [iU]/L Normal 0-40 [facility] Work Phone: Comment on above: PATIENT NOT FASTINGP ERFORMED BY: CB [facility] Fsmdkk5716 [address] RoadDublin [place] [id number] AST [Catalytic activity/Vol] 15 U/L Normal 0-40 [facility]; [facility] Work Phone: Comment on above: PATIENT NOT FASTINGP ERFORMED BY: CB [facility] Fktzng0304 [address] RoadDublin [place] [id number] Bilirubin [Mass/Vol] 0.2 mg/dL Normal 0.0-1.[address] [facility] rehensive Internal Medicine Work Phone: Comment on above: PATIENT NOT FASTINGP ERFORMED BY: CB [facility] Hofmhy9084 [address] RoadDublin [place] [id number] Calcium [Mass/Vol] 9.3 mg/dL Normal 8.7-10.2 [facility] Internal Medicine Work Phone: Comment on above: PATIENT NOT FASTINGP ERFORMED BY: CB [facility] Wufkam3603 [address] RoadDublin [place] [id number] Chloride [Moles/Vol] 107 mmol/L Abnormal 96-106 [facility] Work Phone: Comment on above: PATIENT NOT FASTINGP ERFORMED BY: CB [facility] Rhxave4794 [address] RoadDublin [place] [id number] CO2 [Moles/Vol] 22 mmol/L Normal 20-29 [facility] Internal Medicine Work Phone: Comment on above: PATIENT NOT FASTINGP ERFORMED BY: CB [facility] Bnrpsg1365 [address] RoadDublin [place] [id number] Creatinine [Mass/Vol] 0.74 mg/dL Normal 0.57-1.00 [facility] Internal Medicine Work Phone: Comment on above: PATIENT NOT FASTINGP ERFORMED BY: CB [facility] Wgssza7789 [address] RoadDublin [place] [id number] GFR/1.73 sq M predicted among blacks CKD-EPI (S/P/Bld) [Vol rate/Area] 119 mL/min/1.73 Normal [facility] Internal Medicine Work Phone: Comment on above: PATIENT NOT FASTINGP ERFORMED BY: CB [facility] Ahrkds2842 [address] RoadDublin [place] [id number] GFR/1.73 sq M predicted among non-blacks CKD-EPI (S/P/Bld) [Vol rate/Area] 103 mL/min/1.73 Normal [facility] Internal Medicine Work Phone: Comment on above: PATIENT NOT FASTINGP ERFORMED BY: LINDSEY [facility] Zkrzvc3876 [address] RoadDublin [place] [id number] Globulin (S) [Mass/Vol] 2.3 g/dL Normal 1.5-4.5 [facility] Internal Medicine Work Phone: Comment on above: PATIENT NOT FASTINGP ERFORMED BY: LINDSEY [facility] Mqtdwx7532 [address] RoadDublin [place] [id number] Glucose [Mass/Vol] 77 mg/dL Normal 65-99 [facility] Internal Medicine Work Phone: Comment on above: PATIENT NOT FASTINGP ERFORMED BY: LINDSEY [facility] Oxlvcr3593 [address] RoadD[address] [place] [id number] Potassium [Moles/Vol] 4.7 mmol/L Normal 3.5-5.2 [facility] Internal Medicine Work Phone: Comment on above: PATIENT NOT FASTINGP ERFORMED BY: LINDSEY [facility] Kqhxam8085 [address] RoadDublin [place] [id number] Protein [Mass/Vol] 6.6 g/dL Normal 6.0-8.5 [facility] Internal Medicine Work Phone: Comment on above: PATIENT NOT FASTINGP ERFORMED BY: CB [facility] Uohzey7320 [address] RoadDublin [place] [id number] Sodium [Moles/Vol] 143 mmol/L Normal 134-144 [facility] Internal Medicine Work Phone: Comment on above: PATIENT NOT FASTINGP ERFORMED BY: CB [facility] Nmykua6658 [address] RoadDublin [place] [id number] Urea nitrogen [Mass/Vol] 11 mg/dL Normal 6-20 [facility] Internal Medicine Work Phone: Comment on above: PATIENT NOT FASTINGP ERFORMED BY: LINDSEY [facility] Uorvpc1196 [address] RoadDublin [place] [id number] Urea nitrogen/Creatinine [Mass ratio] 15 mg/mg Normal 9-23 [facility] Work Phone: Comment on above: PATIENT NOT FASTINGP ERFORMED BY: LINDSEY LabCotanya Fkpwii5635 [address] RoadDublin [place] [id number] SPEP ([id number])Ordered By: Syst em Organizational Research Consultant on 06-12-2019 Albumin [Mass/Vol] 3.7 g/dL Normal 2.9-4.4 [facility] Internal Medicine Work Phone: Comment on above: PATIENT NOT FASTINGP ERFORMED BY: LINDSEY [facility] Ioithe8900 Baker RoadUnc Medical Centerin [place] [id number] Albumin/Globulin [Mass ratio] 1.3 {ratio} Normal 0.7-1.7 [facility] Work Phone: Comment on above: PATIENT NOT FASTINGP ERFORMED BY: LINDSEY LabRubio EncisoKkrrit9772 [address] [facility] [id number] Alpha 1 globulin Elph [Mass/Vol] 0.3 g/dL Normal 0.0-0.4 [facility] Work Phone: Comment on above: PATIENT NOT FASTINGP ERFORMED BY: LINDSEY [facility] Kxnrqa3077 Baker RoadUnc Medical Centerin [place] [id number] Alpha 2 globulin Elph [Mass/Vol] 0.7 g/dL Normal 0.4-1.0 [facility] Work Phone: Comment on above: PATIENT NOT FASTINGP ERFORMED BY: LINDSEY [facility] Sxkhgf8263 Baker RoadUnc Medical Centerin [place] [id number] Beta globulin Elph [Mass/Vol] 1.0 g/dL Normal 0.7-1.3 [facility] Work Phone: Comment on above: PATIENT NOT FASTINGP ERFORMED BY: LINDSEY [facility] Iywkbk2795 [address] [facility] [id number] Gamma globulin Elph [Mass/Vol] 0.9 g/dL Normal 0.4-1.8 [facility] Work Phone: Comment on above: PATIENT NOT FASTINGP ERFORMED BY: LINDSEY [facility] Rrfuxg6844 [address] RoadDublin [place] [id number] Globulin (S) [Mass/Vol] 2.9 g/dL Normal 2.2-3.9 [facility] Work Phone: Comment on above: PATIENT NOT FASTINGP ERFORMED BY: CB [facility] Vhcedy8294 [address] RoadDublin [place] [id number] Laboratory comment Jethro (Report) SPRCS Normal [facility] Work Phone: Comment on above: Protein electrophore sis scan will follow via computer, mail, orcourier delivery. PATIENT NOT FASTINGP ERFORMED BY: CB [facility] Kyknuo7382 [address] RoadDublin [place] [id number] Laboratory report . Normal Compreh ensive Internal Medicine Work Phone: Comment on above: PATIENT NOT FASTINGP ERFORMED BY: [facility] Gjlfbc9[address] [facility]in [place] [id number] Protein.monoclonal Elph [Mass/Vol] Not Observed Normal [facility] Work Phone: Comment on above: PATIENT NOT FASTINGP ERFORMED BY: CB [facility] Gunddz5739 [address] RoadDublin [place] [id number] T4, FREE (THYROXINE) ([id number]) Ordered By: Hair Salon Manager on 06-12-2019 Free T4 [Mass/Vol] 1.14 ng/dL Normal 0.82-1.77 Compre [facility] Internal Medicine Work Phone: Comment on above: PATIENT NOT FASTINGP ERFORMED BY: CB [facility] Paicwj2220 [address] RoadDublin [place] [id number] TSH ([id number])Ordered By: Syste m Organizational Research Consultant on 06-12-2019 TSH Qn 1.550 {uIU/mL} Normal 0.450-4.500 Comprehen [facility] Internal Medicine Work Phone: Comment on above: PATIENT NOT FASTINGP ERFORMED BY: CB [facility] Clwphc1603 [address] RoadDublin [place] [id number] AMYLASE ([id number])Ordered By: S ystem Organizational Research Consultant on 11-17-2018 Amylase [Catalytic activity/Vol] 69 U/L Normal 31-124 [facility] Work Phone: Comment on above: PATIENT NOT FASTINGP ERFORMED BY: LINDSEY LabBaltazar Qopfyk8848 [facility] [id number] C-REACTIVE PROTEIN ([id number])Or dered By: Hair Salon Manager on 11-17-2018 CRP [Mass/Vol] 0.7 mg/L Normal 0.0-4.9 [facility] Work Phone: Comment on above: PATIENT NOT FASTINGP ERFORMED BY: LINDSEY [facility] Bnmndt3588 [facility] [id number] CBC W/AUTO DIFF WBC (90169)O rdered By: Hair Salon Manager on 11-17-2018 Basophils (Bld) [#/Vol] 0.0 {x10E3/uL} Normal 0.0-0.2 [facility] Work Phone: Comment on above: PATIENT NOT FASTINGP ERFORMED BY: LINDSEY Lomax Bokwah9026 [facility] [id number] Basophils (Bld) [#/Vol] 0.0 10*3/uL Normal 0.0-0.2 [facility]; [facility] Work Phone: Comment on above: PATIENT NOT FASTINGP ERFORMED BY: LINDSEY Lomax Xqvlue4202 [facility] [id number] Basophils/100 WBC (Bld) 0 % Normal [facility] Work Phone: Comment on above: PATIENT NOT FASTINGP ERFORMED BY: LINDSEY [facility] Wklsma9607 [facility] [id number] Eosinophils (Bld) [#/Vol] 0.5 {x10E3/uL} Abnormal 0.0-0.4 [facility] Work Phone: Comment on above: PATIENT NOT FASTINGP ERFORMED BY: LabCoTrenton Psychiatric HospitalXedrpf9759 [facility] [id number] Eosinophils (Bld) [#/Vol] 0.5 10*3/uL Abnormal 0.0-0.4 [facility]; [facility] Work Phone: Comment on above: PATIENT NOT FASTINGP ERFORMED BY: CB [facility] Lmjrup0847 [address] RoadDublin [place] [id number] Eosinophils/100 WBC (Bld) 5 % Normal [facility] Work Phone: Comment on above: PATIENT NOT FASTINGP ERFORMED BY: CB [facility] Nllmfu2961 [address] Roadblin [place] [id number] Erythrocyte distribution width (RBC) [Ratio] 14.3 % Normal 12.3-15.4 [facility] Work Phone: Comment on above: PATIENT NOT FASTINGP ERFORMED BY: CB [facility] Pgtdbo0402 [address] RoadDublin [place] [id number] Hematocrit (Bld) [Volume fraction] 40.5 % Normal 34.0-46.6 [facility] Work Phone: Comment on above: PATIENT NOT FASTINGP ERFORMED BY: CB [facility] Ytnqdx9222 [address] Roadblin [place] [id number] Hemoglobin (Bld) [Mass/Vol] 13.4 g/dL Normal 11.1-15.9 [facility] Work Phone: Comment on above: PATIENT NOT FASTINGP ERFORMED BY: CB [facility] Gylkoq3535 [address] RoadDublin [place] [id number] Immature granulocytes (Bld) [#/Vol] 0.0 {x10E3/uL} Normal 0.0-0.1 [facility] Work Phone: Comment on above: PATIENT NOT FASTINGP ERFORMED BY: CB [facility] Ojewqs0625 [address] RoadDublin [place] [id number] Immature granulocytes (Bld) [#/Vol] 0.0 10*3/uL Normal 0.0-0.1 [facility]; [facility] Work Phone: Comment on above: PATIENT NOT FASTINGP ERFORMED BY: CB [facility] Byasxh2916 [address] RoadDublin [place] [id number] Immature granulocytes/100 WBC (Bld) 0 % Normal [facility] Work Phone: Comment on above: PATIENT NOT FASTINGP ERFORMED BY: LINDSEY LabCotanya Matoet7848 [address] [facility] Hospitalblin [place] [id number] Lymphocytes (Bld) [#/Vol] 2.7 {x10E3/uL} Normal 0.7-3.1 [facility] Work Phone: Comment on above: PATIENT NOT FASTINGP ERFORMED BY: LINDSEY [facility] Isfqev8952 [address] [facility]in [place] [id number] Lymphocytes (Bld) [#/Vol] 2.7 10*3/uL Normal 0.7-3.1 [facility]; [facility] Work Phone: Comment on above: PATIENT NOT FASTINGP ERFORMED BY: LINDSEY Doll6370 [address] [facility] [id number] Lymphocytes/100 WBC (Bld) 28 % Normal [facility] Work Phone: Comment on above: PATIENT NOT FASTINGP ERFORMED BY: LINDSEY Lomax Qnmjlp2971 [address] [facility] [id number] MCH (RBC) [Entitic mass] 30.1 pg Normal 26.6-33.0 [facility] Work Phone: Comment on above: PATIENT NOT FASTINGP ERFORMED BY: LINDSEY LabRubio EncisoNjaort0145 [address] [facility]in [place] [id number] MCHC (RBC) [Mass/Vol] 33.1 g/dL Normal 31.5-35.7 [facility] prehensive Internal Medicine Work Phone: Comment on above: PATIENT NOT FASTINGP ERFORMED BY: LINDSEY [facility] Swaunt1088 [address] [facility]in [place] [id number] MCV (RBC) [Entitic vol] 91 fL Normal 79-97 [facility] Work Phone: Comment on above: PATIENT NOT FASTINGP ERFORMED BY: LINDSEY LabCotanya EncisoWrewbx0516 [address] [facility]in [place] [id number] Monocytes (Bld) [#/Vol] 0.6 {x10E3/uL} Normal 0.1-0.9 [facility] Work Phone: Comment on above: PATIENT NOT FASTINGP ERFORMED BY: CB [facility] Iixwlm3047 [address] RoadDublin [place] [id number] Monocytes (Bld) [#/Vol] 0.6 10*3/uL Normal 0.1-0.9 [facility]; [facility] Work Phone: Comment on above: PATIENT NOT FASTINGP ERFORMED BY: CB [facility] Nkosvd8003 [address] RoadD[address] [place] [id number] Monocytes/100 WBC (Bld) 6 % Normal [facility] Work Phone: Comment on above: PATIENT NOT FASTINGP ERFORMED BY: CB [facility] Icmzeh0040 [address] RoadDublin [place] [id number] Neutrophils (Bld) [#/Vol] 5.7 {x10E3/uL} Normal 1.4-7.0 [facility] Work Phone: Comment on above: PATIENT NOT FASTINGP ERFORMED BY: CB [facility] Dsucui6171 [address] RoadDublin [place] [id number] Neutrophils (Bld) [#/Vol] 5.7 10*3/uL Normal 1.4-7.0 [facility]; [facility] Work Phone: Comment on above: PATIENT NOT FASTINGP ERFORMED BY: CB [facility] Qrvaiy5070 [address] RoadDublin [place] [id number] Neutrophils/100 WBC (Bld) 61 % Normal [facility] Work Phone: Comment on above: PATIENT NOT FASTINGP ERFORMED BY: CB [facility] Zfkizn5547 [address] RoadDublin [place] [id number] Platelets (Bld) [#/Vol] 284 {x10E3/uL} Normal 150-379 [facility] Work Phone: Comment on above: PATIENT NOT FASTINGP ERFORMED BY: CB [facility] Kpmfgm5783 [address] RoadDublin [place] [id number] Platelets (Bld) [#/Vol] 284 10*3/uL Normal 150-379 [facility]; [facility] Work Phone: Comment on above: PATIENT NOT FASTINGP ERFORMED BY: LINDSEY [facility] Kdjgkx9811 [address] RoadDublin [place] [id number] RBC (Bld) [#/Vol] 4.45 {x10E6/uL} Normal 3.77-5.28 [facility] Internal Medicine Work Phone: Comment on above: PATIENT NOT FASTINGP ERFORMED BY: CB [facility] Wpquqt5648 [address] RoadDublin [place] [id number] RBC (Bld) [#/Vol] 4.45 10*6/uL Normal 3.77-5.28 [facility] Internal Medicine; [facility] Work Phone: Comment on above: PATIENT NOT FASTINGP ERFORMED BY: CB [facility] Zexazy5350 [address] RoadDublin [place] [id number] WBC (Bld) [#/Vol] 9.4 {x10E3/uL} Normal 3.4-10.8 [facility] Internal Medicine Work Phone: Comment on above: PATIENT NOT FASTINGP ERFORMED BY: CB [facility] Ttevwj7903 [address] RoadDublin [place] [id number] WBC (Bld) [#/Vol] 9.4 10*3/uL Normal 3.4-10.8 [facility] Internal Medicine; [facility] Work Phone: Comment on above: PATIENT NOT FASTINGP ERFORMED BY: CB [facility] Cxoyre3638 [address]Dublin [place] [id number] LIPASE ([id number])Ordered By: stem Organizational Research Consultant on 11-17-2018 Lipase [Catalytic activity/Vol] 42 U/L Normal 14-72 [facility] Work Phone: Comment on above: PATIENT NOT FASTINGP ERFORMED BY: CB [facility] Arhzlx6643 [address] RoadDublin [place] [id number] METABOLIC PANEL, COMPREHENSI VE (48382)Ordered By: Hair Salon Manager on 11-17-2018 Albumin [Mass/Vol] 4.5 g/dL Normal 3.5-5.5 [facility] Internal Medicine Work Phone: Comment on above: PATIENT NOT FASTINGP ERFORMED BY: LINDSEY [facility] Wfchxi3400 [address] RoadDublin [place] [id number] Albumin/Globulin [Mass ratio] 1.9 {ratio} Normal 1.2-2.2 [facility] Work Phone: Comment on above: PATIENT NOT FASTINGP ERFORMED BY: LINDSEY [facility] Arxgoc3261 [address] RoadDublin [place] [id number] ALP [Catalytic activity/Vol] 52 [iU]/L Normal 39-117 [facility] Work Phone: Comment on above: PATIENT NOT FASTINGP ERFORMED BY: CB [facility] Yivqrt0936 [address] RoadDublin [place] [id number] ALP [Catalytic activity/Vol] 52 U/L Normal 39-117 [facility]; [facility] Work Phone: Comment on above: PATIENT NOT FASTINGP ERFORMED BY: LINDSEY [facility] Wmgfie2487 [address] RoadDublin [place] [id number] ALT [Catalytic activity/Vol] 15 [iU]/L Normal 0-32 [facility] Work Phone: Comment on above: PATIENT NOT FASTINGP ERFORMED BY: LINDSEY [facility] Vdvqih4902 [address] RoadDublin [place] [id number] ALT [Catalytic activity/Vol] 15 U/L Normal 0-32 [facility]; [facility] Work Phone: Comment on above: PATIENT NOT FASTINGP ERFORMED BY: CB [facility] Aoapqt1090 [address] RoadDublin [place] [id number] AST [Catalytic activity/Vol] 19 [iU]/L Normal 0-40 [facility] Work Phone: Comment on above: PATIENT NOT FASTINGP ERFORMED BY: CB [facility] Msrgfn0897 [address] RoadD[address] [place] [id number] AST [Catalytic activity/Vol] 19 U/L Normal 0-40 [facility]; [facility] Work Phone: Comment on above: PATIENT NOT FASTINGP ERFORMED BY: CB [facility] Mvawqm6581 [address] RoadDublin [place] [id number] Bilirubin [Mass/Vol] 0.4 mg/dL Normal 0.0-1.[address] [facility] rehensive Internal Medicine Work Phone: Comment on above: PATIENT NOT FASTINGP ERFORMED BY: LINDSEY [facility] Izjfni5365 [address] RoadDublin [place] [id number] Calcium [Mass/Vol] 9.5 mg/dL Normal 8.7-10.2 [facility] Internal Medicine Work Phone: Comment on above: PATIENT NOT FASTINGP ERFORMED BY: CB [facility] Dxhsvd6346 [address] RoadDublin [place] [id number] Chloride [Moles/Vol] 104 mmol/L Normal 96-106 [facility] Work Phone: Comment on above: PATIENT NOT FASTINGP ERFORMED BY: LINDSEY [facility] Xnzlxq7340 [address] RoadDublin [place] [id number] CO2 [Moles/Vol] 23 mmol/L Normal 20-29 Comprehen [facility] Internal Medicine Work Phone: Comment on above: PATIENT NOT FASTINGP ERFORMED BY: CB [facility] Ogbdua8185 [address] RoadDublin [place] [id number] Creatinine [Mass/Vol] 0.79 mg/dL Normal 0.57-1.00 [facility] Work Phone: Comment on above: PATIENT NOT FASTINGP ERFORMED BY: LINDSEY [facility] Oyxprv1511 [address] RoadDublin [place] [id number] GFR/1.73 sq M predicted among blacks CKD-EPI (S/P/Bld) [Vol rate/Area] 110 mL/min/1.73 Normal [facility] Work Phone: Comment on above: PATIENT NOT FASTINGP ERFORMED BY: CB [facility] Xtifzw9859 [address] RoadD[address] [place] [id number] GFR/1.73 sq M predicted among non-blacks CKD-EPI (S/P/Bld) [Vol rate/Area] 95 mL/min/1.73 Normal [facility] Work Phone: Comment on above: PATIENT NOT FASTINGP ERFORMED BY: CB [facility] Auajez6027 [address] RoadD[address] [place] [id number] Globulin (S) [Mass/Vol] 2.4 g/dL Normal 1.5-4.5 [facility] Internal Medicine Work Phone: Comment on above: PATIENT NOT FASTINGP ERFORMED BY: CB [facility] Olfcbv8885 [address] RoadD[address] [place] [id number] Glucose [Mass/Vol] 77 mg/dL Normal 65-99 [facility] Internal Medicine Work Phone: Comment on above: PATIENT NOT FASTINGP ERFORMED BY: CB [facility] Toiacv8751 [address] RoadD[address] [place] [id number] Potassium [Moles/Vol] 4.1 mmol/L Normal 3.5-5.2 [facility] Internal Medicine Work Phone: Comment on above: PATIENT NOT FASTINGP ERFORMED BY: LINDSEY [facility] Djrcts4385 [address] RoadDublin [place] [id number] Protein [Mass/Vol] 6.9 g/dL Normal 6.0-8.5 [facility] Internal Medicine Work Phone: Comment on above: PATIENT NOT FASTINGP ERFORMED BY: LINDSEY [facility] Gurmtw2745 [address] RoadDublin [place] [id number] Sodium [Moles/Vol] 139 mmol/L Normal 134-144 [facility] Internal Medicine Work Phone: Comment on above: PATIENT NOT FASTINGP ERFORMED BY: CB [facility] Rmakdr5908 [address] RoadD[address] [place] [id number] Urea nitrogen [Mass/Vol] 12 mg/dL Normal 6-20 [facility] Internal Medicine Work Phone: Comment on above: PATIENT NOT FASTINGP ERFORMED BY: CB [facility] Rvoeix0564 [address] RoadD[address] [place] [id number] Urea nitrogen/Creatinine [Mass ratio] 15 mg/mg Normal 9-23 [facility] Internal Medicine Work Phone: Comment on above: PATIENT NOT FASTINGP ERFORMED BY: CB [facility] Sbhszn2000 [address] RoadD[address] [place] [id number] Sed Rate Erythrocyte ([id number]) Ordered By: Hair Salon Manager on 11-17-2018 ESR (Bld) [Velocity] 2 mm/h Normal 0-32 Comp rehensive Internal Medicine Work Phone: Comment on above: PATIENT NOT FASTINGP ERFORMED BY: [facility] Tilujo[address] [place] [id number] Lab Report: CBC W/Diff, Auto matedon 07-13-2017 Basophils/100 WBC (Bld) 0.5 % Invalid Interpretation Code 0-1 [facility] Eosinophils/100 WBC (Bld) 2.2 % Invalid Interpretation Code 0-5 [facility] Erythrocyte distribution width (RBC) [Ratio] 13.7 % Invalid Interpretation Code 11.6-14.6 [facility] [facility] Hematocrit (Bld) [Volume fraction] 37.8 % Invalid Interpretation Code 37-47 [facility] Hemoglobin (Bld) [Mass/Vol] 12.8 g/dL Invalid Interpretation Code 12.0-15.0 [facility] Immature granulocytes/100 WBC (Bld) 0.100 % Invalid Interpretation Code 0.0-0.9 [facility] Lymphocytes (Bld) [#/Vol] 3.13 X10 3/UL Invalid Interpretation Code 0.83-4.51 [facility] Lymphocytes/100 WBC (Bld) 33.3 % Invalid Interpretation Code 19-41 [facility] MCH (RBC) [Entitic mass] 30.0 pg Invalid Interpretation Code 27.0-32.0 [facility] MCV (RBC) [Entitic vol] 88.5 fL Invalid Interpretation Code 81-99 [facility] mean corpuscular hemoglobin concentration, RBC 33.9 G/GL Invalid Interpretation Code 32-36 [facility] Monocytes/100 WBC (Bld) 8.1 % Invalid Interpretation Code 0-10 [facility] neutrophil count, blood 5.3 X10 3/UL Invalid Interpretation Code 2.0-7.7 [facility] Neutrophils/100 WBC (Bld) 55.8 % Invalid Interpretation Code 47-70 [facility] Platelet mean volume (Bld) [Entitic vol] 11.9 fL Invalid Interpretation Code 6.2-12.0 [facility] Platelets (Bld) [#/Vol] 231 10*3/uL Invalid Interpretation Code 150-450 [facility] RBC (Bld) [#/Vol] 4.27 10*6/uL Invalid Interpretation Code 4.2-5.4 [facility] red blood cell distribution width, size density 43.7 fL Invalid Interpretation Code 35.1-43.9 [facility] WBC (Bld) [#/Vol] 9.4 10*3/uL Invalid Interpretation Code 4.4-11.0 [facility] Office Visit: EMBon 07-13-20 Tobacco smoking status Never Invalid Interpretation Code [facility] Tobacco use status [facility] Current every day smoker Invalid Interpretation Code [facility] Lab Report: PAP I-G HPV Hi R iskon 04-23-2017 GE use only - for LinkLogic import when terms are not otherwise specified Negative Invalid Interpretation Code Negative [facility] Office Visit: new gynon 03-30 Tobacco smoking status Never Invalid Interpretation Code [facility] Tobacco use status [facility] Current every day smoker Invalid Interpretation Code [facility] Office Visit: new gynon 10-27 General categories Cyto stain (Cvx/Vag) [Interp] Normal Invalid Interpretation Code [facility] BILAT SCRN DIGITAL & CADOrde red By: Hair Salon Manager on 05-22-2013 BILAT SCRN DIGITAL & CAD See Note Normal [facility] Work Phone: Comment on above: ADDENDUM====== This is an addendumreport.There is a 1 cm x 1 cm soft tissue density just under the skin surfacealong the inferior anterior aspect of the breast. This corresponds tothepatient's history of an infected sebaceous cyst. Clinical correlation isrecommended. Signed:Dale Jones M.D.May 23, 2013 at 7:55:45 AM [id number] Signed GP/GP If you are the referring physician and would like to consult with theradiologist who provided this interpretation, please contact Jas Light at [phone]. If this radiologist is unavailable, youwill be directed to another radiologist to assist. If you are a patient with a question regarding this report, pleasecontactyour referring physician directly. Professional Interpretation Provided By: [employer], Phone , These documents contain legally protected and confidential healthinformation intended only for the use of the individual or entity namedabove. If you are not the intended recipient, you are hereby notifiedthatany disclosure, copying, distribution, or other use of these documents isstrictly prohibited. If you have received this information in error,pleasenotify the sender immediately and arrange for the return or destructionofthese documents. Dictated on 05/23/13 0755 by Uzair HARRIS,Aprilranscribed on 05/23/13 0835 by ITS IMPORTSign by Uzair HARRIS,Dale on 05/23/13 0836 Sign by: Dale Jones MD CUWOrdered By: System Manage r on 05-09-2013 CUW See Note Normal [facility] Work Phone: Comment on above: GRAM STAIN2+ WHITE B LOOD CELLSRARE RED CELL STROMARARE GRAM POSITIVE COCCI LEFT BREAST BOIL CUW No growth aerobically. Normal Co [facility] Work Phone: Comment on above: LEFT BREAST BOIL MRSADOrdered By: Maryam pedraza on 05-09-2013 MRSAD Negative Normal [facility] Work Phone: MRSAD NASAL SWAB Normal [facility] Work Phone: CBC WITH MANUAL DIFF ([id number]) Ordered By: Hair Salon Manager on 01-16-2013 Basophils (Bld) [#/Vol] 0.0 {x10E3/uL} Normal 0.0-0.2 [facility] Work Phone: Comment on above: PATIENT NOT FASTINGP ERFORMED BY: LINDSEY [facility] [id number] Information: [id number] Basophils (Bld) [#/Vol] 0.0 10*3/uL Normal 0.0-0.2 [facility]; [facility] Work Phone: Comment on above: PATIENT NOT FASTINGP ERFORMED BY: LINDSEY [facility] Myv[address] [id number] Information: [id number] Basophils Auto #/vol (Bld) 0.0 {x10E3/uL} Normal 0.0-0.2 [facility] Work Phone: Basophils/100 WBC (Bld) 1 % Normal 0-3 [facility] Work Phone: Comment on above: PATIENT NOT FASTINGP ERFORMED BY: [address] [id number] Information: [id number] Basophils/100 WBC Auto (Bld) 1 % Normal 0-3 [facility] Work Phone: Eosinophils (Bld) [#/Vol] 0.1 {x10E3/uL} Normal 0.0-0.4 [facility] Work Phone: Comment on above: PATIENT NOT FASTINGP ERFORMED BY: LINDSEY [address] [id number] Information: [id number] Eosinophils (Bld) [#/Vol] 0.1 10*3/uL Normal 0.0-0.4 [facility]; [facility] Work Phone: Comment on above: PATIENT NOT FASTINGP ERFORMED BY: LINDSEY [address] [id number] Information: [id number] Eosinophils Auto #/vol (Bld) 0.1 {x10E3/uL} Normal 0.0-0.4 [facility] Work Phone: Eosinophils/100 WBC (Bld) 1 % Normal 0-7 [facility] Work Phone: Comment on above: PATIENT NOT FASTINGP ERFORMED BY: [address] [id number] Information: [id number] Eosinophils/100 WBC Auto (Bld) 1 % Normal 0-7 [facility] Work Phone: Erythrocyte distribution width (RBC) [Ratio] 13.9 % Normal 12.3-15.4 [facility] Work Phone: Comment on above: PATIENT NOT FASTINGP ERFORMED BY: [address] [id number] Information: [id number] Erythrocyte distribution width Auto Ratio (RBC) 13.9 % Normal 12.3-15.4 [facility] Work Phone: Hematocrit (Bld) [Volume fraction] 38.3 % Normal 34.0-46.6 [facility] Internal Medicine Work Phone: Comment on above: PATIENT NOT FASTINGP ERFORMED BY: [address] [id number] Information: [id number] Hematocrit Auto Volume Fraction (Bld) 38.3 % Normal 34.0-46.6 [facility] Internal Medicine Work Phone: Hemoglobin mass conc (Bld) 12.6 g/dL Normal 11.1-15.9 [facility] Work Phone: Comment on above: PATIENT NOT FASTINGP ERFORMED BY: [address] [id number] Information: [id number] Immature granulocytes #/vol (Bld) 0.0 {x10E3/uL} Normal 0.0-0.1 [facility] Work Phone: Comment on above: PATIENT NOT FASTINGP ERFORMED BY: LINDSEY Doll6370 [facility] [id number] Information: [id number] Immature granulocytes (Bld) [#/Vol] 0.0 10*3/uL Normal 0.0-0.1 [facility]; [facility] Work Phone: Comment on above: PATIENT NOT FASTINGP ERFORMED BY: LINDSEY Doll6370 [facility] [id number] Information: [id number] Immature granulocytes/100 WBC (Bld) 0 % Normal 0-2 [facility] Work Phone: Comment on above: PATIENT NOT FASTINGP ERFORMED BY: LINDSEY [address] [id number] Information: [id number] Lymphocytes (Bld) [#/Vol] 2.4 {x10E3/uL} Normal 0.7-4.5 [facility] Work Phone: Comment on above: PATIENT NOT FASTINGP ERFORMED BY: LINDSEY Doll6370 [facility] [id number] Information: [id number] Lymphocytes (Bld) [#/Vol] 2.4 10*3/uL Normal 0.7-4.5 [facility]; [facility] Work Phone: Comment on above: PATIENT NOT FASTINGP ERFORMED BY: LINDSEY Lomax Vxfddd8465 [facility] [id number] Information: [id number] Lymphocytes Auto #/vol (Bld) 2.4 {x10E3/uL} Normal 0.7-4.5 [facility] Work Phone: Lymphocytes/100 WBC (Bld) 27 % Normal 14-46 [facility] Work Phone: Comment on above: PATIENT NOT FASTINGP ERFORMED BY: LINDSEY Encisolin6370 [facility] [id number] Information: [id number] Lymphocytes/100 WBC Auto (Bld) 27 % Normal 14-46 [facility] Work Phone: MCH (RBC) [Entitic mass] 29.1 pg Normal 26.6-33.0 [facility] Internal Medicine Work Phone: Comment on above: PATIENT NOT FASTINGP ERFORMED BY: [address] [id number] Information: [id number] MCH Auto Entitic mass (RBC) 29.1 pg Normal 26.6-33.0 [facility] Internal Medicine Work Phone: MCHC (RBC) [Mass/Vol] 32.9 g/dL Normal 31.5-35.7 [facility] Work Phone: Comment on above: PATIENT NOT FASTINGP ERFORMED BY: [address] [id number] Information: [id number] MCHC Auto mass conc (RBC) 32.9 g/dL Normal 31.5-35.7 [facility] Internal Medicine Work Phone: MCV (RBC) [Entitic vol] 89 fL Normal 79-97 [facility] Internal Medicine Work Phone: Comment on above: PATIENT NOT FASTINGP ERFORMED BY: [place] 0274170 [facility] [id number] Information: [id number] MCV Auto Entitic volume (RBC) 89 fL Normal 79-97 [facility] Internal Medicine Work Phone: Monocytes (Bld) [#/Vol] 0.5 {x10E3/uL} Normal 0.1-1.0 [facility] Internal Medicine Work Phone: Comment on above: PATIENT NOT FASTINGP ERFORMED BY: [address] [id number] Information: [id number] Monocytes (Bld) [#/Vol] 0.5 10*3/uL Normal 0.1-1.0 [facility]; [facility] Work Phone: Comment on above: PATIENT NOT FASTINGP ERFORMED BY: LINDSEY VishnuRubio EncisoObtjbq9492 [facility] [id number] Information: [id number] Monocytes Auto #/vol (Bld) 0.5 {x10E3/uL} Normal 0.1-1.0 [facility] Work Phone: Monocytes/100 WBC (Bld) 6 % Normal 4-13 [facility] Work Phone: Comment on above: PATIENT NOT FASTINGP ERFORMED BY: LINDSEY VishnuRubio EncisoDrrchi0879 [facility] [id number] Information: [id number] Monocytes/100 WBC Auto (Bld) 6 % Normal - [facility] Work Phone: Neutrophils (Bld) [#/Vol] 5.6 {x10E3/uL} Normal 1.8-7.8 [facility] Work Phone: Comment on above: PATIENT NOT FASTINGP ERFORMED BY: LINDSEY Encisolin6370 [facility] [id number] Information: [id number] Neutrophils (Bld) [#/Vol] 5.6 10*3/uL Normal 1.8-7.8 [facility]; [facility] Work Phone: Comment on above: PATIENT NOT FASTINGP ERFORMED BY: LINDSEY VishnuRubio EncisoVgrixy3559 [facility] [id number] Information: [id number] Neutrophils Auto #/vol (Bld) 5.6 {x10E3/uL} Normal 1.8-7.8 [facility] Work Phone: Neutrophils/100 WBC (Bld) 65 % Normal 40-74 [facility] Work Phone: Comment on above: PATIENT NOT FASTINGP ERFORMED BY: LINDSEY VishnuRubio EncisoYodjby9049 [facility] [id number] Information: [id number] Neutrophils/100 WBC Auto (Bld) 65 % Normal 40-74 [facility] Work Phone: Platelets (Bld) [#/Vol] 281 {x10E3/uL} Normal 140-415 [facility] Work Phone: Comment on above: PATIENT NOT FASTINGP ERFORMED BY: LINDSEY Encisolin6370 [facility] [id number] Information: [id number] Platelets (Bld) [#/Vol] 281 10*3/uL Normal 140-415 [facility] Internal Medicine; [facility] Work Phone: Comment on above: PATIENT NOT FASTINGP ERFORMED BY: LINDSEY Damitanya Okprwe[address] [id number] Information: [id number] Platelets Auto #/vol (Bld) 281 {x10E3/uL} Normal 140-415 [facility] Work Phone: RBC (Bld) [#/Vol] 4.33 {x10E6/uL} Normal 3.77-5.28 [facility] Internal Medicine Work Phone: Comment on above: PATIENT NOT FASTINGP ERFORMED BY: LINDSEY Damitanya Enatpa[address] [id number] Information: [id number] RBC (Bld) [#/Vol] 4.33 10*6/uL Normal 3.77-5.28 [facility] Internal Medicine; [facility] Work Phone: Comment on above: PATIENT NOT FASTINGP ERFORMED BY: LINDSEY [place]aresShelly [place] [id number] [facility] [id number] Information: [id number] RBC Auto #/vol (Bld) 4.33 {x10E6/uL} Normal 3.77-5.28 [facility] Internal Medicine Work Phone: WBC (Bld) [#/Vol] 8.7 {x10E3/uL} Normal 4.0-10.5 [facility] prehensive Internal Medicine Work Phone: Comment on above: PATIENT NOT FASTINGP ERFORMED BY: LabCoTrenton Psychiatric HospitalTbxjjm6789 [facility] [id number] Information: [id number] WBC (Bld) [#/Vol] 8.7 10*3/uL Normal 4.0-10.5 [facility] Internal [facility]; [facility] Work Phone: Comment on above: PATIENT NOT FASTINGP ERFORMED BY: [facility] Afhbxy8877 [facility] [id number] Information: [id number] WBC Auto #/vol (Bld) 8.7 {x10E3/uL} Normal 4.0-10.5 [facility] Work Phone: CERV SPINE 6 OR MORE VIEWSOr dered By: Hair Salon Manager on 01-16-2013 CERV SPINE 6 OR MORE VIEWS See Note Normal [facility] Work Phone: Comment on above: PROCEDURE: X-RAY - C ERVICAL SPINE REASON FOR EXAM: Female, 32 years old. Neck pain TECHNIQUE: Five views of the cervical spine were obtained. COMPARISON: None FINDINGS:Normal craniovertebral junction. Normal anterior atlantoaxialarticulation. Normal odontoid process. Normal cervical lordosis. Normal vertebral bodies and posterior osseouselements. Normal disc space heights and vertebral endplates. Normal visualizedintervertebral neuroforamina. Normal visualized soft tissue structures. IMPRESSION:Normal x-ray examination of the visualized cervical spine. Signed:Cornelio Munguia D.O.January 16, 2013 at 2:19:34 PM [phone] Signed DS/DS If you are the referring physician and would like to consult with theradiologist who provided this interpretation, please contact Cornelio Munguia D.O. at [phone]. If this radiologist is unavailable, you will bedirected to another radiologist to assist. If you are a patient with a question regarding this report, pleasecontactyour referring physician directly. Professional Interpretation Provided By: [employer], Phone , These documents contain legally protected and confidential healthinformation intended only for the use of the individual or entity namedabove. If you are not the intended recipient, you are hereby notifiedthatany disclosure, copying, distribution, or other use of these documents isstrictly prohibited. If you have received this information in error,pleasenotify the sender immediately and arrange for the return or destructionofthese documents. Dictated on 01/16/13 141 by Samson Page DObed on 01/16/131429 by ITS IMPORTSign by Jeffry Page DO on 01/16/131430 Sign by: Jeffry Page DO v Dictated on 141 by Samson Page DObed on 01/16/131429 by ITS IMPORTSign by Jeffry Page DO on 01/16/131430 Sign by: Jeffry Page DO EBV Panel ([id number])Ordered By: Hair Salon Manager on 01-16-2013 EBV Panel ([id number]) SPR Normal Compreh ensive Internal Medicine Work Phone: Comment on above: EBV Interpretation Annalisa padgett . Interpretation VCA-IgM EA-IgG VCA- IgG NA-ABS . Susceptible - - - - Acute Infection + +or- +or- - Convalescent Phase +or- +or- + + Chronic or Reactivated - + + +or- Old Infection - - +or- + + Antibody Present - Antibody Absent PATIENT NOT FASTINGP ERFORMED BY: Rollstream6370 [facility] [id number] EBV Panel ([id number]) 0.2 {AI} Normal 0.0-0.8 Compreh ensive Internal Medicine Work Phone: Comment on above: Negative <0.9 Equivo yolie 0.9 - 1.0 Positive >1.0 PATIENT NOT FASTINGP ERFORMED BY: [facility] Zerts6370 [facility] [id number] EBV Panel ([id number]) 4.8 {AI} Abnormal 0.0-0.8 Compreh ensive Internal Medicine Work Phone: Comment on above: Negative <0.9 Equivo yolie 0.9 - 1.0 Positive >1.0 PATIENT NOT FASTINGP ERFORMED BY: CB [facility] Bdyddo29[address]Dublin [place] [id number] EBV Panel (99992) >8.0 Abnormal 0.0-0.8 Compreh ensive [facility] Medicine Work Phone: Comment on above: Negative <0.9 Equivo yolie 0.9 - 1.0 Positive >1.0 PATIENT NOT FASTINGP ERFORMED BY: CB [facility] Vyhabv5330 [address] RoadDublin [place] [id number] METABOLIC PANEL, COMPREHENSI VE ([id number])Ordered By: Hair Salon Manager on 01-16-2013 Albumin mass conc 4.3 g/dL Normal 3.5-5.5 Compreh ensive [facility] Medicine Work Phone: Comment on above: PATIENT NOT FASTINGP ERFORMED BY: CB [facility] Azsfey8897 [address] RoadDublin [place] [id number] Albumin/Globulin mass ratio 1.7 {ratio} Normal 1.1-2.5 [facility] Work Phone: Comment on above: PATIENT NOT FASTINGP ERFORMED BY: CB [facility] Eclmze3772 [address]Dublin [place] [id number] ALP [Catalytic activity/Vol] 63 U/L Normal 25-150 [facility]; [facility] Work Phone: Comment on above: PATIENT NOT FASTINGP ERFORMED BY: CB [facility] Bvlupw6871 [address] RoadDublin [place] [id number] ALP enzyme act/vol 63 [iU]/L Normal 25-150 Compre hensive [facility] Medicine Work Phone: Comment on above: PATIENT NOT FASTINGP ERFORMED BY: CB [facility] Tlpssh1932 [address] [place] [id number] ALT [Catalytic activity/Vol] 14 U/L Normal 0-32 [facility]; [facility] Work Phone: Comment on above: PATIENT NOT FASTINGP ERFORMED BY: CB [facility] Vityws8500 [address]Dublin [place] [id number] ALT enzyme act/vol 14 [iU]/L Normal 0-32 Compre [facility] Internal Medicine Work Phone: Comment on above: PATIENT NOT FASTINGP ERFORMED BY: CB [facility] Tkaieq2898 [address] [place] [id number] AST [Catalytic activity/Vol] 15 U/L Normal 0-40 [facility]; [facility] Work Phone: Comment on above: PATIENT NOT FASTINGP ERFORMED BY: CB [facility] Ejvkng7456 [address] [place] [id number] AST enzyme act/vol 15 [iU]/L Normal 0-40 [facility] Internal Medicine Work Phone: Comment on above: PATIENT NOT FASTINGP ERFORMED BY: CB [facility] Jxvekp1152 [address] [place] [id number] Bilirubin mass conc 0.2 mg/dL Normal 0.0-1.2 Compr ehensive Internal Medicine Work Phone: Comment on above: PATIENT NOT FASTINGP ERFORMED BY: LINDSEY [facility] Xuxjvo3126 [address] RoadDublin [place] [id number] Calcium mass conc 9.2 mg/dL Normal 8.7-10.2 Compreh ensive Internal Medicine Work Phone: Comment on above: PATIENT NOT FASTINGP ERFORMED BY: CB [facility] Uqmelx3780 [address]Dublin [place] [id number] Chloride molar conc 102 mmol/L Normal 97-108 Compr ehensive Internal Medicine Work Phone: Comment on above: PATIENT NOT FASTINGP ERFORMED BY: CB [facility] Nvwpqf5080 [address]Dublin [place] [id number] CO2 molar conc 20 mmol/L Normal 20-32 Comprehens ingrid Internal Medicine Work Phone: Comment on above: PATIENT NOT FASTINGP ERFORMED BY: CB [facility] Gbygbh7097 [address] RoadDublin [place] [id number] Creatinine mass conc 0.69 mg/dL Normal 0.57-1.00 Comp rehensive Internal Medicine Work Phone: Comment on above: PATIENT NOT FASTINGP ERFORMED BY: LINDSEY LabCotanya DollIaqgff9060 [address]blin [place] [id number] GFR/1.73 sq M predicted among blacks CKD-EPI vol rate/area (S/P/Bld) 133 mL/min/1.73 Normal Comprehensiv e Internal Medicine Work Phone: Comment on above: PATIENT NOT FASTINGP ERFORMED BY: LINDSEY [facility] Ixpopl3788 [address] RoadUnc Medical Centerin [place] [id number] GFR/1.73 sq M predicted among non-blacks CKD-EPI vol rate/area (S/P/Bld) 116 mL/min/1.73 Normal [facility] Work Phone: Comment on above: PATIENT NOT FASTINGP ERFORMED BY: LINDSEY LabBaltazarrp Rdplzc[address] [facility] [id number] Globulin (S) [Mass/Vol] 2.5 g/dL Normal 1.5-4.5 [facility] Work Phone: Comment on above: PATIENT NOT FASTINGP ERFORMED BY: LINDSEY [facility] Uunelm9874 [address] [facility] [id number] Globulin Calculated mass conc (S) 2.5 g/dL Normal 1.5-4.5 [facility] Work Phone: Glucose mass conc 77 mg/dL Normal 65-99 Compreh ensive Internal Medicine Work Phone: Comment on above: PATIENT NOT FASTINGP ERFORMED BY: LINDSEY [facility] Rgqgkw8[address] [facility]in [place] [id number] Potassium molar conc 4.2 mmol/L Normal 3.5-5.2 Comp rehensive Internal Medicine Work Phone: Comment on above: PATIENT NOT FASTINGP ERFORMED BY: LINDSEY [facility] Egofie4134 [address] [facility] [id number] Protein mass conc 6.8 g/dL Normal 6.0-8.5 Compreh ensive Internal Medicine Work Phone: Comment on above: PATIENT NOT FASTINGP ERFORMED BY: LINDSEY [facility] Mehxph9256 [facility] [id number] Sodium molar conc 139 mmol/L Normal 134-144 Compreh ensive Internal Medicine Work Phone: Comment on above: PATIENT NOT FASTINGP ERFORMED BY: LINDSEY [facility] Kdnial5159 [facility] [id number] Urea nitrogen mass conc 9 mg/dL Normal 6-20 [facility] Work Phone: Comment on above: PATIENT NOT FASTINGP ERFORMED BY: LINDSEY [facility] Ujwwbb4877 [facility] [id number] Urea nitrogen/Creatinine mass ratio 13 mg/mg Normal 8-20 [facility] Work Phone: Comment on above: PATIENT NOT FASTINGP ERFORMED BY: LINDSEY LabRubio EncisoFrpwca5690 [facility] [id number] Microscopic ExaminationOrder ed By: Hair Salon Manager on 01-16-2013 Bacteria LM.HPF #/area (Urine sed) Few Normal [facility] Work Phone: Comment on above: PATIENT NOT FASTINGP ERFORMED BY: LINDSEY [facility] Tevsgm7858 [facility] [id number] Epithelial cells LM.HPF #/area (Urine sed) 0-10 Normal 0 - 10 [facility] Work Phone: Comment on above: PATIENT NOT FASTINGP ERFORMED BY: LINDSEY [facility] Fjrhmf1057 [facility] [id number] Mucus LM Ql (Urine sed) Present Normal [facility] Work Phone: Mucus Ql (Urine sed) Present Normal Comp rehensive Internal Medicine Work Phone: Comment on above: PATIENT NOT FASTINGP ERFORMED BY: LINDSEY [facility] Fjrtzb8643 [facility] [id number] RBC LM.HPF #/area (Urine sed) None seen Normal 0 - 3 [facility] Work Phone: Comment on above: PATIENT NOT FASTINGP ERFORMED BY: LINDSEY [facility] Zysnqm1521 Baker RoadDublin [place] [id number] WBC LM.HPF #/area (Urine sed) 0-5 Normal 0 - 5 [facility] Work Phone: Comment on above: PATIENT NOT FASTINGP ERFORMED BY: LINDSEY LabBaltazarrp Ijmujh6752 Baker RoadDublin [place] [id number] TSH ([id number])Ordered By: Syste m Organizational Research Consultant on 01-16-2013 Thyrotropin Qn 2.600 {uIU/mL} Normal 0.450-4.500 Compr ehensive Internal Medicine Work Phone: Comment on above: PATIENT NOT FASTINGP ERFORMED BY: LINDSEY [facility] Cgzjua4241 [address] RoadDublin [place] [id number] URINALYSIS, W/ MICRO ([id number]) Ordered By: Hair Salon Manager on 01-16-2013 Appearance Nom (U) Clear Normal Compre hensive Internal Medicine Work Phone: Comment on above: PATIENT NOT FASTINGP ERFORMED BY: LINDSEY [facility] Mhmgae1721 [address] RoadDublin [place] [id number] Bilirubin Ql (U) Negative Normal Comprehe nsive Internal Medicine Work Phone: Comment on above: PATIENT NOT FASTINGP ERFORMED BY: LINDSEY LabBaltazarrp Mbprai2232 [address] RoadDublin [place] [id number] Bilirubin Ql (U) Negative Normal Comprehe nsive Internal Medicine; [facility] Work Phone: Comment on above: PATIENT NOT FASTINGP ERFORMED BY: LINDSEY [facility] Owizkt0119 [address] RoadDublin [place] [id number] Color Nom (U) Yellow Normal Comprehensi ve Internal Medicine Work Phone: Comment on above: PATIENT NOT FASTINGP ERFORMED BY: LINDSEY [facility] Dxhhql3131 [address] RoadDublin [place] [id number] Glucose Ql (U) Negative Normal Comprehens ingrid Internal Medicine Work Phone: Comment on above: PATIENT NOT FASTINGP ERFORMED BY: LINDSEY [facility] Qypvxm6553 [address] RoadDublin [place] [id number] Glucose Ql (U) Negative Normal Comprehens ingrid Internal Medicine; [facility] Work Phone: Comment on above: PATIENT NOT FASTINGP ERFORMED BY: LINDSEY LabRubio Doll6[address] RoadDublin [place] [id number] Hemoglobin Ql (U) Negative Normal Compreh ensive Internal Medicine Work Phone: Comment on above: PATIENT NOT FASTINGP ERFORMED BY: LINDSEY [facility] Keaqxi1048 [address] RoadDublin [place] [id number] Hemoglobin Ql (U) Negative Normal Compreh ensive Internal Medicine; [facility] Work Phone: Comment on above: PATIENT NOT FASTINGP ERFORMED BY: LINDSEY LabRubio EncisoTbqqrw6845 [address] RoadDublin [place] [id number] Hemoglobin Test strip Ql (U) Negative Normal [facility] Work Phone: Ketones Ql (U) Negative Normal Comprehens ingrid Internal Medicine Work Phone: Comment on above: PATIENT NOT FASTINGP ERFORMED BY: LINDSEY Encisolin6[address] RoadDublin [place] [id number] Ketones Ql (U) Negative Normal Comprehens ingrid Internal Medicine; [facility] Work Phone: Comment on above: PATIENT NOT FASTINGP ERFORMED BY: LINDSEY Encisolin6[address] RoadDublin [place] [id number] Leukocyte esterase Test strip Ql (U) Negative Normal [facility] Work Phone: Comment on above: PATIENT NOT FASTINGP ERFORMED BY: LINDSEY [facility] Ejonay1225 [address] RoadDublin [place] [id number] Leukocyte esterase Test strip Ql (U) Negative Normal [facility]; [facility] Work Phone: Comment on above: PATIENT NOT FASTINGP ERFORMED BY: LINDSEY LabBaltazarrp Xqrish0143 [address] RoadDublin [place] [id number] Microscopic observation LM Nom (Urine sed) See below: Normal [facility] Work Phone: Comment on above: PATIENT NOT FASTINGP ERFORMED BY: LINDSEY Encisolin[address] [facility]in [place] [id number] Microscopic observation LM Nom (Urine sed) MICRON Normal [facility] Work Phone: Comment on above: Microscopic follows if indicated. PATIENT NOT FASTINGP ERFORMED BY: LINDSEY Dami Krissf5371 [address] Roadblin [place] [id number] Nitrite Ql (U) Negative Normal Comprehens ingrid Internal Medicine Work Phone: Comment on above: PATIENT NOT FASTINGP ERFORMED BY: LINDSEY [facility] Ldlmlw8888 [address] [facility] [id number] Nitrite Ql (U) Negative Normal Comprehens ingrid Internal Medicine; [facility] Work Phone: Comment on above: PATIENT NOT FASTINGP ERFORMED BY: LINDSEY [facility]Co[facility] Qsqdie5211 [address] [facility] [id number] Nitrite Test strip Ql (U) Negative Normal [facility] Work Phone: pH (U) 7.0 [pH] Normal 5.0-7.5 [facility] Work Phone: Comment on above: PATIENT NOT FASTINGP ERFORMED BY: LINDSEY [facility] Xtrzwz4378 [address] [facility] [id number] pH Test strip (U) 7.0 [pH] Normal 5.0-7.5 Compreh ensive Internal Medicine Work Phone: Protein Ql (U) Negative Normal Comprehens ingrid Internal Medicine Work Phone: Comment on above: PATIENT NOT FASTINGP ERFORMED BY: LINDSEY [place] [address] [facility]in [place] [id number] Protein Ql (U) Negative Normal Comprehens ingrid Internal Medicine; [facility] Work Phone: Comment on above: PATIENT NOT FASTINGP ERFORMED BY: LINDSEY [facility]Co[facility] Xblanw9748 [address] [facility] Hospitalbl[facility] [place] [id number] Protein Test strip Ql (U) Negative Normal [facility] Work Phone: Specific gravity Relative Density (U) 1.008 1 Normal 1.005-1.030 Comprehensi ve Internal Medicine Work Phone: Comment on above: PATIENT NOT FASTINGP ERFORMED BY: CB [facility] Xgcfkk2506 [address] RoadDublin [place] [id number] Urobilinogen (U) [Mass/Vol] 0.2 mg/dL Normal 0.0-1.9 [facility]; [facility] Work Phone: Comment on above: PATIENT NOT FASTINGP ERFORMED BY: CB [facility] Anipyt6[address] RoadDublin [place] [id number] Urobilinogen Test strip mass conc (U) 0.2 mg/dL Normal 0.0-1.9 Comprehensiv e Internal Medicine Work Phone: Comment on above: PATIENT NOT FASTINGP ERFORMED BY: CB [facility] Iavmye4305 [address] RoadDublin [place] [id number] VITAMIN B-12 (CYANOCOBALAMIN ) ([id number])Ordered By: Hair Salon Manager on 01-16-2013 Cobalamin (Vitamin B12) mass conc 546 pg/mL Normal 211-946 [facility] Work Phone: Comment on above: PATIENT NOT FASTINGP ERFORMED BY: CB [facility] Mduenw9635 [address] RoadDublin [place] [id number] Vitamin D Hydroxy (45280)Ord ered By: Hair Salon Manager on 01-16-2013 25-Hydroxyvitamin D2+25-Hydroxyvitamin D3 mass conc 26.6 ng/mL Abnormal 30.0-100.0 [facility] Internal Medicine Work Phone: Comment on above: Vitamin D deficiency has been defined by the [employer] of[employer] and an Endocrine Society practice guideline as alevel of serum 25-OH vitamin D less than 20 ng/mL (1,2).The Endocrine Society went on to further define vitamin Dinsufficiency as a level between 21 and 29 ng/mL (2).1. IOM ([employer]). 2010. Dietary reference intakes for calcium and D. [place]: The National Academies Press.2. Dequan MF, Meghan NC, Angie ALEXANDRE, et al. Evaluation, treatment, and prevention of vitamin D deficiency: an Endocrine Society clinical practice guideline. JCEM. 2010; 96(7):1911-30. PATIENT NOT FASTINGP ERFORMED BY: LINDSEY [facility]Co[facility] Rcaakn8642 [address] [facility] [id number] CHEST, PA AND LATERALOrdered By: Hair Salon Manager on 11-16-2011 CHEST, PA AND LATERAL See Note Normal Com prehensive Internal Medicine Work Phone: Comment on above: PROCEDURE: X-RAY CECILIO ST REASON FOR EXAM: Female, 31 years old. Cough TECHNIQUE: PA and lateral views of the chest. COMPARISON: 02/15/08 FINDINGS: The lungs are expanded. There is no demonstrated parenchymalabnormality.There is no demonstrated pleural abnormality. Normal heart and pericardium. Normal mediastinum and mohsen. Normal visualized pulmonary arteries.Normalvisualized aortic arch and descending thoracic aorta.Normal visualized ribs, clavicles, and shoulders. There is no demonstrated abnormality of the visualized soft tissuestructures of the upper abdomen. IMPRESSION:No acute thoracic process To consult with a radiologist regarding this report, please call our [id number] line @ Dictated on 11/16/111517 by ASHOK MCDANIELS MDTranscribed on 11/16/111648 by ITS IMPORTSign by ASHOK MCDANIELS MD on 11/16/111648 Sign by: ASHOK MCDANIELS MD PROCEDURE: X-RAY - T HORACIC SPINE REASON FOR EXAM: Female, 31 years old. Back Pain. TECHNIQUE: Four views of the thoracic spine were obtained. COMPARISON: None. FINDINGS:There is exaggeration of the normal thoracic kyphosis secondary toseveralchronic midthoracic, minimal anterior wedge deformities. There is multi-level disc space narrowing with endplate spondylosis ofthethoracic spine. Normal kyphosis. Normal visualized soft tissue structures. IMPRESSION:Chronic changes as discussed above, otherwise unremarkable. To consult with a radiologist regarding this report, please call our [id number] line @ Dictated on 11/16/111517 by ASHOK MCDANIELS MDTranscribed on 11/16/111644 by ITS IMPORTSign by ASHOK MCDANIELS MD on 03/20/12 1646 Sign by: ASHOK MCDANIELS MDrdered By: System Manag er on 11-16-2011 VITD 20.1 ng/mL Abnormal 30.0-100.0 [facility] Work Phone: Comment on above: Vitamin D deficiency has been defined by the [employer] and an Endocrine Society practice guideline as alevel of serum 25-OH vitamin D less than 20 ng/mL (1,2).The Endocrine Society went on to further define vitamin Dinsufficiency as a level between 21 and 29 ng/mL (2).1. IOM ([employer]). 2010. Dietary reference intakes for calcium and D. [place]: The National Academies Press.2. Dequan MF, Meghan ALVAREZ, Angie ALEXANDRE, et al. Evaluation, treatment, and prevention of vitamin D deficiency: an Endocrine Society clinical practice guideline. JCEM. 2010; 96(7):1911-30.Performed at: [address] Director: Ashley Barraza MD, Phone: [phone] ABDOMEN/PELVIS WITHOUT CONTO rdered By: Hair Salon Manager on 11-05-2011 ABDOMEN/PELVIS WITHOUT CONT See Note Normal [facility] Work Phone: Comment on above: PROCEDURE: CT ABDOME N AND PELVIS WITHOUT CONTRAST REASON FOR EXAM: Female, 31 years old. Abdominal and left upperquadrantpain. TECHNIQUE: Transaxial images were obtained from the dome of thediaphragmto the symphysis pubis without oral contrast, and without intravenouscontrast. Multiplanar coronal and sagittal images were reformatted.Thisexamination is limited for the evaluation of solid organs and vascularstructures due to the lack of intravenous contrast. COMPARISON: None. FINDINGS:The visualized lung bases are unremarkable. Normal unenhanced liver. Normal gallbladder and extrahepatic biliarysystem. Normal unenhanced spleen. Normal pancreas. Normal bilateral adrenal glands. Normal size of the right kidney. There is no right renal mass. Thereareno right renal calculi. There is no right hydronephrosis. Normalvisualized right ureter. Normal size of the left kidney. There is no left renal mass. There arenoleft renal calculi. There is no left hydronephrosis. There is aureteralcalculus at the left ureterovesical junction (UVJ). It measures 4 mm. Normal visualized stomach. Normal small intestine. Normal colon. Theappendix is visualized and appears normal. There is no demonstrated peritoneal fluid. Normal abdominal aorta. Normal inferior vena cava. Normalretroperitoneum. Normal urinary bladder. There is no pelvic mass lesion orlymphadenopathy.There is no pelvic fluid. Normal abdominal wall. Normal osseous structures. IMPRESSION:There is a 4-mm calculus at the left ureteral vesicle junction. To consult with a radiologist regarding this report, please call our [id number] line @ Dictated on 11/05/11 1052 by Uzair HARRIS,Aprilranscribed on 11/05/11 1129 by ITS IMPORTSign by Dale Jones MD on 11/05/11 1130 Sign by: Dale Jones MD CBC WITH MANUAL DIFF ([id number]) Ordered By: Hair Salon Manager on 11-05-2011 Basophils (Bld) [#/Vol] 0.0 {x10E3/uL} Normal 0.0-0.2 [facility] Work Phone: Comment on above: stat; PATIENT NOT FA STINGPERFORMED BY: Apps [employer] Zerts6370 WututuUNC Health Chatham [id number] Information: [id number] Basophils (Bld) [#/Vol] 0.0 10*3/uL Normal 0.0-0.2 [facility]; [facility] Work Phone: Comment on above: stat; PATIENT NOT FA STINGPERFORMED BY: Apps [employer] Zerts6370 WututuUNC Health Chatham [id number] Information: [id number] Basophils Auto #/vol (Bld) 0.0 {x10E3/uL} Normal 0.0-0.2 [facility] Work Phone: Basophils/100 WBC (Bld) 0 % Normal 0-3 [facility] Work Phone: Comment on above: stat; PATIENT NOT FA STINGPERFORMED BY: LINDSEY [place] 5480070 [facility] [id number] Information: [id number] Basophils/100 WBC Auto (Bld) 0 % Normal 0-3 [facility] Work Phone: Eosinophils (Bld) [#/Vol] 0.1 {x10E3/uL} Normal 0.0-0.4 [facility] Work Phone: Comment on above: stat; PATIENT NOT FA STINGPERFORMED BY: [place] 0274170 [facility] [id number] Information: [id number] Eosinophils (Bld) [#/Vol] 0.1 10*3/uL Normal 0.0-0.4 [facility]; [facility] Work Phone: Comment on above: stat; PATIENT NOT FA STINGPERFORMED BY: [place] 0274170 [facility] [id number] Information: [id number] Eosinophils Auto #/vol (Bld) 0.1 {x10E3/uL} Normal 0.0-0.4 [facility] Work Phone: Eosinophils/100 WBC (Bld) 1 % Normal 0-7 [facility] Work Phone: Comment on above: stat; PATIENT NOT FA STINGPERFORMED BY: [place] 0274170 [facility] [id number] Information: [id number] Eosinophils/100 WBC Auto (Bld) 1 % Normal 0-7 [facility] Work Phone: Erythrocyte distribution width (RBC) [Ratio] 13.9 % Normal 11.7-15.0 [facility] Work Phone: Comment on above: stat; PATIENT NOT FA STINGPERFORMED BY: [place] 0274170 [facility] [id number] Information: [id number] Erythrocyte distribution width Auto Ratio (RBC) 13.9 % Normal 11.7-15.0 [facility] Work Phone: Hematocrit (Bld) [Volume fraction] 38.6 % Normal 34.0-44.0 [facility] Internal Medicine Work Phone: Comment on above: stat; PATIENT NOT FA STINGPERFORMED BY: LINDSEY [place] 5480070 [facility] [id number] Information: [id number] Hematocrit Auto Volume Fraction (Bld) 38.6 % Normal 34.0-44.0 [facility] Internal Medicine Work Phone: Hemoglobin mass conc (Bld) 12.5 g/dL Normal 11.5-15.0 [facility] Internal Medicine Work Phone: Comment on above: stat; PATIENT NOT FA STINGPERFORMED BY: LINDSEY [place] 5480070 [facility] [id number] Information: [id number] Immature granulocytes #/vol (Bld) 0.0 {x10E3/uL} Normal 0.0-0.1 [facility] Work Phone: Comment on above: stat; PATIENT NOT FA STINGPERFORMED BY: LINDSEY [facility] HospitalCoTrenton Psychiatric HospitalHhrbns4885 [facility] [id number] Information: [id number] Immature granulocytes (Bld) [#/Vol] 0.0 10*3/uL Normal 0.0-0.1 [facility]; [facility] Work Phone: Comment on above: stat; PATIENT NOT FA STINGPERFORMED BY: LabCoTrenton Psychiatric HospitalWnqzju8235 [facility] [id number] Information: [id number] Immature granulocytes/100 WBC (Bld) 0 % Normal 0-2 [facility] Work Phone: Comment on above: stat; PATIENT NOT FA STINGPERFORMED BY: LabShelly [place]ille [id number] [facility] [id number] Information: [id number] Lymphocytes (Bld) [#/Vol] 2.1 {x10E3/uL} Normal 0.7-4.5 [facility] Work Phone: Comment on above: stat; PATIENT NOT FA STINGPERFORMED BY: [place] 0274170 [facility] [id number] Information: [id number] Lymphocytes (Bld) [#/Vol] 2.1 10*3/uL Normal 0.7-4.5 [facility]; [facility] Work Phone: Comment on above: stat; PATIENT NOT FA STINGPERFORMED BY: [place] 0274170 [facility] [id number] Information: [id number] Lymphocytes Auto #/vol (Bld) 2.1 {x10E3/uL} Normal 0.7-4.5 [facility] Work Phone: Lymphocytes/100 WBC (Bld) 25 % Normal 14-46 [facility] Work Phone: Comment on above: stat; PATIENT NOT FA STINGPERFORMED BY: [place] 0274170 [facility] [id number] Information: [id number] Lymphocytes/100 WBC Auto (Bld) 25 % Normal 14-46 [facility] Work Phone: MCH (RBC) [Entitic mass] 28.5 pg Normal 27.0-34.0 [facility] Work Phone: Comment on above: stat; PATIENT NOT FA STINGPERFORMED BY: [facility]6370 [facility] [id number] Information: [id number] MCH Auto Entitic mass (RBC) 28.5 pg Normal 27.0-34.0 [facility] Internal Medicine Work Phone: MCHC (RBC) [Mass/Vol] 32.4 g/dL Normal 32.0-36.0 [facility] prehensive Internal Medicine Work Phone: Comment on above: stat; PATIENT NOT FA STINGPERFORMED BY: LabHills [facility]ales [facility] Hospital6370 [facility] [id number] Information: [id number] MCHC Auto mass conc (RBC) 32.4 g/dL Normal 32.0-36.0 [facility] Work Phone: MCV (RBC) [Entitic vol] 88 fL Normal 80-98 [facility] Work Phone: Comment on above: stat; PATIENT NOT FA STINGPERFORMED BY: LabHills [facility]ales [facility] Hospital6370 [facility] [id number] Information: [id number] MCV Auto Entitic volume (RBC) 88 fL Normal 80-98 [facility] Work Phone: Monocytes (Bld) [#/Vol] 0.6 {x10E3/uL} Normal 0.1-1.0 [facility] Work Phone: Comment on above: stat; PATIENT NOT FA STINGPERFORMED BY: LabHills [facility] Hospital6370 [facility] [id number] Information: [id number] Monocytes (Bld) [#/Vol] 0.6 10*3/uL Normal 0.1-1.0 [facility]; [facility] Work Phone: Comment on above: stat; PATIENT NOT FA STINGPERFORMED BY: LabHills [facility] Hospital6370 [facility] [id number] Information: [id number] Monocytes Auto #/vol (Bld) 0.6 {x10E3/uL} Normal 0.1-1.0 [facility] Work Phone: Monocytes/100 WBC (Bld) 7 % Normal 4-13 [facility] Work Phone: Comment on above: stat; PATIENT NOT FA STINGPERFORMED BY: [facility]6370 [facility] [id number] Information: [id number] Monocytes/100 WBC Auto (Bld) 7 % Normal 4-13 [facility] Work Phone: Neutrophils (Bld) [#/Vol] 5.5 {x10E3/uL} Normal 1.8-7.8 [facility] Work Phone: Comment on above: stat; PATIENT NOT FA STINGPERFORMED BY: LINDSEY LabCotanya EncisoRopfdq6691 [facility] [id number] Information: [id number] Neutrophils (Bld) [#/Vol] 5.5 10*3/uL Normal 1.8-7.8 [facility]; [facility] Work Phone: Comment on above: stat; PATIENT NOT FA STINGPERFORMED BY: LINDSEY Encisolin6370 [facility] [id number] Information: [id number] Neutrophils Auto #/vol (Bld) 5.5 {x10E3/uL} Normal 1.8-7.8 [facility] Work Phone: Neutrophils/100 WBC (Bld) 67 % Normal 40-74 [facility] Work Phone: Comment on above: stat; PATIENT NOT FA STINGPERFORMED BY: LINDSEY Encisolin6370 [facility] [id number] Information: [id number] Neutrophils/100 WBC Auto (Bld) 67 % Normal 40-74 [facility] Work Phone: Platelets (Bld) [#/Vol] 302 {x10E3/uL} Normal 140-415 [facility] Work Phone: Comment on above: stat; PATIENT NOT FA STINGPERFORMED BY: LINDSEY LabCo Scifgo1397 [facility] [id number] Information: [id number] Platelets (Bld) [#/Vol] 302 10*3/uL Normal 140-415 [facility]; [facility] Work Phone: Comment on above: stat; PATIENT NOT FA STINGPERFORMED BY: LINDSEY Encisolin6370 [facility] [id number] Information: [id number] Platelets Auto #/vol (Bld) 302 {x10E3/uL} Normal 140-415 [facility] Work Phone: RBC (Bld) [#/Vol] 4.38 {x10E6/uL} Normal 3.80-5.10 [facility] Internal Medicine Work Phone: Comment on above: stat; PATIENT NOT FA STINGPERFORMED BY: LabCoMaria Ville 3034470 [facility] [id number] Information: [id number] RBC (Bld) [#/Vol] 4.38 10*6/uL Normal 3.80-5.10 [facility] Internal Medicine; [facility] Work Phone: Comment on above: stat; PATIENT NOT FA STINGPERFORMED BY: [facility]6370 [facility] [id number] Information: [id number] RBC Auto #/vol (Bld) 4.38 {x10E6/uL} Normal 3.80-5.10 [facility] Internal Medicine Work Phone: WBC (Bld) [#/Vol] 8.3 {x10E3/uL} Normal 4.0-10.5 [facility] Internal Medicine Work Phone: Comment on above: stat; PATIENT NOT FA STINGPERFORMED BY: LabHills [facility] Hospital6370 [facility] [id number] Information: [id number] WBC (Bld) [#/Vol] 8.3 10*3/uL Normal 4.0-10.5 [facility] Internal Medicine; [facility] Work Phone: Comment on above: stat; PATIENT NOT FA STINGPERFORMED BY: [facility]6370 [facility] [id number] Information: [id number] WBC Auto #/vol (Bld) 8.3 {x10E3/uL} Normal 4.0-10.5 [facility] Work Phone: EBV Panel ([id number])Ordered By: Hair Salon Manager on 11-05-2011 EBV Panel ([id number]) 0.2 {AI} Normal 0.0-0.8 Compreh ensive Internal Medicine Work Phone: Comment on above: Negative <0.9 Equivo yolie 0.9 - 1.0 Positive >1.0 PATIENT NOT FASTINGP ERFORMED BY: LINDSEY LabVoyatrp Frjzlo[address] [facility] TechnologiesLifeCare Hospitals [facility] [id number] EBV Panel ([id number]) SPRCS Normal Compreh ensive Internal Medicine Work Phone: Comment on above: EBV Interpretation Annalisa padgett . Interpretation VCA-IgM EA-IgG VCA- IgG NA-ABS . Susceptible - - - - Acute Infection + +or- +or- - Convalescent Phase +or- +or- + + Chronic or Reactivated - + + +or- Old Infection - - +or- + + Antibody Present - Antibody Absent PATIENT NOT FASTINGP ERFORMED BY: LINDSEY [employer] [facility] TechnologiesLifeCare Hospitals [facility] [place] [id number] EBV Panel ([id number]) >8.0 Abnormal 0.0-0.8 Compreh ensive Internal Medicine Work Phone: Comment on above: Negative <0.9 Equivo yolie 0.9 - 1.0 Positive >1.0 PATIENT NOT FASTINGP ERFORMED BY: LINDSEY LabTrident Energy[address] [facility] TechnologiesLifeCare Hospitals [facility] [place] [id number] EBV Panel ([id number]) 4.6 {AI} Abnormal 0.0-0.8 Compreh ensive Internal Medicine Work Phone: Comment on above: Negative <0.9 Equivo yolie 0.9 - 1.0 Positive >1.0 PATIENT NOT FASTINGP ERFORMED BY: LINDSEY LabVoyatrp Svttyg7545 [facility] [id number] METABOLIC PANEL, COMPREHENSI VE ([id number])Ordered By: Hair Salon Manager on 11-05-2011 Albumin mass conc 4.7 g/dL Normal 3.5-5.5 Compreh ensive Internal Medicine Work Phone: Comment on above: PATIENT NOT FASTINGP ERFORMED BY: CB [facility] Xoeeme3316 Baker RoadDublin [place] [id number] Albumin/Globulin mass ratio 1.9 {ratio} Normal 1.1-2.5 [facility] Work Phone: Comment on above: PATIENT NOT FASTINGP ERFORMED BY: CB [facility] Dqxtqt4732 Baker RoadDublin [place] [id number] ALP [Catalytic activity/Vol] 62 U/L Normal 25-150 [facility]; [facility] Work Phone: Comment on above: PATIENT NOT FASTINGP ERFORMED BY: CB [facility] Rszpbq1966 [address] RoadDublin [place] [id number] ALP enzyme act/vol 62 [iU]/L Normal 25-150 [facility] Internal Medicine Work Phone: Comment on above: PATIENT NOT FASTINGP ERFORMED BY: CB [facility] Hgyfxx3596 Baker RoadDublin [place] [id number] ALT [Catalytic activity/Vol] 15 U/L Normal 0-40 [facility]; [facility] Internal Medicine Work Phone: Comment on above: PATIENT NOT FASTINGP ERFORMED BY: CB [facility] Urwfhn1603 [address] RoadDublin [place] [id number] ALT enzyme act/vol 15 [iU]/L Normal 0-40 [facility] Internal Medicine Work Phone: Comment on above: PATIENT NOT FASTINGP ERFORMED BY: CB [facility] Iclkfr8984 [address] RoadDublin [place] [id number] AST [Catalytic activity/Vol] 20 U/L Normal 0-40 [facility]; [facility] Internal Medicine Work Phone: Comment on above: PATIENT NOT FASTINGP ERFORMED BY: CB [facility] Pgazqd2469 [address] RoadDublin [place] [id number] AST enzyme act/vol 20 [iU]/L Normal 0-40 [facility] Internal Medicine Work Phone: Comment on above: PATIENT NOT FASTINGP ERFORMED BY: CB [facility] Bjsoes0839 [address] RoadUnc Medical Centerin [place] [id number] Bilirubin mass conc 0.3 mg/dL Normal 0.0-1.2 Compr ehensive [facility] Medicine Work Phone: Comment on above: PATIENT NOT FASTINGP ERFORMED BY: LINDSEY [facility] Pdhdfr2968 [address] RoadDublin [place] [id number] Calcium mass conc 9.7 mg/dL Normal 8.7-10.2 Compreh ensive [facility] Work Phone: Comment on above: PATIENT NOT FASTINGP ERFORMED BY: CB [facility] Nwtlys9119 [address] [facility] [place] [id number] Chloride molar conc 104 mmol/L Normal 97-108 Compr ehensive [facility] Work Phone: Comment on above: PATIENT NOT FASTINGP ERFORMED BY: LINDSEY [facility] Kqqojd4472 [address] [facility] [place] [id number] CO2 molar conc 21 mmol/L Normal 20-32 Comprehens ingrid Internal Medicine Work Phone: Comment on above: PATIENT NOT FASTINGP ERFORMED BY: CB [facility] Ctzesj9286 [address] [facility] [place] [id number] Creatinine mass conc 0.72 mg/dL Normal 0.57-1.00 [facility] Work Phone: Comment on above: PATIENT NOT FASTINGP ERFORMED BY: CB [facility] Bznxur1102 [address] [facility] [id number] GFR/1.73 sq M predicted among blacks MDRD vol rate/area (S/P/Bld) 129 mL/min/{1.73_m2} Normal Compreh ensive [facility] Work Phone: Comment on above: Note: A persistent e GFR <60 mL/min/1.73 m2 (3 months or more) mayindicate chronic kidney disease. An eGFR >59 mL/min/1.73 m2 with anelevated urine protein also may indicate chronic kidney disease.Calculated using CKD-EPI formula. PATIENT NOT FASTINGP ERFORMED BY: CB [facility] Ccebis7027 Baker RoadUnc Medical Centerin [place] [id number] GFR/1.73 sq M predicted among non-blacks CKD-EPI vol rate/area (S/P/Bld) 112 mL/min/1.73 Normal [facility] Work Phone: Comment on above: PATIENT NOT FASTINGP ERFORMED BY: LINDSEY Encisolin6370 [facility] [id number] Globulin (S) [Mass/Vol] 2.5 g/dL Normal 1.5-4.5 [facility] Work Phone: Comment on above: PATIENT NOT FASTINGP ERFORMED BY: LINDSEY [facility] Thgvgw1720 [facility] [id number] Globulin Calculated mass conc (S) 2.5 g/dL Normal 1.5-4.5 [facility] Work Phone: Glucose mass conc 75 mg/dL Normal 65-99 Compreh ensive [facility] Work Phone: Comment on above: PATIENT NOT FASTINGP ERFORMED BY: LINDSEY Dami Kdvcmd8367 [facility] [id number] Potassium molar conc 4.4 mmol/L Normal 3.5-5.2 Comp rehensive [facility] Medicine Work Phone: Comment on above: PATIENT NOT FASTINGP ERFORMED BY: LINDSEY Encisolin6370 [facility] [id number] Protein mass conc 7.2 g/dL Normal 6.0-8.5 Compreh ensive [facility] Work Phone: Comment on above: PATIENT NOT FASTINGP ERFORMED BY: LINDSEY [facility]CoTrent[facility] Psych[facility] HospitalYrfayi4022 [facility] [id number] Sodium molar conc 141 mmol/L Normal 134-144 Compreh ensive [facility] Work Phone: Comment on above: PATIENT NOT FASTINGP ERFORMED BY: LINDSEY [facility] Pdhyjm2635 [facility] [id number] Urea nitrogen mass conc 13 mg/dL Normal 6-20 [facility] Work Phone: Comment on above: PATIENT NOT FASTINGP ERFORMED BY: LINDSEY [facility] Uukipq3229 [facility] [id number] Urea nitrogen/Creatinine mass ratio 18 mg/mg Normal 8-20 [facility] Work Phone: Comment on above: PATIENT NOT FASTINGP ERFORMED BY: [facility] Pczhky2383 [facility] [id number] TSH ([id number])Ordered By: Syste m Organizational Research Consultant on 11-05-2011 Thyrotropin Qn 2.360 {uIU/mL} Normal 0.450-4.500 Compr ehensive [facility] Medicine Work Phone: Comment on above: PATIENT NOT FASTINGP ERFORMED BY: [facility] Ldbkik5082 [facility] [id number] URINE GEOVANY CULTURE (YANCY COL COUNT) ([id number])Ordered By: Hair Salon Manager on 11-05-2011 Bacteria identified Cx Nom (U) MUG Normal [facility] Work Phone: Comment on above: Mixed urogenital jose ra1,000 Colonies/mL PATIENT NOT FASTINGP ERFORMED BY: [facility] Wbmpaq5712 [facility] [id number] Information: SRC:UR [id number] Bacteria identified Cx Nom (U) Final report Normal [facility] Work Phone: Comment on above: PATIENT NOT FASTINGP ERFORMED BY: [facility] Otoyoj0427 [facility] [id number] Information: SRC:UR [id number] Urinalysis, Office ([id number])Or dered By: Lucille Padilla on 11-05-2011 Bilirubin Ql (U) Negative Normal Comprehe nsive [facility] Medicine Work Phone: Glucose Test strip mass conc (U) Negative Normal [facility] Work Phone: Hemoglobin Test strip Ql (U) Hemolyzed Trace Normal [facility] Work Phone: Ketones Ql (U) Negative Normal Comprehens ingrid [facility] Work Phone: Leukocyte esterase Test strip Ql (U) Trace Normal [facility] Work Phone: Nitrite Test strip Ql (U) Negative Normal [facility] Work Phone: pH Test strip (U) 6.0 [pH] Normal Compreh ensive [facility] Work Phone: Protein Test strip Ql (U) Negative Normal [facility] Work Phone: Specific gravity Relative Density (U) 1.025 1 Normal Comprehensi ve [facility] Medicine Work Phone: Urobilinogen mass/time (24H U) Normal Normal [facility] Work Phone: Urinalysis, Office ([id number])on 11-05-2011 Bilirubin Ql (U) Negative Normal Comprehe nsive [facility]; [facility] Work Phone: Glucose Test strip (U) [Mass/Vol] Negative Normal [facility]; [facility] Work Phone: Hemoglobin Ql (U) Hemolyzed Trace Normal Co mprehensive [facility] Work Phone: Ketones Ql (U) Negative Normal Comprehens ingrid [facility]; [facility] Work Phone: Nitrite Ql (U) Negative Normal Comprehens ingrid [facility] Medicine Work Phone: Nitrite Ql (U) Negative Normal Comprehens ingrid [facility]; [facility] Work Phone: pH (U) 6.0 [pH] Normal [facility] Work Phone: Protein Ql (U) Negative Normal Comprehens ingrid [facility] Work Phone: Protein Ql (U) Negative Normal Comprehens ingrid [facility]; [facility] Work Phone: Vitamin D Hydroxy ([id number])Ord ered By: Hair Salon Manager on 11-05-2011 25-Hydroxyvitamin D2+25-Hydroxyvitamin D3 mass conc 24.1 ng/mL Abnormal 30.0-100.0 [facility] Work Phone: Comment on above: Vitamin D deficiency has been defined by the [employer] and an Endocrine Society practice guideline as alevel of serum 25-OH vitamin D less than 20 ng/mL (1,2).The Endocrine Society went on to further define vitamin Dinsufficiency as a level between 21 and 29 ng/mL (2).1. IOM ([employer]). 2010. Dietary reference intakes for calcium and D. [place]: The National Academies Press.2. Dequan MF, Meghan ALVAREZ, Angie ALEXANDRE, et al. Evaluation, treatment, and prevention of vitamin D deficiency: an Endocrine Society clinical practice guideline. JCEM. 2010; 96(7):1911-30. .Effective November 01, 2011, Vitamin D, 25 Hydroxy specimen requirements will change to serum only. PATIENT NOT FASTINGP ERFORMED BY: [facility] Atlxct5883 [facility] [id number] Urinalysis, Office ([id number])Or dered By: Marsha Brito on 10-27-2011 Bilirubin Ql (U) Negative Normal Comprehe nsive [facility] Work Phone: Bilirubin Ql (U) Negative Normal Comprehe nsive [facility]; [facility] Work Phone: Glucose Test strip (U) [Mass/Vol] Negative Normal [facility]; [facility] Work Phone: Glucose Test strip mass conc (U) Negative Normal [facility] Work Phone: Hemoglobin Ql (U) Negative Normal Compreh ensive [facility] Work Phone: Hemoglobin Ql (U) Negative Normal Compreh ensive [facility]; [facility] Work Phone: Hemoglobin Test strip Ql (U) Negative Normal [facility] Work Phone: Ketones Ql (U) Negative Normal Comprehens ingrid [facility] Medicine Work Phone: Ketones Ql (U) Negative Normal Comprehens ingrid [facility]; [facility] Work Phone: Leukocyte esterase Test strip Ql (U) Small Normal [facility] Work Phone: Nitrite Ql (U) Negative Normal Comprehens ingrdi Internal Medicine Work Phone: Nitrite Ql (U) Negative Normal Comprehens ingrid [facility]; [facility] Work Phone: Nitrite Test strip Ql (U) Negative Normal [facility] Work Phone: pH (U) 7.5 [pH] Normal [facility] Work Phone: pH Test strip (U) 7.5 [pH] Normal Compreh ensive [facility] Work Phone: Protein Ql (U) Trace Normal Comprehens ingrid [facility] Work Phone: Protein Test strip Ql (U) Trace Normal [facility] Work Phone: Specific gravity Relative Density (U) 1.020 1 Normal Comprehensi ve [facility] Work Phone: Urobilinogen mass/time (24H U) Normal Normal [facility] Work Phone: GEOVANY CULTURE-OTHER ([id number])Ord ered By: Hair Salon Manager on 03-25-2011 Bacteria identified Respiratory culture Nom (Unsp spec) RRF Normal [facility] Work Phone: Comment on above: Routine respiratory carol PATIENT NOT FASTINGP ERFORMED BY: LINDSEY LabVoyattanya EncisoIyohnj[address] [facility] TechnologiesLifeCare [facility] [place] [id number] Information: SRC:KALLI [id number] Bacteria identified Respiratory culture Nom (Unsp spec) Final report Normal [facility] Work Phone: Comment on above: PATIENT NOT FASTINGP ERFORMED BY: LINDSEY Encisolin6370 [address] [facility] TechnologiesLifeCare [facility] [place] [id number] Information: SRC:KALLI [id number] Rapid Strep Test, Office (13 [phone])Ordered By: Emilie Otto on 03-24-2011 S. pyogenes Ag EIA Ql (Throat) Negative Normal [facility]; [facility] Work Phone: S. pyogenes Ag IA Ql (Unsp spec) Negative Normal [facility] Work Phone: GEOVANY CULTURE-OTHER ([id number])Ord ered By: Hair Salon Manager on 10-16-2010 Bacteria identified Respiratory culture Nom (Unsp spec) RRF Normal [facility] Work Phone: Comment on above: Routine respiratory carol PATIENT NOT FASTINGP ERFORMED BY: LINDSEY [facility] Gxntmf5113 [address] [facility] TechnologiesLifeCare [facility] [place] [id number] Information: SRC:THRT [id number] Bacteria identified Respiratory culture Nom (Unsp spec) Final report Normal [facility] Work Phone: Comment on above: PATIENT NOT FASTINGP ERFORMED BY: LINDSEY [facility] Wfdjcc1142 [address] [place] [id number] Information: SRC:KALLI [id number] Rapid Strep Test, Office (36 [phone])Ordered By: Asya Bowden on 10-16-2010 S. pyogenes Ag EIA Ql (Throat) Negative Normal [facility]; [facility] Work Phone: S. pyogenes Ag IA Ql (Unsp spec) Negative Normal [facility] Work Phone: ABDOMEN COMPLETE US (HP)Orde red By: Hair Salon Manager on 06-25-2010 ABDOMEN COMPLETE US (HP) See Note Normal [facility] Work Phone: Comment on above: Exam Number: [id number] LINICAL:This is a 29-year-old female patient with history of abdominal pain. ABDOMINAL ULTRASOUND TECHNIQUE:Transabdominal COMPARISON:None. FINDINGS:Normal liver size, contour and echogenicity without a mass or other lesion. There is no dilatation of the intrahepatic or extrahepatic bile ducts. The common bile duct measures 2.8 mm. Normal gallbladder. Normal visualized head, body and tail of the pancreas. Normal spleen. The spleen measures 8.9 cm. Normal right kidney. The right kidney measures 10.7 cm. There is no pelvicalyceal dilatation of the right kidney. Normal left kidney. The left kidney measures 10.5 cm. There is no pelvicalyceal dilatation of the left kidney. Normal visualized abdominal aorta. Normal visualized inferior vena cava. There is no ascites. IMPRESSION:Normal abdominal ultrasound examination. Reported By: DALE JONES Exam Number: [id number] LINICAL:This is a 29-year-old female patient with history of left lower quadrant pain. PELVIC ULTRASOUND - COMPLETE TECHNIQUE:Transabdominal COMPARISON:None. FINDINGS:Normal urinary bladder contour, without focal or diffuse wall thickening. There are no bladder calculi or intracystic masses. Normal uterine size, measuring 8 cm in maximum craniocaudal dimension. There are no myometrial masses. Normal endometrial thickness measuring 2.9 mm. Normal right ovary measuring 3.2-cm by 2.3 cm 1.6 cm. There are no cystic or solid adnexal masses. Normal left ovary measuring 3.1 cm x 2.2 cm by 1.7 cm. There are no cystic or solid adnexal masses. There is no free fluid within the pelvis. IMPRESSION:Normal pelvic sonogram. Reported By: DALE JONES Urinalysis, Office ([id number])Or dered By: Nereida Rhodes on 06-15-2010 Bilirubin Ql (U) Negative Normal Comprehe nsive [facility] Work Phone: Glucose Test strip mass conc (U) Negative Normal [facility] Work Phone: Hemoglobin Test strip Ql (U) Negative Normal [facility] Work Phone: Ketones Ql (U) Negative Normal Comprehens ingrid [facility] Work Phone: Leukocyte esterase Test strip Ql (U) Negative Normal [facility] Work Phone: Nitrite Test strip Ql (U) Negative Normal [facility] Work Phone: pH Test strip (U) 6.0 [pH] Normal Compreh ensive [facility] Work Phone: Protein Test strip Ql (U) Negative Normal [facility] Work Phone: Specific gravity Relative Density (U) 1.025 1 Normal Comprehensi [facility] Work Phone: Urobilinogen mass/time (24H U) Normal Normal [facility] Work Phone: Urinalysis, Office ([id number])on 06-15-2010 Bilirubin Ql (U) Negative Normal Comprehe nsive [facility]; [facility] Work Phone: Glucose Test strip (U) [Mass/Vol] Negative Normal [facility]; [facility] Work Phone: Hemoglobin Ql (U) Negative Normal Compreh ensive [facility] Work Phone: Hemoglobin Ql (U) Negative Normal Compreh ensive [facility]; [facility] Work Phone: Ketones Ql (U) Negative Normal Comprehens ingrid [facility]; [facility] Work Phone: Leukocyte esterase Test strip Ql (U) Negative Normal [facility]; [facility] Work Phone: Nitrite Ql (U) Negative Normal Comprehens ingrid [facility] Work Phone: Nitrite Ql (U) Negative Normal Comprehens ingrid [facility]; [facility] Work Phone: pH (U) 6.0 [pH] Normal [facility] Work Phone: Protein Ql (U) Negative Normal Comprehens ingrid [facility] Work Phone: Protein Ql (U) Negative Normal Comprehens ingrid [facility]; [facility] Work Phone: GEOVANY CULTURE-OTHER ([id number])Ord ered By: Hair Salon Manager on 05-08-2010 Bacteria identified Respiratory culture Nom (Unsp spec) Final report Normal [facility] Work Phone: Comment on above: PATIENT NOT FASTINGP ERFORMED BY: LINDSEY [facility] Ideblx9568 [facility] [id number] Information: SRC:THRT [id number] Bacteria identified Respiratory culture Nom (Unsp spec) RRF Normal [facility] Work Phone: Comment on above: Routine respiratory carol PATIENT NOT FASTINGP ERFORMED BY: Delivery Agent [facility] Mpyjbv5015 [facility] [id number] Information: SRC:THRT [id number] GALLBLADDEROrdered By: Romulo buitrago Organizational Research Consultant on 02-19-2008 GALLBLADDER See Note Normal [facility] Work Phone: Comment on above: Exam Number: [id number] GALLBLADDER ULTRASOUND. HISTORYRight upper quadrant pain/epigastric pain. FINDINGSThe gallbladder is within normal limits in size. The wall is notthickened. No stones are seen. Common duct is normal at 2 mm. Theliver is homogeneous. No dilated intrahepatic ducts are identified.Pancreas and right kidney are unremarkable. Images of the aorta demonstrate the proximal aorta to measures 1.2 x1.3 cm. The mid aorta measures 1.1. x 1.5 cm. The distal aortameasures 1 x 1.3 cm. The proximal right iliac artery measures 6 x 9mm. The proximal left iliac artery measures 7 x 8 mm. IMPRESSION1. The gallbladder, liver, and biliary ducts are within normal limits. 2. Aorta is within normal limits. Reported By: ANDRY MCGRATH M.D. Amylase, SerumOrdered By: [employer] stem Organizational Research Consultant on 02-13-2008 Amylase enzyme act/vol 62 U/L Normal 0-99 [facility] Work Phone: Comment on above: PERFORMED BY: [facility] [id number] CBC With Differential/Platel etOrdered By: Hair Salon Manager on 02-13-2008 Basophils (Bld) [#/Vol] 0.1 {x10E3/uL} Normal 0.0-0.2 [facility] Work Phone: Comment on above: PERFORMED BY: [facility] [id number] Basophils Auto #/vol (Bld) 0.1 {x10E3/uL} Normal 0.0-0.2 [facility] Work Phone: Basophils/100 WBC (Bld) 1 % Normal 0-3 [facility] Work Phone: Comment on above: PERFORMED BY: [facility] [id number] Basophils/100 WBC Auto (Bld) 1 % Normal 0-3 [facility] Work Phone: Eosinophils (Bld) [#/Vol] 0.2 {x10E3/uL} Normal 0.0-0.4 [facility] Work Phone: Comment on above: PERFORMED BY: [employer] [facility] [id number] Eosinophils Auto #/vol (Bld) 0.2 {x10E3/uL} Normal 0.0-0.4 [facility] Work Phone: Eosinophils/100 WBC (Bld) 2 % Normal 0-7 [facility] Work Phone: Comment on above: PERFORMED BY: ECOin [place] [id number] Eosinophils/100 WBC Auto (Bld) 2 % Normal 0-7 [facility] Work Phone: Erythrocyte distribution width (RBC) [Ratio] 14.0 % Normal 11.7-15.0 [facility] Work Phone: Comment on above: PERFORMED BY: FUJIAN HAIYUAN[address] [place] [address] [id number] Erythrocyte distribution width Auto Ratio (RBC) 14.0 % Normal 11.7-15.0 [facility] Work Phone: Hematocrit (Bld) [Volume fraction] 37.6 % Normal 34.0-44.0 [facility] Internal Medicine Work Phone: Comment on above: PERFORMED BY: FUJIAN HAIYUAN[address] [place], [place] [address]ox [facility] [id number] Hematocrit Auto Volume Fraction (Bld) 37.6 % Normal 34.0-44.0 [facility] Internal [facility] Work Phone: Hemoglobin mass conc (Bld) 13.0 g/dL Normal 11.5-15.0 [facility] Work Phone: Comment on above: PERFORMED BY: FUJIAN HAIYUAN[address] [place], [place] [address] [id number] Lymphocytes (Bld) [#/Vol] 2.3 {x10E3/uL} Normal 0.7-4.5 [facility] Work Phone: Comment on above: PERFORMED BY: FUJIAN HAIYUAN[address] [place] [address] [id number] Lymphocytes Auto #/vol (Bld) 2.3 {x10E3/uL} Normal 0.7-4.5 [facility] Work Phone: Lymphocytes/100 WBC (Bld) 28 % Normal 14-46 [facility] Work Phone: Comment on above: PERFORMED BY: FUJIAN HAIYUAN[address] [place], [place] [address] [id number] Lymphocytes/100 WBC Auto (Bld) 28 % Normal 14-46 [facility] Work Phone: MCH (RBC) [Entitic mass] 30.3 pg Normal 27.0-34.0 [facility] Work Phone: Comment on above: PERFORMED BY: [employer] [facility] [id number] MCH Auto Entitic mass (RBC) 30.3 pg Normal 27.0-34.0 [facility] Work Phone: MCHC (RBC) [Mass/Vol] 34.5 g/dL Normal 32.0-36.0 [facility] Internal Medicine Work Phone: Comment on above: PERFORMED BY: [facility] [id number] MCHC Auto mass conc (RBC) 34.5 g/dL Normal 32.0-36.0 [facility] Internal [facility] Work Phone: MCV (RBC) [Entitic vol] 88 fL Normal 80-98 [facility] Work Phone: Comment on above: PERFORMED BY: [employer] [facility] [id number] MCV Auto Entitic volume (RBC) 88 fL Normal 80-98 [facility] Work Phone: Monocytes (Bld) [#/Vol] 0.7 {x10E3/uL} Normal 0.1-1.0 [facility] Work Phone: Comment on above: PERFORMED BY: FUJIAN HAIYUAN63[employer] [facility] [id number] Monocytes Auto #/vol (Bld) 0.7 {x10E3/uL} Normal 0.1-1.0 [facility] Work Phone: Monocytes/100 WBC (Bld) 8 % Normal 4-13 [facility] Work Phone: Comment on above: PERFORMED BY: FUJIAN HAIYUAN6[address] [facility] [id number] Monocytes/100 WBC Auto (Bld) 8 % Normal 4-13 [facility] Work Phone: Neutrophils (Bld) [#/Vol] 5.1 {x10E3/uL} Normal 1.8-7.8 [facility] Work Phone: Comment on above: PERFORMED BY: [facility] [id number] Neutrophils Auto #/vol (Bld) 5.1 {x10E3/uL} Normal 1.8-7.8 [facility] Work Phone: Neutrophils/100 WBC (Bld) 61 % Normal 40-74 [facility] Work Phone: Comment on above: PERFORMED BY: [facility] [id number] Neutrophils/100 WBC Auto (Bld) 61 % Normal 40-74 [facility] Work Phone: Platelets (Bld) [#/Vol] 249 {x10E3/uL} Normal 140-415 [facility] Work Phone: Comment on above: PERFORMED BY: [facility] [place] [id number] Platelets Auto #/vol (Bld) 249 {x10E3/uL} Normal 140-415 [facility] Work Phone: RBC (Bld) [#/Vol] 4.28 {x10E6/uL} Normal 3.80-5.10 [facility] Internal Medicine Work Phone: Comment on above: PERFORMED BY: [employer] [facility] [id number] RBC Auto #/vol (Bld) 4.28 {x10E6/uL} Normal 3.80-5.10 [facility] Internal Medicine Work Phone: WBC (Bld) [#/Vol] 8.3 {x10E3/uL} Normal 4.0-10.5 [facility] Internal Medicine Work Phone: Comment on above: PERFORMED BY: [employer] [facility] [facility] [id number] WBC Auto #/vol (Bld) 8.3 {x10E3/uL} Normal 4.0-10.5 [facility] Work Phone: Comp. Metabolic Panel (14)Or dered By: Hair Salon Manager on 02-13-2008 Albumin mass conc 4.5 g/dL Normal 3.5-5.5 [facility] Internal Medicine Work Phone: Comment on above: PERFORMED BY: [facility] [id number] Albumin/Globulin mass ratio 1.6 {ratio} Normal 1.1-2.5 [facility] Work Phone: Comment on above: PERFORMED BY: X[employer]70 [facility] [id number] ALP enzyme act/vol 60 [iU]/L Normal 25-150 [facility] Work Phone: Comment on above: PERFORMED BY: [facility] [id number] ALT enzyme act/vol 14 [iU]/L Normal 0-40 [facility] Internal Medicine Work Phone: Comment on above: PERFORMED BY: Delivery Agent [employer] Idea[employer]70 [facility] [id number] AST enzyme act/vol 17 [iU]/L Normal 0-40 [facility] Internal Medicine Work Phone: Comment on above: PERFORMED BY: FUJIAN HAIYUAN6370 [facility]uUNC [facility] [id number] Bilirubin mass conc 0.3 mg/dL Normal 0.1-1.2 [facility] Internal Medicine Work Phone: Comment on above: PERFORMED BY: FUJIAN HAIYUAN6370 [facility] [id number] Calcium mass conc 9.8 mg/dL Normal 8.5-10.6 [facility] Internal Medicine Work Phone: Comment on above: PERFORMED BY: [facility] [id number] Chloride molar conc 104 mmol/L Normal 97-108 Compr ensive Internal Medicine Work Phone: Comment on above: PERFORMED BY: FUJIAN HAIYUAN6370 [facility] [id number] CO2 molar conc 22 mmol/L Normal 20-32 Comprehens ingrid Internal Medicine Work Phone: Comment on above: PERFORMED BY: FUJIAN HAIYUAN63[facility] [place] [id number] Creatinine mass conc 0.70 mg/dL Normal 0.50-1.50 [facility] Internal [facility] Work Phone: Comment on above: PERFORMED BY: [facility] [id number] GFR/1.73 sq M predicted among blacks MDRD vol rate/area (S/P/Bld) mL/min/{1.73_m2} Normal 60-128 [facility] Work Phone: Comment on above: Note: Persistent red uction for 3 months or more in an eGFR<60 mL/min/1.73 m2 defines CKD. Patients with eGFR values>/=60 mL/min/1.73 m2 may also have CKD if evidence of persistentproteinuria is present. .Additional information may be found at [email or web address]. PERFORMED BY: [employer]70 [facility] [id number] GFR/1.73 sq M.predicted MDRD (S/P/Bld) [Vol rate/Area] mL/min/{1.73_m2} Normal 60-128 [facility] Work Phone: Comment on above: PERFORMED BY: FUJIAN HAIYUAN6370 [facility] [id number] GFR/1.73 sq M.predicted MDRD vol rate/area mL/min/{1.73_m2} Normal 60-128 [facility] Internal Medicine Work Phone: Globulin (S) [Mass/Vol] 2.8 g/dL Normal 1.5-4.5 [facility] Work Phone: Comment on above: PERFORMED BY: [facility] [id number] Globulin Calculated mass conc (S) 2.8 g/dL Normal 1.5-4.5 [facility] Work Phone: Glucose mass conc 76 mg/dL Normal 65-99 Compreh ensive Internal Medicine Work Phone: Comment on above: PERFORMED BY: [employer]70 [facility] [id number] Potassium molar conc 4.5 mmol/L Normal 3.5-5.2 Comp rehensive Internal Medicine Work Phone: Comment on above: PERFORMED BY: [employer]70 [facility] [id number] Protein mass conc 7.3 g/dL Normal 6.0-8.5 Compreh ensive Internal Medicine Work Phone: Comment on above: PERFORMED BY: [employer] [facility] [id number] Sodium molar conc 139 mmol/L Normal 135-145 Compreh ensive Internal Medicine Work Phone: Comment on above: PERFORMED BY: [employer]70 [facility] [id number] Urea nitrogen mass conc 12 mg/dL Normal 5-26 [facility] Work Phone: Comment on above: PERFORMED BY: [employer]70 [facility] [id number] Urea nitrogen/Creatinine mass ratio 17 mg/mg Normal 8-27 [facility] Work Phone: Comment on above: PERFORMED BY: [employer] [facility] [id number] Lipase, SerumOrdered By: [employer]s tem Organizational Research Consultant on 02-13-2008 Lipase enzyme act/vol 32 U/L Normal 0-59 Com prehensive Internal Medicine Work Phone: Comment on above: PERFORMED BY: [employer]6370 [facility] [id number] CHEST WITH CONTRASTOrdered B y: Hair Salon Manager on 06-28-2007 CHEST WITH CONTRAST See Note Normal Compr ehensive Internal Medicine Work Phone: Comment on above: Exam Number: [id number] CT SCAN OF CHEST HISTORYAcute lymphadenitis. Scans were obtained at 5 mm intervals from the lung apices to theadrenals with the intravenous administration of 150 mL of Isovue 300. No previous chest CT is available. There is no hilar or mediastinaladenopathy identified. There are lymph nodes seen in the axillae. However, these do not exceed normal with respect to size criteria. The thoracic aorta is normal in caliber and there is no evidence of adissection. There is no pleural effusion identified. There are noinfiltrates, areas of consolidation, or nodules identified within thelung parenchyma. There is no pleural effusion. What is seen of liverand spleen is within normal limits. No adrenal lesion is identified. IMPRESSIONNo abnormality of the chest is identified. Reported By: ANDRY MCGRATH M.D. Exam Number: [id number] SCAN OF CHEST CLINICAL STATEMENTAcute lymph node enlargement for 1 year on and off. FINDINGSNo primary malignant tumor is seen in the neck. There appears to bebilateral, borderline enlargement of diagastric-jugular lymph nodes,measuring approximately 12 mm in maximum diameter. Severalsubcentimeter small, bilateral posterior cervical triangle lymph nodesare also seen. Small, 6 mm, right sublingual lymph node is also seen. Glands appear to be normal as there is a salivary glands. IMPRESSION1. Bilateral, borderline enlargement of the digastric-jugular lymphnodes.2. Small subcentimeter posterior cervical triangle lymph nodes.3. These lymph nodes are most likely reactive or benign lymph nodes. 4. No significant interval change from November 25, 2006. Reported By: CASSIE KHAN M.D. [employer] DIGITAL & CADOrde red By: Hair Salon Manager on 06-16-2007 BILSimplyCast DIGITAL & CAD See Note Normal [facility] Work Phone: Comment on above: Exam Number: [id number] MAMMOGRAM, BILATERAL DIAGNOSTIC DIGITAL AND CAD HISTORYBreast lump. Full field digital images were obtained in mediolateral oblique andcraniocaudal projections. A small metal marker is placed at the levelof the palpable abnormality and spot compression views were obtained. No previous mammogram was available for comparison. There is moderately dense fibroglandular parenchyma present. There isno skin thickening or retraction, architectural distortion, or clusterof suspicious microcalcifications. Parenchymal density see in theorigin of the area marked in the left breast. She has no abnormality.No focal density was seen on ultrasound. There was, therefore, noradiographic evidence of malignancy identified. Failure todemonstrate a lesion on imaging studies. Should not delay biopsy ifthere is a clinically palpable mass which is suspicious. IMPRESSIONThere is no radiographic evidence of malignancy identified. If thereis a persistent palpable abnormality, MRI could be considered forfurther evaluation. FINAL ASSESSMENTBIRADS Category 2 - Benign. A letter regarding these results has been sent to the patient. This interpretation was rendered by a radiologist certified under theMammography Quality Standards Act of 1992 (MQSA). The mammograms werealso examined with computer-aided detection software (Percello.). Reported By: ANDRY MCGRATH M.D. GEOVANY CULTURE-BLOOD ([id number])Ord ered By: Jessica De Leon on 06-06-2007 Bacteria identified Cx Nom (Bld) Final report Normal [facility] Work Phone: Comment on above: x2; PATIENT NOT FAST INGClinical Information: SRC:BLD PERFORMED BY: [employer] [id number] Bacteria identified Cx Nom (Bld) NGFD Normal [facility] Work Phone: Comment on above: No aerobic or anaero bic growth in five days. x2; PATIENT NOT FAST INGClinical Information: SRC:BLD PERFORMED BY: [employer]6370 [facility] [id number] LDH (LD) (LACTATE DEHYDROGEN ASE) ([id number])Ordered By: Jessica De Leon on 06-06-2007 LDH [Catalytic activity/Vol] 177 U/L Normal 100-250 [facility]; [facility] Work Phone: Comment on above: PERFORMED BY: X[employer]70 [facility] [id number] LDH enzyme act/vol 177 [iU]/L Normal 100-250 [facility] Internal Medicine Work Phone: Comment on above: PERFORMED BY: [facility] [id number] No Slide ReceivedOrdered By: Hair Salon Manager on 06-06-2007 No Slide Received COMMNT Normal Compreh ensive Internal Medicine Work Phone: Comment on above: TEST: LEUKOCYTE ASHKAN LINE PHOSPHATASE (LAP) SCORECONTACTED CANDICE AT YOUR FACILITY 06-07-07The specimen submitted does not meet the laboratory's criteria foracceptability. Refer to [facility]'s Directory of Services for specimenacceptability criteria. PERFORMED BY: Xanofi Jggadc4017 [facility] [id number] BRAIN/HEAD W/WO CONTRASTOrde red By: Hair Salon Manager on 06-02-2007 BRAIN/HEAD W/WO CONTRAST See Note Normal [facility] Work Phone: Comment on above: Exam Number: [id number] CT SCAN OF BRAIN WITH AND WITHOUT CONTRAST HISTORYSevere migraine headaches. Some dizziness. Left temporal andparietal pain. TECHNIQUEAxial cuts were obtained at 2.5 mm from the posterior fossa and 5 mmthrough the remainder of the brain. FINDINGSVisualized bones and sinuses as well as mastoids appear normal asdemonstrated. No fracture is seen. Saez/white interface appearsnormal. No intracerebral bleed, tumor, midline shift, or extraaxialfluid collection demonstrated. After injection of 100 mL of Isovue 300, there is no demonstration ofany enhancing lesions. No suggestion of an aneurysm is noted. IMPRESSIONNormal CT of the brain. Reported By: GRETEL ABRAHAM M.D. C-REACTIVE PROTOrdered By: Verónica villatorotem Organizational Research Consultant on 05-24-2007 CRP mass conc mg/L Normal 0.0-6.0 Comprehensi ve Internal Medicine Work Phone: Comment on above: Test performed using the Dimension C-Reactive ProteinExtended Range assay method. This assay meets the AHA/CDC 2003 recommendations fordetermining patients at high risk for cardiovasculardisease. Reference: High risk CRP >3.0 mg/LTest performed using the Dimension C-Reactive ProteinExtended Range assay method. This assay meets the AHA/CDC 2003 recommendations fordetermining patients at high risk for cardiovasculardisease. Reference: High risk CRP >3.0 mg/L CAT SCR [id number] By: Sy stem Organizational Research Consultant on 05-24-2007 CAT SCR [id number] SeeNote Normal [facility] Internal Medicine Work Phone: Comment on above: Result: Negative Result: Negative Not e: Bartonella henselae is now regarded as the etiologicagent of Cat Scratch Disease, bacillary angiomatosis,endocarditis and fever with bacteremia. Bartonellaquintana also causes bacillary angiomato-sis particularlyamong immunocompromised patients, and trench fever.(For Investigational Use Only)Caution should be used in diagnosing acute Cat ScratchDisease (CSD) based on low titers (1:64-1:128) due to theseroprevalence of IgG antibodies to B. henselae amongnormal, healthy adults; low titers may indicate earlydisease or prior exposure and follow up testing at a latertime may be required to confirm diagnosis; a positive IgMtiter at any level with an IgG titer of 1:256 or higher inthe presence of symptoms of CSD strongly suggests activedisease. Cross reactivity is high (95%) between the B.henselae and B. jacques IgG subtypes but cross reactivityof IgM antibodies between the two species is rarelyobserved. Result: ADEQUATE Result: NORM C&C CBCD,SMEAR DIFFOrdered By: Verónica ystem Organizational Research Consultant on 05-24-2007 Erythrocyte distribution width (RBC) [Ratio] 12.9 % Normal 11.6-14.6 [facility] Work Phone: Erythrocyte distribution width Auto Ratio (RBC) 12.9 % Normal 11.6-14.6 [facility] Work Phone: Hematocrit (Bld) [Volume fraction] 36.6 % Abnormal 37-47 [facility] Work Phone: Hematocrit Auto Volume Fraction (Bld) 36.6 % Abnormal 37-47 [facility] Internal Medicine Work Phone: Hemoglobin mass conc (Bld) 12.9 g/dL Normal 12.0-16.0 [facility] Work Phone: Lymphocytes/100 WBC (Bld) 36 % Normal 19-41 [facility] Work Phone: Lymphocytes/100 WBC Auto (Bld) 36 % Normal 19-41 [facility] Work Phone: MCH (RBC) [Entitic mass] 30.8 pg Normal 27.0-32.0 [facility] Work Phone: MCH Auto Entitic mass (RBC) 30.8 pg Normal 27.0-32.0 [facility] Work Phone: MCHC (RBC) [Mass/Vol] 35.1 g/dL Normal 32-36 Com prehensive Internal Medicine Work Phone: MCHC Auto mass conc (RBC) 35.1 g/dL Normal 32-36 [facility] Work Phone: MCV (RBC) [Entitic vol] 87.7 fL Normal 81-99 [facility] Work Phone: MCV Auto Entitic volume (RBC) 87.7 fL Normal 81-99 [facility] Work Phone: Monocytes/100 WBC (Bld) 2 % Normal 0-10 [facility] Work Phone: Monocytes/100 WBC Auto (Bld) 2 % Normal 0-10 [facility] Work Phone: Platelets (Bld) [#/Vol] 199 10*3/uL Normal 150-450 [facility] Work Phone: Platelets (Bld) [#/Vol] SeeNote Normal [facility] Work Phone: Comment on above: Result: ADEQUATE Platelets Auto #/vol (Bld) 199 10*3/uL Normal 150-450 [facility] Work Phone: RBC (Bld) [#/Vol] 4.18 {M/mm3} Abnormal 4.2-5.4 Compr ehensive Internal Medicine Work Phone: RBC Auto #/vol (Bld) 4.18 {M/mm3} Abnormal 4.2-5.4 [facility] Work Phone: WBC (Bld) [#/Vol] 6.9 10*3/uL Normal 4.4-11.0 [facility] Work Phone: WBC Auto #/vol (Bld) 6.9 10*3/uL Normal 4.4-11.0 Com prehensive Internal Medicine Work Phone: CBCD,SMEAR DIFF 100 1 Normal Comprehen sive Internal Medicine Work Phone: CBCD,SMEAR DIFF 62 % Normal 47-70 [facility]pre[facility] Work Phone: ESROrdered By: System Manage r on 05-24-2007 ESR Velocity (Bld) 6 mm/h Normal 0-20 Compre hensive Internal Medicine Work Phone: TOXOP IgM [id number] By: Verónica ystem Organizational Research Consultant on 05-24-2007 TOXOP IgM [id number] < 0.9 Normal 0.0-0.8 Comprehen [facility] Internal Medicine Work Phone: Comment on above: Negative <0.9 Indete rminate 0.9 - 1.0 Positive >1.0 . Although the presence of Toxo IgM antibodies suggests an acute infection, low levels may persist for many months following infection. TOXOPIgG [id number] By: Kasi tem Organizational Research Consultant on 05-24-2007 TOXOPIgG 6478 < 6.5 Normal 0.0-6.4 Comprehensi ve Internal Medicine Work Phone: Comment on above: Negative <6.5 Equivo yolie 6.5 - 7.9 Positive >7.9Performed At: [facility] [address] [place], [place] [id number] At: [facility] [place], [place] [id number] FARZAD-D [id number] By: Syst em Organizational Research Consultant on 05-02-2007 Nuclear Ab Ql (S) 51 U/mL Normal 0-99 Compreh ensive Internal Medicine Work Phone: Comment on above: Negative <100 Equivo yolie 100 - 120 Positive >120 C-REACTIVE PROTOrdered By: Verónica ystem Organizational Research Consultant on 05-02-2007 CRP mass conc mg/L Normal 0.0-6.0 Comprehensi ve Internal Medicine Work Phone: Comment on above: Test performed using the Dimension C-Reactive ProteinExtended Range assay method. This assay meets the AHA/CDC 2003 recommendations fordetermining patients at high risk for cardiovasculardisease. Reference: High risk CRP >3.0 mg/L CBCD,SMEAR DIFFOrdered By: Verónica villatorotem Organizational Research Consultant on 05-02-2007 Eosinophils/100 WBC (Bld) 1 % Normal 0-5 [facility] Internal Medicine Work Phone: Eosinophils/100 WBC Auto (Bld) 1 % Normal 0-5 [facility] Internal Medicine Work Phone: Erythrocyte distribution width (RBC) [Ratio] 13.0 % Normal 11.6-14.6 [facility] Internal Medicine Work Phone: Erythrocyte distribution width Auto Ratio (RBC) 13.0 % Normal 11.6-14.6 [facility] Internal Medicine Work Phone: Hematocrit (Bld) [Volume fraction] 38.6 % Normal 37-47 [facility] Internal Medicine Work Phone: Hematocrit Auto Volume Fraction (Bld) 38.6 % Normal 37-47 Comprehens ingrid Internal Medicine Work Phone: Hemoglobin mass conc (Bld) 13.4 g/dL Normal 12.0-16.0 [facility] Internal Medicine Work Phone: Lymphocytes/100 WBC (Bld) 28 % Normal 19-41 [facility] Internal Medicine Work Phone: Lymphocytes/100 WBC Auto (Bld) 28 % Normal 19-41 [facility] Internal Medicine Work Phone: MCH (RBC) [Entitic mass] 30.6 pg Normal 27.0-32.0 [facility] Internal Medicine Work Phone: MCH Auto Entitic mass (RBC) 30.6 pg Normal 27.0-32.0 [facility] Internal Medicine Work Phone: MCHC (RBC) [Mass/Vol] 34.8 g/dL Normal 32-36 [facility] prehensive Internal Medicine Work Phone: MCHC Auto mass conc (RBC) 34.8 g/dL Normal 32-36 [facility] Internal Medicine Work Phone: MCV (RBC) [Entitic vol] 88.1 fL Normal 81-99 [facility] Work Phone: MCV Auto Entitic volume (RBC) 88.1 fL Normal 81-99 [facility] Internal Medicine Work Phone: Monocytes/100 WBC (Bld) 2 % Normal 0-10 [facility] Internal Medicine Work Phone: Monocytes/100 WBC Auto (Bld) 2 % Normal 0-10 [facility] Internal Medicine Work Phone: Platelets (Bld) [#/Vol] 244 10*3/uL Normal 150-450 [facility] Internal Medicine Work Phone: Platelets (Bld) [#/Vol] SeeNote Normal [facility] Internal Medicine Work Phone: Comment on above: Result: ADEQUATE Platelets Auto #/vol (Bld) 244 10*3/uL Normal 150-450 [facility] Internal Medicine Work Phone: RBC (Bld) [#/Vol] 4.38 {M/mm3} Normal 4.2-5.4 [facility] Internal Medicine Work Phone: RBC Auto #/vol (Bld) 4.38 {M/mm3} Normal 4.2-5.4 [facility] Internal Medicine Work Phone: WBC (Bld) [#/Vol] 6.8 10*3/uL Normal 4.4-11.0 [facility] Internal Medicine Work Phone: WBC Auto #/vol (Bld) 6.8 10*3/uL Normal 4.4-11.0 [facility] Internal Medicine Work Phone: CBCD,SMEAR DIFF 100 1 Normal [facility] Internal Medicine Work Phone: CBCD,SMEAR DIFF SeeNote Normal [facility] Internal Medicine Work Phone: Comment on above: Result: ADEQUATE Result: NORM C&C CBCD,SMEAR DIFF 69 % Normal 47-70 [facility] Internal Medicine Work Phone: [place]VIgM [place] [id number] By: Verónica sue Organizational Research Consultant on 05-02-2007 [place] [id number] < 0.9 Normal 0.0-0.8 [facility] Internal Medicine Work Phone: Comment on above: Negative <0.9 Equivo yolie 0.9 - 1.0 Positive >1.0Performed At: [facility]erg[facility] [address]ojquw[address] [place], [place] [id number] COMP METABOLICOrdered By: Javier stem Organizational Research Consultant on 05-02-2007 Albumin mass conc 4.0 g/dL Normal 3.4-5.0 Compreh ensive Internal Medicine Work Phone: Albumin/Globulin mass ratio 1.2 {RATIO} Normal 0.9-2.4 [facility] Work Phone: ALP enzyme act/vol 61 U/L Normal 50-136 [facility] Work Phone: ALT enzyme act/vol 28 [iU]/L Abnormal 30-65 [facility] Internal Medicine Work Phone: Anion gap 3 molar conc 9 mmol/L Normal 5-15 [facility] Work Phone: Anion gap [Moles/Vol] 9 mmol/L Normal 5-15 [facility] prehensive Internal Medicine Work Phone: AST enzyme act/vol 18 U/L Normal 15-37 [facility] Work Phone: Bilirubin mass conc 0.44 mg/dL Normal 0.00-1.00 Compr ehensive Internal Medicine Work Phone: Calcium mass conc 8.8 mg/dL Normal 8.5-10.1 Compreh ensive Internal Medicine Work Phone: Chloride molar conc 107 mmol/L Normal 98-107 Compr ehensive Internal Medicine Work Phone: CO2 molar conc 27.4 mmol/L Normal 21.0-32.0 [facility] Work Phone: Comment on above: Please Note Refer ence Interval Change Creatinine mass conc 0.7 mg/dL Normal 0.6-1.0 Comp rehensive Internal Medicine Work Phone: Globulin (S) [Mass/Vol] 3.3 g/dL Normal 2.7-4.2 [facility] Work Phone: Comment on above: Please Note Refer ence Interval Change Globulin Calculated mass conc (S) 3.3 g/dL Normal 2.7-4.2 [facility] Work Phone: Comment on above: Please Note Refer ence Interval Change Glucose mass conc 73 mg/dL Normal 70-110 Compreh ensive Internal Medicine Work Phone: Potassium molar conc 4.2 mmol/L Normal 3.5-5.1 Comp rehensive Internal Medicine Work Phone: Protein mass conc 7.3 g/dL Normal 6.4-8.2 Compreh ensive Internal Medicine Work Phone: Sodium molar conc 143 mmol/L Normal 136-145 Compreh ensive Internal Medicine Work Phone: Urea nitrogen mass conc 13 mg/dL Normal 7-18 [facility] Work Phone: Urea nitrogen/Creatinine mass ratio 18.6 {RATIO} Normal 10-20 [facility] Work Phone: EB-EA IgG [id number] By: S ystem Organizational Research Consultant on 05-02-2007 EB-EA IgG [id number] 23 U/mL Normal 0-99 Comprehen sive Internal Medicine Work Phone: Comment on above: Negative <100 Equivo yolie 100 - 120 Positive >120 EB-NAg [id number] By: S ystem Organizational Research Consultant on 05-02-2007 EB-NAg [id number] 678 U/mL Abnormal 0-99 [facility] Work Phone: Comment on above: Negative <100 Equivo yolie 100 - 120 Positive >120 EB-VCA [id number] By: S ystem Organizational Research Consultant on 05-02-2007 EB-VCA [id number] 177 U/mL Abnormal 0-99 Comprehen sive Internal Medicine Work Phone: Comment on above: Negative <100 Equivo yolie 100 - 120 Positive >120 EB-VCA [id number] By: S ystem Organizational Research Consultant on 05-02-2007 EB-VCA [id number] 35 U/mL Normal 0-99 [facility] Work Phone: Comment on above: Negative <100 Equivo yolie 100 - 120 Positive >120 ESROrdered By: System Manage r on 05-02-2007 ESR Velocity (Bld) 7 mm/h Normal 0-20 Compre hensive Internal Medicine Work Phone: RA LATEX [id number] By: Kasi tem Organizational Research Consultant on 05-02-2007 RA LATEX 6502 7.2 {IU/mL} Normal 0.0-13.9 Comprehens ingrid Internal Medicine Work Phone: TSHOrdered By: System Manage r on 05-02-2007 Thyrotropin Qn 1.74 {uIU/mL} Normal 0.34-4.82 Compreh ensive Internal Medicine Work Phone: VITAMIN [id number] By: Romulo m Organizational Research Consultant on 05-02-2007 Cobalamin (Vitamin B12) mass conc 497 pg/mL Normal 211-911 [facility] Work Phone: SOFT TISSUE NECK WITH CONTRA STOrdered By: Hair Salon Manager on 11-25-2006 SOFT TISSUE NECK WITH CONTRAST See Note Normal [facility] Work Phone: Comment on above: Exam Number: [id number] CT SCAN OF THE NECK WITH CONTRAST INDICATIONFollowup lymph node. TECHNIQUEAxial scans were obtained through the neck following theadministration of 100 cc Isovue intravenously. COMPARISON09/29/06. FINDINGSThe visualized posterior fossa structures were unremarkable. There ismild prominence of the nasopharyngeal soft tissues compatible withadenoidal hypertrophy. The parotid and submandibular glands aresymmetric in appearance. The major neck vessels enhance normally. The thyroid gland is normal in appearance. There are scattered lymph nodes within the neck bilaterally similar tothe prior examination. The largest is in the submental regionestimated at about 8 mm. in short axis diameter. Low density seen inthe nonenlarged lymph nodes anterior to the right submandibular glandlikely related to fatty hilum rather than lazaro necrosis. Nopathologically enlarged or otherwise appearing lymph nodes are seen. No masses are identified. The lung apices are free of consolidation. IMPRESSION1) There are scattered lymph nodes within the neck bilaterally butnone appear pathologically enlarged or necrotic. These are littlechanged from the prior examination and are likely reactive. No masslesion is seen. Reported By: RYAN WEAVER M.D. C-REACTIVE PROTOrdered By: S ystem Organizational Research Consultant on 09-28-2006 CRP mass conc 7.70 mg/L Abnormal 0.0-6.0 Comprehen[facility]irtua [facility] Internal [facility] Work Phone: Comment on above: Test performed using the Dimension C-Reactive ProteinExtended Range assay method. This assay meets the AHA/CDC 2003 recommendations fordetermining patients at high risk for cardiovasculardisease. Reference: High risk CRP >3.0 mg/L COMP METABOLICOrdered By: Javier stem Organizational Research Consultant on 09-28-2006 Albumin mass conc 3.9 g/dL Normal 3.4-5.0 Compreh ensive Internal Medicine Work Phone: Albumin/Globulin mass ratio 1.2 {RATIO} Normal 0.9-2.4 [facility] Internal Medicine Work Phone: ALP enzyme act/vol 63 U/L Normal 50-136 [facility] Internal Medicine Work Phone: ALT enzyme act/vol 32 [iU]/L Normal 30-65 [facility] Internal Medicine Work Phone: Anion gap 3 molar conc 10 mmol/L Normal 5-15 [facility] Internal Medicine Work Phone: Anion gap [Moles/Vol] 10 mmol/L Normal 5-15 [facility] prehensive Internal Medicine Work Phone: AST enzyme act/vol 16 U/L Normal 15-37 [facility] Internal Medicine Work Phone: Bilirubin mass conc 0.39 mg/dL Normal 0.00-1.00 [facility] ehensive Internal Medicine Work Phone: Calcium mass conc 8.8 mg/dL Normal 8.5-10.1 Compre[facility] Internal Medicine Work Phone: Chloride molar conc 104 mmol/L Normal 98-107 Compr ensive Internal Medicine Work Phone: CO2 molar conc 26.1 mmol/L Normal 22.0-29.0 [facility] Work Phone: Creatinine mass conc 0.8 mg/dL Normal 0.6-1.0 [facility] Work Phone: Globulin (S) [Mass/Vol] 3.2 g/dL Normal 2.3-3.5 [facility] Work Phone: Globulin Calculated mass conc (S) 3.2 g/dL Normal 2.3-3.5 [facility] Work Phone: Glucose mass conc 72 mg/dL Normal 70-110 Compre[facility] Internal Medicine Work Phone: Potassium molar conc 4.2 mmol/L Normal 3.5-5.1 Comp rehensive Internal Medicine Work Phone: Protein mass conc 7.1 g/dL Normal 6.4-8.2 Compre[facility] Internal Medicine Work Phone: Sodium molar conc 140 mmol/L Normal 136-145 Com[facility] Internal Medicine Work Phone: Urea nitrogen mass conc 10 mg/dL Normal 7-18 [facility] Work Phone: Urea nitrogen/Creatinine mass ratio 12.5 {RATIO} Normal 10-20 [facility] Work Phone: EBVIgG/M [id number] By: Verónica sue Organizational Research Consultant on 09-28-2006 EBVIgG/M [id number] U/mL Abnormal 0-99 [facility] Work Phone: Comment on above: Negative <100 Equivo yolie 100 - 120 Positive >120 EBVIgG/M [id number] 52 U/mL Normal 0-99 Comprehen sive Internal Medicine Work Phone: Comment on above: Negative <100 Equivo yolie 100 - 120 Positive >120 EBVIgG/M [id number] 463 U/mL Abnormal 0-99 Comprehen [facility] Internal Medicine Work Phone: Comment on above: Negative <100 Equivo yolie 100 - 120 Positive >120 EBVIgG/M [id number] 40 U/mL Normal 0-99 [facility] Work Phone: Comment on above: Negative <100 Equivo yolie 100 - 120 Positive >120 EBVIgG/M [id number] Comment Normal Comprehen sive Internal Medicine Work Phone: Comment on above: EBV Interpretation C padgett: VCA-IgM EA-IgG VCA-IgG NA-ABS Susceptible - - - - Acute Infection + +or- + - Convalescent Phase +or- +or- + + Chronic or Reactivated - + + +or- Old Infection - - +or- + + Antibody Present - Antibody AbsentPerformed At: [facility] [place], [place] [id number] ESROrdered By: System Manage r on 09-28-2006 ESR Velocity (Bld) 12 mm/h Normal 0-20 [facility] Work Phone: LDHOrdered By: System Manage r on 09-28-2006 LDH enzyme act/vol 161 U/L Normal 100-190 [facility] Work Phone: TSHOrdered By: System Manage r on 09-28-2006 Thyrotropin Qn 1.20 {uIU/mL} Normal 0.34-4.82 Compreh [facility] Internal Medicine Work Phone: CULTURE, THROATOrdered By: S ystem Organizational Research Consultant on 09-26-2006 CULTURE, THROAT See Note Normal Comprehen [facility] Internal Medicine Work Phone: Comment on above: Normal throat carol isolated. No beta-hemolyticstreptococcus isolated. CBCDOrdered By: System Manag er on 09-23-2006 Basophils/100 WBC (Bld) 0.5 % Normal 0-1 [facility] Work Phone: Basophils/100 WBC Auto (Bld) 0.5 % Normal 0-1 [facility] Work Phone: Eosinophils/100 WBC (Bld) 1.3 % Normal 0-5 [facility] Work Phone: Eosinophils/100 WBC Auto (Bld) 1.3 % Normal 0-5 [facility] Work Phone: Erythrocyte distribution width (RBC) [Ratio] 12.9 % Normal 11.6-14.6 [facility] Work Phone: Erythrocyte distribution width Auto Ratio (RBC) 12.9 % Normal 11.6-14.6 [facility] Work Phone: Hematocrit (Bld) [Volume fraction] 38.1 % Normal 37-47 [facility] Work Phone: Hematocrit Auto Volume Fraction (Bld) 38.1 % Normal 37-47 [facility]prehens [facility] Internal Medicine Work Phone: Hemoglobin mass conc (Bld) 13.4 g/dL Normal 12.0-16.0 [facility] Work Phone: Lymphocytes/100 WBC (Bld) 20.9 % Normal 19-41 [facility] Work Phone: Lymphocytes/100 WBC Auto (Bld) 20.9 % Normal 19-41 [facility] Internal Medicine Work Phone: MCH (RBC) [Entitic mass] 30.5 pg Normal 27.0-32.0 [facility] Work Phone: MCH Auto Entitic mass (RBC) 30.5 pg Normal 27.0-32.0 [facility] Work Phone: MCHC (RBC) [Mass/Vol] 35.1 g/dL Normal 32-36 Com prehensive Internal Medicine Work Phone: MCHC Auto mass conc (RBC) 35.1 g/dL Normal 32-36 [facility] Internal Medicine Work Phone: MCV (RBC) [Entitic vol] 87.0 fL Normal 81-99 [facility] Internal Medicine Work Phone: MCV Auto Entitic volume (RBC) 87.0 fL Normal 81-99 [facility] Internal Medicine Work Phone: Monocytes/100 WBC (Bld) 7.8 % Normal 0-10 [facility] Work Phone: Monocytes/100 WBC Auto (Bld) 7.8 % Normal 0-10 [facility] Work Phone: Neutrophils/100 WBC (Bld) 69.5 % Normal 47-70 [facility] Work Phone: Neutrophils/100 WBC Auto (Bld) 69.5 % Normal 47-70 [facility] Internal Medicine Work Phone: Platelet mean volume (Bld) [Entitic vol] 8.8 fL Normal 6.5-12.0 Comprehensiv e Internal Medicine Work Phone: Platelet mean volume Auto Entitic volume (Bld) 8.8 fL Normal 6.5-12.0 [facility] Work Phone: Platelets (Bld) [#/Vol] 225 10*3/uL Normal 150-450 [facility] Work Phone: Platelets Auto #/vol (Bld) 225 10*3/uL Normal 150-450 [facility] Work Phone: RBC (Bld) [#/Vol] 4.38 {M/mm3} Normal 4.2-5.4 Compr ehensive Internal Medicine Work Phone: RBC Auto #/vol (Bld) 4.38 {M/mm3} Normal 4.2-5.4 Co mprehensive Internal Medicine Work Phone: WBC (Bld) [#/Vol] 8.5 10*3/uL Normal 4.4-11.0 Compre [facility] Internal Medicine Work Phone: WBC Auto #/vol (Bld) 8.5 10*3/uL Normal 4.4-11.0 [facility] prehensive Internal Medicine Work Phone: MONOOrdered By: System Manag er on 09-23-2006 Monocytes (Bld) [#/Vol] SeeNote Normal [facility] Work Phone: Comment on above: Result: NEGATIVE Monocytes Auto #/vol (Bld) SeeNote Normal [facility] Work Phone: Comment on above: Result: NEGATIVE CULTURE, THROATOrdered By: Verónica villatorotem Organizational Research Consultant on 09-19-2006 CULTURE, THROAT See Note Normal [facility] Work Phone: Comment on above: No Group A Beta Stre ptococcus isolated. AMOUNT GROWTH 1+ ORGANISM 1: STAPHYLOCOCCUS AUREUS STAPHYLOCOCCUS AUREUS: REACTION AMOXICILLIN/CLAVULANIC ACID $$ <=2 S AMPICILLIN/SULBACTAM $$$ <=4 S CEFAZOLIN $ <=8 S CIPROFLOXACIN GP $$$ <=0.5 S CLINDAMYCIN $$ <=0.5 S ERYTHROMYCIN $$ >=8 R GENTAMICIN GP $ <=2 S LEVOFLOXACIN $$ <=1 S OXACILLIN COAG POS $$ 0.5 S PENICILLIN G (STAPH) $$ >=16 R RIFAMPIN $ <=1 S TETRACYCLINE $$ >=16 R TRIMETHOPRIM/SULFAMETHOXAZ $$ <=10 S VANCOMYCIN $$ <=0.[address] jerez to handle Vital Signs Date Time Vital Sign Value Performing Clinician Facility 05-21-2025 14:50-0400 Body height 157.[address] Edel Garcia DO Work Phone: [facility] 05-21-2025 14:45-0400 Body mass index (BMI) [Ratio] 35.1 kg/m2 Dr. Edel Garcia DO Work Phone: [facility] 05-21-2025 14:45-0400 Body weight 87.[address] Edel Garcia DO Work Phone: [facility] 05-21-2025 14:45-0400 Diastolic blood pressure 80 mm[Hg] Dr. Edel Garcia DO Work Phone: [facility] 05-21-2025 14:45-0400 Systolic blood pressure 133 mm[Hg] Dr. Edel Garcia DO Work Phone: [facility] 05-09-2025 12:43-0400 Body temperature 98.2 [degF] Dr. Edel Garcia DO Work Phone: [facility] 05-09-2025 12:43-0400 Diastolic blood pressure 68 mm[Hg] Dr. Edel Garcia DO Work Phone: [facility] 05-09-2025 12:43-0400 Heart rate 86 /min Dr. Edel Garcia DO Work Phone: [facility] 05-09-2025 12:43-0400 Respiratory rate 15 /min Dr. Edel Garcia DO Work Phone: [facility] 05-09-2025 12:43-0400 SaO2% (BldA) [Mass fraction] 98 % Dr. Edel Garcia DO Work Phone: [facility] 05-09-2025 12:43-0400 Systolic blood pressure 102 mm[Hg] Dr. Edel Garcia DO Work Phone: [facility] 02-21-2025 15:32-0400 Body height 157.[address] Edel Garcia DO Work Phone: [facility] 02-21-2025 15:32-0400 Body mass index (BMI) [Ratio] 36.4 kg/m2 Dr. Edel Garcia DO Work Phone: [facility] 02-21-2025 15:32-0400 Body weight 90.[address] Edel Garcia DO Work Phone: [facility] 11-06-2023 08:45-0400 Body temperature 98 [degF] Dr. Edel Garcia Work Phone: [facility] 11-06-2023 08:45-0400 Diastolic blood pressure 62 mm[Hg] Dr. Edel Garcia Work Phone: [facility] 11-06-2023 08:45-0400 Heart rate 65 /min Dr. Edel Garcia Work Phone: [facility] 11-06-2023 08:45-0400 Respiratory rate 17 /min Dr. Edel Garcia Work Phone: [facility] 11-06-2023 08:45-0400 SaO2% (BldA) [Mass fraction] 99 % Dr. Edel Garcia Work Phone: [facility] 11-06-2023 08:45-0400 Systolic blood pressure 130 mm[Hg] Dr. Edel Garcia Work Phone: [facility] 10-27-2023 08:50-0500 Body temperature 97.7 [degF] Dr. Edel Garcia Work Phone: [facility] 10-27-2023 08:50-0500 Diastolic blood pressure 67 mm[Hg] Dr. Edel Garcia Work Phone: [facility] 10-27-2023 08:50-0500 Heart rate 71 /min Dr. Edel Garcia Work Phone: [facility] 10-27-2023 08:50-0500 Respiratory rate 16 /min Dr. Edel Garcia Work Phone: [facility] 10-27-2023 08:50-0500 SaO2% (BldA) [Mass fraction] 97 % Dr. Edel Garcia Work Phone: [facility] 10-27-2023 08:50-0500 Systolic blood pressure 100 mm[Hg] Dr. Edel Garcia Work Phone: [facility] 10-27-2023 07:46-0500 Body height 157.[address] Edel Garcia Work Phone: [facility] 10-27-2023 07:46-0500 Body mass index (BMI) [Ratio] 38.8 kg/m2 Dr. Edel Garcia Work Phone: [facility] 10-27-2023 07:46-0500 Body weight 96.[address] Edel Garcia Work Phone: [facility] 07-20-2023 15:13-0500 Body temperature 97.7 [degF] Dr. Edel Garcia Work Phone: [facility] 07-20-2023 15:13-0500 Body weight 97.[address] Edel Garcia Work Phone: [facility] 07-20-2023 15:13-0500 Diastolic blood pressure 90 mm[Hg] Dr. Edel Garcia Work Phone: [facility] 07-20-2023 15:13-0500 Heart rate 70 /min Dr. Edel Garcia Work Phone: [facility] 07-20-2023 15:13-0500 Respiratory rate 16 /min Dr. Edel Garcia Work Phone: [facility] 07-20-2023 15:13-0500 SaO2% (BldA) [Mass fraction] 99 % Dr. Edel Garcia Work Phone: [facility] 07-20-2023 15:13-0500 Systolic blood pressure 134 mm[Hg] Dr. Edel Garcia Work Phone: [facility] 07-04-2023 14:34-0500 Body height 157.[address] Edel Garcia Work Phone: [facility] 07-04-2023 14:27-0500 Body mass index (BMI) [Ratio] 38.4 kg/m2 Dr. Edel Garcia Work Phone: [facility] 07-04-2023 14:27-0500 Body weight 95.[address] Edel Garcia Work Phone: [facility] 07-04-2023 14:27-0500 Diastolic blood pressure 84 mm[Hg] Dr. Edel Garcia Work Phone: [facility] 07-04-2023 14:27-0500 Systolic blood pressure 118 mm[Hg] Dr. Edel Garcia Work Phone: [facility] 04-26-2023 15:23-0400 Body temperature 98.6 [degF] Dr. Edel Garcia Work Phone: [facility] 04-26-2023 15:23-0400 Body weight 97.[address] Edel Garcia Work Phone: [facility] 04-26-2023 15:23-0400 Diastolic blood pressure 88 mm[Hg] Dr. Edel Garcia Work Phone: [facility] 04-26-2023 15:23-0400 Heart rate 81 /min Dr. Edel Garcia Work Phone: [facility] 04-26-2023 15:23-0400 Respiratory rate 18 /min Dr. Edel Garcia Work Phone: [facility] 04-26-2023 15:23-0400 SaO2% (BldA) [Mass fraction] 99 % Dr. Edel Garcia Work Phone: [facility] 04-26-2023 15:23-0400 Systolic blood pressure 135 mm[Hg] Dr. Edel Garcia Work Phone: [facility] 04-22-2023 10:14-0400 Body height 157.48 cm Sanna Jyotirb NORMA [facility] Work Phone: 04-22-2023 10:14-0400 Body mass index (BMI) [Ratio] 38.77 kg/m2 Sanna Slarb [employer] [facility] Work Phone: 04-22-2023 10:14-0400 Body surface area Derived from formula 1.96 m2 Sanna Slarb [employer] [facility] Work Phone: 04-22-2023 10:14-0400 Body temperature 97.9 [degF] Sanna Slarb [employer] [facility] Work Phone: Comment on above: Method: Temporal 04-22-2023 10:140400 Body weight 96.16 kg Sanna Slarb [employer] [facility] Work Phone: 04-22-2023 10:14-0400 Diastolic blood pressure 74 mm[Hg] Sanna Slarb [employer] [facility] Work Phone: Comment on above: Patient Position: Sitting; Cuff Location : Left Arm; Cuff Size: Standard 04-22-2023 10:14-0400 Heart rate 66 /min Sanna Slarb [employer] [facility] Work Phone: Comment on above: Pattern: Regular 04-22-2023 10:14-0400 Respiratory rate 16 /min Sanna Slarb [employer] [facility] Work Phone: Comment on above: Pattern: Unlabored 04-22-2023 10:14-0400 SaO2% (BldA) [Mass fraction] 99 % Sanna Montesmargarita [facility]; [facility] Work Phone: Comment on above: Room air 04-22-2023 10:14-0400 Systolic blood pressure 126 mm[Hg] Sanna Montesmargarita [facility]; [facility] Work Phone: Comment on above: Patient Position: Sitting; Cuff Location : Left Arm; Cuff Size: Standard 03-29-2023 11:14-0400 Body temperature 98.4 [degF] Dr. Edel Garcia Work Phone: [facility] 03-29-2023 11:14-0400 Body weight 95.[address] Edel Garcia Work Phone: [facility] 03-29-2023 11:14-0400 Diastolic blood pressure 79 mm[Hg] Dr. Edel Garcia Work Phone: [facility] 03-29-2023 11:14-0400 Heart rate 65 /min Dr. Edel Garcia Work Phone: [facility] 03-29-2023 11:14-0400 Respiratory rate 16 /min Dr. Edel Garcia Work Phone: [facility] 03-29-2023 11:14-0400 SaO2% (BldA) [Mass fraction] 100 % Dr. Edel Garcia Work Phone: [facility] 03-29-2023 11:14-0400 Systolic blood pressure 123 mm[Hg] Dr. Edel Garcia Work Phone: [facility] 03-07-2023 11:20-0400 Body height 157.48 cm Reyna Wong [facility] Work Phone: 03-07-2023 11:20-0400 Body mass index (BMI) [Ratio] 38.77 kg/m2 Reyna Wong [facility] Work Phone: 03-07-2023 11:20-0400 Body surface area Derived from formula 1.96 m2 Reyna Wong [facility] Work Phone: 03-07-2023 11:20-0400 Body temperature 97.1 [degF] Reyna Wong [facility] Work Phone: Comment on above: Method: Thermal Scan 03-07-2023 11:20-0400 Body weight 96.16 kg Reyna Wong [facility] Work Phone: 03-07-2023 11:20-0400 Diastolic blood pressure 78 mm[Hg] Reyna Wong [facility] Work Phone: Comment on above: Patient Position: Sitting; Cuff Location : Left Arm; Cuff Size: Standard 03-07-2023 11:20-0400 Heart rate 78 /min Reyna Wong [facility] Work Phone: Comment on above: Pattern: Regular 03-07-2023 11:20-0400 Respiratory rate 16 /min Reyna Wong [facility] Work Phone: Comment on above: Pattern: Unlabored 03-07-2023 11:20-0400 Systolic blood pressure 128 mm[Hg] Reynagalindo Wong [facility] Work Phone: Comment on above: Patient Position: Sitting; Cuff Location : Left Arm; Cuff Size: Standard 12-29-2022 15:33-0400 Body height 157.[address] Edel Garcia Work Phone: [facility] 12-29-2022 15:21-0400 Body mass index (BMI) [Ratio] 38.4 kg/m2 Dr. Edel Garcia Work Phone: [facility] 12-29-2022 15:21-0400 Body weight 95.[address] Edel Garcia Work Phone: [facility] 12-29-2022 15:21-0400 Diastolic blood pressure 82 mm[Hg] Dr. Edel Garcia Work Phone: [facility] 12-29-2022 15:21-0400 Systolic blood pressure 130 mm[Hg] Dr. Edel Garcia Work Phone: [facility] 11-09-2022 15:21-0400 Body height 157.48 cm Sanna Jyotirb NORMA [facility] Work Phone: 11-09-2022 15:21-0400 Body mass index (BMI) [Ratio] 38.23 kg/m2 Sanna Jyotirb [employer] [facility] Work Phone: 11-09-2022 15:21-0400 Body surface area Derived from formula 1.95 m2 Sanna Jyotirb [employer] [facility] Work Phone: 11-09-2022 15:21-0400 Body temperature 97.3 [degF] Sanna Jyotirb [employer] [facility]; [facility] Work Phone: Comment on above: Method: Temporal 11-09-2022 15:21-0400 Body weight 94.8 kg Sanna Jyotirb [employer] [facility] Work Phone: 11-09-2022 15:21-0400 Diastolic blood pressure 24 mm[Hg] Sanna Jyotirb [employer] [facility] Work Phone: Comment on above: Patient Position: Sitting; Cuff Location : Left Arm; Cuff Size: Standard 11-09-2022 15:21-0400 Heart rate 75 /min Sanna Jyotirb [employer] [facility] Work Phone: Comment on above: Pattern: Regular 11-09-2022 15:21-0400 Respiratory rate 17 /min Sanna Slarb [employer] [facility] Work Phone: Comment on above: Pattern: Unlabored 11-09-2022 15:21-0400 SaO2% (BldA) [Mass fraction] 99 % Sanna Slarb [employer] [facility]; [facility] Work Phone: Comment on above: Room air 11-09-2022 15:21-0400 Systolic blood pressure 126 mm[Hg] Sanna Slarb [employer] [facility]; [facility] Work Phone: Comment on above: Patient Position: Sitting; Cuff Location : Left Arm; Cuff Size: Standard 09-06-2022 10:18-0500 Body height 157.48 cm Sanna Slarb [employer] [facility] Work Phone: 09-06-2022 10:18-0500 Body mass index (BMI) [Ratio] 36.21 kg/m2 Sanna Slarb [employer] [facility] Work Phone: 09-06-2022 10:18-0500 Body surface area Derived from formula 1.9 m2 Sanna Slarb [employer] [facility]; [facility] Work Phone: 09-06-2022 10:18-0500 Body temperature 98 [degF] Sanna Slarb [employer] [facility]; [facility] Work Phone: Comment on above: Method: Temporal 09-06-2022 10:18-0500 Body weight 89.81 kg Sanna Slarb [employer]PER[employer] [facility] Work Phone: 09-06-2022 10:18-0500 Diastolic blood pressure 80 mm[Hg] Sanna Slarb [employer]PER[employer] [facility]; [facility] Work Phone: Comment on above: Patient Position: Sitting; Cuff Location : Left Arm; Cuff Size: Standard 09-06-2022 10:18-0500 Heart rate 77 /min Sanna Slarb [employer] OPERATOR [facility]; [facility] Work Phone: Comment on above: Pattern: Regular 09-06-2022 10:18-0500 Respiratory rate 16 /min Sanna Slarb [employer] OPER[employer] [facility]; [facility] Work Phone: Comment on above: Pattern: Unlabored 09-06-2022 10:18-0500 SaO2% (BldA) [Mass fraction] 99 % Sanna Bartlett [employer] OPERATOR [facility]; [facility] Work Phone: Comment on above: Room air 09-06-2022 10:18-0500 Systolic blood pressure 124 mm[Hg] Sanna Bartlett [employer] OPER[employer] [facility]; [facility] Work Phone: Comment on above: Patient Position: Sitting; Cuff Location : Left Arm; Cuff Size: Standard 08-02-2022 07:30-0500 Body temperature 98.2 [degF] Dr. Edel Garcia Work Phone: [facility] 08-02-2022 07:30-0500 Diastolic blood pressure 72 mm[Hg] Dr. Edel Garcia Work Phone: [facility] 08-02-2022 07:30-0500 Heart rate 75 /min Dr. Edel Garcia Work Phone: [facility] 08-02-2022 07:30-0500 Respiratory rate 14 /min Dr. Edel Garcia Work Phone: [facility] 08-02-2022 07:30-0500 SaO2% (BldA) [Mass fraction] 99 % Dr. Edel Garcia Work Phone: [facility] 08-02-2022 07:30-0500 Systolic blood pressure 122 mm[Hg] Dr. Edel Garcia Work Phone: [facility] 06-02-2022 13:46-0400 Body height 157.[address] Edel Garcia Work Phone: [facility] Work Phone: 06-02-2022 13:46-0400 Body mass index (BMI) [Ratio] 34 kg/m2 Dr. Edel Garcia Work Phone: [facility] Work Phone: 06-02-2022 13:46-0400 Body weight 84.[address] Edel Garcia Work Phone: [facility] Work Phone: 06-02-2022 13:46-0400 Diastolic blood pressure 82 mm[Hg] Dr. Edel Garcia Work Phone: [facility] Work Phone: 06-02-2022 13:46-0400 Heart rate 60 /min Dr. Edel Garcia Work Phone: [facility] Work Phone: 06-02-2022 13:46-0400 SaO2% (BldA) [Mass fraction] 99 % Dr. Edel Garcia Work Phone: [facility] Work Phone: 06-02-2022 13:46-0400 Systolic blood pressure 125 mm[Hg] Dr. Edel Garcia Work Phone: [facility] Work Phone: 05-19-2022 07:35-0400 Body temperature 98.1 [degF] Dr. Edel Garcia Work Phone: [facility] Work Phone: 05-19-2022 07:35-0400 Diastolic blood pressure 69 mm[Hg] Dr. Edel Garcia Work Phone: [facility] Work Phone: 05-19-2022 07:35-0400 Heart rate 72 /min Dr. Edel Garcia Work Phone: [facility] Work Phone: 05-19-2022 07:35-0400 Respiratory rate 16 /min Dr. Edel Garcia Work Phone: [facility] Work Phone: 05-19-2022 07:35-0400 SaO2% (BldA) [Mass fraction] 100 % Dr. Edel Garcia Work Phone: [facility] Work Phone: 05-19-2022 07:35-0400 Systolic blood pressure 97 mm[Hg] Dr. Edel Garcia Work Phone: [facility] Work Phone: 05-19-2022 05:56-0400 Body height 157.[address] Edel Garcia Work Phone: [facility] Work Phone: 05-19-2022 05:56-0400 Body mass index (BMI) [Ratio] 32.9 kg/m2 Dr. Edel Garcia Work Phone: [facility] Work Phone: 05-19-2022 05:56-0400 Body weight 81.[address] Edel Garcia Work Phone: [facility] Work Phone: 04-04-2022 08:46-0400 Body temperature 98.3 [degF] Dr. Edel Garcia Work Phone: [facility] Work Phone: 04-04-2022 08:46-0400 Diastolic blood pressure 74 mm[Hg] Dr. Edel Garcia Work Phone: [facility] Work Phone: 04-04-2022 08:46-0400 Heart rate 87 /min Dr. Edel Garcia Work Phone: [facility] Work Phone: 04-04-2022 08:46-0400 Respiratory rate 14 /min Dr. Edel Garcia Work Phone: [facility] Work Phone: 04-04-2022 08:46-0400 SaO2% (BldA) [Mass fraction] 98 % Dr. Edle Garcia Work Phone: [facility] Work Phone: 04-04-2022 08:46-0400 Systolic blood pressure 122 mm[Hg] Dr. Edel Garcia Work Phone: [facility] Work Phone: 02-09-2022 15:14-0400 Body height 157.[address] Edel Garcia Work Phone: [facility] Work Phone: 02-09-2022 15:14-0400 Body mass index (BMI) [Ratio] 33.5 kg/m2 Dr. Edel Garcia Work Phone: [facility] Work Phone: 02-09-2022 15:14-0400 Body weight [address] Edel Garcia Work Phone: [facility] Work Phone: 02-09-2022 15:14-0400 Diastolic blood pressure 84 mm[Hg] Dr. Edel Garcia Work Phone: [facility] Work Phone: 02-09-2022 15:14-0400 Heart rate 75 /min Dr. Edel Garcia Work Phone: [facility] Work Phone: 02-09-2022 15:14-0400 SaO2% (BldA) [Mass fraction] 98 % Dr. Edel Garcia Work Phone: [facility] Work Phone: 02-09-2022 15:14-0400 Systolic blood pressure 125 mm[Hg] Dr. Edel Garcia Work Phone: [facility] Work Phone: 12-24-2021 14:45-0400 Body mass index (BMI) [Ratio] 32.9 kg/m2 Dr. Edel Garcia Work Phone: [facility] Work Phone: 12-24-2021 14:45-0400 Body weight 81.[address] Edel Garcia Work Phone: [facility] Work Phone: 12-24-2021 14:45-0400 Diastolic blood pressure 86 mm[Hg] Dr. Edel Garcia Work Phone: [facility] Work Phone: 12-24-2021 14:45-0400 Systolic blood pressure 128 mm[Hg] Dr. Edel Garcia Work Phone: [facility] Work Phone: 12-24-2021 14:45-0400 Body height 157.[address] Edel Garcia Work Phone: [facility] Work Phone: 12-24-2021 14:45-0400 Body mass index (BMI) [Ratio] 32.9 kg/m2 Dr. Edel Garcia Work Phone: [facility] Work Phone: 12-24-2021 14:45-0400 Body weight 81.[address] Edel Garcia Work Phone: [facility] Work Phone: 12-24-2021 14:45-0400 Diastolic blood pressure 86 mm[Hg] Dr. Edle Garcia Work Phone: [facility] Work Phone: 12-24-2021 14:45-0400 Systolic blood pressure 128 mm[Hg] Dr. Edel Garcia Work Phone: [facility] Work Phone: 03-16-2021 16:14-0400 Body height 157.48 cm [facility]; [facility] Work Phone: 03-16-2021 16:14-0400 Body mass index (BMI) [Ratio] 31.82 kg/m2 Aktie Gravius [employer]ED CAPITAL CLERK [facility]; [facility] Work Phone: 03-16-2021 16:14-0400 Body surface area Derived from formula 1.8 m2 Katie Velasquez [facility]; [facility] Work Phone: 03-16-2021 16:14-0400 Body temperature 97.3 [degF] Katie Velasquez [facility]; [facility] Work Phone: Comment on above: Method: Infrared 03-16-2021 16:14-0400 Body weight 78.93 kg Katie Velasquez [facility]; [facility] Work Phone: 03-16-2021 16:14-0400 Diastolic blood pressure 90 mm[Hg] Katie Velasquez [facility]; [facility] Work Phone: Comment on above: Patient Position: Sitting; Cuff Location : Left Arm; Cuff Size: Standard 03-16-2021 16:14-0400 Heart rate 87 /min Katie Velasquez [facility]; [facility] Work Phone: Comment on above: Pattern: Regular 03-16-2021 16:14-0400 Respiratory rate 16 /min Katie Velasquez [facility]; [facility] Work Phone: Comment on above: Pattern: Unlabored 03-16-2021 16:14-0400 SaO2% (BldA) [Mass fraction] 96 % Katie Velasquez [facility]; [facility] Work Phone: Comment on above: Room air 03-16-2021 16:14-0400 Systolic blood pressure 122 mm[Hg] Katie Velasquez [facility]; [facility] Work Phone: Comment on above: Patient Position: Sitting; Cuff Location : Left Arm; Cuff Size: Standard 03-05-2020 15:11-0400 BMI (Body Mass Index) 28.9 kg/m2 Jus Mcwilliams LPN [facility] Work Phone: 03-05-2020 15:11-0400 Body Temperature 97.3 [degF] Jus Mcwilliams LPN [facility] Work Phone: Comment on above: Method: Temporal 03-05-2020 [id number] Body weight 71.67 kg Jus Mcwilliams LPN [facility] Work Phone: 03-05-2020 15:11-0400 BP Diastolic 68 mm[Hg] Jus Mcwilliams LPN [facility] Work Phone: Comment on above: Patient Position: Sitting; Cuff Location : Left Arm; Cuff Size: Standard 03-05-2020 15:11-0400 BP Systolic 110 mm[Hg] Jus Mcwilliams LPN [facility] Work Phone: Comment on above: Patient Position: Sitting; Cuff Location : Left Arm; Cuff Size: Standard 03-05-2020 15:0400 BSA (Body Surface Area) 1.73 m2 Jus Mcwilliams LPN [facility] Work Phone: 03-05-2020 15:11-0400 Height 157.48 cm Jus Mcwilliams LPN [facility] Work Phone: 03-05-2020 15:11-0400 Pulse (Heart Rate) 96 /min Jus Mcwilliams LPN [facility] Work Phone: Comment on above: Pattern: Regular 03-05-2020 15:11-0400 Pulse Oximetry 99 % Edel Garcia [facility] Work Phone: Comment on above: Room air 03-05-2020 15:11-0400 Respiratory Rate 16 /min Jus Mcwilliams LPN [facility] Work Phone: Comment on above: Pattern: Unlabored 03-05-2020 15:11-0400 SaO2% (BldA) [Mass fraction] 99 % Jus Mcwilliams LPN [facility]; [facility] Work Phone: Comment on above: Room air 02-20-2020 15:01-0400 BMI (Body Mass Index) 28.9 kg/m2 Jus Mcwilliams LPN [facility] Work Phone: 02-20-2020 15:-0400 Body Temperature 97.3 [degF] Jus Mcwilliams LPN [facility] Work Phone: Comment on above: Method: Temporal 02-20-2020 15:01-0400 Body weight 71.67 kg Jus Mcwilliams LPN [facility] Work Phone: 02-20-2020 15:01-0400 BP Diastolic 68 mm[Hg] Jus Mcwilliams [employer] [facility] Work Phone: Comment on above: Patient Position: Sitting; Cuff Location : Left Arm; Cuff Size: Standard 02-20-2020 15:01-0400 BP Systolic 110 mm[Hg] Jus Mcwilliams [facility] Work Phone: Comment on above: Patient Position: Sitting; Cuff Location : Left Arm; Cuff Size: Standard 02-20-2020 15:-0400 BSA (Body Surface Area) 1.73 m2 Jus Mcwilliams LPN [facility] Work Phone: 02-20-2020 15:01-0400 Height 157.48 cm Jus Mcwilliams LPN [facility] Work Phone: 02-20-2020 15:01-0400 Pulse (Heart Rate) 90 /min Jus Mcwilliams LPN [facility] Work Phone: Comment on above: Pattern: Regular 02-20-2020 15:01-0400 Pulse Oximetry 99 % Edel Garcia [facility] Work Phone: Comment on above: Room air 02-20-2020 15:01-0400 Respiratory Rate 16 /min Jus Mcwilliams [employer] OPERATOR [facility] Work Phone: Comment on above: Pattern: Unlabored 02-20-2020 15:01-0400 SaO2% (BldA) [Mass fraction] 99 % Jus Mcwilliams [employer] OPERATOR [facility]; [facility] Work Phone: Comment on above: Room air 09-06-2019 13:12-0500 BMI (Body Mass Index) 28.9 kg/m2 GHISLAINE Decker [employer] OPERATOR [facility] Work Phone: 09-06-2019 13:12-0500 Body Temperature 97.9 [degF] GHISLAINE Decker [facility] Work Phone: Comment on above: Method: Temporal 09-06-2019 13:12-0500 Body weight 71.67 kg GHISLAINE Decker LPN [facility] Work Phone: 09-06-2019 13:12-0500 BP Diastolic 74 mm[Hg] GHISLAINE Decker LPN [facility] Work Phone: Comment on above: Patient Position: Sitting; Cuff Location : Left Arm; Cuff Size: Standard 09-06-2019 13:12-0500 BP Systolic 122 mm[Hg] GHISLAINE Decker LPN [facility] Work Phone: Comment on above: Patient Position: Sitting; Cuff Location : Left Arm; Cuff Size: Standard 09-06-2019 13:12-0500 BSA (Body Surface Area) 1.73 m2 GHISLAINE Decker LPN [facility] Work Phone: 09-06-2019 13:12-0500 Height 157.48 cm GHISLAINE Decker LPN [facility] Work Phone: 09-06-2019 13:12-0500 Pulse (Heart Rate) 78 /min GHISLAINE Decker LPN [facility] Work Phone: Comment on above: Pattern: Regular 09-06-2019 13:12-0500 Pulse Oximetry 98 % Edel Jose [facility] Work Phone: Comment on above: Room air 09-06-2019 13:12-0500 Respiratory Rate 20 /min GHISLAINE Decker LPN [facility] Work Phone: Comment on above: Pattern: Unlabored 09-06-2019 13:12-0500 SaO2% (BldA) [Mass fraction] 98 % GHISLAINE Decker LPN [facility]; [facility] Work Phone: Comment on above: Room air 07-03-2019 10:56-0500 BMI (Body Mass Index) 28.91 kg/m2 Reyna Wong [facility] Work Phone: 07-03-2019 10:56-0500 Body Temperature 97.6 [degF] Reyna Wong [facility] Work Phone: Comment on above: Method: Temporal 07-03-2019 10:56-0500 Body weight 71.69 kg Reyna Wong [facility] Work Phone: 07-03-2019 10:56-0500 BP Diastolic 62 mm[Hg] Reyna Wong [facility] Work Phone: Comment on above: Patient Position: Sitting; Cuff Location : Left Arm; Cuff Size: Standard 07-03-2019 10:56-0500 BP Systolic 102 mm[Hg] Reyna Wong [facility] Work Phone: Comment on above: Patient Position: Sitting; Cuff Location : Left Arm; Cuff Size: Standard 07-03-2019 10:56-0500 BSA (Body Surface Area) 1.73 m2 Reyna Wong [facility] Work Phone: 07-03-2019 10:56-0500 Height 157.48 cm Reyna Wong [facility] Work Phone: 07-03-2019 10:56-0500 Pulse (Heart Rate) 82 /min Reyna Wong [facility] Work Phone: Comment on above: Pattern: Regular 07-03-2019 10:56-0500 Respiratory Rate 16 /min Reyna Wong [facility] Work Phone: Comment on above: Pattern: Unlabored 06-12-2019 08:05-0400 BMI (Body Mass Index) 28.91 kg/m2 Jus Mcwilliams [facility] Work Phone: 06-12-2019 08:05-0400 Body Temperature 98.6 [degF] [facility] Work Phone: Comment on above: Method: Temporal 06-12-2019 08:05-0400 Body weight 71.69 kg Jus Mcwilliams LPN [facility] Medicine Work Phone: 06-12-2019 08:05-0400 BP Diastolic 76 mm[Hg] Jus Mcwilliams [facility] Work Phone: Comment on above: Patient Position: Sitting; Cuff Location : Left Arm; Cuff Size: Standard 06-12-2019 08:05-0400 BP Systolic 132 mm[Hg] Jus Mcwilliams LPN [facility] Work Phone: Comment on above: Patient Position: Sitting; Cuff Location : Left Arm; Cuff Size: Standard 06-12-2019 08:05-0400 BSA (Body Surface Area) 1.73 m2 Jus Mcwilliams LPN [facility] Work Phone: 06-12-2019 08:05-0400 Height 157.48 cm Jus Mcwilliams [employer] OPER[employer] [facility] Work Phone: 06-12-2019 08:05-0400 Pulse (Heart Rate) 71 /min Jus Mcwilliams LPN [facility] Work Phone: Comment on above: Pattern: Regular 06-12-2019 08:05-0400 Pulse Oximetry 98 % Edelree Garcia [facility] Work Phone: Comment on above: Room air 06-12-2019 08:05-0400 Respiratory Rate 16 /min Jus Mcwilliams [employer] OPERATOR [facility] Work Phone: Comment on above: Pattern: Unlabored 06-12-2019 08:05-0400 SaO2% (BldA) [Mass fraction] 98 % Jus Mcwilliams [employer] OPERATOR [facility]; [facility] Work Phone: Comment on above: Room air 11-17-2018 11:21-0400 BMI (Body Mass Index) 29.29 kg/m2 Emilie Otto RN [facility] Work Phone: 11-17-2018 11:21-0400 Body weight 72.63 kg Emilie Otto RN [facility] Work Phone: 11-17-2018 11:21-0400 BP Diastolic 80 mm[Hg] Emilie Otto RN [facility] Work Phone: Comment on above: Patient Position: Sitting; Cuff Location : Left Arm; Cuff Size: Standard 11-17-2018 11:21-0400 BP Systolic 118 mm[Hg] Emilie Otto RN [facility] Work Phone: Comment on above: Patient Position: Sitting; Cuff Location : Left Arm; Cuff Size: Standard 11-17-2018 11:21-0400 BSA (Body Surface Area) 1.74 m2 Emilie Otto RN [facility] Work Phone: 11-17-2018 11:21-0400 Height 157.48 cm Emilie Otto RN [facility] Work Phone: 11-17-2018 11:21-0400 Pulse (Heart Rate) 81 /min Emilie Otto RN [facility] Work Phone: Comment on above: Pattern: Regular 11-17-2018 11:21-0400 Pulse Oximetry 98 % Edel Garcia [facility] Work Phone: Comment on above: Room air 11-17-2018 11:21-0400 Respiratory Rate 18 /min Emilie Otto RN [facility] Work Phone: Comment on above: Pattern: Unlabored 11-17-2018 11:21-0400 SaO2% (BldA) [Mass fraction] 98 % Emilie Otto RN [facility]; [facility] Work Phone: Comment on above: Room air 07-13-2017 15:11-0500 Body height 157.48 cm Afia [place] [employer]ER T[employer]OR Work Phone: [facility] 07-13-2017 15:11-0500 Body mass index (BMI) [Ratio] 31.09 kg/m2 Afia Donna PEER TUTOR Work Phone: [facility] 07-13-2017 15:11-0500 Body weight 77.11 kg Afia Donna PEER TUTOR Work Phone: [facility] 07-13-2017 15:11-0500 Diastolic blood pressure 80 mm[Hg] Afia [place] PEER TUTOR Work Phone: [facility] 07-13-2017 15:11-0500 Systolic blood pressure 118 mm[Hg] Afia Donna PEER TUTOR Work Phone: [facility] 04-19-2017 15:16-0400 Body height 157.48 cm Afia [place] PEER TUTOR Work Phone: [facility] 04-19-2017 15:16-0400 Body mass index (BMI) [Ratio] 33.58 kg/m2 Afia Thompson PEER TUTOR Work Phone: [facility] 04-19-2017 15:16-0400 Body temperature 99 [degF] Aifa Forrests PEER TUTOR Work Phone: [facility] 04-19-2017 15:16-0400 Body weight 83.28 kg Afia Thompson PEER TUTOR Work Phone: [facility] 04-19-2017 15:16-0400 Diastolic blood pressure 80 mm[Hg] Afia Forrests PEER TUTOR Work Phone: [facility] 04-19-2017 15:16-0400 Heart rate 85 /min Afia Forrests PEER TUTOR Work Phone: [facility] 04-19-2017 15:16-0400 Respiratory rate 16 /min Afia Forrests PEER TUTOR Work Phone: [facility] 04-19-2017 15:16-0400 Systolic blood pressure 118 mm[Hg] Afia Forrests PEER TUTOR Work Phone: [facility] 12-20-2013 14:48-0400 BMI (Body Mass Index) 34.02 kg/m2 Reyna Wong [facility] Work Phone: 12-20-2013 14:48-0400 Body Temperature 98.1 [degF] Reyna Wong [facility] Work Phone: Comment on above: Method: Oral 12-20-2013 14:48-0400 Body weight 84.37 kg Reyna Wong [facility] Work Phone: 12-20-2013 14:48-0400 BP Diastolic 82 mm[Hg] Reyna Wong [facility] Work Phone: Comment on above: Patient Position: Sitting; Cuff Location : Left Arm; Cuff Size: Standard 12-20-2013 14:48-0400 BP Systolic 128 mm[Hg] Reyna Mankayceeirene [facility] Work Phone: Comment on above: Patient Position: Sitting; Cuff Location : Left Arm; Cuff Size: Standard 12-20-2013 14:48-0400 BSA (Body Surface Area) 1.85 m2 Reyna Wong [facility] Work Phone: 12-20-2013 14:48-0400 Height 157.48 cm Reyna Wong [facility] Work Phone: 12-20-2013 14:48-0400 Pulse (Heart Rate) 97 /min Reyna Wong [facility] Work Phone: Comment on above: Pattern: Regular 12-20-2013 14:48-0400 Pulse Oximetry 97 % Edel Garcia [facility] Internal Medicine Work Phone: Comment on above: Room air 12-20-2013 14:48-0400 Respiratory Rate 16 /min Reyna Wong [facility] Work Phone: Comment on above: Pattern: Unlabored 12-20-2013 14:48-0400 SaO2% (BldA) [Mass fraction] 97 % Reyna Wong [facility]; [facility] Work Phone: Comment on above: Room air 12-20-2013 14:48-0400 Weight 84.37 kg Edel Garcia [facility] Medicine Work Phone: 05-11-2013 14:17-0400 BMI (Body Mass Index) 34.02 kg/m2 [facility] Work Phone: 05-11-2013 14:17-0400 Body weight 84.37 kg Asya Bowden [facility] Internal Medicine Work Phone: 05-11-2013 14:17-0400 BP Diastolic 78 mm[Hg] Asya Bowden [facility] Work Phone: Comment on above: Patient Position: Sitting; Cuff Location : Left Arm; Cuff Size: Standard 05-11-2013 14:17-0400 BP Systolic 124 mm[Hg] Asya Bowden [facility] Internal Medicine Work Phone: Comment on above: Patient Position: Sitting; Cuff Location : Left Arm; Cuff Size: Standard 05-11-2013 14:17-0400 BSA (Body Surface Area) 1.85 m2 Asya Bowden LPN [facility] Internal Medicine Work Phone: 05-11-2013 14:17-0400 Height 157.48 cm Asya Bowden LPN [facility] Medicine Work Phone: 05-11-2013 14:17-0400 Pulse (Heart Rate) 82 /min Asya Bowden LPN [facility] Internal Medicine Work Phone: Comment on above: Pattern: Regular 05-11-2013 14:17-0400 Pulse Oximetry 99 % Edel Garcia [facility] Internal Medicine Work Phone: Comment on above: Room air 05-11-2013 14:17-0400 Respiratory Rate 17 /min Asya Bowden LPN [facility] Internal Medicine Work Phone: 05-11-2013 14:17-0400 SaO2% (BldA) [Mass fraction] 99 % Asya Bowden LPN [facility]; [facility] Work Phone: Comment on above: Room air 05-11-2013 14:17-0400 Weight 84.37 kg Edel Garcia [facility] Internal Medicine Work Phone: 05-09-2013 08:53-0400 BMI (Body Mass Index) 34.02 kg/m2 Reyna Wong [facility] Work Phone: 05-09-2013 08:53-0400 Body weight 84.37 kg Reyna Wong [facility] Internal Medicine Work Phone: 05-09-2013 08:53-0400 BP Diastolic 70 mm[Hg] Reyna Wong [facility] Work Phone: Comment on above: Patient Position: Sitting; Cuff Location : Left Arm; Cuff Size: Standard 05-09-2013 08:53-0400 BP Systolic 118 mm[Hg] Reyna Wong [facility] Work Phone: Comment on above: Patient Position: Sitting; Cuff Location : Left Arm; Cuff Size: Standard 05-09-2013 08:53-0400 BSA (Body Surface Area) 1.85 m2 Reyna Wong [facility] Internal Medicine Work Phone: 05-09-2013 08:53-0400 Height 157.48 cm Reyna Wong [facility] Internal Medicine Work Phone: 05-09-2013 08:53-0400 Pulse (Heart Rate) 88 /min Reyna Wong [facility] Internal Medicine Work Phone: Comment on above: Pattern: Regular 05-09-2013 08:53-0400 Pulse Oximetry 98 % Edel Garcia [facility] Internal Medicine Work Phone: Comment on above: Room air 05-09-2013 08:53-0400 Respiratory Rate 16 /min Reyna Wong [facility] Internal Medicine Work Phone: Comment on above: Pattern: Unlabored 05-09-2013 08:53-0400 SaO2% (BldA) [Mass fraction] 98 % Reyna Wong [facility] Internal Medicine; [facility] Internal Medicine Work Phone: Comment on above: Room air 05-09-2013 08:53-0400 Weight 84.37 kg Edel Garcia [facility] Internal Medicine Work Phone: 01-23-2013 13:36-0400 BMI (Body Mass Index) 33.47 kg/m2 Christy Ochoa [facility] Internal Medicine Work Phone: 01-23-2013 13:36-0400 Body Temperature 97.5 [degF] Christy Ochoa [facility] Internal Medicine Work Phone: Comment on above: Method: Oral 01-23-2013 13:36-0400 Body weight 83.01 kg Christy Ochoa [facility] Internal Medicine Work Phone: 01-23-2013 13:36-0400 BP Diastolic 78 mm[Hg] Christy Ochoa [facility] Internal Medicine Work Phone: Comment on above: Patient Position: Sitting; Cuff Location : Left Arm; Cuff Size: Standard 01-23-2013 13:36-0400 BP Systolic 116 mm[Hg] Christy Ochoa [facility] Internal Medicine Work Phone: Comment on above: Patient Position: Sitting; Cuff Location : Left Arm; Cuff Size: Standard 01-23-2013 13:36-0400 BSA (Body Surface Area) 1.84 m2 Christy Guerraabel [facility] Internal Medicine Work Phone: 01-23-2013 13:36-0400 Height 157.48 cm Christy Gabriela [facility] Internal Medicine Work Phone: 01-23-2013 13:36-0400 Pulse (Heart Rate) 62 /min Christy Guerraabel [facility] Internal Medicine Work Phone: Comment on above: Pattern: Regular 01-23-2013 13:36-0400 Respiratory Rate 16 /min Christy Gabriela [facility] Internal Medicine Work Phone: Comment on above: Pattern: Unlabored 01-23-2013 13:36-0400 Weight 83.01 kg Edel Garcia [facility] Internal Medicine Work Phone: 01-16-2013 10:43-0400 BMI (Body Mass Index) 33.84 kg/m2 Christy Guerraabel [facility] Internal Medicine Work Phone: 01-16-2013 10:43-0400 Body Temperature 97.5 [degF] Christy Gabriela [facility] Internal Medicine Work Phone: 01-16-2013 10:43-0400 Body weight 83.92 kg Christy Gabriela [facility] Internal Medicine Work Phone: 01-16-2013 10:43-0400 BP Diastolic 84 mm[Hg] Christy Gabriela [facility] Internal Medicine Work Phone: Comment on above: Patient Position: Sitting; Cuff Location : Left Arm; Cuff Size: Large 01-16-2013 10:43-0400 BP Systolic 132 mm[Hg] Christy Gabriela [facility] Internal Medicine Work Phone: Comment on above: Patient Position: Sitting; Cuff Location : Left Arm; Cuff Size: Large 01-16-2013 10:43-0400 BSA (Body Surface Area) 1.85 m2 Christy Guerraabel [facility] Internal Medicine Work Phone: 01-16-2013 10:43-0400 Height 157.48 cm Christy Guerraabel [facility] Internal Medicine Work Phone: 01-16-2013 10:43-0400 Pulse (Heart Rate) 80 /min [facility] Work Phone: Comment on above: Pattern: Regular 01-16-2013 10:43-0400 Respiratory Rate 18 /min Christy Gabriela [facility] Internal Medicine Work Phone: Comment on above: Pattern: Unlabored 01-16-2013 10:43-0400 Weight 83.92 kg Edel Garcia [facility] Internal Medicine Work Phone: 08-31-2012 10:58-0500 BMI (Body Mass Index) 32.92 kg/m2 GHISLAINE Decker LPN [facility] Internal Medicine Work Phone: 08-31-2012 10:58-0500 Body Temperature 98.6 [degF] GHISLAINE Decker LPN [facility] Internal Medicine Work Phone: Comment on above: Method: Oral 08-31-2012 10:58-0500 Body weight 81.65 kg GHISLAINE Decker LPN [facility] Internal Medicine Work Phone: 08-31-2012 10:58-0500 BP Diastolic 70 mm[Hg] GHISLAINE Decker LPN [facility] Internal Medicine Work Phone: Comment on above: Patient Position: Sitting; Cuff Location : Left Arm; Cuff Size: Standard 08-31-2012 10:58-0500 BP Systolic 100 mm[Hg] GHISLAINE Decker LPN [facility] Internal Medicine Work Phone: Comment on above: Patient Position: Sitting; Cuff Location : Left Arm; Cuff Size: Standard 08-31-2012 10:58-0500 BSA (Body Surface Area) 1.83 m2 GHISLAINE Decker LPN [facility] Internal Medicine Work Phone: 08-31-2012 10:58-0500 Height 157.48 cm GHISLAINE Decker LPN [facility] Work Phone: 08-31-2012 10:58-0500 Pulse (Heart Rate) 74 /min GHISLAINE Decker [facility] Work Phone: Comment on above: Pattern: Regular 08-31-2012 10:58-0500 Respiratory Rate 18 /min GHISLAINE Decker [facility] Internal Medicine Work Phone: Comment on above: Pattern: Unlabored 08-31-2012 10:58-0500 Weight 81.65 kg Edel Garcia [facility] Work Phone: 11-16-2011 14:32-0400 BMI (Body Mass Index) 32.74 kg/m2 Marsha Brito RN [facility] Internal Medicine Work Phone: 11-16-2011 14:32-0400 Body Temperature 98.3 [degF] Marsha Brito RN [facility] Internal Medicine Work Phone: Comment on above: Method: Oral 11-16-2011 14:32-0400 Body weight 81.19 kg Marsha Brito RN [facility] Work Phone: 11-16-2011 14:32-0400 BP Diastolic 64 mm[Hg] Marsha Brito RN [facility] Work Phone: Comment on above: Patient Position: Sitting; Cuff Location : Left Arm; Cuff Size: Large 11-16-2011 14:32-0400 BP Systolic 110 mm[Hg] Marsha Brito RN [facility] Work Phone: Comment on above: Patient Position: Sitting; Cuff Location : Left Arm; Cuff Size: Large 11-16-2011 14:32-0400 BSA (Body Surface Area) 1.82 m2 Marsha Brito RN [facility] Work Phone: 11-16-2011 14:32-0400 Height 157.48 cm Marsha Brito RN [facility] Work Phone: 11-16-2011 14:32-0400 Pulse (Heart Rate) 104 /min Marsha Brito RN [facility] Work Phone: Comment on above: Pattern: Regular 11-16-2011 14:32-0400 Respiratory Rate 16 /min Marsha Brito RN [facility] Work Phone: Comment on above: Pattern: Unlabored 11-16-2011 14:32-0400 Weight 81.19 kg Edel Garcia [facility] Internal Medicine Work Phone: 11-05-2011 09:40-0500 BMI (Body Mass Index) 30.4 kg/m2 Edel Garcia [facility] Internal Medicine Work Phone: 11-05-2011 09:40-0500 Body Temperature 99.3 [degF] Edel Garcia [facility] Internal Medicine Work Phone: Comment on above: Method: Oral 11-05-2011 09:40-0500 Body weight 75.38 kg Edel Garcia [facility] Internal Medicine Work Phone: 11-05-2011 09:40-0500 BP Diastolic 74 mm[Hg] Edel Garcia [facility] Internal Medicine Work Phone: Comment on above: Patient Position: Sitting; Cuff Location : Left Arm; Cuff Size: Standard 11-05-2011 09:40-0500 BP Systolic 126 mm[Hg] Edel Garcia [facility] Internal Medicine Work Phone: Comment on above: Patient Position: Sitting; Cuff Location : Left Arm; Cuff Size: Standard 11-05-2011 09:40-0500 BSA (Body Surface Area) 1.77 m2 Edel Garcia [facility] Internal Medicine Work Phone: 11-05-2011 09:40-0500 Height 157.48 cm Edel Garcia [facility] Internal Medicine Work Phone: 11-05-2011 09:40-0500 Pulse (Heart Rate) 68 /min Edel Garcia [facility] Internal Medicine Work Phone: Comment on above: Pattern: Regular 11-05-2011 09:40-0500 Respiratory Rate 16 /min Edel Garcia [facility] Internal Medicine Work Phone: Comment on above: Pattern: Unlabored 11-05-2011 09:40-0500 Weight 75.38 kg Edel Garcia [facility] Internal Medicine Work Phone: 10-27-2011 15:31-0500 BMI (Body Mass Index) 30.4 kg/m2 Asya Bowden LPN [facility] Internal Medicine Work Phone: 10-27-2011 15:31-0500 Body Temperature 98.7 [degF] Asya Bowden LPN [facility] Internal Medicine Work Phone: Comment on above: Method: Oral 10-27-2011 15:31-0500 Body weight 75.38 kg Asya Bowden LPN [facility] Work Phone: 10-27-2011 15:31-0500 BP Diastolic 74 mm[Hg] Asya Bowden LPN [facility] Work Phone: Comment on above: Patient Position: Sitting; Cuff Location : Left Arm; Cuff Size: Standard 10-27-2011 15:31-0500 BP Systolic 124 mm[Hg] Asya Bowden LPN [facility] Internal Medicine Work Phone: Comment on above: Patient Position: Sitting; Cuff Location : Left Arm; Cuff Size: Standard 10-27-2011 15:31-0500 BSA (Body Surface Area) 1.77 m2 Asya Bowden LPN [facility] Work Phone: 10-27-2011 15:31-0500 Height 157.48 cm Asya Bowden LPN [facility] Internal Medicine Work Phone: 10-27-2011 15:31-0500 Pulse (Heart Rate) 88 /min Asya Bowden LPN [facility] Work Phone: Comment on above: Pattern: Regular 10-27-2011 15:31-0500 Respiratory Rate 17 /min Asya Bowden LPN [facility] Work Phone: 10-27-2011 15:31-0500 Weight 75.38 kg Edel Garcia [facility] Internal Medicine Work Phone: 03-24-2011 10:54-0400 BMI (Body Mass Index) 30.4 kg/m2 Asya Bowden LPN [facility] Work Phone: 03-24-2011 10:54-0400 Body Temperature 99.2 [degF] Asya Bowden LPN [facility] Work Phone: Comment on above: Method: Oral 03-24-2011 10:54-0400 Body weight 75.38 kg Asya Bowden LPN [facility] Work Phone: 03-24-2011 10:54-0400 BP Diastolic 72 mm[Hg] Asya Bowden LPN [facility] Work Phone: Comment on above: Patient Position: Sitting; Cuff Location : Left Arm; Cuff Size: Standard 03-24-2011 10:54-0400 BP Systolic 122 mm[Hg] Asya Bowden LPN [facility] Work Phone: Comment on above: Patient Position: Sitting; Cuff Location : Left Arm; Cuff Size: Standard 03-24-2011 10:54-0400 BSA (Body Surface Area) 1.77 m2 Asya Bowden LPN [facility] Work Phone: 03-24-2011 10:54-0400 Height 157.48 cm Asya Bowden LPN [facility] Work Phone: 03-24-2011 10:54-0400 Pulse (Heart Rate) 86 /min Asya Bowden LPN [facility] Work Phone: Comment on above: Pattern: Regular 03-24-2011 10:54-0400 Respiratory Rate 16 /min Asya Bowden LPN [facility] Work Phone: Comment on above: Pattern: Unlabored 03-24-2011 10:54-0400 Weight 75.38 kg Edel Garcia [facility] Work Phone: 10-30-2010 13:28-050 BMI (Body Mass Index) 30.4 kg/m2 Asya Bowden LPN [facility] Work Phone: 10-30-2010 13:28-0500 Body Temperature 98.4 [degF] Asya Bowden LPN [facility] Work Phone: Comment on above: Method: Oral 10-30-2010 13:28-0500 Body weight 75.38 kg Asya Bowden LPN [facility] Work Phone: 10-30-2010 13:28-0500 BP Diastolic 78 mm[Hg] Asya Bowden LPN [facility] Work Phone: Comment on above: Patient Position: Sitting; Cuff Location : Left Arm; Cuff Size: Standard 10-30-2010 13:28-0500 BP Systolic 118 mm[Hg] Asya Bowden LPN [facility] Work Phone: Comment on above: Patient Position: Sitting; Cuff Location : Left Arm; Cuff Size: Standard 10-30-2010 13:28-0500 BSA (Body Surface Area) 1.77 m2 Asya Bowden LPN [facility] Work Phone: 10-30-2010 13:28-0500 Height 157.48 cm Asya Bowden LPN [facility] Work Phone: 10-30-2010 13:28-0500 Pulse (Heart Rate) 82 /min Asya Bowden LPN [facility] Work Phone: Comment on above: Pattern: Regular 10-30-2010 13:28-0500 Respiratory Rate 16 /min Asya Bowden LPN [facility] Work Phone: Comment on above: Pattern: Unlabored 10-30-2010 13:28-0500 Weight 75.38 kg Edel Garcia [facility] Work Phone: 10-16-2010 10:18-0500 Body Temperature 97.5 [degF] Asya Bowden LPN [facility] Work Phone: Comment on above: Method: Oral 10-16-2010 10:18-0500 Body weight 72.58 kg Asya Bowden LPN [facility] Work Phone: 10-16-2010 10:18-0500 BP Diastolic 74 mm[Hg] Asya Bowden LPN [facility] Work Phone: Comment on above: Patient Position: Sitting; Cuff Location : Left Arm; Cuff Size: Standard 10-16-2010 10:18-0500 BP Systolic 116 mm[Hg] Asya Bowden [employer] [facility] Work Phone: Comment on above: Patient Position: Sitting; Cuff Location : Left Arm; Cuff Size: Standard 10-16-2010 10:18-0500 Pulse (Heart Rate) 78 /min Asya Bowden [employer] [facility] Work Phone: Comment on above: Pattern: Regular 10-16-2010 10:18-0500 Respiratory Rate 16 /min Asya Bowden [employer] [facility] Work Phone: Comment on above: Pattern: Unlabored 10-16-2010 10:18-0500 Weight 72.58 kg Edel Garcia [facility] Internal Medicine Work Phone: 08-07-2010 10:07-0500 Body Temperature 98.2 [degF] GHISLAINE Decker [facility] Internal Medicine Work Phone: Comment on above: Method: Oral 08-07-2010 10:07-0500 Body weight 72.58 kg GHISLAINE Decker [facility] Internal Medicine Work Phone: 08-07-2010 10:07-0500 BP Diastolic 70 mm[Hg] GHISLAINE Decker [employer] [facility] Internal Medicine Work Phone: Comment on above: Patient Position: Sitting; Cuff Location : Left Arm; Cuff Size: Standard 08-07-2010 10:07-0500 BP Systolic 110 mm[Hg] GHISLIANE Decker [employer] [facility] Internal Medicine Work Phone: Comment on above: Patient Position: Sitting; Cuff Location : Left Arm; Cuff Size: Standard 08-07-2010 10:07-0500 Pulse (Heart Rate) 70 /min GHISLAINE Decker [facility] Internal Medicine Work Phone: Comment on above: Pattern: Regular 08-07-2010 10:07-0500 Respiratory Rate 18 /min GHISLAINE Decker LPN [facility] Internal Medicine Work Phone: Comment on above: Pattern: Unlabored 08-07-2010 10:07-0500 Weight 72.58 kg Edel Garcia [facility] Internal Medicine Work Phone: 06-15-2010 17:05-0400 Body Temperature 97.3 [degF] Asya Bowden LPN [facility] Work Phone: Comment on above: Method: Oral 06-15-2010 17:05-0400 Body weight 72.58 kg Asya Bowden LPN [facility] Work Phone: 06-15-2010 17:05-0400 BP Diastolic 78 mm[Hg] Asya Bowden LPN [facility] Work Phone: Comment on above: Patient Position: Sitting; Cuff Location : Left Arm; Cuff Size: Standard 06-15-2010 17:05-0400 BP Systolic 118 mm[Hg] Asya Bowden LPN [facility] Work Phone: Comment on above: Patient Position: Sitting; Cuff Location : Left Arm; Cuff Size: Standard 06-15-2010 17:05-0400 Pulse (Heart Rate) 78 /min Asya Bowden LPN [facility] Work Phone: Comment on above: Pattern: Regular 06-15-2010 17:05-0400 Respiratory Rate 17 /min Aysa Bowden LPN [facility] Work Phone: Comment on above: Pattern: Unlabored 06-15-2010 17:05-0400 Weight 72.58 kg Edel Garcia [facility] Work Phone: 05-08-2010 10:18-0400 Body Temperature 98.2 [degF] GHISLAINEJAQUI Decker [employer] [facility] Work Phone: Comment on above: Method: Oral 05-08-2010 10:18-0400 Body weight 72.58 kg GHISLAINE Decker [employer] [facility] Work Phone: 05-08-2010 10:18-0400 BP Diastolic 74 mm[Hg] GHISLAINE Decker [employer] [facility] Work Phone: Comment on above: Patient Position: Sitting; Cuff Location : Left Arm; Cuff Size: Standard 05-08-2010 10:18-0400 BP Systolic 114 mm[Hg] GHISLAINE Decker [employer] [facility] Work Phone: Comment on above: Patient Position: Sitting; Cuff Location : Left Arm; Cuff Size: Standard 05-08-2010 10:18-0400 Pulse (Heart Rate) 84 /min GHISLAINE Decker [facility] Internal Medicine Work Phone: Comment on above: Pattern: Regular 05-08-2010 10:18-0400 Respiratory Rate 18 /min GHISLAINE Decker [facility] Internal Medicine Work Phone: Comment on above: Pattern: Unlabored 05-08-2010 10:18-0400 Weight 72.58 kg Edel Garcia [facility] Internal Medicine Work Phone: 03-11-2010 14:48-0400 Body Temperature 98.2 [degF] Christy Ochoa [facility] Internal Medicine Work Phone: 03-11-2010 14:48-0400 BP Diastolic 70 mm[Hg] Christy Ochoa [facility] Internal Medicine Work Phone: Comment on above: Patient Position: Sitting; Cuff Location : Left Arm; Cuff Size: Large 03-11-2010 14:48-0400 BP Systolic 108 mm[Hg] Christy Ochoa [facility] Internal Medicine Work Phone: Comment on above: Patient Position: Sitting; Cuff Location : Left Arm; Cuff Size: Large 03-11-2010 14:48-0400 Pulse (Heart Rate) 96 /min Christy Ochoa [facility] Internal Medicine Work Phone: Comment on above: Pattern: Regular 03-11-2010 14:48-0400 Respiratory Rate 18 /min Christy Ochoa [facility] Internal Medicine Work Phone: Comment on above: Pattern: Unlabored 02-05-2009 11:59-0400 Body Temperature 98.6 [degF] Christy Ochoa [facility] Internal Medicine Work Phone: Comment on above: Method: Undefined 02-05-2009 11:59-0400 Body weight 0 kg Christy Ochoa [facility] Internal Medicine Work Phone: 02-05-2009 11:59-0400 BP Diastolic 92 mm[Hg] Christy Ochoa [facility] Internal Medicine Work Phone: Comment on above: Patient Position: Sitting; Cuff Location : Left Arm; Cuff Size: Standard 02-05-2009 11:59-0400 BP Systolic 130 mm[Hg] Christy Ochoa [facility] Internal Medicine Work Phone: Comment on above: Patient Position: Sitting; Cuff Location : Left Arm; Cuff Size: Standard 02-05-2009 11:59-0400 Head Circumference 0 cm Edel Garcia [facility] Internal Medicine Work Phone: 02-05-2009 11:59-0400 Head Occipital-frontal circumference 0 cm Christy Guerraabel [facility]; [facility] Work Phone: 02-05-2009 11:59-0400 Height 0 cm Christy Guerraabel [facility] Medicine Work Phone: 02-05-2009 11:59-0400 Pulse (Heart Rate) 104 /min Christy Ochoa [facility] Internal Medicine Work Phone: Comment on above: Pattern: Regular 02-05-2009 11:59-0400 Respiratory Rate 18 /min Christy Guerraabel [facility] Internal Medicine Work Phone: Comment on above: Pattern: Undefined 02-05-2009 11:59-0400 Weight 0 kg Edel Garcia [facility] Internal Medicine Work Phone: 04-09-2008 13:27-0400 Body Temperature 98.5 [degF] Christy Ochoa [facility] Internal Medicine Work Phone: Comment on above: Method: Undefined 04-09-2008 13:27-0400 Body weight 0 kg Christy Guerraabel [facility] Internal Medicine Work Phone: 04-09-2008 13:27-0400 BP Diastolic 70 mm[Hg] Christy Guerraabel [facility] Internal Medicine Work Phone: Comment on above: Patient Position: Sitting; Cuff Location : Left Arm; Cuff Size: Standard 04-09-2008 13:27-0400 BP Systolic 104 mm[Hg] Christy Guerraabel [facility] Internal Medicine Work Phone: Comment on above: Patient Position: Sitting; Cuff Location : Left Arm; Cuff Size: Standard 04-09-2008 13:27-0400 Head Circumference 0 cm Edel Garcia [facility] Medicine Work Phone: 04-09-2008 13:27-0400 Head Occipital-frontal circumference 0 cm Christy Ochoa [facility]; [facility] Work Phone: 04-09-2008 13:27-0400 Height 0 cm Christy Ochoa [facility] Medicine Work Phone: 04-09-2008 13:27-0400 Pulse (Heart Rate) 76 /min Christy Gabriela [facility] Internal Medicine Work Phone: Comment on above: Pattern: Regular 04-09-2008 13:27-0400 Respiratory Rate 16 /min Christy Gabriela [facility] Internal Medicine Work Phone: Comment on above: Pattern: Undefined 04-09-2008 13:27-0400 Weight 0 kg Edel Garcia [facility] Medicine Work Phone: 12-28-2007 14:21-0400 Body Temperature 98.5 [degF] Emilie Otto RN [facility] Work Phone: Comment on above: Method: Oral 12-28-2007 14:21-0400 Body weight 61.69 kg Emilie Otto RN [facility] Work Phone: 12-28-2007 14:21-0400 BP Diastolic 70 mm[Hg] Emilie Otto RN [facility] Work Phone: Comment on above: Patient Position: Sitting; Cuff Location : Right Arm; Cuff Size: Large 12-28-2007 14:21-0400 BP Systolic 110 mm[Hg] Emilie Otto RN [facility] Work Phone: Comment on above: Patient Position: Sitting; Cuff Location : Right Arm; Cuff Size: Large 12-28-2007 14:21-0400 Head Circumference 0 cm Edel Garcia [facility] Work Phone: 12-28-2007 14:21-0400 Head Occipital-frontal circumference 0 cm Emilie Otto RN [facility]; [facility] Work Phone: 12-28-2007 14:21-0400 Height 0 cm Emilie Otto RN [facility] Work Phone: 12-28-2007 14:21-0400 Pulse (Heart Rate) 60 /min Emilie Otto RN [facility] Work Phone: Comment on above: Pattern: Regular 12-28-2007 14:21-0400 Respiratory Rate 20 /min Emilie Otto RN [facility] Work Phone: Comment on above: Pattern: Unlabored 12-28-2007 14:21-0400 Weight 61.69 kg Edel Garcia [facility] Internal Medicine Work Phone: 09-26-2007 14:57-0500 Body Temperature 98 [degF] Christy Ochoa [facility] Internal Medicine Work Phone: Comment on above: Method: Oral 09-26-2007 14:57-0500 Body weight 0 kg Christy Ochoa [facility] Internal Medicine Work Phone: 09-26-2007 14:57-0500 BP Diastolic 72 mm[Hg] Christy Ochoa [facility] Internal Medicine Work Phone: Comment on above: Patient Position: Sitting; Cuff Location : Left Arm; Cuff Size: Standard 09-26-2007 14:57-0500 BP Systolic 114 mm[Hg] Christy Ochoa [facility] Internal Medicine Work Phone: Comment on above: Patient Position: Sitting; Cuff Location : Left Arm; Cuff Size: Standard 09-26-2007 14:57-0500 Head Circumference 0 cm Edel Garcia [facility] Internal Medicine Work Phone: 09-26-2007 14:57-0500 Head Occipital-frontal circumference 0 cm Christy Jackman [facility]; [facility] Work Phone: 09-26-2007 14:57-0500 Height 0 cm Christy Ochoa [facility] Internal Medicine Work Phone: 09-26-2007 14:57-0500 Pulse (Heart Rate) 84 /min Christy Ochoa [facility] Work Phone: Comment on above: Pattern: Regular 09-26-2007 14:57-0500 Weight 0 kg Edel Garcia [facility] Internal Medicine Work Phone: 09-07-2007 11:42-0500 Body Temperature 97.6 [degF] Asya Bowden LPN [facility] Internal Medicine Work Phone: Comment on above: Method: Oral 09-07-2007 11:42-0500 Body weight 61.69 kg Asya Bowden LPN [facility] Work Phone: 09-07-2007 11:42-0500 BP Diastolic 82 mm[Hg] Asya Bowden LPN [facility] Internal Medicine Work Phone: Comment on above: Patient Position: Sitting; Cuff Location : Left Arm; Cuff Size: Standard 09-07-2007 11:42-0500 BP Systolic 118 mm[Hg] Asya Bowden LPN [facility] Internal Medicine Work Phone: Comment on above: Patient Position: Sitting; Cuff Location : Left Arm; Cuff Size: Standard 09-07-2007 11:42-0500 Head Circumference 0 cm Edel Garcia [facility] Internal Medicine Work Phone: 09-07-2007 11:42-0500 Head Occipital-frontal circumference 0 cm Asya Bowden LPN [facility]; [facility] Work Phone: 09-07-2007 11:42-0500 Height 0 cm Asya Bowden [employer] [facility] Medicine Work Phone: 09-07-2007 11:42-0500 Pulse (Heart Rate) 78 /min Asya Bowden LPN [facility] Internal Medicine Work Phone: Comment on above: Pattern: Regular 09-07-2007 11:42-0500 Pulse Oximetry 100 % Edel Garcia [facility] Internal Medicine Work Phone: Comment on above: Room air 09-07-2007 11:42-0500 Respiratory Rate 17 /min Asya Bowden LPN [facility] Internal Medicine Work Phone: Comment on above: Pattern: Unlabored 09-07-2007 11:42-0500 SaO2% (BldA) [Mass fraction] 100 % Asya Bowden LPN [facility]; [facility] Work Phone: Comment on above: Room air 09-07-2007 11:42-0500 Weight 61.69 kg Edel Garcia [facility] Internal Medicine Work Phone: 06-27-2007 10:33-0400 Body Temperature 98.8 [degF] Christy Ochoa [facility] Internal Medicine Work Phone: Comment on above: Method: Oral 06-27-2007 10:33-0400 Body weight 61.69 kg Christy Ochoa [facility] Internal Medicine Work Phone: 06-27-2007 10:33-0400 BP Diastolic 86 mm[Hg] Christy Ochoa [facility] Internal Medicine Work Phone: Comment on above: Patient Position: Sitting; Cuff Location : Left Arm; Cuff Size: Standard 06-27-2007 10:33-0400 BP Systolic 116 mm[Hg] Christy Ochoa [facility] Work Phone: Comment on above: Patient Position: Sitting; Cuff Location : Left Arm; Cuff Size: Standard 06-27-2007 10:33-0400 Head Circumference 0 cm Edel Garcia [facility] Internal Medicine Work Phone: 06-27-2007 10:33-0400 Head Occipital-frontal circumference 0 cm Christy Ochoa [facility]; [facility] Work Phone: 06-27-2007 10:33-0400 Height 0 cm Christy Ochoa [facility] Work Phone: 06-27-2007 10:33-0400 Pulse (Heart Rate) 80 /min Christy Ochoa [facility] Work Phone: Comment on above: Pattern: Regular 06-27-2007 10:33-0400 Weight 61.69 kg Edel Garcia [facility] Medicine Work Phone: 06-06-2007 16:04-0400 Body Temperature 97.8 [degF] Christy Ochoa [facility] Medicine Work Phone: Comment on above: Method: Oral 06-06-2007 16:04-0400 Body weight 0 kg Christy Ochoa [facility] Medicine Work Phone: 06-06-2007 16:04-0400 BP Diastolic 84 mm[Hg] Christy Ocoha [facility] Work Phone: Comment on above: Patient Position: Sitting; Cuff Location : Left Arm; Cuff Size: Standard 06-06-2007 16:04-0400 BP Systolic 120 mm[Hg] Christy Ochoa [facility] Internal Medicine Work Phone: Comment on above: Patient Position: Sitting; Cuff Location : Left Arm; Cuff Size: Standard 06-06-2007 16:04-0400 Head Circumference 0 cm Edel Garcia [facility] Internal Medicine Work Phone: 06-06-2007 16:04-0400 Head Occipital-frontal circumference 0 cm Christy Ochoa [facility]; [facility] Work Phone: 06-06-2007 16:04-0400 Height 0 cm Christy Ochoa [facility] Work Phone: 06-06-2007 16:04-0400 Pulse (Heart Rate) 104 /min Christy Ochoa [facility] Internal Medicine Work Phone: Comment on above: Pattern: Regular 06-06-2007 16:04-0400 Respiratory Rate 16 /min Christy Ochoa [facility] Internal Medicine Work Phone: Comment on above: Pattern: Unlabored 06-06-2007 16:04-0400 Weight 0 kg Edel Garcia [facility] Work Phone: 05-23-2007 16:19-0400 Body Temperature 98.4 [degF] Christy Ochoa [facility] Work Phone: Comment on above: Method: Oral 05-23-2007 16:0400 Body weight 0 kg Christy Ochoa [facility] Internal Medicine Work Phone: 05-23-2007 16:19-0400 BP Diastolic 82 mm[Hg] Christy Guerraabel [facility] Medicine Work Phone: Comment on above: Patient Position: Sitting; Cuff Location : Right Arm; Cuff Size: Standard 05-23-2007 16:19-0400 BP Systolic 110 mm[Hg] Christy Guerraabel [facility] Medicine Work Phone: Comment on above: Patient Position: Sitting; Cuff Location : Right Arm; Cuff Size: Standard 05-23-2007 16:19-0400 Head Circumference 0 cm Edel Garcia [facility] Medicine Work Phone: 05-23-2007 16:19-0400 Head Occipital-frontal circumference 0 cm Christy Gabriela [facility] Internal [facility]; [facility] Work Phone: 05-23-2007 16:19-0400 Height 0 cm Christy Gabriela [facility] Medicine Work Phone: 05-23-2007 16:19-0400 Pulse (Heart Rate) 84 /min Christy Gabriela [facility] Internal Medicine Work Phone: Comment on above: Pattern: Regular 05-23-2007 16:19-0400 Respiratory Rate 16 /min Christy Gabriela [facility] Work Phone: Comment on above: Pattern: Unlabored 05-23-2007 16:19-0400 Weight 0 kg Edel Garcia [facility] Medicine Work Phone: 05-16-2007 16:19-0400 Body Temperature 98.3 [degF] Christy Gabriela [facility] Medicine Work Phone: Comment on above: Method: Oral 05-16-2007 16:19-0400 Body weight 62.14 kg Christy Gabriela [facility] Medicine Work Phone: 05-16-2007 16:19-0400 BP Diastolic 78 mm[Hg] Christy Gabriela [facility] Work Phone: Comment on above: Patient Position: Sitting; Cuff Location : Left Arm; Cuff Size: Standard 05-16-2007 16:19-0400 BP Systolic 112 mm[Hg] Christy Ochoa [facility] Medicine Work Phone: Comment on above: Patient Position: Sitting; Cuff Location : Left Arm; Cuff Size: Standard 05-16-2007 16:19-0400 Head Circumference 0 cm Edel Garcia [facility] Work Phone: 05-16-2007 16:19-0400 Head Occipital-frontal circumference 0 cm Christy Gabriela [facility]; [facility] Work Phone: 05-16-2007 16:19-0400 Height 0 cm Christy Ochoa [facility] Work Phone: 05-16-2007 16:19-0400 Pulse (Heart Rate) 80 /min Christy Ochoa [facility] Internal Medicine Work Phone: Comment on above: Pattern: Regular 05-16-2007 16:19-0400 Respiratory Rate 16 /min Christy Guerraabel [facility] Work Phone: Comment on above: Pattern: Unlabored 05-16-2007 16:19-0400 Weight 62.14 kg Edel Garcia [facility] Work Phone: 04-11-2007 16:15-0400 Body Temperature 97.9 [degF] Christy Ochoa [facility] Work Phone: Comment on above: Method: Oral 04-11-2007 16:15-0400 Body weight 0 kg Christy Wagnerjoselito [facility] Work Phone: 04-11-2007 16:15-0400 BP Diastolic 78 mm[Hg] Christy Ochoa [facility] Work Phone: Comment on above: Patient Position: Sitting; Cuff Location : Left Arm; Cuff Size: Standard 04-11-2007 16:15-0400 BP Systolic 112 mm[Hg] Christy Ochoa [facility] Medicine Work Phone: Comment on above: Patient Position: Sitting; Cuff Location : Left Arm; Cuff Size: Standard 04-11-2007 16:15-0400 Head Circumference 0 cm Edel Garcia [facility] Work Phone: 04-11-2007 16:15-0400 Head Occipital-frontal circumference 0 cm Christy Guerraadrianajoselito [facility]; [facility] Work Phone: 04-11-2007 16:15-0400 Height 0 cm Christy Ochoa [facility] Work Phone: 04-11-2007 16:15-0400 Pulse (Heart Rate) 88 /min [facility] Work Phone: Comment on above: Pattern: Regular 04-11-2007 16:15-0400 Respiratory Rate 16 /min Christy Ochoa [facility] Work Phone: Comment on above: Pattern: Unlabored 04-11-2007 16:15-0400 Weight 0 kg Edel Garcia [facility] Medicine Work Phone: 11-07-2006 09:43-0400 Body Temperature 97.8 [degF] Christy Ochoa [facility] Work Phone: Comment on above: Method: Oral 11-07-2006 09:43-0400 Body weight 0 kg Christy Wagnerjoselito [facility] Work Phone: 11-07-2006 09:43-0400 BP Diastolic 72 mm[Hg] Christy Wagnerjoselito [facility] Work Phone: Comment on above: Patient Position: Sitting; Cuff Location : Right Arm; Cuff Size: Standard 11-07-2006 09:43-0400 BP Systolic 100 mm[Hg] Christy Ochoa [facility] Work Phone: Comment on above: Patient Position: Sitting; Cuff Location : Right Arm; Cuff Size: Standard 11-07-2006 09:43-0400 Head Circumference 0 cm Edel Garcia [facility] Work Phone: 11-07-2006 09:43-0400 Head Occipital-frontal circumference 0 cm Christy Guerraabel [facility]; [facility] Work Phone: 11-07-2006 09:43-0400 Height 0 cm Christy Ochoa [facility] Work Phone: 11-07-2006 09:43-0400 Pulse (Heart Rate) 96 /min Christy Ochoa [facility] Work Phone: Comment on above: Pattern: Regular 11-07-2006 09:43-0400 Respiratory Rate 16 /min Christy Ochoa [facility] Work Phone: Comment on above: Pattern: Unlabored 11-07-2006 09:43-0400 Weight 0 kg Edel Garcia [facility] Work Phone: 10-18-2006 16:46-0500 Body Temperature 97.7 [degF] Christy Ochoa [facility] Work Phone: Comment on above: Method: Oral 10-18-2006 16:46-0500 Body weight 0 kg Christy Ochoa [facility] Internal [facility] Work Phone: 10-18-2006 16:46-0500 BP Diastolic 86 mm[Hg] Christy Ochoa [facility] Work Phone: Comment on above: Patient Position: Sitting; Cuff Location : Left Arm; Cuff Size: Standard 10-18-2006 16:46-0500 BP Systolic 126 mm[Hg] Christy Ochoa [facility] Work Phone: Comment on above: Patient Position: Sitting; Cuff Location : Left Arm; Cuff Size: Standard 10-18-2006 16:46-0500 Head Circumference 0 cm Edel Garcia [facility] Work Phone: 10-18-2006 16:46-0500 Head Occipital-frontal circumference 0 cm Christy Ochoa [facility]; [facility] Work Phone: 10-18-2006 16:46-0500 Height 0 cm Christy Ochoa [facility] Work Phone: 10-18-2006 16:46-0500 Pulse (Heart Rate) 96 /min Christy Ochoa [facility] Work Phone: Comment on above: Pattern: Regular 10-18-2006 16:46-0500 Respiratory Rate 16 /min Christy Ochoa [facility] Work Phone: Comment on above: Pattern: Unlabored 10-18-2006 16:46-0500 Weight 0 kg Edel Garcia [facility] Work Phone: 10-03-2006 13:34-0500 Body Temperature 97.5 [degF] Christy Ochoa [facility] Work Phone: Comment on above: Method: Oral 10-03-2006 13:34-0500 Body weight 0 kg Christy Ochoa [facility] Work Phone: 10-03-2006 13:34-0500 BP Diastolic 64 mm[Hg] Christy Ochoa [facility] Work Phone: Comment on above: Patient Position: Sitting; Cuff Location : Right Arm; Cuff Size: Standard 10-03-2006 13:34-0500 BP Systolic 102 mm[Hg] Christy Guerraabel [facility] Work Phone: Comment on above: Patient Position: Sitting; Cuff Location : Right Arm; Cuff Size: Standard 10-03-2006 13:34-0500 Head Circumference 0 cm Edel Garcia [facility] Work Phone: 10-03-2006 13:34-0500 Head Occipital-frontal circumference 0 cm Christy Guerraabel [facility]; [facility] Work Phone: 10-03-2006 13:34-0500 Height 0 cm Christy Guerraabel [facility] Work Phone: 10-03-2006 13:34-0500 Pulse (Heart Rate) 88 /min Christy Ochoa [facility] Work Phone: Comment on above: Pattern: Regular 10-03-2006 13:34-0500 Respiratory Rate 16 /min Christy Guerraabel [facility] Work Phone: Comment on above: Pattern: Unlabored 10-03-2006 13:34-0500 Weight 0 kg Edel Garcia [facility] Work Phone: 09-26-2006 14:57-0500 Body Temperature 98.5 [degF] Christy Ochoa [facility] Work Phone: Comment on above: Method: Oral 09-26-2006 14:57-0500 Body weight 62.2 kg Christy Ochoa [facility] Work Phone: 09-26-2006 14:57-0500 BP Diastolic 66 mm[Hg] Christy Guerraadrianajoselito [facility] Work Phone: Comment on above: Patient Position: Sitting; Cuff Location : Right Arm; Cuff Size: Standard 09-26-2006 14:57-0500 BP Systolic 110 mm[Hg] Christy Guerraadrianajoselito [facility] Work Phone: Comment on above: Patient Position: Sitting; Cuff Location : Right Arm; Cuff Size: Standard 09-26-2006 14:57-0500 Head Circumference 0 cm Edel Garcia [facility] Work Phone: 09-26-2006 14:57-0500 Head Occipital-frontal circumference 0 cm Christy Guerraabel [facility]; [facility] Work Phone: 09-26-2006 14:57-0500 Height 0 cm Christy Guerraaebl [facility] Work Phone: 09-26-2006 14:57-0500 Pulse (Heart Rate) 72 /min Christy Gabriela [facility] Work Phone: Comment on above: Pattern: Regular 09-26-2006 14:57-0500 Respiratory Rate 16 /min Christy Guerraabel [facility] Work Phone: Comment on above: Pattern: Unlabored 09-26-2006 14:57-0500 Weight 62.2 kg Edel Garcia [facility] Internal Medicine Work Phone: Encounters Encounter Date Encounter Type Care Provider Facility Start: 07-26-2025 ambulatory Edel Garcia Facilit y:[facility] Start: 05-21-2025 Patient encounter procedure Aifa DICKSON -Laboratory Specimen Work Phone: Start: 05-21-2025 End: 05-21-2025 Patient encounter procedure Afia Thompson PEER TUTOR-C -[facility] Work Phone: Start: 05-21-2025 End: 05-21-2025 Patient encounter status Afia Aguirretings PEER TUTOR-C [facility] Start: 05-21-2025 End: 05-21-[address] Edel Garcia DO Work Phone: -[facility] Start: 05-21-2025 End: 05-21-2025 ambulatory Afia Thompson PEER TUTOR Facility:[facility] Start: 05-09-2025 End: 05-09-2025 Patient encounter procedure Wally Porter PA -[facility] Work Phone: Start: 05-09-2025 End: 05-09-[address] Edel Garcia DO Work Phone: -[facility] Start: 02-21-2025 End: 02-21-2025 Patient encounter procedure Nicholas Brett DO -[facility] Work Phone: Start: 02-21-2025 End: 02-21-[address] Edel Garcia DO Work Phone: [facility] Work Phone: Start: 08-30-2024 End: 08-30-2024 ambulatory Edel Garcia Facility:[facility] Start: 08-23-2024 End: 08-23-2024 ambulatory Edel Garcia Facility:[facility] Start: 08-10-2024 End: 08-10-2024 ambulatory Edel Garcia Facility:[facility] Start: 07-11-2024 End: 07-11-2024 ambulatory Edel Garcia Facility:[facility] Start: 07-11-2024 End: 07-11-2024 ambulatory Afia Thompson PEER TUTOR Facility:[facility] Start: 11-07-2023 End: 11-07-[address] Edel Garcia Work Phone: [facility] Work Phone: Start: 11-07-2023 End: 11-07-[address] Edel Garcia Work Phone: [facility]-Laboratory, Specimen Work Phone: Start: 11-06-2023 End: 11-06-[address] Edel Garcia Work Phone: [facility] Work Phone: Start: 11-03-2023 End: 11-03-[address] Edel Garcia Work Phone: [facility] Work Phone: Start: 11-03-2023 End: 11-03-[address] Edel Garcia Work Phone: [facility]-Nuclear Medicine, [facility] Work Phone: Start: 10-27-2023 Non-patient / Non-visit Dr. Edel Garcia Work Phone: [facility] Start: 10-27-2023 End: 10-27-2023 Admission to same day surgery center Dr. Edle Garcia Work Phone: [facility]-Endoscopy Work Phone: Start: 10-27-2023 End: 10-27-[address] Edel Garcia Work Phone: [facility] Work Phone: Start: 10-17-2023 End: 10-17-[address] Edel Garcia Work Phone: [facility] Work Phone: Start: 10-17-2023 End: 10-17-[address] Edel Garcia Work Phone: [facility]-Laboratory, [place] Work Phone: Start: 10-17-2023 End: 10-17-[address] Edel Garcia Work Phone: [facility] Work Phone: Start: 08-17-2023 End: 08-17-[address] Edel Garcia Work Phone: [facility] Work Phone: Start: 08-17-2023 End: 08-17-[address] Edel Garcia Work Phone: [facility] Ultrasound Work Phone: Start: 08-04-2023 End: 08-04-[address] Edel Garcia Work Phone: [facility] Work Phone: Start: 08-04-2023 End: 08-04-[address] Edel Garcia Work Phone: [facility] Ultrasound Work Phone: Start: 07-20-2023 End: 07-20-[address] Edel Garcia Work Phone: [facility] Work Phone: Start: 07-08-2023 End: 07-08-[address] Edel Gracia Work Phone: [facility]-Outpatient Breast Imaging Work Phone: Start: 07-04-2023 End: 07-04-[address] Edel Garcia Work Phone: [facility] Work Phone: Start: 04-26-2023 End: 04-26-[address] Edel Garcia Work Phone: [facility] Vascular Surgery Work Phone: Start: 04-22-2023 End: 04-28-2023 Office outpatient visit 15 minutes Shaniqua Bnun CNP Work Phone: [facility] Start: 04-22-2023 Non-patient / Non-visit Dr. Edel Garcia Work Phone: [facility] Start: 04-22-2023 End: 04-22-[address] Edel Garcia Work Phone: [facility] Work Phone: Start: 04-22-2023 End: 04-22-[address] [facility] Start: 03-29-2023 End: 03-29-[address] Edel Garcia Work Phone: [facility] Vascular Surgery Work Phone: Start: 03-07-2023 End: 03-07-[address] Edel Garcia Work Phone: [facility] Work Phone: Start: 03-07-2023 End: 03-07-[address] Edel Garcia Work Phone: [facility] Work Phone: Start: 03-07-2023 Review Shaniqua Bunn CNP Work Phone: [facility] Start: 03-07-2023 End: 03-07-2023 Office outpatient visit 15 minutes Shaniqua Bunn CNP Work Phone: [facility] Start: 12-29-2022 End: 12-29-[address] Edel Garcia Work Phone: [facility] Work Phone: Start: 11-12-2022 End: 11-12-2022 Patient encounter procedure Shaniqua Bunn CNP Work Phone: [facility] Start: 11-12-2022 End: 11-12-[address] Edel Garcia Work Phone: [facility] Work Phone: Start: 11-12-2022 End: 11-12-[address] Edel Garcia Work Phone: [facility]-Outpatient Breast Imaging Start: 11-09-2022 ambulatory Shaniqua Bunn CNP Comp [...] CNP Work Phone: [facility] Start: 08-02-2022 End: 08-02-2022 Patient encounter procedure Dr. Edel Garcia Work Phone: [facility] Start: 06-09-2022 End: 06-09-[address] Edel Garcia Work Phone: [facility] Work Phone: Start: 06-09-2022 End: 06-09-[address] Edel Garcia Work Phone: [facility] Start: 06-02-2022 End: 06-02-[address] Edel Garcia Work Phone: [facility] Work Phone: Start: 06-02-2022 End: 06-02-[address] Edel Garcia Work Phone: [facility] Gastro[facility] Start: 05-19-2022 Non-patient / Non-visit Dr. Edel Garcia Work Phone: [facility] Start: 05-19-2022 End: 05-19-2022 Admission to same day surgery center Dr. Edel Garcia Work Phone: [facility]End[facility] Start: 05-19-2022 End: 05-19-[address] Edel Garcia Work Phone: [facility] Work Phone: Start: 04-04-2022 End: 04-04-[address] Edel Garcia Work Phone: [facility] Start: 03-12-2022 End: 03-12-[address] Edel Garcia Work Phone: [facility]-Nuclear Medicine, [facility] Start: 02-25-2022 End: 02-25-[address] Edel Garcia Work Phone: [facility]-Ultrasound, [facility] Start: 02-12-2022 End: 02-12-[address] Edel Garcia Work Phone: [facility] Start: 02-09-2022 End: 02-09-[address] [facility] Start: 02-09-2022 End: 02-09-[address] Edel Garcia Work Phone: [facility] Start: 01-27-2022 End: 01-27-[address] Edel Garcia Work Phone: [facility] Start: 12-24-2021 End: 12-24-[address] Edel Garcia Work Phone: [facility] Start: 12-05-2021 End: 12-05-[address] Edel Garcia Work Phone: [facility] Start: 11-11-2021 End: 11-11-2021 Patient encounter procedure [facility]-Outpatient Breast Imaging Start: 03-17-2021 End: 03-17-2021 Annotation/Addendum Edel Garcia DO Work Phone: [facility] Start: 03-16-2021 End: 03-16-2021 Office outpatient visit 25 minutes Edel Garcia DO Work Phone: [facility] Start: 03-05-2020 End: 03-05-2020 Office outpatient visit 10 minutes Edel Jackman [facility] Start: 02-20-2020 End: 02-20-2020 Office outpatient visit 15 minutes Edel Garcia [facility] Start: 09-06-2019 End: 09-06-2019 Office outpatient visit 10 minutes Edel Jackman [facility] Start: 07-03-2019 End: 07-03-2019 Office outpatient visit 15 minutes Edel Garcia [facility] Start: 06-12-2019 End: 06-12-2019 Lab Order Edel Jackman Warehouse [employer] Medicine Start: 06-12-2019 End: 06-12-2019 Periodic preventive med est patient 40-64yrs Edel Jackman [facility] Start: 06-12-2019 Review Edel Garcia Compreh ensive Internal Medicine Start: 11-17-2018 End: 11-17-2018 Office outpatient visit 25 minutes Edel Jackman [facility] Start: 04-19-2017 Gynecologic examination Afia Thompson NP Work Phone: [facility] Start: 12-20-2013 End: 12-20-2013 Patient encounter Edel Jackman Warehouse Super[employer] Medicine Start: 05-11-2013 End: 05-11-2013 Office outpatient visit 15 minutes Edel Garcia [facility] Start: 05-09-2013 End: 05-09-2013 Office outpatient visit 40 minutes Edel Garcia [facility] Start: 01-23-2013 End: 01-23-2013 Patient encounter Edel Garcia Augustina Warehouse [employer] Medicine Start: 01-16-2013 End: 01-16-2013 Patient encounter Edel Garcia Augustina [employer] Medicine Start: 08-31-2012 End: 08-31-2012 Patient encounter Edel Garcia Augustina Warehouse [employer] Medicine Start: 11-17-2011 End: 11-17-2011 Lab Order Edel Garcia [facility] [employer] Start: 11-16-2011 End: 11-18-2011 Patient encounter Edel Garcia Augustina Warehouse [employer] Medicine Start: 11-05-2011 End: 11-07-2011 Patient encounter Edel Garcia Augustina Warehouse [employer] Medicine Start: 10-27-2011 End: 10-27-2011 Office outpatient visit 25 minutes Edelree Garcia [facility] Internal Medicine Start: 03-24-2011 End: 03-24-2011 Phone Encounter Edel Garcia Augustina Warehouse [employer] Medicine Start: 03-24-2011 End: 03-24-2011 Office outpatient visit 15 minutes Edel Jose [facility] Internal Medicine Start: 11-02-2010 End: 11-02-2010 Patient encounter Edel Garcia [facility] Warehouse Super[employer] Medicine Start: 10-30-2010 End: 10-30-2010 Office outpatient visit 25 minutes Edel Garcia [facility] Internal Medicine Start: 10-16-2010 End: 10-16-2010 Office outpatient visit 25 minutes Edel Garcia [facility] Internal Medicine Start: 08-07-2010 End: 08-07-2010 Patient encounter Edel Garcia [facility] [employer] Start: 06-15-2010 End: 06-15-2010 Office outpatient visit 25 minutes Edel Jose [facility] Internal Medicine Start: 05-08-2010 End: 05-08-2010 Office outpatient visit 15 minutes Edelree Garcia [facility] Internal Medicine Start: 03-11-2010 End: 03-13-2010 Patient encounter Edel Garcia [facility] [employer] Start: 06-04-2009 End: 06-04-2009 Nursing evaluation of patient and report Edelree Seguraon [facility] Internal Medicine Start: 02-05-2009 End: 02-06-2009 Office outpatient visit 25 minutes Edel Jose [facility] Internal Medicine Start: 04-09-2008 End: 04-09-2008 Patient encounter Edelree Garcia [facility] [employer] [facility] Start: 12-28-2007 End: 12-28-2007 Patient encounter Edel Garcia [facility] Ware[employer] Medicine Start: 09-26-2007 End: 09-26-2007 Patient encounter Edel Garcia [facility] Warehouse Super[employer] Medicine Start: 09-07-2007 End: 09-07-2007 Office outpatient visit 15 minutes Edelree Seguraon [facility] Internal Medicine Start: 06-27-2007 End: 06-27-2007 Patient encounter Edel Garcia [facility] Warehouse Super[employer] Medicine Start: 06-06-2007 End: 06-06-2007 Patient encounter Edel Garcia [facility] Ware[employer] Super[employer] Medicine Start: 05-23-2007 End: 05-24-2007 Patient encounter Edel Garcia [facility] Ware[employer] Medicine Start: 05-16-2007 End: 05-17-2007 Patient encounter Edel Garcia [facility] Warehouse Super[employer] Medicine Start: 04-11-2007 End: 04-13-2007 Patient encounter Edel Garcia [facility] Ware[employer] Super[employer] Medicine Start: 11-07-2006 End: 11-07-2006 Patient encounter Edel Garcia [facility] [employer] Medicine Start: 10-18-2006 End: 10-19-2006 Patient encounter Edel Garcia [facility] Warehouse Super[employer] Medicine Start: 10-03-2006 End: 10-03-2006 Office outpatient visit 15 minutes Edelree Seguraon [facility] Internal Medicine Start: 09-26-2006 End: 09-26-2006 Office outpatient visit 25 minutes Edelree Seguraon [facility] Internal Medicine Start: 09-26-2006 End: 09-26-2006 Historical Summary Edel Seguraon [facility] Warehouse Supervisor [employer] Medicine Procedures Date Procedure Procedure Detail Performing Clinician Start: 05-21-2025 Liquid based cervical cytology screening Dr. Edel Garcia DO Work Phone: Comment on above: NEGATIVE FOR INTRAEPITHELIAL LESION OR M ALIGNANCY. This liquid based Th inPrep(R) pap test was screened withthe use of an image guided system. Start: 11-07-[address] Edel Garcia Work Phone: Start: 11-03-[address] Edel Garcia Work Phone: Start: 10-27-[address] Edel Garcia Work Phone: Start: 08-17-[address] Edel Garcia Work Phone: Start: 08-04-[address] Edel Garcia Work Phone: Start: 07-08-[address] Edel Garcia Work Phone: Start: 07-08-[address] Edel Garcia Work Phone: Start: 04-26-2023 End: 04-28-2023 MR/BMS.BVS Procedure Note: See Note; NOTES: [facility] Vascular Surgery 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 Otherwise, return as needed. 04/27/23 1645 <Electronically signed by Kirstie MEDLEY> Date Kirstie MEDLEY 04/28/23 1802<Electronically signed by Sean Dumont MD> Essieign Signature: Date (if applicable) Sean Dumont MD CC: PEER TUTOR-C Shaniqua Bunn [facility] Work Phone: Start: 04-22-2023 End: 04-25-2023 Venous Duplex US - Maximilian Extrem Procedure Note: See Note ; NOTES: [facility] Cardiovascular Services [address] [place] [address] Venous Duplex US - Maximilian Extrem 04/22/23 0911 MR#: [id number] Acct: [id number] Name: BESSIE KENNEDY Rep #: [id number] : 1980 42 From: Sean Dumont MD [...] saphenous veins appear patent and compressible segmentally. ___ Ordering Physician: Kirstie Hurd Referring Physician: Edel Garcia M.D. Performed By: Marshal Mac, T 04/25/23 1155 Date Sean Dumont MD CC: JASMYNE Coates; Dr. Edel Garcia, Date Dictated: 04/22/23 0911 Date Transcribed: 04/25/23 115 Hair Salon Manager: Signed Shaniqua Bunn CNP Work Phone: Start: 03-29-2023 End: 03-29-2023 MR/SRIDHAR.BVS Procedure Note: See Note; NOTES: [facility] Vascular Surgery 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 [place], [place] [address] OFFICE VISIT Date of Service: 12/29/22 MR#: [id number] Acct: [id number] Name: BESSIE KENNEDY DARI Rep #: [id number] : 1980 Provider: YESSI kemp Age/Sex: 42/F [place] [facility] [place]: Signed Intake Vital Signs 06/02/22 13:46 12/29/22 15:21 12/29/22 15:33 Height 5 ft 2 in 5 ft 2 in 5 ft 2 in Weight: 210 lb 2 oz BMI 38.4 BP 130/82 H Intake Visit Reasons: Annual (POURER OFF) Chief Complaint: Annual 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: No Is patient in pain?: No [...] : No : No PFSH Medical History Alcohol use Anxiety Former [...] 2 current occupational status: employed 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 Recurrence of prolonged menses and will need repeat EMB. RTO 1 year, prn with problems Afia Thompson CNP 12/29/22 6076 <Electronically signed by Afia Thompson PEER TUTOR PEER TUTOR-C> Date Afia Thompson NP PEER TUTOR-C Cosigner Signature: Date (if applicable) CC: Shaniqua Bunn CNP Work Phone: Start: 11-12-[address] Edel Garcia Work Phone: Start: 11-12-2022 End: 11-12-2022 SCRN MAMM (CAD)W/MARIO BILAT Procedure Note: See Note; NOTES: [facility] Imaging Services [address] [place] [address] SCRN MAMM (CAD)W/MARIO BILAT MR#: [id number] Acct: [id number] Name: KRYSTIAN KENNEDYLY DARI Rep #: [id number] : 1980 F 42 From: Rupetr Garcia MD PCP: Dr. Edel Garcia, DO Status: [facility] CLI Study: SCRN MAMM (CAD)W/MARIO BILAT Date of Exam: 10/27 03/20 Exam# [id number] Ordering Dr: Afia Thompson NP PEER TUTOR -C MAMMOGRAPHY - BILATERAL SCREENING 3-D TOMOSYNTHESIS [...] 8:15 EDT Reading Location ID and State: [facility] / [place] , Service support , CC: YESSI Thompson; Dr. Edel Garcia DO Hair Salon Manager: Signed Edel Garcia DO Work Phone: Start: 08-02-2022 End: 08-02-2022 Urgent Care Visit Report Procedure Note: See Note; NOTES: [facility] [address] [place] [address] [address] [place] [address] OFFICE VISIT Date of Service: 08/02/22 MR#: [id number] Acct: [id number] Name: BESSIE KENNEDY DARI Rep #: [id number] : 1980 Provider: JASMYNE Porter Age/Sex: 42/F Location: [facility] Status: Signed Intake Vital Signs 06/02/22 13:46 [...] Adverse Reaction (Severe, Verified 06/25/22 13:27) maikel [facility] Medical History Alcohol use Anxiety Former smoker [...] 2 current occupational status: employed 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 Orders: Orders POC Sabrina Rapid Strep A Today 08/02/22 08 <Electronically signed by Wally MEDLEY> Date Wally MEDLEY Cosigner Signature: Date (if applicable) CC: Shaniqua Bunn [facility] Work Phone: Start: 06-25-2022 End: 06-25-2022 Foot min 3 Views Procedure Note: See Note; NOTES: [facility] Radiology [address] [place] [address] Foot min 3 Views MR#: [id number] Acct: [id number] Name: BESSIE KENNEDY DARI Rep #: [id number] : 1980 F 41 From: Dale cueva MD PCP: Dr. Edel Garcia, DO Status: DEP AMB Study: Foot min 3 Views Date of Exam: 06/25/22 Exam# [id number] Ordering Dr: Wally Porter STUDY: X-RAY - [...] examination of the foot. Electronically Signed: Dale Jones MD at 14:08 EDT Reading Location ID and State: [address] [place] [address] , Service support , CC: JASMYNE Porter; Dr. Edel Garcia DO Hair Salon Manager: Signed Shaniqua Bunn CNP Work Phone: Start: 06-25-2022 End: 06-25-2022 Urgent Care Visit Report Procedure Note: See Note; NOTES: [facility] [address] [place] [address] [address] [place] [id number] OFFICE VISIT Date of Service: 06/25/22 MR#: [id number] Acct: [id number] Name: BESSIE KENNEDY DARI Rep #: [id number] : 1980 Provider: JASMYNE Porter Age/Sex: 41/F Location: [facility] Status: Signed Intake Vital Signs 06/02/22 13:46 [...] QAC #90 tabs 06/02/22 [Rx Confirmed 06/25/22] [facility] Medical History Alcohol use Anxiety Former smoker [...] 2 current occupational status: employed 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 of 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 travel: Yes sexually active: Yes Smoking Status: Former smoker Tobacco: How many years used: 15 alcohol intake: never substance use type: does not use what type of physical activity do you participate in: walking and weight training frequency: daily seatbelt use: always do you feel safe at home: Yes 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 [facility] HPI Details: BESSIE KENNEDY, is [...] Off vis,est,level 4 Diagnoses Right foot strain S96.911A Assessment and Plan Assessment and Plan (1) [...] Orders: Orders Foot min 3 Views Today S96.911A - Strain of unspecified muscle and tendon at ankle and foot level, right foot, initial encounter 06/25/22 0139 <Electronically signed by Wally MEDLEY> Date Wally MEDLEY Cosigner Signature: Date (if applicable) CC: Shaniqua Bunn [facility] Work Phone: Start: 06-02-2022 End: 06-02-2022 Gastroenterology Visit Report Procedure Note: See Note ; NOTES: [facility] Gastroenterology [address] [place] [address] OFFICE VISIT Date of Service: 06/02/22 MR#: [id number] Acct: [id number] Name: BESSIE KENNEDY DARI Rep #: [id number] : 1980 Provider: YESSI Strong Age/Sex: 41/F Location: [facility] Status: Signed Intake Vital Signs 02/09/22 15:14 [...] 2 current occupational status: employed 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 She went to [facility], they said no treatment needed. She [...] esophageal stenosis. One sister has a double colon; and polyps age 40. Pt has intermittent [...] inspection Palpation: soft Quality Reporting Tobacco Screening ([facility] 138) Smoking Status: Former smoker Assessment and [...] 06/02/22 1637 <Electronically signed by Renetta Strong PEER TUTOR PEER TUTOR-C> Date Renetta Strong PEER TUTOR PEER TUTOR-C Cosigner Signature: Date (if applicable) CC: DO Shaniqua Samano [facility] Work Phone: Start: 05-19-2022 End: 05-19-2022 Colonoscopy Report Procedure Note: See Note; NOTES: [facility] Medical Records Department [address] [place] [address] Colonoscopy Report MR#: [id number] Acct: [id number] Name: BESSIE KENNEDY DARI Rep #: [id number] : 1980 41 From: Nicholas West DO PCP: Dr. Edel Garcia DO Status:[facility] Patient Name: Bessie Kennedy Procedure Date: [...] for surveillance. Procedure Code(s): --- Professional --- 12065, Colonoscopy, flexible; with biopsy, single or multiple CPT copyright 2017 [employer]. All rights reserved. The codes documented in this report are preliminary and upon machine strap buckler review may be revised to meet current compliance requirements. Nicholas West DO 05/19/2022 7:28:45 AM This report has been signed electronically. Number of Addenda: 0 Note Initiated On: 05/19/2022 7:00 AM 05/19/22727 Date Nicholas West DO Cosigner Signature: Date (if indicated) CC: Dr. Edel Garcia DO; Nicholas West DO Date Dictated: 05/19/22 07 Date Transcribed: Hair Salon Manager: MELISSA Signed Shaniqua Bunn CNP Work Phone: Start: 05-19-2022 End: 05-19-2022 EGD Report Procedure Note: See Note; NOTES: [facility] Medical Records Department [address] [place] [address] EGD Report MR#: [id number] Acct: [id number] Name: BESSIE KENNEDY DARI Rep #: [id number] : 1980 41 From: Nicholas West DO PCP: Dr. Edel Garcia DO Status:[facility] Patient Name: Bessie Kennedy Procedure Date: [...] pathology results. Procedure Code(s): --- Professional --- 05634, Esophagogastroduodenoscop y, flexible, transoral; with biopsy, single or multiple CPT copyright 2017 [employer]. All rights reserved. The codes documented in this report are preliminary and upon machine strap buckler review may be revised to meet current compliance requirements. Nicholas West DO 05/19/2022 7:23:08 AM This report has been signed electronically. Number of Addenda: 0 Note Initiated On: 05/19/2022 6:14 AM 05/19/22722 Date Nicholas West DO Cosigner Signature: Date (if indicated) CC: Dr. Edel Garcia DO; Nicholas West DO Date Dictated: 05/19/22613 Date Transcribed: Hair Salon Manager: MELISSA Bunn CNP Work Phone: Start: 05-19-2022 End: 05-19-2022 History and Physical Exam Procedure Note: See Note; NOTES: [facility] Medical Records Department [address] [place] [address] History Physical Exam 05/19/22718 MR#: [id number] Acct: [id number] Name: BESSIE KENNEDY DARI Rep #: [id number] : 1980 41 From: Nicholas West DO PCP: Dr. Edel Garcia DO Status:[facility] Location: [place] [address] History and Physical Date of Admission: 05/19/22 [...] esophageal stenosis. One sister has a double colon; has polyps age 40. Patient gets excruciating [...] Affect: normal affect Quality Reporting Tobacco Screening ([facility] 138) Smoking Status: Current every day smoker [...] R10.13, R11.0, Z83.79 ?Plan - Renetta Strong PEER TUTOR, PEER TUTOR-C: 41-year-old female with severe epigastric pain and [...] no clinical changes since date of exam. 05/19/22 0720 <Electronically signed by Nicholas West DO> Cosigner Signature (if applicable): CC: Dr. Edel Garcia DO; Nicholas West DO Signed Shaniqua Bunn CNP Work Phone: Start: 05-19-[address] Edel Garcia Work Phone: Start: 04-04-2022 End: 04-04-2022 Urgent Care Visit Report Procedure Note: See Note; NOTES: [facility] [address] [place] [address] OFFICE VISIT Date of Service: 04/04/22 MR#: [id number] Acct: [id number] Name: BESSIE KENNEDY DARI Rep #: [id number] : 1980 Provider: JASMYNE Gilbert Age/Sex: 41/F Location: [facility] Status: Signed Intake Vital Signs 02/09/22 15:14 04/04/22 08:46 Height 1.57 m BP 122/74 H Blood Pressure Location Lt brachial Position Sitting Respiration 14 Pulse 87 Pulse Source Monitor Temp 98.3 F Temp Source Temporal Pulse Oximetry (%) 98 Oxygen Delivery Method room air Intake Visit Reasons: SORE THROAT/BODY ACHES/COUGH Chief Complaint: sore throat Allergies amoxicillin Adverse Reaction (Severe, Verified 02/09/22 15:13) maikel [facility] Medical History Normal colonoscopy Seasonal allergies Surgical History History of lymph node excision Family History Grandmother Colon cancer Cancer ovarian Anemia Diabetes Grandfather Myocardial infarction, Onset Age: 50 Father Heart disease Hypertension Hyperlipemia Diabetes Mother Hypertension Sister Thyroid disorder Social History household members: spouse and children number of children: 2 current occupational status: employed 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 This began tuesday AM. She was on vacation in [place] (road trip). Her had similar symptoms but [...] go to the ER. Orders: Orders POC Sarbina Covid FLUAB PCR Today J02.9 - Acute pharyngitis, unspecified 04/04/22930 <Electronically signed by Hugo MEDLEY> Date Hugo MEDLEY Cosigner Signature: Date (if applicable) CC: Shaniqua Bunn CNP Work Phone: Start: 03-12-2022 Radionuclide imaging of liver and/or biliary tract using radioactive isotope Dr. Edel Garcia Work Phone: Start: 03-12-2022 End: 03-12-2022 Hepatobilliary Img w/Pharm Int Procedure Note: See Not e; NOTES: [facility] Imaging Services [address] [place] [address] Hepatobilliary Img w/Pharm Int MR#: [id number] Acct: [id number] Name: BESSIE KENNEDY Rep #: [id number] : 1980 F 41 From: Bubba Zuniga MD PCP: Dr. Edel Garcia DO Status: REG CLI Study: Hepatobilliary Img w/Pharm Int Date of Exam: 0 03/12/22 Exam# [id number] Ordering Dr: Renetta Strong NP PEER TUTOR-C Nuclear medicine HIDA scan Indication: Postprandial epigastric [...] 12:16 EDT Reading Location ID and State: [address] [place] [address] , Service support , CC: PEER TUTOR-C Renetta Strong; Dr. Edel Garcia DO Hair Salon Manager: Signed Shaniqua Bunn CNP Work Phone: Start: 02-25-2022 End: 02-25-2022 Abdomen Limited Procedure Note: See Note; NOTES: [facility] Imaging Services [address] [place] [address] Abdomen Limited MR#: [id number] Acct: [id number] Name: SHAYYMYRANDABESSIE DAVIS DARI Rep #: [id number] : 1980 F 41 From: Newton Romo MD PCP: Dr. Edel Garcia DO Status: REG CLI Study: Abdomen Limited Date of Exam: 02/25/22 Exam# [id number] Ordering Dr: Renetta Strong NP PEER TUTOR-C EXAM: US ABDOMEN LIMITED, RIGHT UPPER QUADRANT CLINICAL INDICATION: postprandial epigastric pain TECHNIQUE: Real-time ultrasound of the right upper quadrant with image documentation. This report was created using [employer] report generation technology. COMPARISON: None. FINDINGS: LIVER: [...] 8:10 EDT Reading Location ID and State: [address] [place] [address] Tel , Service support , CC: PEER TUTOR-C Renetta Strong; Dr. Edel Garcia DO Hair Salon Manager: Signed Shaniqua Bunn CNP Work Phone: Start: 02-25-[address] 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 One sister has a double colon; has polyps age 40. Patient gets excruciating [...] Affect: normal affect Quality Reporting Tobacco Screening ([facility] 138) Smoking Status: Current every day smoker [...] R10.13, R11.0, Z83.79 Plan - Renetta Strong PEER TUTOR, PEER TUTOR-C: 41-year-old female with severe epigastric pain and [...] 02/09/22 1641 <Electronically signed by Renetta Strong NP PEER TUTOR-C> Date Renetta Sierra Signature: Date (if applicable) CC: Dr. 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 [place] [address] OFFICE VISIT Date of Service: 12/24/21 MR#: [id number] Acct: [id number] Name: KRYSTIAN KENNEDYLY DARI Rep #: [id number] : 1980 Provider: YESSI kemp Age/Sex: 41/F [place] [facility] [place] [facility] [place]: Signed Intake Vital Signs 12/24/21 14:45 Height 5 ft 2 in Weight: 180 lb BMI 32.9 BP 128/86 H Intake Visit Reasons: Annual (POURER OFF) Allergies amoxicillin Adverse Reaction (Severe, Verified 12/24/21 14:44) diahrrea Medications hydrochlorothiazide 12.5 mg tablet 12.5 mg PO QDAY PRN 01/02/18 [History Confirmed 12/24/21] Is last menstrual period known: Yes Last Menstral Period: 11/30/21 [facility] Medical History (Updated 12/24/21 @ 15:00 by YESSI Bright NP) Normal colonoscopy Seasonal allergies Surgical History History of lymph node excision Family History Grandmother Colon cancer Cancer ovarian Anemia Diabetes Grandfather Myocardial infarction, Onset Age: 50 Father Heart disease Hypertension Hyperlipemia Diabetes Mother Hypertension Sister Thyroid disorder Social History household members: spouse and children number of children: 2 current occupational status: employed 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 Head: normal to inspection Neck Neck: normal [...] cancer: Status: Acute Plan - Afia Thompson PEER TUTOR, PEER TUTOR-C: Completed breast and pelvic exam Reviewed diet and exercise Pap 2019 Mammogram 09/2021 Recent health screen labs with PCP breast self exam encouraged monthly Contraception spouse vasectomy Colonoscopy refer Dr West RTO 1 year, prn with problems Afia Thompson CNP Plan Details Other Orders: Orders: SCRN MAMM (CAD)W/MARIO BILAT 11/11/21 12/24/21 1506 <Electronically signed by Afia Thompson NP PEER TUTOR-C> Date Afia Thompson NP PEER TUTOR-C Cosigner Signature: Date (if applicable) CC: Shaniqua Bunn CNP Work Phone: Start: 12-05-2021 End: 12-05-2021 Urgent Care Visit Report Procedure Note: See Note; NOTES: [facility] [address] [place] [address] [address] [place], [place] [id number] OFFICE VISIT Date of Service: 12/05/21 MR#: [id number] Acct: [id number] Name: BESSIE KENNEDY DARI Rep #: [id number] : 1980 Provider: JASMYNE jansen Age/Sex: 41/F Location: [facility] Status: Signed Intake Intake Visit Reasons: COVID TEST FOR TRAVEL Chief Complaint: PE for 's Ins Allergies amoxicillin Adverse Reaction (Severe, Verified 10/21/20 14:54) maikel [facility] Medical History (Updated 12/05/21 @ 08:25 by [...] 2 current occupational status: employed 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 Copy of lab results offered. Follow-up with PCP on an as-needed basis only. Patient states acknowledging understanding all the above. This note was generated with [employer] software. It may contain incorrect words, spelling, and punctuation that were not noted in checking the note before signing. 12/05/21 0825 <Electronically signed by Luis Alberto MEDLEY> Date Luis Alberto MEDLEY Cosigner Signature: Date (if applicable) CC: Shaniqua Bunn STRATEGIC CONSULTANT Work Phone: Start: 11-11-2021 Screening mammography Start: 11-11-2021 End: 11-12-2021 SCRN MAMM (CAD)W/MARIO BILAT Procedure Note: See Note; NOTES: [facility] Imaging Services [address] [place] [address] SCRN MAMM (CAD)W/MARIO BILAT MR#: [id number] Acct: [id number] Name: BESSIE KENNEDY Rep #: [id number] : 1980 F 41 From: Iraj Sotelo MD PCP: Dr. Edel Garcia, DO Status: REG CLI Study: SCRN MAMM (CAD)W/MARIO BILAT Date of Exam: 10/27 02/17 Exam# [id number] Ordering Dr: Afia Thompson PEER TUTOR PEER TUTOR -C MAMMOGRAPHY - BILATERAL SCREENING 3-D TOMOSYNTHESIS [...] Signed: Iraj Sotelo MD at 8:55 EDT Reading Location ID and State: [facility] [place] Tel , Service support , CC: YESSI Thompson; Dr. Edel Garcia DO Hair Salon Manager: Signed Edel Garcia DO Work Phone: Start: 10-21-2020 End: 10-21-2020 Urgent Care Visit Report Comments: See Note; NOTES: [facility] [address] [place] [address] OFFICE VISIT Date of Service: 10/21/20 MR#: [id number] Acct: [id number] Name: BESSIE KENNEDY Rep #: [id number] : 1980 Provider: JASMYNE Porter Age/Sex: 40/F Location: [facility] Status: Signed Intake Vital Signs 10/21/20 Height [...] mg PO DAILY 07/15/20 [History Confirmed 10/21/20] PFS Medical History Seasonal allergies (Chronic) Normal colonoscopy [...] 2 current occupational status: employed 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 Head: normal to inspection Neck Neck: normal [...] 1 year, prn with problems Afia Thompson STRATEGIC CONSULTANT Orders Orders: Pelvic (Non ) Today N92.1 Transvaginal Non- Today N92.1 Coding Level of Care Code Off vis,est,prev 40-64yrs Diagnoses Encounter for gynecological examination with abnormal finding Z01.411 ?Gynecological examination findings: abnormal findings PRESENT Menorrhagia with irregular cycle N92.1 07/15/20 1552 <Electronically signed by Afia HENDERSONC> Date Afia HENDERSONC Cosigner Signature: Date (if applicable) CC: Edel Garcia DO Work Phone: Start: 07-15-2020 End: 07-15-2020 SCREEN MAMM (CAD) W/MARIO BILAT Comments: See Note; NOTES: [facility] Imaging Services [address] [place] [address] SCREEN MAMM (CAD) W/MARIO BILAT MR#: [id number] Acct: [id number] Name: BESSIE KENNEDY DARI Rep #: [id number] : 1980 F 40 From: Dale cueva MD PCP: Dr. Edel Garcia DO Status: REG CLI Study: SCREEN MAMM (CAD) W/MARIO BILAT Date of Exam: 09/14/19 Exam# [id number] Ordering Dr: Afia Thompson NP PEER TUTOR -C MAMMOGRAPHY - BILATERAL SCREENING REASON FOR [...] delay biopsy of a clinically suspicious abnormality. [id number] Electronically Signed: Dale Jones, at 15:50 EST , Service support , CC: PEER TUTOR-Annalisa Thompson; Dr. Edel Garcia DO Hair Salon Manager: Signed Edel Garcia DO Work Phone: Start: 02-25-2020 End: 02-25-2020 Pelvic (Non ) Comments: See Note; NOTES: [facility] Imaging Services [address] [place] [address] Pelvic (Non ) MR#: [id number] Acct: [id number] Name: BESSIE KENNEDY Rep #: [id number] : 1980 F 39 From: Salvador Cintron MD PCP: Dr. Edel Garcia, DO Status: REG CLI Study: Pelvic (Non ) Date of Exam: 02/25/20 Exam# [id number] Ordering Dr: Anneliese Joseph PEER TUTOR-Annalisa STUDY: ULTRASOUND OF THE FEMALE PELVIS - [...] CC: YESSI Joseph; Dr. Edel Garcia DO Hair Salon Manager: Signed Anneliese Joseph Work Phone: Start: 02-20-2020 End: 02-20-2020 HIP, UNI W/ Pelvis 2-3 Views Comments: See Note; NOTES: [facility] Imaging Services [address] [facility] [address] [place] [address] HIP, UNI W/ Pelvis 2-3 Views MR#: [id number] Acct: [id number] Name: BESSIE KENNEDY DARI Rep #: [id number] : 1980 F 39 From: Iraj Sotelo MD PCP: Dr. Edel Garcia, Status: REG CLI Study: HIP, UNI W/ Pelvis 2-3 Views Date of Exam: Exam# [id number] Ordering Dr: Anneliese Joseph STUDY: X-RAY - [...] CC: YESSI Joseph; Dr. Edel Garcia DO Hair Salon Manager: Signed Ashwini Opal Work Phone: Start: 09-12-2019 End: 09-12-2019 Venous Duplex Lower Extremity Comments: See Note; NOTES: [facility] Cardiovascular Services [address] [place] [address] Venous Duplex US - Maximilian Extrem 09/12/19 1003 MR#: [id number] Acct: [id number] Name: BESSIE KENNEDY Rep #: [id number] : 1980 39 From: Nestor Escalera MD [...] and/or faxed to Dr. De Leon @ [phone] @ 10:25 am. Interpretation Summary Deep veins of the lower extremities are bilaterally patent and compressible segmentally. There is no evidence of deep vein thrombosis on either side. Valvular competence appears intact within the proximal deep venous systems bilaterally. The great saphenous veins appear bilaterally patent and compressible segmentally. Ordering Physician: Jessica De Leon Referring Physician: Jessica De Leon Performed By: Shaina Henderson, RDMARGARITO, RVT 09/12/191904 Date Nestor Escalera MD CC: Jessica De Leon MD; Edel Jose DO Date Dictated: 09/12/19 1003 Date Transcribed: 09/12/191904 Hair Salon Manager: Signed Jessica De Leon Work Phone: Start: 06-22-2019 End: 06-23-2019 Tibia AND Fibula 2 Views Comments: See Note; NOTES: [facility] Imaging Services [address] [place] [address] Tibia AND Fibula 2 Views MR#: [id number] Acct: [id number] Name: BESSIE KENNEDY Rep #: [id number] : 1980 F 38 From: Kelsea Caal MD PCP: Wiley Mcelroy MD Status: REG CLI Study: Tibia AND Fibula 2 Views Date of Exam: 06/22/19 Exam# [id number] Ordering Dr: Jessica De Leon MD STUDY: [...] Jessica De Leon MD; Wiley Mcelroy MD Hair Salon Manager: Signed Jessica De Leon Work Phone: Start: 07-13-2017 End: 07-13-2017 Documentation of current medications Afia Thompson PEER TUTOR Work Phone: Start: 07-13-2017 End: 07-14-2017 CBC W Auto Differential panel - Blood Afia Marshall Donna PEER TUTOR Work Phone: Start: 07-13-2017 End: 07-13-2017 Endometrial bx w/wo endocervix bx w/o dilat spx Afia Thompson PEER TUTOR Work Phone: Start: 04-19-2017 End: 04-19-2017 Documentation of current medications Afia Aguirretings PEER TUTOR Work Phone: Start: 04-19-2017 End: 04-25-2017 Us pelvic nonobstetric real-time image complete Afia Aguirretings PEER TUTOR Work Phone: Lactoferrin measurement Dr. Edel Garcia Work Phone: Plan of Treatment Date Care Activity Detail Author Start: 11-07-2023 Urine culture Urine Culture [facility] Start: 11-07-2023 [facility] Start: 10-27-2023 Egd transoral biopsy single/multiple EGD BIOPSY SINGLE/MULTIPLE [facility] Start: 10-27-2023 Patient discharge [facility] Start: 10-17-2023 Antibody to gastric parietal cell measurement [facility] Start: 10-17-2023 Gastrin [Mass/volume] in Serum or Plasma [facility] Start: 10-17-2023 IgG subclass panel [Mass/volume] - Serum [facility] Start: 10-17-2023 Immunoglobulin measurement [facility] Start: 10-17-2023 Intrinsic factor blocking Ab [Units/volume] in Serum [facility] Start: 10-17-2023 [facility] Start: 04-22-2023 Patient Education Urticaria [facility] Work Phone: Start: 04-22-2023 Procedure Education Eprescribed prescriptions (G8553) [facility] Work Phone: Start: 04-22-2023 Provider Instructions for Treatment Follow up if no improvement or if symptoms worsen [facility] Work Phone: Start: 03-07-2023 C-reactive protein C-REACTIVE PROTEIN (74160) [facility] Work Phone: Start: 03-07-2023 Comprehensive metabolic panel METABOLIC PANEL, COMPREHENSIVE (78919) [facility] Work Phone: Start: 03-07-2023 Procedure Education Eprescribed prescriptions (G8553) [facility] Work Phone: Start: 03-07-2023 Sedimentation rate rbc automated Sedimentation Rate-ESR (00387) [facility] Work Phone: Start: 11-12-2022 Assay of ferritin FERRITIN (22914) [facility]; [facility] Work Phone: Comment on above: in 8 wks Start: 11-12-2022 Assay of iron IRON (90430) [facility]; [facility] Work Phone: Comment on above: in 8 wks Start: 11-12-2022 Blood count complete auto&auto difrntl wbc CBC, PLATELETS & AUT DIFF (15224) : with peripheral smear [facility]; [facility] Work Phone: Comment on above: in 8 wks Start: 11-12-2022 Blood count reticulocyte automated RETICULOCYTE COUNT [facility] (89065) [facility]; [facility] Work Phone: Comment on above: in 8 wks Start: 11-12-2022 Iron binding capacity IRON BINDING CAPACITY (TIBC) (98969) [facility]; [facility] Work Phone: Comment on above: in 8 wks Start: 11-09-2022 Blood count complete auto&auto difrntl wbc CBC, PLATELETS & AUT DIFF (02831) [facility]; [facility] Work Phone: Start: 11-09-2022 Comprehensive metabolic panel METABOLIC PANEL, COMPREHENSIVE (81249) [facility]; [facility] Work Phone: Start: 11-09-2022 Lipid panel LIPID PANEL (10752) [facility]; [facility] Work Phone: Start: 11-09-2022 Procedure Education Eprescribed prescriptions (G8553) [facility]; [facility] Work Phone: Start: 11-09-2022 Provider Instructions for Treatment Follow up in 6 months [facility] Work Phone: Start: 09-06-2022 25 hydroxy includes fractions if performed CALCIFEDIOL (61632) [facility]; [facility] Work Phone: Start: 09-06-2022 Assay of thyroid stimulating hormone tsh TSH (THYROID STIMULATING HORMONE) (94255) [facility]; [facility] Work Phone: Start: 09-06-2022 Cyanocobalamin vitamin b-12 VITAMIN B12 AND FOLATES (78448) [facility]; [facility] Work Phone: Start: 09-06-2022 Provider Instructions for Treatment [facility] Work Phone: Start: 06-02-2022 Immunoglobulin measurement [facility] Work Phone: Start: 06-02-2022 [facility] Work Phone: Start: 05-19-2022 Colonoscopy w/biopsy single/multiple COLONOSCOPY AND BIOPSY [facility] Work Phone: Start: 05-19-2022 Egd transoral biopsy single/multiple EGD BIOPSY SINGLE/MULTIPLE [facility] Work Phone: Start: 05-19-2022 Patient discharge [facility] Work Phone: Start: 02-12-2022 Protein measurement [facility] Work Phone: Start: 02-09-2022 Celiac disease screen [facility] Work Phone: Start: 02-09-2022 General foods mix RAST test [facility] Work Phone: Start: 02-09-2022 [facility] Work Phone: Start: 12-24-2021 Patient referral [facility] Work Phone: Start: 03-16-2021 Procedure Education Eprescribed prescriptions (G8553) [facility]; [facility] Work Phone: Start: 03-16-2021 Provider Instructions for Treatment *fatigue education [facility]; [facility] Work Phone: Start: 03-05-2020 Procedure Education Eprescribed prescriptions (G8553) [facility] Work Phone: Start: 03-05-2020 Provider Instructions for Treatment Reviewed Diagnostic Tests [facility] Work Phone: Start: 02-20-2020 Procedure Education Eprescribed prescriptions (G8553) [facility] Work Phone: Start: 02-20-2020 Provider Instructions for Treatment Follow up in 2 weeks [facility] Work Phone: Start: 07-03-2019 Procedure Education Eprescribed prescriptions (G8553) [facility] Work Phone: Start: 07-03-2019 Basic metabolic panel calcium total Metabolic Panel, Basic (15895) [facility] Work Phone: Start: 07-03-2019 Creatine kinase total Creatine Kinase Total (22340) [facility] Work Phone: Start: 06-12-2019 Lipid panel Lipid Panel (31136) [facility] Work Phone: Start: 06-12-2019 Procedure Education Eprescribed prescriptions (G8553) [facility] Work Phone: Start: 06-12-2019 Nuclear Ab IF (S) [Titer] FARZAD (ANTINUCLEAR ANTIBODY) (94107) [facility] Work Phone: Start: 06-12-2019 25 hydroxy includes fractions if performed CALCIFIDIOL (50855) VIT D 25 [facility] Work Phone: Start: 06-12-2019 Urine albumin quantitative MICROALBUMIN: CREATININE RATIO (02391) AND (57332) [facility] Work Phone: Start: 06-12-2019 Free T4 [Mass/Vol] T4, FREE (THYROXINE) (02585) [facility] Work Phone: Start: 06-12-2019 TSH Qn TSH (44449) [facility] Work Phone: Start: 06-12-2019 Protein electrophoretic fractj&quantj serum SPEP (12724) [facility] Work Phone: Start: 06-12-2019 Ammonia (P) [Mass/Vol] AMMONIA (69010) [facility] Work Phone: Start: 06-12-2019 Comprehensive metabolic panel Metabolic Panel, Comprehensive (80344) [facility] Work Phone: Start: 11-17-2018 Provider Instructions for Treatment [facility] Work Phone: Start: 07-13-2017 End: 07-13-2017 Patient encounter procedure Appointment [facility] Start: 07-13-2017 End: 07-14-2017 CBC W Auto Differential panel - Blood *CBC with Differential [facility] Start: 07-13-2017 End: 07-13-2017 Endometrial bx w/wo endocervix bx w/o dilat spx Endometrial Biopsy [facility] Start: 05-06-2017 End: 05-10-2017 Us pelvic nonobstetric real-time image complete US Pelvis [facility] Start: 05-06-2017 End: 05-10-2017 Us transvaginal US Transvaginal [facility] Start: 04-19-2017 End: 04-19-2017 [facility] [facility] Start: 04-19-2017 End: 04-25-2017 Us pelvic nonobstetric real-time image complete US Pelvis [facility] Start: 04-19-2017 End: 04-25-2017 Us transvaginal US Transvaginal [facility] Start: 12-20-2013 Patient Education Cough Medicines, Nonprescription: cough [facility] Work Phone: Start: 05-11-2013 Provider Instructions for Treatment [facility] Work Phone: Start: 05-09-2013 Procedure Education Anesthesia - Lido 1%/2% no Epi [facility] Work Phone: Start: 05-09-2013 Provider Instructions for Treatment [facility] Work Phone: Start: 05-09-2013 Cul bact xcpt urine blood/stool aerobic isol [facility] Work Phone: Comment on above: left breast boil Start: 05-09-2013 Iadna s aureus methicillin resist amp probe tq MRSA Culture (70056) [facility] Work Phone: Comment on above: nose Start: 01-23-2013 25 hydroxy includes fractions if performed Vitamin D Hydroxy (11189) [facility] Work Phone: Start: 08-31-2012 Provider Instructions for Treatment [facility] Work Phone: Start: 11-16-2011 25 hydroxy includes fractions if performed Vitamin D Hydroxy (03159) [facility] Work Phone: Start: 10-27-2011 Culture bacterial quanttative colony count urine URINE EGOVANY CULTURE-YANCY COL COUNT (51589) [facility] Work Phone: Start: 03-24-2011 Provider Instructions for Treatment [facility] Work Phone: Start: 10-30-2010 Provider Instructions for Treatment Reviewed Diagnostic Tests [facility] Work Phone: Start: 10-16-2010 Provider Instructions for Treatment FOLLOW UP IN 2 WEEKS [facility] Work Phone: Start: 06-15-2010 Provider Instructions for Treatment FOLLOW UP IN 10 days [facility] Work Phone: Start: 05-08-2010 Iaadiadoo streptococcus group a Rapid Strep Test, Office (07706) [facility]; [facility] Work Phone: Start: 05-08-2010 S. pyogenes Ag IA Ql (Unsp spec) Rapid Strep Test, Office (80137) [facility] Work Phone: Start: 09-07-2007 Provider Instructions for Treatment [facility] Work Phone: Start: 06-06-2007 Wbc alkaline phosphatase count LEUKOCYTE ALK PHOS+COUNT (77444) [facility] Work Phone: Start: 05-17-2007 Provider Instructions for Treatment Antidepressant Usage [facility] Work Phone: Start: 04-13-2007 Provider Instructions for Treatment Antidepressant Usage [facility] Work Phone: Start: 04-11-2007 Antinuclear antibodies farzad FARZAD (ANTINUCLEAR ANTIBODY) (78034) [facility]; [facility] Work Phone: Start: 04-11-2007 Nuclear Ab IF titer (S) FARZAD (ANTINUCLEAR ANTIBODY) (11634) [facility] Work Phone: Start: 04-11-2007 Rheumatoid factor quantitative RHEUMATOID FACTOR-QUANT (82197) [facility] Work Phone: Start: 04-11-2007 C-reactive protein C-REACTIVE PROTEIN (95425) [facility]; [facility] Work Phone: Start: 04-11-2007 CRP mass conc C-REACTIVE PROTEIN (04230) [facility] Work Phone: Start: 04-11-2007 Sedimentation rate rbc non-automated SED RATE ERYTHROCYTE (10443) [facility] Work Phone: Start: 04-11-2007 Comprehensive metabolic panel METABOLIC PANEL, COMPREHENSIVE (28252) [facility] Work Phone: Start: 04-11-2007 Assay of thyroid stimulating hormone tsh TSH (88897) [facility]; [facility] Work Phone: Start: 04-11-2007 Thyrotropin Qn TSH (03024) [facility] Work Phone: Start: 04-11-2007 Blood count manual cell count each CBC WITH MANUAL DIFF (17188) [facility] Work Phone: Start: 04-11-2007 Antibody evaristo-stevens eb virus viral capsid vca EB ANTIBODY VIRAL CAPSID (61387) X2 [facility] Work Phone: Start: 04-11-2007 Antibody evaristo-stevens eb virus nuclear ag ebna EB ANTIBODY NUCLR ANTIGN (36649) [facility] Work Phone: Start: 04-11-2007 Antibody evaristo-stevens eb virus early antigen ea EB ANTIBODY EARLY ANTIGN (83970) [facility] Work Phone: Start: 11-07-2006 Provider Instructions for Treatment FOLLOW UP IN 6 WEEKS [facility] Work Phone: Start: 09-26-2006 Assay of thyroid stimulating hormone tsh TSH (51896) [facility]; [facility] Work Phone: Start: 09-26-2006 C-reactive protein C-REACTIVE PROTEIN (43097) [facility]; [facility] Work Phone: Start: 09-26-2006 Comprehensive metabolic panel METABOLIC PANEL, COMPREHENSIVE (06076) [facility] Work Phone: Start: 09-26-2006 CRP mass conc C-REACTIVE PROTEIN (08637) [facility] Work Phone: Start: 09-26-2006 Sedimentation rate rbc non-automated SED RATE ERYTHROCYTE (54273) [facility] Work Phone: Start: 09-26-2006 Thyrotropin Qn TSH (98074) [facility] Work Phone: Start: 09-26-2006 Provider Instructions for Treatment FOLLOW UP IN 1 WEEK [facility] Work Phone: Antibody to lupus La protein measurement [facility] Work Phone: Antibody to SS-A measurement [facility] Work Phone: Beef IgE Ab [Units/volume] in Serum [facility] Work Phone: Centromere protein B Ab [Units/volume] in Serum [facility] Work Phone: Chocolate IgE Ab [Units/volume] in Serum [facility] Work Phone: Chromatin Ab [Units/volume] in Serum or Plasma [facility] Work Phone: Clam IgE Ab [Units/volume] in Serum [facility] Work Phone: Codfish IgE Ab [Units/volume] in Serum [facility] Work Phone: Poway IgE Ab [Units/volume] in Serum [facility] Work Phone: Cow milk IgE Ab [Units/volume] in Serum [facility] Work Phone: DNA double strand Ab [Units/volume] in Serum [facility] Work Phone: Egg white IgE Ab [Units/volume] in Serum [facility] Work Phone: Elastase, pancreatic (el-1), fecal; quantitative [facility] Work Phone: Fat [Presence] in Stool [facility] Work Phone: Fish RAST [facility] Work Phone: IgA [Mass/volume] in Serum or Plasma [facility] Work Phone: IgA [Mass/volume] in Serum or Plasma [facility] IgE [Units/volume] i n Serum or Plasma [facility] Work Phone: IgE [Units/volume] i n Serum or Plasma [facility] IgG [Mass/volume] in Serum or Plasma [facility] Work Phone: IgG [Mass/volume] in Serum or Plasma [facility] IgG subclass 1 [Mass/volume] in Serum [facility] IgG subclass 2 [Mass/volume] in Serum [facility] IgG subclass 3 [Mass/volume] in Serum [facility] IgG subclass 4 [Mass/volume] in Serum [facility] IgM [Mass/volume] in Serum or Plasma [facility] Work Phone: IgM [Mass/volume] in Serum or Plasma [facility] Radha-1 extractable nuc lear Ab [Units/volume] in Serum [facility] Work Phone: Lactoferrin [Presenc e] in Stool by Immunoassay [facility] Work Phone: Measurement of immunoglobulin A in serum specimen [facility] Work Phone: MG Breast - bilatera l Screening [facility] MR Biliary ducts and Pancreatic duct WO contrast [facility] Work Phone: Neutrophil cytoplasm ic Ab.classic [Units/volume] in Serum [facility] Work Phone: P-ANCA measurement [facility] Work Phone: Patient referral [facility] Work Phone: Peanut IgE Ab [Units/volume] in Serum [facility] Work Phone: Pork IgE Ab [Units/volume] in Serum [facility] Work Phone: Protein measurement [facility] Work Phone: Radionuclide gastric emptying study [facility] Scallop RAST [facility] Work Phone: SCL-70 extractable nuclear Ab [Units/volume] in Serum by Immunoassay [facility] Work Phone: Sesame seed RAST [facility] Work Phone: Shrimp IgE Ab [Units/volume] in Serum [facility] Work Phone: Varela extractable nu clear Ab [Presence] in Serum [facility] Work Phone: Soybean IgE Ab [Units/volume] in Serum [facility] Work Phone: Tissue transglutamin ase IgA Ab [Units/volume] in Serum [facility] Work Phone: US Pelvis [facility] US Pelvis transvaginal [place] [facility] Work Phone: Wheat IgE Ab [Units/volume] in Serum [facility] Work Phone: Whole Egg IgE Ab [Units/volume] in Serum [facility] Work Phone: [facility] Work Phone: [facility] Work Phone: [facility] Work Phone: [facility] Work Phone[facility] Work Phone: [facility] Work Phone: [facility] Work Phone: [facility] Work Phone: [facility] Work Phone: [facility] Work Phone: [facility] Work Phone: [facility] Work Phone: [facility] Work Phone: [facility] Work Phone: [facility] Work Phone: [facility] Work Phone: [facility] Work Phone: [facility] Work Phone: Boil, breast : Anesthesia - Lido 1%/2% no Epi [facility] Work Phone: [facility] Work Phone: [facility] Work Phone: [facility] Work Phone: [facility] Work Phone: [facility] Work Phone: [facility]; [facility] Work Phone: [facility] Immunizations Immunization Date Immunization Notes Care Provider Fa cility 06-04-2009 influenza, seasonal, injectable Edel Garcia [facility] Work Phone: Payers Date Payer Category Payer Unknown [id number] 2024 Self-pay [id number] 2022 Unknown [id number] 2020 Unknown [id number] 2018 Unknown [id number] 2009 Unknown [id number] 2006 Unknown MRN [id number] 2005 Unknown [id number] 1980 Unknown [id number] 2.16.84 [id number] Unknown Unknown [facility] [id number] Unknown [id number] 2.16.8 [id number] Unknown [id number] 2.16.8 [id number] Unknown [id number] 2.16.8 [id number] Unknown [id number] 2.16.8 [id number] Unknown [id number] 2.16.8 [id number] Unknown [id number] 2.16.8 [id number] Unknown [id number] 2.16.8 [id number] Unknown [id number] 2.16.8 [id number] Unknown [id number] 2.16.8 [id number] Unknown [id number] 2.16.8 [id number] Social History Date Type Detail Facility Caffeine Use [facility] Work Phone: Comment on above: 1-4 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, 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 Smokes < 1 pack of c igarettes per day Start: 10-21-2020 End: 11-06-2023 Tobacco smoking status NHIS Unknown if ever smoked [facility] Start: 1980 Sex Assigned At Female W [facility] Start: 11-06-2023 Tobacco smoking stat us NHIS Ex-smoker (finding) [facility] Sex Female [facility] NEGATED: Highlighted row [facility] Goals Date Patient Goal Desired Activity /State Mental Status Date Assessment Result Facility 10-27-2023 Cognitive function Touch/Shaking [facility] Work Phone: 05-19-2022 Cognitive function Level Of Consciousness Sedated [facility] Work Phone: 05-19-2022 Cognitive function Voice/Name [facility] Work Phone: Clinical Notes 04-19-2017 to 05-21-2025 Note Date & Type Note Facility 05-21-2025 Progress note [facility] 05-21-2025 Progress note Note Date/Time May 21, 2025 2:59pm [facility] [address], [address] [place] [address] OFFICE VISIT Date of Service: 05/21/25 MR#: [id number] Acct: [id number] Name: BESSIE KENNEDY DARI Rep #: [id number] : 1980 Provider: YESSI Thompson Age/Sex: 44/F [place] [facility] [place]: Signed Intake Vital Signs 02/21/25 15:32 05/21/25 14:45 05/21/25 14:50 Height 5 ft 2 in 5 ft 2 in 5 ft 2 in Weight: 199 lb 2 oz 192 lb 2 oz BMI 36.4 35.1 BP 133/80 H Intake Visit Reasons: Annual (POURER OFF) Chief Complaint: Annual 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: No Is patient in pain?: No Allergies amoxicillin Adverse Reaction (Severe, Verified 05/21/25 14:51) diahrrea clavulanic acid (From Augmentin) Adverse Reaction (Intermediate, Verified 05/21/25 14:51) Diarrhea Medications ?Medication ?Instructions ?Recorded ?Confirmed ?Type hydrochlorothiazide 12.5 mg tablet 12.5 mg PO DAILY CA N edema 07/20/23 05/21/25 History pantoprazole 20 mg tablet,delayed 20 mg PO DAILY #90 t abs 12/13/24 05/21/25 Rx release (Protonix) metoclopramide HCl 5 mg tablet 5 mg PO TID #90 tabs 05/21/25 Rx ipratropium bromide 21 mcg (0.03 2 spray intranasal BI D-TID PRN 05/09/25 05/21/25 Rx %) nasal spray postnasal drainage #30 mL phentermine 37.5 mg capsule 37.5 mg PO QDAY #30 caps 0 05/10/25 05/21/25 Rx Is last menstrual period known: Yes Last Menstrual Period: 05/10/25 Post menopausal: No Patient : No : No PFSH Medical History History of ulceration History of mammogram Wears contact lenses Anxiety Low iron Restless legs Gastric reflux Former smoker History of edema Seasonal allergies Surgical History History of colonoscopy History of lymph node excision Family History Grandmother Colon cancer Cancer ovarian Anemia Diabetes Grandfather Myocardial infarction, Onset Age: 50 Father Heart disease Hypertension Hyperlipemia Diabetes Bleeding disorder Colon cancer Hypercholesteremia Mother Hypertension Arthritis Diabetes Hypercholesteremia Osteoporosis Sister Thyroid disorder Arthritis Autoimmune disorder Skin cancer Daughter Asthma Social History household members: spouse and children number of children: 2 current occupational status: employed 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 No ibuprofen use. History 1 Elective abortions Hx Para 1 Spontaneous abortions Hx # Term Pregnancies Ectopic pregnancies Hx # Pregnancies Multiple births # of living children 1 Past Pregnancies Del. Date Name GA/Weeks Outcome Route Bth Weight Infant Gen [facility] Leisa 2003 HPI Encounter for routine gynecological examination Details: BESSIE KENNEDY is a 44 year old who presents for annual exam. Denies concerns Last PAP: 2019 History of abnormal PAP: no Last mammogram: 2023 History of abnormal mammogram: no Colon cancer screening: age 45 Other preventative health care screenings: [place] Female Reproductive History Last Menstrual Period: 05/10/25 Cycle Length: 21-35 Questions: metrorrhagia: No, sexually active: Yes, dyspareunia: No and PCB: No ROS Const Constitutional: Denies fatigue, weight gain or weight loss Cardio Card: Denies chest pain Resp Resp: Denies cough or dyspnea on exertion GI GI: Denies abdominal pain, bloating, change in stool character, constipation or vomiting : Reports as per HPI; Denies difficulty voiding, pelvic pain, urinary frequency, urinary incontinence,urinary urgency, vaginal discharge or vaginal pruritus Exam Const General: cooperative, healthy appearing, no acute distress and well developed Orientation: alert, oriented to person and oriented to place HENMT Head: normal to inspection Neck Neck: normal visual inspection Thyroid: thyroid normal Lymphatic: no lymphadenopathy noted Chest Breast inspection: normal inspection of the breasts and normal inspection of theaxillae Breast palpation: normal palpation of the breasts, normal palpation of the axillae and no axillary lymphadenopathy Resp Effort & Inspection: normal respiratory effort GI Palpation: soft, no masses and nontender Rectal Exam: deferred External Female Exam: normal external appearance, normal appearance of the urethra and other (.5cm clear fluid filled inclusion cyst left clitoral juárez, nontender stable) Urethra: normal appearance of the urethra and normal palpation Speculum Exam - Vagina: normal appearance of the vagina and normal vaginal discharge Speculum Exam - Cervix: normal appearance of the cervix Bimanual Exam- Vagina & Uterus: normal bimanual exam, uterine size normal, uterine shape normal and non-tender Bimanual Exam- Adnexa, other: normal adnexae, no masses, normal and non-tender Pelvic Support: normal Neuro General: patient alert and patient oriented x3 Psych Affect: normal affect Coding Level of Care Code Off vis,est,prev 40-64yrs Diagnoses Encounter for gynecological examination without abnormal finding Z01.419 Gynecological examination findings: abnormal findings ABSENT Inclusion cyst of vulva N90.7 Assessment and Plan Assessment and Plan (1) Encounter for routine gynecological examination: Qualifiers: Gynecological examination findings: abnormal findings ABSENT Qualified Code(s): Z01.419 - Encounter for gynecological examination (general) (routine) without abnormal findings (2) Inclusion cyst of vulva: Status: Acute Comment: not bothersome; stable Orders: Orders PAP IG HPV APTIMA 16/18,45 Today Z12.4 - Encounter for screening for malignant neoplasm of cervix SCRN MAMM (CAD)W/MARIO BILAT Today Z12.39 - Encounter for other screening for malignant neoplasm of breast Plan Completed breast and pelvic exam Reviewed diet and exercise Pap thin prep pap with HPV Mammogram ordered breast self exam encouraged monthly Contraception sp vasectomy Colonoscopy age 45 RTO 1 year, prn with problems Afia Thompson STRATEGIC CONSULTANT 05/21/25 [id number] <Electronically signed by Afia marshall PEER TUTOR PEER TUTOR-C> Date _ Afia Thompson PEER TUTOR PEER TUTOR-C Cosigner Signature: Date (if applicable) CC: ~ [facility] Work Phone: 1(370) 267-650906-26-2025 Evaluation note* Diagnosis Onset Date Resolution Status Admit Date Obesity acute February 21 3:13pm Lang's esophagus chronic February 21, 2025 3:13pm Epigastric pain chronic January 3:13pm Gastritis chronic February 21 3:13pm [facility] Work Phone: 1(925) 163-344906-26-2025 Evaluation note* Diagnosis Onset Date Resolution Status Admit Date Obesity acute February 21 3:13pm Lang's esophagus chronic February 21, 2025 3:13pm Epigastric pain chronic January 3:13pm Gastritis chronic February 21 3:13pm Acute sinusitis resolved May 09, 2025 12:42pm Inclusion cyst of vulva acute S eptember 2024 2:44pm Encounter for routine gynecological examination noneactive Septem naif 2024 2:44pm [facility] Work Phone: 1(139) 422-474902-29-2024 Procedure [facility] 10-27-2023 Procedure [facility]02-07-2022 NoteHNO ID: [id number] Author: Adán Garcia APRN.STRATEGIC CONSULTANT Service: ? Author Type: Nurse Practitioner Type: [...] symptoms occur. Patient agreeable to treatment plan. Adán Garcia APRN.[facility]08-22-2017 Fall risk [id number] risk assessmentBlheart center of [facility] Evaluation noteNo assessment information availableWReg[facility] Work Phone: evaluation note* Diagnosis Onset Date Resolution Status Diarrhea acute Family history of colon cancer acute [facility] Work Phone: evaluation note* Diagnosis Onset Date Resolution Status Diarrhea acute Family history of colon cancer acute Encounter for routine gynecological examination noneactive Epigastric pain acute Family history of colon cancer acute FH: inflammatory bowel disease acute Heartburn acute Nausea acute [facility] Work Phone: Evaluation note* Diagnosis Onset Date Resolution Status Epigastric pain acute Family history of colon cancer acute FH: inflammatory bowel disease acute Heartburn acute Nausea acute COVID-19 acute [facility] Work Phone: evaluation note* Diagnosis Onset Date Resolution Status Epigastric pain acute Family history of colon cancer acute FH: inflammatory bowel disease acute Heartburn acute Nausea acute COVID-19 acute Lang's esophagus acute Epigastric pain acute Gastritis acute [facility] Work Phone: Evaluation note* Diagnosis Onset Date Resolution Status COVID-19 acute Lang's esophagus acute Epigastric pain acute Gastritis acute [facility] Work Phone: evaluation note* Diagnosis Onset Date Resolution Status Acute pharyngitis acute [facility] Work Phone: Evaluation note* Diagnosis Onset Date Resolution Status Abnormal uterine bleeding (AUB) acute Encounter for routine gynecological examination noneactive [facility] Work Phone: Evaluation note* Diagnosis Onset Date Resolution Status Abnormal uterine bleeding (AUB) acute Encounter for routine gynecological examination noneactive Lower extremity edema acute Lower extremity pain acute [facility] Work Phone: evaluation note* Diagnosis Onset Date Resolution Status Lower extremity edema acute Lower extremity pain acute Breast mass, right acute Breast mass, right acute [facility] Work Phone: Evaluation note* Diagnosis Onset Date Resolution Status Breast mass, right acute Breast mass, right acute Lang's esophagus chronic Epigastric pain chronic Gastritis chronic [facility] Work Phone: Evaluation note* Diagnosis Onset Date Resolution Status Breast mass, right acute Lang's esophagus chronic Epigastric pain chronic Gastritis chronic Urinary tract infection none active [facility] Work Phone: History and physical note Author Nicholas Friend [facility] October 27, 2023 8:19am Note Date/Time October 27, 2023 8:19am [facility] Medical Records Department [address] [place] [address] History & Physical Exam 10/27/23818 MR#: [id number] Acct: [id number] Name: BESSIE KENNEDY DARI Rep #:[id number] : 1980 43 From: Nicholas West DO PCP: Dr. Edel Garcia, DO Status:[facility] Location: [place] [address] History and Physical Date of Admission: 10/27/23 BESSIE KENNEDY, is a 43 F who presents to the office today for FH mother colon cancer, at 62; maternal great-grandmother colon cancer;father colon tumor and UC; sister microscopic colitis *BGI established 6.14.22 upper abdominal pain and nausea with intake of lettuce,eggs, broccoli, berries. Coke and hot bathes help with intermittent loose stools. ? Biochemical 6.14.22 CBC, ESR, CMP, FARZAD comp, celiac without pertinent abnormality. ? CRP H4.38, Class I peanut, cow?s milk, egg ? Stool calprotectin, lactoferrin WNL ? US RUQ 6.30.22 without acute/chronic finding ? HIDA 7.15.22 EF 94% ? EGD/colonoscopy 05.19.22 EGD irregular Zline 37cm, metaplasia +; small hiatal hernia; gastritis. H.pylori negative. ? Colonoscopy congested mucosa; TI few 6mm ulcers. Pathology melanosis coli OV 06.02.22 start sucralfate PPI ? Biochemical 06.02.22 LFT, LDH, amylase, lipase, GAME, ANCA withoutpertinent abnormality ? MRCP 06.02.22 not performed ? Stool 06.09.22 elastase, fat WNL ? Biochemical 03.07.23 (PCP) CBC (anemia), CMP without pertinent abnormality. ? CRP H25.5, iron L42, TIBC H459, iron sat L9.2 OV 2..24- Pt reports the last 2 weeks she has been having epigastric pain. Hasbeen having migraines and took Excedrin which knows upsets her stomach. Is concerned about ulcers. Feels a gnawing pain in stomach that is better when she eats. No dysphagia. BM have been normal. ROS Const Constitutional: Positive for fatigue ENT ENT: No difficulty swallowing Gastro GI: Positive for abdominal pain, bloating, heartburn, excessive flatus and nausea/dyspepsia; No belching, change in bowel habits, change in stool character, coffee ground emesis, constipation, cramping, diarrhea, difficulty swallowing, feeling full early, incontinent of stools, Vomiting blood/hematemesis, Blood in stool, loose stools, Black,tarry stools, pain with swallowing, vomiting or other Musc Musculoskeletal: Positive for back pain and restless legs; No joint pain Skin Skin: No yellowing of the eye or itchy eyes Neuro Neurology: Positive for restless legs Psych Psychiatric: No anxiety and No depression Endo Endocrine: Positive for fatigue Aller/Imm Allergy/Immunologic: No itchy eyes Chris/Lymp Hematologic/Lymphatic: No easy bleeding or easy bruising Exam Const General: cooperative and well developed [facility] Head: normal to inspection and atraumatic Ears: hearing grossly normal bilaterally Nose: nasal discharge clear Face and sinus: normal facial exam Mouth: oral mucosae normal Throat: abnormal tonsil bilaterally hypertrophy 1+ Resp Effort & Inspection: normal respiratory effort and no audible wheezes Auscultation: Bilateral: Clear to Auscultation Cardio Palpation: normal PMI Rate: regular rate Rhythm: regular rhythm Neuro General: patient alert and CN's II-XI intact bilaterally Psych Appearance: grossly normal Mental Status: mental status grossly normal Quality Reporting Tobacco Screening ([facility] 138) Smoking Status: Former smoker Assessment and Plan Assessment and Plan (1) Epigastric pain: Status: Chronic Plan: 41 yr old female with recurrent severe episodic epigastric/LUQ pain, DDx includes EPI, pancreatitis, SOD, biliary obstruction. Will be treating gastritisand GERD/Lang's. We reviewed results from her EGD and colonoscopy Gastritis was trerated with one month of sucralfate and start pantoprazole 40 mgQAM. She stopped the pantoprazole because her insurance was not covering the medication. Will need to remain on PPI due to Lang's diagnosis. We will repeat her upper endoscopy for the surviallence of her Lang's esophagus. Stool tests for pancreas, more labs today MRCP f/u 2 mos (2) Gastritis: Status: Chronic Plan: as above (3) Lang's esophagus: Status: Chronic Plan: as above Orders: Orders Gastrin, Serum Today K22.70 - Lang's esophagus without dysplasia, K29.70 - Gastritis, unspecified, without bleeding Immunoglobulins G/A/M/E Today K22.70 - Lang's esophagus without dysplasia, K29.70 - Gastritis, unspecified, without bleeding IgG Subclasses Today K22.70 - Lang's esophagus without dysplasia, K29.70 - Gastritis, unspecified, without bleeding Triglycerides Today K22.70 - Lang's esophagus without dysplasia, K29.70 - Gastritis, unspecified, without bleeding Amylase Today K22.70 - Lang's esophagus without dysplasia, K29.70 - Gastritis, unspecified, without bleeding Lipase Today K22.70 - Lang's esophagus without dysplasia, K29.70 - Gastritis,unspecified, without bleeding Chromogranin A Today K22.70 - Lang's esophagus without dysplasia, K29.70 - Gastritis, unspecified, without bleeding Anti-Parietal Cell AB, QN Today K22.70 - Lang's esophagus without dysplasia, K29.70 - Gastritis, unspecified, without bleeding Intrinsic Factor Ab Today K22.70 - Lang's esophagus without dysplasia, K29.70- Gastritis, unspecified, without bleeding Comprehensive Metabolic Profil Today K22.70 - Lang's esophagus without dysplasia, K29.70 - Gastritis, unspecified, without bleeding CBC W/Diff, Automated Today K22.70 - Lang's esophagus without dysplasia, K29.70 - Gastritis, unspecified, without bleeding Gastric Emptying Study Today K22.70 - Lang's esophagus without dysplasia, K29.70 - Gastritis, unspecified, without bleeding I have examined the patient and the H&P has been reviewed. There are no clinicalchanges since date of exam. 10/27/23818 <Electronically signed by Nicholas West DO> Cosigner Signature (if applicable): CC: Dr. Edel Garcia DO; Nicholas West DO~ Signed [facility] Work Phone: Instructions* Name Dates Details Patient Instructions Indication:Tobacco use disorder Start:16-Mar-2021 Instruction Type:Provider Instructions for Treatment How to Access Health Informa tion Online using Patient Portal and 3rd [employer] Apps Indication:Tobacco use disorder Start:16-Mar-2021 Instruction [...] tion Online using Patient Portal and [employer]rd [employer] Apps Indication:Tobacco use disorder Start:16-Mar-2021 Instruction [...] tion Online using Patient Portal and [employer]rd [employer] Apps Indication:Tobacco use disorder Start:16-Mar-2021 Instruction [...] Informa tion Online using Patient Portal and [employer] Apps Indication:Tobacco use disorder Start:16-Mar-2021 Instruction [...] tion Online using Patient Portal and [employer]rd [employer] Apps Indication:Tobacco use disorder Start:16-Mar-2021 Instruction [...] tion Online using Patient Portal and [employer]rd [employer] Apps Indication:Anxiety Start:09-Nov-2022 Instruction Type:Patient Education Patient Instructions Indication:Tobacco use disorder Start:16-Mar-2021 Instruction Type:Provider Instructions for Treatment How to Access Health Informa tion Online using Patient Portal and [employer]rd [employer] Apps Indication:Tobacco use disorder Start:16-Mar-2021 Instruction [...] tion Online using Patient Portal and [employer]rd [employer] Apps Indication:Anxiety Start:09-Nov-2022 Instruction Type:Patient Education Patient Instructions Indication:Tobacco use disorder Start:16-Mar-2021 Instruction Type:Provider Instructions for Treatment How to Access Health Informa tion Online using Patient Portal and [employer]rd [employer] Apps Indication:Tobacco use disorder Start:16-Mar-2021 Instruction [...] tion Online using Patient Portal and [employer]rd [employer] Apps Indication:Anxiety Start:09-Nov-2022 Instruction Type:Patient Education Patient Instructions Indication:Tobacco use disorder Start:16-Mar-2021 Instruction Type:Provider Instructions for Treatment How to Access Health Informa tion Online using Patient Portal and [employer]rd [employer] Apps Indication:Tobacco use disorder Start:16-Mar-2021 Instruction [...] tion Online using Patient Portal and [employer]rd [employer] Apps Indication:Anxiety Start:09-Nov-2022 Instruction Type:Patient Education Patient Instructions Indication:Tobacco use disorder Start:16-Mar-2021 Instruction Type:Provider Instructions for Treatment How to Access Health Informa tion Online using Patient Portal and [employer]rd [employer] Apps Indication:Tobacco use disorder Start:16-Mar-2021 Instruction [...] tion Online using Patient Portal and [employer]rd [employer] Apps Indication:Former smoker Start:07-Mar-2023 Instruction Type:Patient Education Patient Instructions Indication:Anxiety Start:09-Nov-2022 Instruction Type:Provider Instructions for Treatment How to Access Health Informa tion Online using Patient Portal and [employer]rd [employer] Apps Indication:Anxiety Start:09-Nov-2022 Instruction Type:Patient Education Patient Instructions Indication:Tobacco use disorder Start:16-Mar-2021 Instruction Type:Provider Instructions for Treatment How to Access Health Informa tion Online using Patient Portal and [employer]rd [employer] Apps Indication:Tobacco use disorder Start:16-Mar-2021 Instruction [...] tion Online using Patient Portal and [employer]rd [employer] Apps Indication:Former smoker Start:07-Mar-2023 Instruction Type:Patient Education Patient Instructions Indication:Anxiety Start:09-Nov-2022 Instruction Type:Provider Instructions for Treatment How to Access Health Informa tion Online using Patient Portal and [employer]rd [employer] Apps Indication:Anxiety Start:09-Nov-2022 Instruction Type:Patient Education Patient Instructions Indication:Tobacco use disorder Start:16-Mar-2021 Instruction Type:Provider Instructions for Treatment How to Access Health Informa tion Online using Patient Portal and [employer]rd [employer] Apps Indication:Tobacco use disorder Start:16-Mar-2021 Instruction [...] tion Online using Patient Portal and [employer]rd [employer] Apps Indication:Former smoker Start:07-Mar-2023 Instruction Type:Patient Education Patient Instructions Indication:Anxiety Start:09-Nov-2022 Instruction Type:Provider Instructions for Treatment How to Access Health Informa tion Online using Patient Portal and [employer]rd [employer] Apps Indication:Anxiety Start:09-Nov-2022 Instruction Type:Patient Education Patient Instructions Indication:Tobacco use disorder Start:16-Mar-2021 Instruction Type:Provider Instructions for Treatment How to Access Health Informa tion Online using Patient Portal and [employer] Apps Indication:Tobacco use disorder Start:16-Mar-2021 Instruction [...] tion Online using Patient Portal and [employer] Apps Indication:Former smoker Start:22-Apr-2023 Instruction Type:Patient Education Patient Instructions Indication:Former smoker Start:07-Mar-2023 Instruction Type:Provider Instructions for Treatment How to Access Health Informa tion Online using Patient Portal and [employer]rd [employer] Apps Indication:Former smoker Start:07-Mar-2023 Instruction Type:Patient Education Patient Instructions Indication:Anxiety Start:09-Nov-2022 Instruction Type:Provider Instructions for Treatment How to Access Health Informa tion Online using Patient Portal and [employer]rd [employer] Apps Indication:Anxiety Start:09-Nov-2022 Instruction Type:Patient Education Patient Instructions Indication:Tobacco use disorder Start:16-Mar-2021 Instruction Type:Provider Instructions for Treatment How to Access Health Informa tion Online using Patient Portal and [employer]rd [employer] Apps Indication:Tobacco use disorder Start:16-Mar-2021 Instruction [...] tion Online using Patient Portal and [employer]rd [employer] Apps Indication:Former smoker Start:22-Apr-2023 Instruction Type:Patient Education Patient Instructions Indication:Former smoker Start:07-Mar-2023 Instruction Type:Provider Instructions for Treatment How to Access Health Informa tion Online using Patient Portal and [employer]rd [employer] Apps Indication:Former smoker Start:07-Mar-2023 Instruction Type:Patient Education Patient Instructions Indication:Anxiety Start:09-Nov-2022 Instruction Type:Provider Instructions for Treatment How to Access Health Informa tion Online using Patient Portal and [employer]rd [employer] Apps Indication:Anxiety Start:09-Nov-2022 Instruction Type:Patient Education Patient Instructions Indication:Tobacco use disorder Start:16-Mar-2021 Instruction Type:Provider Instructions for Treatment How to Access Health Informa tion Online using Patient Portal and [employer]rd [employer] Apps Indication:Tobacco use disorder Start:16-Mar-2021 Instruction [...] Internal Medicine; [facility] Work Phone: reason for referral (narrative)No reason for referral information availableAd[facility] Work Phone: Instructions Name Dates Details Cough : Patient Instructions Indication:Cough Boil, breast : Patient Instr uctions Indication:Boil, breast Infection : Patient Instruct ions Indication:Infection Palpitations : Patient Instr uctions Indication:Palpitations Name Dates Details How to access [employer] online Indication:Tobacco use disorder Start:17-Nov-2018 Instruction Type:Patient Education How to access health informa [employer] online - Detail Indication:Tobacco use disorder Start:17-Nov-2018 [...] Name Dates Details How to access health [employer] online Indication:BMI 28.0-28.9,adult Start:12-Jun-2019 Instruction Type:Patient Education [...] for Treatment How to access health informa [employer] Indication:Tobacco use disorder Start:17-Nov-2018 Instruction Type:Patient Education [...] Name Dates Details How to access health [employer] Indication:BMI 28.0-28.9,adult Start:12-Jun-2019 Instruction Type:Patient Education How to access health informa tion online - Detail Indication:BMI 28.0-28.9,adult Start:12-Jun-2019 Instruction Type:Patient Education Patient Instructions Indication:BMI 28.0-28.9,adult Start:12-Jun-2019 Instruction Type:Provider Instructions for Treatment How to access health informa tion [employer] Indication:Tobacco use disorder Start:17-Nov-2018 Instruction Type:Patient Education [...] opic colitis Status:Active Thyroid Nodule Comments:Mother. Status:Active Relationship Condition Age at Onset Recorded Date/T martita grandmother Malignant neoplasm of colon Unknown Malignant neoplasm Unknown Anemia Unknown Diabetes mellitus Unknown grandfather Myocardial infarction 50 father Cardiac disease Unknown Hypertension Unknown Hyperlipidemia Unknown mother Hypertension Unknown sister Disorder of thyroid Unknown No Family History Records Found Advance Directives No Advanced Directives Records Found Advance Directive Response Recorded Date/ Time Living Will No May 18, 2022 9:49am Power of Pickle Maker No April 9:49am Advance Directive Response Recorded Date/ Time Living Will No May 18, 2022 8:49am Power of Pickle Maker No April 8:49am Advance Directive Response Recorded Date/ Time Living Will No October 24 11:36am Power of Pickle Maker No October 24, 2023 11:36am Advance Directive Response Recorded Date/ Time Living Will No October 24 12:36pm Power of Pickle Maker No October 24, 2023 12:36pm Chief Complaint and Reason for Visit Chief Complaint SCREENING Chief Complaint SCREENING COVID TEST FOR TRAVEL Annual (POURER OFF) PTOSIS LEFT EYE Reason for Visit Diarrhea Family history of colon cancer Chief Complaint SCREENING COVID TEST FOR TRAVEL Annual (POURER OFF) PTOSIS LEFT EYE Diarrhea E ORDER Reason for Visit Diarrhea Family history of colon cancer Encounter for routine gynecological examination Epigastric pain Family history of colon cancer FH: inflammatory bowel disease Heartburn Nausea Chief Complaint SCREENING COVID TEST FOR TRAVEL Annual (POURER OFF) PTOSIS LEFT EYE Diarrhea E ORDER EORDER- STOOL Reason for Visit Diarrhea Family history of colon cancer Encounter for routine gynecological examination Epigastric pain Family history of colon cancer FH: inflammatory bowel disease Heartburn Nausea Chief Complaint SCREENING COVID TEST FOR TRAVEL Annual (POURER OFF) PTOSIS LEFT EYE Diarrhea E ORDER EORDER- STOOL POSTPRANDIAL EPIGASTRIC PAIN, NAUSEA Reason for Visit Diarrhea Family history of colon cancer Encounter for routine gynecological examination Epigastric pain Family history of colon cancer FH: inflammatory bowel disease Heartburn Nausea Chief Complaint COVID TEST FOR TRAVE L Annual (POURER OFF) PTOSIS LEFT EYE Diarrhea E ORDER EORDER- STOOL POSTPRANDIAL EPIGASTRIC PAIN, NAUSEA POSTPRANDIAL EPIGASTRIC PAIN, NAUSEA Reason for Visit Diarrhea Family history of colon cancer Encounter for routine gynecological examination Epigastric pain Family history of colon cancer FH: inflammatory bowel disease Heartburn Nausea Chief Complaint PTOSIS LEFT EYE Diarrhea E ORDER EORDER- STOOL POSTPRANDIAL EPIGASTRIC PAIN, NAUSEA POSTPRANDIAL EPIGASTRIC PAIN, NAUSEA SORE THROAT/BODY ACHES/COUGH Reason for Visit Epigastric pain Family history of colon cancer FH: inflammatory bowel disease Heartburn Nausea COVID-19 Chief Complaint Diarrhea E ORDER EORDER- STOOL POSTPRANDIAL EPIGASTRIC PAIN, NAUSEA POSTPRANDIAL EPIGASTRIC PAIN, NAUSEA SORE THROAT/BODY ACHES/COUGH 2 WEEK FU E ORDER Reason for Visit Epigastric pain Family history of colon cancer FH: inflammatory bowel disease Heartburn Nausea COVID-19 Lang's esophagus Epigastric pain Gastritis Chief Complaint POSTPRANDIAL EPIGAST LAINEY PAIN, NAUSEA POSTPRANDIAL EPIGASTRIC PAIN, NAUSEA SORE THROAT/BODY ACHES/COUGH 2 WEEK FU E ORDER E ORDER Reason for Visit COVID-19 Lang's esophagus Epigastric pain Gastritis Chief Complaint SORE THROAT/JONES WH EN COUGHING SCREENING Reason for Visit Acute pharyngitis Chief Complaint SCREENING Annual (POURER OFF) Reason for Visit Abnormal uterine ble eding (AUB) Encounter for routine gynecological examination Chief Complaint Annual (POURER OFF) Consult LEG PAIN AND LOCALIZED EDEMA 4 WEEK F/U Reason for Visit Abnormal uterine ble eding (AUB) Encounter for routine gynecological examination Lower extremity edema Lower extremity pain Chief Complaint LEG PAIN AND LOCALIZ ED EDEMA 4 WEEK F/U breast lump, hard and tender RIGHT BREAST MASS BREAST LUMP RT BREAST ABN MAMM Reason for Visit Lower extremity manuela a Lower extremity pain Breast mass, right Breast mass, right Chief Complaint 4 WEEK F/U breast lump, hard and tender RIGHT BREAST MASS BREAST LUMP RT BREAST ABN MAMM Unspecified lump in the right breast, lower inner Reason for Visit Lower extremity manuela a Lower extremity pain Breast mass, right Breast mass, right Chief Complaint breast lump, hard an d tender RIGHT BREAST MASS BREAST LUMP RT BREAST ABN MAMM Unspecified lump in the right breast, lower inner CONSTANT STOMACH PAIN EORDER Reason for Visit Breast mass, right Breast mass, right Lang's esophagus Epigastric pain Gastritis Chief Complaint BREAST LUMP RT BREAST ABN MAMM Unspecified lump in the right breast, lower inner CONSTANT STOMACH PAIN EORDER BARRETTS ESOPHAGUS WITHOUT DYSPLASIA Urinary tract infection Reason for Visit Breast mass, right Lang's esophagus Epigastric pain Gastritis Urinary tract infection Chief Complaint Admit Date 6 M FU February 21, 2025 3:13 pm Chief Complaint Admit Date 6 M FU February 21, 2025 3:13 pm CONCERN FOR SINUS INFECTION May 092024 12:42pm Reason for Visit Admit Date Obesity February 21, 2025 3:13 pm Lang's esophagus February 21, 2025 3:13 pm Epigastric pain February 21, 2025 3:13 pm Gastritis February 21, 2025 3:13 pm Chief Complaint Admit Date 6 M FU February 21, 2025 3:13 pm CONCERN FOR SINUS INFECTION May 092024 12:42pm Annual (POURER OFF) May 21, 2025 2:44pm Reason for Visit Admit Date Obesity February 21, 2025 3:13 pm Lang's esophagus February 21, 2025 3:13 pm Epigastric pain February 21, 2025 3:13 pm Gastritis February 21, 2025 3:13 pm Acute sinusitis May 09, 2025 12:42pm Inclusion cyst of vulva May 21, 2025 2:44pm Encounter for routine gynecological exam ination May 21, 2025 2:44pm Additional Source Comments INFORMATION SOURCE (unrecogn ized section and content) DATE CREATED AUTHOR 10/10/2019 [facility] DATE CREATED AUTHOR AUTHOR'S ORGANIZ ATION 11/20/2021 [facility] DATE CREATED AUTHOR AUTHOR'S ORGANIZ ATION 11/10/2022 [facility] DATE CREATED AUTHOR AUTHOR'S ORGANIZ ATION [facility] [facility] Goals (unrecognized section and content) Goals may be documented in a n alternate sectionGoals may be documented in an alternate sectionGoals may be documented in an alternate sectionGoals may be documented in an alternate sectionGoals may be documented in an alternate sectionGoals may be documented in an alternate sectionGoals may be documented in an alternate sectionGoals may be documented in an alternate sectionGoals may be documented in an alternate sectionGoals may be documented in an alternate sectionGoals may be documented in an alternate sectionGoals may be documented in an alternate sectionGoals may be documented in an alternate sectionGoals may be documented in an alternate sectionGoals may be documented in an alternate section Care Teams (unrecognized sec tion and content) Team Status: Active Member Role Status Dates Dr. Edel Garcia DO Family Provider Active Dr. Edel Garcia DO Primary Care Provider Active Team Status: Inactive Member Role Status Dates Dr. Edel Garcia DO Primary Care Provider, Referr ing Provider Active Wally MEDLEY PA Attending Provider Active Team Status: Inactive Member Role Status Dates Dr. Edel Garcia DO Primary Care Provider Active Afia Thompson PEER TUTOR, PEER TUTOR-C Attending Provider, Referring Provider Active Shaniqua Bunn NP-Annalisa Other Provider Active Team Status: Inactive Member Role Status Dates Dr. Edel Garcia DO Primary Care Provider, Referr ing Provider Active Afia Thompson PEER TUTOR, PEER TUTOR-C Attending Provider Active Team Status: Inactive Member Role Status Dates Dr. Edel Garcia DO Primary Care Provider Active Shaniqua Bunn NP-C Attending Provider, Referring Pr ovider Active Team Status: Inactive Member Role Status Dates Dr. Edel Garcia DO Primary Care Provider, Referr ing Provider Active JASMYNE Coates Attending Provider Active Team Status: Active Member Role Status Dates Dr. Edel Garcia DO Primary Care Provider Active Dr. Sean Dumont MD Attending Provider Active Team Status: Inactive Member Role Status Dates Dr. Edel Garcia DO Primary Care Provider Active JASMYNE Coates Attending Provider, Referring Provider Active Team Status: Inactive Member Role Status Dates Dr. Edel Garcia DO Primary Care Provider, Referr ing Provider Active JASMYNE Molina Attending Provider Active Team Status: Active Member Role Status Dates Dr. Edel Garcia DO Primary Care Provider Active Dr. Sean Dumont MD Attending Provider Active JASMYNE Molina Referring Provider Active Team Status: Inactive Member Role Status Dates Dr. Edel Garcia DO Primary Care Provider, Referr ing Provider Active Dr. Martha Azul MD Attending Provider Active Team Status: Inactive Member Role Status Dates Dr. Edel Garcia DO Primary Care Provider Active JASMYNE Molina Attending Provider, Referring Provid er Active Team Status: Inactive Member Role Status Dates Dr. Edel Garcia DO Primary Care Provider Active Afia Thompson PEER TUTOR, PEER TUTOR-C Attending Provider, Referring Provider Active Team Status: Inactive Member Role Status Dates Dr. Edel Garcia DO Primary Care Provider Active Dr. Martha Azul MD Attending Provider, Referring Provider Active Team Status: Inactive Member Role Status Dates Dr. Edel Garcia DO Primary Care Provider Active Rosy MEDLEY PA-C Attending Provider, Referring Provider Active Team Status: Inactive Member Role Status Dates Dr. Edel Garcia DO Primary Care Provider, Referr ing Provider Active Dr. Nicholas West DO Attending Provider Active Team Status: Inactive Member Role Status Dates Dr. Edel Garcia DO Primary Care Provider Active Dr. Nicholas West , DO Attending Provider, Referring Provider Active Team Status: Active Member Role Status Dates Dr. Edel Garcia , DO Primary Care Provider, Referr ing Provider Active Dr. Nicholas West , DO Attending Provider, Other Prov ider Active Team Status: Inactive Member Role Status Dates Dr. Edel Garcia DO Primary Care Provider, Referr ing Provider Active Olimpia Weaver PA, PA Attending Provider Active Team Status: Active Member Role Status Dates Dr. Edel Garcia DO Primary Care Provider Active Olimpia Weaver PA, PA Attending Provider Active Team Status: Inactive Member Role Status Dates Dr. Edel Garcia DO Primary Care Provider Active Olimpia Weaver PA, PA Attending Provider Active Team Status: Inactive Member Role Status Dates Dr. Edel Garcia DO Primary Care Provider Active Start: February 21, 2025 End: February 21, 2025 Dr. Edel Garcia DO Referring Provider Active Start: February 21, 2025 End: February 21, 2025 Dr. Nicholas West DO Attending Provider Active Start: February 21, 2025 End: February 21, 2025 Team Status: Active Member Role/Relationship Status Dates Dr. Edel Garcia DO Family Provider Active Dr. Edel Garcia DO Primary Care Provider Active Team Status: Inactive Member Role/Relationship Status Dates Dr. Edel Garcia DO Primary Care Provider Active Start: February 21, 2025 End: February 21, 2025 Dr. Edel Garcia DO Referring Provider Active Start: February 21, 2025 End: February 21, 2025 Dr. Nicholas West DO Attending Provider Active Start: February 21, 2025 End: February 21, 2025 Team Status: Inactive Member Role/Relationship Status Dates Dr. Edel Garcia DO Primary Care Provider Active Start: May 09, 2025 End: May 09, 2025 Dr. Edel Garcia DO Referring Provider Active Start: May 09, 2025 End: May 09, 2025 JASMYNE Landaverde Attending Provider Active Sta rt: May 09, 2025 End: May 09, 2025 Team Status: Active Member Role/Relationship Status Dates Dr. Edel Garcia DO Primary care physician Active Team Status: Inactive Member Role/Relationship Status Dates Dr. Edel Garcia DO Primary care physician Active Start: February 21, 2025 End: February 21, 2025 Dr. Edel Garcia DO Referring Provider Active Start: February 21, 2025 End: February 21, 2025 Dr. Nicholas West DO Attending physician Active Start: February 21, 2025 End: February 21, 2025 Team Status: Inactive Member Role/Relationship Status Dates Dr. Edel Garcia DO Primary care physician Active Start: May 09, 2025 End: May 09, 2025 Dr. Edel Garcia DO Referring Provider Active Start: May 09, 2025 End: May 09, 2025 JASMYNE Landaverde Attending physician Active St art: May 09, 2025 End: May 09, 2025 Team Status: Inactive Member Role/Relationship Status Dates Dr. Edel Garcia DO Primary care physician Active Start: May 21, 2025 End: May 21, 2025 Dr. Edel Garcia DO Referring Provider Active Start: May 21, 2025 End: May 21, 2025 Afia Thompson NP, NP-C Attending physician Active Start: May 21, 2025 End: May 21, 2025 Team Status: Active Member Role/Relationship Status Dates Dr. Edel Garcia DO Primary care physician Active Start: May 21, 2025 Afia Thompson NP, NP-C Attending physician Active Start: May 21, 2025 FOR RECORDS PERTAINING TO PATIENTS WHO ARE [...] BE BASED ON THE PRIMARY CLINICAL RECORDS. [facility]. provides no warranty or guarantee of the accuracy or completeness of information in this document.
--- NOTE | 2025-07-26 07:30 | BI_ITS ---
EXAM: SCRN MAMM (CAD)W/MARIO BILAT DATE: 07/26/2025 CLINICAL HISTORY: F, Age 45 y/o , SCREENING FOR BREAST CANCER TECHNIQUE: Procedure Code: [id number] Modality: MG Procedure: SCRN MAMM (CAD)W/MARIO BILAT COMPARISON: Prior exam(s) dated mammogram dated 07/11/2024. FINDINGS: TISSUE DENSITY: There are scattered areas of fibroglandular density. Bilateral Breast Mammographic Findings: There are no suspicious masses, suspicious clustered microcalcifications, architectural distortion or secondary signs of malignancy identified in either breast. BI/SCRN MAMM (CAD)W/MARIO BILAT IMPRESSION: Negative screening mammogram OVERALL FINAL ASSESSMENT BI-RADS 1: NEGATIVE. RECOMMENDATION: Routine annual follow-up in 1 Year Additional Recommendation none A letter with findings and recommendations will be mailed to the patient. Reading Location: [id number]
== END | disposition home or self-care (01) ==
LOC: OPBI 07:22
PROVIDERS: PCP Internal Medicine; Referring Provider Nurse Practitioner Women's Health; Visit Provider Nurse Practitioner Women's Health
DX: Z12.31 Encounter for screening mammogram for malignant neoplasm of breast (principal)
CPT/HCPCS: 77063; 77067